=== PATIENT | male | born 1955 | race African-American/Black ===

== ENCOUNTER 2018-04-06 13:53 | Inpatient (IN) | payer OTHER ==
[~2018-04-06] VITALS: Ht 190.5 cm; Wt 106.1 kg
[~2018-04-06 13:53] MED LIST: ALBUTEROL2.5 MG/3 M INH; ARTIFICIAL TEA1 EAC2 OP; ATROVENT HFA12.9 GM IH; CATAPRES0.1 MG GT; COLACE100 MG GT; FENTANYL1 EAC1 TOPIC; HEPARIN2000 UNIT/ SUBQ; HIBICLENS118 ML TP; HYDRALAZINE HCL10 MG GT; LABETALOL H5 MG/1 M1 GT; LANSOPRAZOLE30 MG GT; METOPROLOL TART50 M1 GT; MINOXIDIL10 MG GT; MIRALAX17 G2 GT; MULTIVITAMINS GT; NIFEDIPINE10 MG GT; PANTOPRAZOLE SO40 MG GT; TYLENOL325 MG ORAL; ULTRAM50 MG GT; VITAMIN C500 M1 GT; ZINC SULFATE220 M1 GT; ZOCOR40 MG GT; [UNRECOGNIZED DRUG - OTHER]
--- NOTE | 2018-04-06 14:28 | Emergency Room Report ---
History of Present Illness General Chief Complaint: Malfunctioning Gastric Tube Source: EMS Present Illness HPI Patient is ventilator dependent and G-tube dependent. A baseline patient does not communicate. Patient has a history of chronic vegetative state. Patient also has history of compartment syndrome. At the senior living Dr. Kothari's listed primary care physician. Patient apparently had a dislodged G-tube discoverer early this morning brought here for further evaluation. Uncertain exactly when this G-tube was dislodged. History is not available and was only obtained through the paramedics. Patient isn't able to provide further history. No other modifying factors. No other associated signs and symptoms. No other complaints were noted. 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 Hx Weakness: Yes Review of Systems All Other Systems: limited - Poor mental status Physical Exam Vital Signs Date Time Temp Pulse Resp B/P (MAP) Pulse Ox O2 Delivery O2 Flow Rate FiO2 04/06/18 13:39 97.5 81 13 134/75 100 Mechanical Ventilator Sp02 EP Interpretation: reviewed, normal General Appearance: obese, other - Ventilator dependent, Chronically Ill Head: normocephalic Eyes: bilateral eye normal inspection ENT: moist mucus membranes, other - Tracheostomy tube Neck: other - Contractures, no masses Respiratory: lungs clear - With ventilator, no respiratory distress, no retraction, no accessory muscle use Cardiovascular #1: regular rate, rhythm, no edema Gastrointestinal: soft, other - G-tube stoma intact. Bleeding controlled, No cellulitis. Rectal: normal exam Genitourinary: normal inspection Musculoskeletal: other - contractures Neurologic: other - Unresponsive and unable to assess Psychiatric: other - Unable to assess Skin: no rash Medical Decision Making Diagnostic Impression: Primary Impression: Malfunction of gastrostomy tube Additional Impressions: Dislodged gastrostomy tube Hematuria UTI (urinary tract infection) ER Course Patient presents emergency department today with a dislodged gastrostomy tube. Differential diagnoses include dislodged gastrostomy tube, infectious process, close stoma just name a few. Patient's exam shows a gastrostomy site that appears to be closing. In attempt to place a G-tube was unsuccessful suggesting that the stoma unfortunately had closed. Because of this patient will require admission to the hospital. Case was discussed with Dr. Kothari for admission. Case was also discussed with Dr. Ananda Kaur. Patient will be admitted to Dr. Kaur service with Dr. Kothari consult per request. Patient also had evidence UTI on urine testing. Sauceda was placed. Patient was given one dose of Rocephin. Patient will be admitted to [facility] for further evaluation treatment of UTI as well as G-tube placement. Labs Test 04/06/18 14:33 White Blood Count 6.3 K/UL (4.8-10.8) Red Blood Count 4.65 M/UL (4.70-6.10) Hemoglobin 12.7 G/DL (14.2-18.0) Hematocrit 39.0 % (42.0-52.0) Mean Corpuscular Volume 84 FL (80-99) Mean Corpuscular Hemoglobin 27.4 PG (27.0-31.0) Mean Corpuscular Hemoglobin Concent 32.6 G/DL (32.0-36.0) Red Cell Distribution Width 12.7 % (11.6-14.8) Platelet Count 175 K/UL (150-450) Mean Platelet Volume 12.3 FL (6.5-10.1) Neutrophils (%) (Auto) 54.9 % (45.0-75.0) Lymphocytes (%) (Auto) 29.0 % (20.0-45.0) Monocytes (%) (Auto) 8.8 % (1.0-10.0) Eosinophils (%) (Auto) 6.4 % (0.0-3.0) Basophils (%) (Auto) 1.0 % (0.0-2.0) Urine Color Pale yellow Urine Appearance Slightly cloudy Urine pH 7 (4.5-8.0) Urine Specific [place] 1.010 (1.005-1.035) Urine Protein 2+ (NEGATIVE) Urine Glucose (UA) Negative (NEGATIVE) Urine Ketones Negative (NEGATIVE) Urine Blood 5+ (NEGATIVE) Urine Nitrite Negative (NEGATIVE) Urine Bilirubin Negative (NEGATIVE) Urine Urobilinogen Normal MG/DL (0.0-1.0) Urine Leukocyte Esterase 3+ (NEGATIVE) Urine RBC Tntc /HPF (0 - 0) Urine WBC 15-20 /HPF (0 - 0) Urine Squamous Epithelial Cells Occasional /LPF Urine Bacteria Many /HPF (NONE) Urine Yeast Moderate /HPF (NONE) Sodium Level 140 MMOL/L (136-145) Potassium Level 4.5 MMOL/L (3.5-5.1) Chloride Level 101 MMOL/L (98-107) Carbon Dioxide Level 32 MMOL/L (21-32) Anion Gap 7 mmol/L (5-15) Blood Urea Nitrogen 8 mg/dL (7-18) Creatinine 0.6 MG/DL (0.55-1.30) Estimat Glomerular Filtration Rate > 60 mL/min (>60) Glucose Level 104 MG/DL (74-106) Calcium Level 9.6 MG/DL (8.5-10.1) EKG Diagnostic Results Rate: normal Rhythm: NSR ST Segments: no acute changes Rhythm Strip Diag. Results EP Interpretation: yes Rate: 81 Rhythm: NSR, no PVC's, no ectopy Last Vital Signs Date Time Temp Pulse Resp B/P (MAP) Pulse Ox O2 Delivery O2 Flow Rate FiO2 04/06/18 13:39 97.5 81 13 134/75 100 Mechanical Ventilator Status: unchanged Disposition: ADMITTED INPATIENT Condition: Serious Shay Mitchell MD Apr 06, 2018 14:28
[2018-04-06] MEDS ORDERED: Albuterol/Ipratropium 3ml neb HHN PRN (14:45)
[2018-04-06] MEDS ORDERED: Morphine Sulfate 4mg/ml Inj (IV/IM USE ONLY) IVP PRN (14:45)
[2018-04-06] MEDS ORDERED: LORazepam Inj 2mg/ml 1ml IV PRN (14:45)
[2018-04-06] MEDS ORDERED: Miralax 17gm pkt ORAL PRN (14:45)
[2018-04-06] MEDS ORDERED: COUMADIN4 MG GT (15:06)
[2018-04-06] MEDS ORDERED: VITAMIN D400 INTLU GT (15:06)
[2018-04-06] MEDS ORDERED: ATORVASTATIN CA20 MG GT (15:06)
[2018-04-06] MEDS ORDERED: NITROSTAT0.4 M1 SL (15:06)
[2018-04-06] MEDS ORDERED: FERROUS SULFAT325 MG ORAL (15:06)
[2018-04-06] MEDS ORDERED: PRO-STAT LIQUID30 ML GT (15:06)
[2018-04-06 15:14] LABS: EOSINOPHILS % (AUTO) 6.4 % (0.0-3.0); HEMOGLOBIN 12.7 G/DL (14.2-18.0); MEAN CORPUSCULAR VOLUME 84 FL (80-99); MONOCYTES % (AUTO) 8.8 % (1.0-10.0); NEUTROPHILS % (AUTO) 54.9 % (45.0-75.0); PLATELET COUNT 175 K/UL (150-450); RED BLOOD COUNT 4.65 M/UL (4.70-6.10); RED CELL DISTRIBUTION WIDTH 12.7 % (11.6-14.8); WHITE BLOOD COUNT 6.3 K/UL (4.8-10.8)
[2018-04-06 15:16] LABS: APPEARANCE,URINE SLIGHTLY CLOUDY; BILIRUBIN, URINE NEGATIVE (NEGATIVE); COLOR,URINE PALE YELLOW; GLUCOSE, URINE (UA) NEGATIVE (NEGATIVE); KETONES,URINE NEGATIVE (NEGATIVE); LEUKOCYTE ESTERASE ,URINE 3+ (NEGATIVE); NITRITE,URINE NEGATIVE (NEGATIVE); PH,URINE 7 (4.5-8.0); PROTEIN,URINE 2+ (NEGATIVE); UROBILINOGEN,URINE NORMAL MG/DL (0.0-1.0)
[2018-04-06 15:21] VITALS: BP 134/75
[2018-04-06 15:31] LABS: ANION GAP 7 mmol/L (5-15); BLOOD UREA NITROGEN 8 mg/dL (7-18); CALCIUM 9.6 MG/DL (8.5-10.1); CARBON DIOXIDE 32 MMOL/L (21-32); CHLORIDE 101 MMOL/L (98-107); CREATININE 0.6 MG/DL (0.55-1.30); POTASSIUM 4.5 MMOL/L (3.5-5.1); SODIUM 140 MMOL/L (136-145)
[2018-04-06 15:35] LABS: ALANINE AMINOTRANSFERASE 27 U/L (12-78); ALBUMIN 3.1 G/DL (3.4-5.0); ALBUMIN/GLOBULIN RATIO 0.5 (1.0-2.7); ALKALINE PHOSPHATASE 135 U/L (46-116); ASPARTATE AMINO TRANSFERASE 24 U/L (15-37); BILIRUBIN,TOTAL 0.3 MG/DL (0.2-1.0)
[2018-04-06] MEDS ORDERED: cefTRIAXone 1 GM in NS 55 ML IVPB ONE (15:45)
[2018-04-06 16:46] VITALS: BP 151/89
--- NOTE | 2018-04-06 16:58 | History & Physical ---
History and Physical History & Physicial Dictated for Int Med-Dr Kaur no. [id number]. Ritesh Chavis MD Apr 06, 2018 16:58
[2018-04-06] MEDS ORDERED: Vancomycin 1750mg/D5W 300ml IVPB SCH ×2 (17:00)
[2018-04-06 20:00] VITALS: BP 145/84
--- NOTE | 2018-04-06 20:31 | History and Physical Report ---
DATE OF ADMISSION: 04/06/2018 CHIEF COMPLAINT: The patient is an unfortunate 63-year-old male, who presents with a chief complaint of malfunctioning gastrostomy tube. HISTORY OF PRESENT ILLNESS: The patient is a resident of [facility]. The patient has a history of chronic organic brain syndrome. The patient is chronic vent dependent. The patient has a gastrostomy tube for dysphagia. According to staff at [facility], the patient himself pulled out the gastrostomy tube today, 04/06/2018. The patient was transferred to [facility]. The gastrostomy tube was attempted to be replaced in the emergency room. This was unable to be accomplished. The patient is admitted with malfunctioning of gastrostomy tube (dislocation). PAST MEDICAL HISTORY: Significant for: 1. Chronic obstructive pulmonary disease. 2. Chronic vent dependence. 3. Hypertension. 4. Chronic renal failure. 5. Alzheimer's dementia. 6. Dysphagia. 7. Hypercholesterolemia. PAST SURGICAL HISTORY: Significant for: 1. Tracheostomy. 2. Gastrostomy tube placement. CURRENT MEDICATIONS: 1. Albuterol nebulized q.4 h. p.r.n. 2. Atorvastatin 10 mg per G-tube daily. 3. Clonidine 0.1 mg per G-tube q.4 h. p.r.n. 4. Coumadin 4 mg per G-tube nightly. 5. Iron sulfate 330 mg per G-tube daily. 6. Hydralazine 20 mg per G-tube q.6 h. 7. Prevacid 30 mg per G-tube daily. 8. Metoprolol 50 mg per G-tube twice daily. 9. Multivitamin per G-tube daily. 10. Tylenol 650 mg per G-tube q.4 h. p.r.n. 11. Ultram 25 mg per G-tube q.6 h. p.r.n. 12. Vitamin D3 5000 units per G-tube daily. ALLERGIES: To benazepril. SOCIAL HISTORY: The patient is single. The patient denies tobacco or alcohol use. PHYSICAL EXAMINATION: VITAL SIGNS: Temperature 97.5, respirations 17, pulse 77, and blood pressure 134/75. GENERAL: The patient is a well-developed and well-nourished male, who is nonverbal. HEENT: Eyes, pupils are equal and responsive to light and accommodation. Extraocular movements are intact. CHEST: Diffuse wheezes bilaterally, otherwise without crackles. CARDIOVASCULAR: Regular rate. S1, S2 normal without murmurs, rubs, or gallops. ABDOMEN: Soft, nontender, and nondistended. Positive bowel sounds. No evidence of hepatosplenomegaly. Currently, no rebound or guarding noted. EXTREMITIES: Negative for clubbing, cyanosis, or edema. RECTAL/GENITAL: Not performed. NEUROLOGICAL: Unable to assess secondary to the patient's mental status. LABORATORY STUDIES: WBC is 6.2, hemoglobin 12.7, hematocrit 39.0, and platelets 175,000. Sodium 140, potassium 4.5, chloride 101, CO2 32, BUN 8, and creatinine 0.6. Glucose 104. ASSESSMENT: This is a 63-year-old male with: 1. Dislodged malfunction of the gastrostomy tube. 2. Chronic obstructive pulmonary disease. 3. Hypertension. 4. Chronic renal failure. 5. Hypercholesterolemia. 6. Dysphagia. 7. Tracheostomy care. 8. Alzheimer's dementia. 9. Chronic organic brain syndrome. TREATMENT: 1. Malfunctioning G-tube. A Gastroenterology consultation has been obtained with Dr. Dillon Brantley. The patient will require reinsertion of gastrostomy tube. We will follow recommendations of Gastroenterology. 2. Chronic obstructive pulmonary disease. The patient is ventilator dependent. A Pulmonary consultation has been obtained with Dr. Steve Kothari. 3. Hypertension. Continue hydralazine as above. 4. Chronic renal failure. 5. Hypercholesterolemia. Continue Lipitor as above. 6. Dysphagia. The patient is scheduled for reinsertion of gastrostomy tube. 7. Tracheostomy care. 8. Alzheimer's dementia. 9. Chronic organic brain syndrome. Ritesh Chavis M.D. DR: ALYCE JOB#: [id number] CC:
[2018-04-06] MEDS: Heparin 5000 units/ml inj SUBQ SCH (21:06)
[2018-04-07] VITALS: BP 138/80
[2018-04-07] MEDS: Vancomycin 1gm in Dextrose 275ml IVPB SCH ×2 (01:05→08:05)
[2018-04-07 04:00] VITALS: BP 127/55
[2018-04-07 08:00] VITALS: BP 149/82
[2018-04-07] MEDS: Heparin 5000 units/ml inj SUBQ SCH ×2 (08:09→20:40)
[2018-04-07 08:30] LABS: EOSINOPHILS % (AUTO) 5.9 % (0.0-3.0); HEMATOCRIT 35.3 % (42.0-52.0); HEMOGLOBIN 11.2 G/DL (14.2-18.0); LYMPHOCYTES % (AUTO) 29.6 % (20.0-45.0); MEAN CORPUSCULAR VOLUME 84 FL (80-99); NEUTROPHILS % (AUTO) 52.5 % (45.0-75.0); PLATELET COUNT 162 K/UL (150-450); RED BLOOD COUNT 4.23 M/UL (4.70-6.10); RED CELL DISTRIBUTION WIDTH 12.9 % (11.6-14.8); WHITE BLOOD COUNT 7.3 K/UL (4.8-10.8)
[2018-04-07 09:00] LABS: ALBUMIN 2.7 G/DL (3.4-5.0); ANION GAP 3 mmol/L (5-15); BLOOD UREA NITROGEN 8 mg/dL (7-18); CALCIUM 9.5 MG/DL (8.5-10.1); CARBON DIOXIDE 31 MMOL/L (21-32); CHLORIDE 104 MMOL/L (98-107); CREATININE 0.7 MG/DL (0.55-1.30); POTASSIUM 3.8 MMOL/L (3.5-5.1); SODIUM 138 MMOL/L (136-145)
--- NOTE | 2018-04-07 09:22 | Diagnostic Imaging Report ---
Indication: Abdominal pain Technique: Supine view of the abdomen Comparison: none Findings: Bowel gas pattern is unremarkable. No unusual masses or calcifications. There is considerable stool in the rectum which is slightly distended. Impression: Evidence of possible mild rectal fecal impaction No acute process otherwise Sauceda catheter
--- NOTE | 2018-04-07 09:23 | Diagnostic Imaging Report ---
Indication: Cough Technique: One view of the chest Comparison: 07/28/2015 Findings: Patient's hand obscures the left lung base, pathology cannot be excluded. There is a tracheostomy. The remainder the lungs and pleural spaces are clear. The heart is upper limits normal in size. Impression: Cannot rule out left basilar pleural and/or parenchymal disease due to patient's hand obscuring the left lung base. No acute process otherwise
--- NOTE | 2018-04-07 11:35 | Consultation ---
History of Present Illness General Date patient seen: Apr 07, 2018 Chief Complaint: Malfunctioning Gastric Tube Present Illness HPI 63 year old male with ventilator dependent and G-tube dependent, chronic vegetative state brought to [facility] because of dislodged G-tube. History is not available and was only obtained through the paramedics. No other modifying factors. No other associated signs and symptoms. Pt is admitted to [facility] for further work up. Allergies: Coded Allergies: BENAZEPRIL (Verified Allergy, Unknown, 03/22/15) Medication History Scheduled Albuterol Sulfate* (Albuterol Sulfate Hhn*), 3 ML INH Q6H, (Reported) Amino Acids/Protein Hydrolys (Pro-Stat Liquid), 30 ML GT TWICE A DAY, (Reported) Atorvastatin Calcium* (Atorvastatin Calcium*), 10 MG GT BEDTIME, (Reported) Docusate Sodium* (Colace*), 100 MG GT BID, (Reported) Ferrous Sulfate* (Ferrous Sulfate*), 325 MG ORAL DAILY, (Reported) Hydralazine Hcl* (Hydralazine Hcl*), 20 MG GT EVERY 6 HOURS, (Reported) Lansoprazole* (Lansoprazole*), 30 MG GT DAILY, (Reported) Metoprolol Tartrate* (Metoprolol Tartrate*), 50 MG GT EVERY 12 HOURS, (Reported) Tramadol Hcl (Ultram*), 50 MG GT DAILY, (Reported) Vitamin D (Vitamin D3), 5,000 UNITS GT DAILY, (Reported) Warfarin Sod* (Coumadin*), 4 MG GT DAILY, (Reported) [multivitamins liquid], 5 ML GT DAILY, (Reported) Scheduled PRN Acetaminophen (Tylenol), 650 MG ORAL Q4HR PRN for fever/mild-mod pain, (Reported ) Clonidine Hcl* (Catapres*), 0.1 MG GT Q4HR PRN for BP >175, (Reported) Nitroglycerin (Nitrostat), 0.4 MG SL Q5M X3 DOSES PRN for CHEST PAIN, (Reported) Miscellaneous Medications [uit-stat], (Reported) Discontinued Medications Pantoprazole* (Pantoprazole*), 40 MG GT DAILY, (Reported) Discontinued Reason: Therapy completed Polyethylene Glycol 3350* (Miralax*), 17 GM GT DAILY PRN for Constipation, ( Reported) Discontinued Reason: Therapy completed Simvastatin (Zocor), 40 MG GT BEDTIME, (Reported) Discontinued Reason: Therapy completed Zinc Sulfate (Zinc Sulfate*), 220 MG GT DAILY, (Reported) Discontinued Reason: Therapy completed Patient History Healthcare decision maker Resuscitation status Full Code Advanced Directive on File No Past Medical/Surgical History Past Medical/Surgical History: (1) Chronic vegetative state (2) Chronic respiratory failure Review of Systems All Other Systems: negative except mentioned in HPI Physical Exam General Appearance: cachetic Lines, tubes and drains: peripheral HEENT: normocephalic, atraumatic Neck: non-tender, normal alignment Respiratory/Chest: chest wall non-tender, lungs clear Breasts: no masses Cardiovascular/Chest: normal peripheral pulses Abdomen: normal bowel sounds, non tender Genitourinary/Rectal: normal genital exam Extremities: normal range of motion Skin Exam: normal pigmentation, cyanotic Last 24 Hour Vital Signs Date Time Temp Pulse Resp B/P (MAP) Pulse Ox O2 Delivery O2 Flow Rate FiO2 04/07/18 08:00 Endotracheal Tube 04/07/18 08:00 65 04/07/18 08:00 98.2 77 14 149/82 (104) 100 04/07/18 08:00 35 04/07/18 07:20 71 13 35 04/07/18 05:32 68 18 35 04/07/18 04:00 97.8 81 15 127/55 (79) 100 04/07/18 04:00 Endotracheal Tube 04/07/18 04:00 35 04/07/18 03:49 83 04/07/18 03:22 86 18 35 04/07/18 01:22 96 18 35 04/07/18 00:00 97.7 100 20 138/80 (99) 99 04/07/18 00:00 Mechanical Ventilator 04/06/18 23:20 81 04/06/18 22:40 93 17 35 04/06/18 20:54 95 17 35 04/06/18 20:00 35 04/06/18 20:00 98.2 89 15 145/84 (104) 99 04/06/18 20:00 Mechanical Ventilator 04/06/18 19:30 89 04/06/18 19:10 96 18 35 04/06/18 16:58 Mechanical Ventilator 04/06/18 16:49 73 13 40 04/06/18 16:46 98.0 89 14 151/89 (109) 98 04/06/18 16:30 97.3 77 20 170/94 100 Nasal Cannula 4.0 04/06/18 15:24 75 14 40 04/06/18 15:21 97.5 77 17 134/75 100 Mechanical Ventilator 60.0 40 04/06/18 14:54 81 17 Mechanical Ventilator 60.0 40 04/06/18 14:00 81 17 40 04/06/18 13:39 97.5 81 13 134/75 100 Mechanical Ventilator Intake and Output 04/06/18 04/07/18 18:59 06:59 Intake Total 1000 ml 275.000 ml Output Total 400 ml Balance 600 ml 275.000 ml Intake Oral 0 ml IV Total 1000 ml 275.000 ml Output Urine Total 400 ml # Bowel Movements 1 Laboratory Tests Test 04/06/18 14:30 04/06/18 14:33 04/07/18 07:30 Prothrombin Time 19.9 SEC (9.30-11.50) H Prothromb Time International Ratio 2.0 (0.9-1.1) H Activated Partial Thromboplast Time 42 SEC (23-33) H White Blood Count 6.3 K/UL (4.8-10.8) 7.3 K/UL (4.8-10.8) Red Blood Count 4.65 M/UL (4.70-6.10) L 4.23 M/UL (4.70-6.10) L Hemoglobin 12.7 G/DL (14.2-18.0) L 11.2 G/DL (14.2-18.0) L Hematocrit 39.0 % (42.0-52.0) L 35.3 % (42.0-52.0) L Mean Corpuscular Volume 84 FL (80-99) 84 FL (80-99) Mean Corpuscular Hemoglobin 27.4 PG (27.0-31.0) 26.4 PG (27.0-31.0) L Mean Corpuscular Hemoglobin Concent 32.6 G/DL (32.0-36.0) 31.6 G/DL (32.0-36.0) L Red Cell Distribution Width 12.7 % (11.6-14.8) 12.9 % (11.6-14.8) Platelet Count 175 K/UL (150-450) 162 K/UL (150-450) Mean Platelet Volume 12.3 FL (6.5-10.1) H 12.0 FL (6.5-10.1) H Neutrophils (%) (Auto) 54.9 % (45.0-75.0) 52.5 % (45.0-75.0) Lymphocytes (%) (Auto) 29.0 % (20.0-45.0) 29.6 % (20.0-45.0) Monocytes (%) (Auto) 8.8 % (1.0-10.0) 11.0 % (1.0-10.0) H Eosinophils (%) (Auto) 6.4 % (0.0-3.0) H 5.9 % (0.0-3.0) H Basophils (%) (Auto) 1.0 % (0.0-2.0) 1.0 % (0.0-2.0) Urine Color Pale yellow Urine Appearance Slightly cloudy Urine pH 7 (4.5-8.0) Urine Specific [place] 1.010 (1.005-1.035) Urine Protein 2+ (NEGATIVE) H Urine Glucose (UA) Negative (NEGATIVE) Urine Ketones Negative (NEGATIVE) Urine Blood 5+ (NEGATIVE) H Urine Nitrite Negative (NEGATIVE) Urine Bilirubin Negative (NEGATIVE) Urine Urobilinogen Normal MG/DL (0.0-1.0) Urine Leukocyte Esterase 3+ (NEGATIVE) H Urine RBC Tntc /HPF (0 - 0) H Urine WBC 15-20 /HPF (0 - 0) H Urine Squamous Epithelial Cells Occasional /LPF Urine Bacteria Many /HPF (NONE) H Urine Yeast Moderate /HPF (NONE) H Sodium Level 140 MMOL/L (136-145) 138 MMOL/L (136-145) Potassium Level 4.5 MMOL/L (3.5-5.1) 3.8 MMOL/L (3.5-5.1) Chloride Level 101 MMOL/L (98-107) 104 MMOL/L (98-107) Carbon Dioxide Level 32 MMOL/L (21-32) 31 MMOL/L (21-32) Anion Gap 7 mmol/L (5-15) 3 mmol/L (5-15) L Blood Urea Nitrogen 8 mg/dL (7-18) 8 mg/dL (7-18) Creatinine 0.6 MG/DL (0.55-1.30) 0.7 MG/DL (0.55-1.30) Estimat Glomerular Filtration Rate > 60 mL/min (>60) > 60 mL/min (>60) Glucose Level 104 MG/DL (74-106) 88 MG/DL (74-106) Calcium Level 9.6 MG/DL (8.5-10.1) 9.5 MG/DL (8.5-10.1) Total Bilirubin 0.3 MG/DL (0.2-1.0) Aspartate Amino Transf (AST/SGOT) 24 U/L (15-37) Alanine Aminotransferase (ALT/SGPT) 27 U/L (12-78) Alkaline Phosphatase 135 U/L (46-116) H Total Protein 9.9 G/DL (6.4-8.2) H Albumin 3.1 G/DL (3.4-5.0) L 2.7 G/DL (3.4-5.0) L Globulin 6.8 g/dL Albumin/Globulin Ratio 0.5 (1.0-2.7) L Phosphorus Level 3.0 MG/DL (2.5-4.9) Microbiology Date/Time Source Procedure Growth Status 04/06/18 14:33 Urine,Clean Catch Urine Culture - Preliminary NO GROWTH Resulted Height (Feet): 6 Height (Inches): 3.00 Weight (Pounds): 234 Medications Current Medications Medications (Trade) Dose Ordered Sig/Fernanda Route PRN Reason Start Time Stop Time Status Last Admin Dose Admin Acetaminophen (Tylenol) 650 mg Q4H PRN ORAL FEVER 04/06/18 14:45 05/06/18 14:44 Albuterol/ Ipratropium (Albuterol/ Ipratropium) 3 ml Q4H PRN HHN Shortness of Breath 04/06/18 14:45 04/11/18 14:44 Dextrose (Dextrose 50%) 25 ml Q30M PRN IV Hypoglycemia 04/06/18 14:45 05/06/18 14:44 Dextrose (Dextrose 50%) 50 ml Q30M PRN IV Hypoglycemia 04/06/18 16:00 05/06/18 15:59 Heparin Sodium (Porcine) (Heparin 5000 units/ml) 5,000 units EVERY 12 HOURS SUBQ 11/11/18 21:00 05/06/18 20:59 04/07/18 08:09 Lorazepam (Ativan 2mg/ml 1ml) 2 mg Q2H PRN IV For Anxiety 04/06/18 14:45 04/13/18 14:44 Morphine Sulfate (Morphine Sulfate) 4 mg Q4H PRN IVP Severe Pain (Pain Scale 7-10) 04/06/18 14:45 04/13/18 14:44 Ondansetron HCl (Zofran) 4 mg Q6H PRN IVP Nausea & Vomiting 04/06/18 14:45 05/06/18 14:44 Polyethylene Glycol (Miralax) 17 gm DAILYPRN PRN ORAL Constipation 04/06/18 14:45 05/06/18 14:44 Vancomycin HCl (Vanco rx to dose) 1 ea DAILY PRN MISC per rx protocol 04/06/18 16:15 05/06/18 16:14 Vancomycin HCl 1 gm/Dextrose 275 ml @ 183.708 mls/hr Q8H IVPB 04/07/18 01:00 04/12/18 00:59 04/07/18 08:05 Assessment/Plan Problem List: (1) Chronic vegetative state ICD Codes: R40.3 - Persistent vegetative state SNOMED: 70308488, 498081215 (2) Chronic respiratory failure ICD Codes: J96.10 - Chronic respiratory failure, unspecified whether with hypoxia or hypercapnia SNOMED: 72405527 (3) Dislodged gastrostomy tube ICD Codes: Z43.1 - Encounter for attention to gastrostomy SNOMED: 703776585 Assessment/Plan npo iv fluids check electrolytes dvt prophylaxis GI evaluation Steve Kothari MD Apr 07, 2018 11:35
[2018-04-07 12:00] VITALS: BP 149/79
--- NOTE | 2018-04-07 12:29 | GI Initial Consult Note ---
History of Present Illness General Date patient seen: Apr 07, 2018 Time patient seen: 12:17 Reason for Hospitalization: Malfunctioning Gastric Tube Referring physician: RAUL ELIZABETH Reason for Consultation: GT DISLODGEMENT Present Illness HPI Patient is ventilator dependent and G-tube dependent. A baseline patient does not communicate. Patient has a history of chronic vegetative state. Patient also has history of compartment syndrome. At the custodial Dr. Kothari's listed primary care physician. Patient apparently had a dislodged G-tube discoverer early this morning brought here for further evaluation. Uncertain exactly when this G-tube was dislodged. History is not available and was only obtained through the paramedics. Patient isn't able to provide further history. No other modifying factors. No other associated signs and symptoms. No other complaints were noted. GI consulted for GT dislodgement. ROS limited, pt seen trach to vent. NAD. GT site assess, site mostly closed with minimal amounts of drainage. Unclear how long the GT was dislodged for. Presents today with mild anemia and hypercoagulation. KUB shows fecal impaction in the rectum. Home Meds Reported Medications Vitamin D (Vitamin D3) 400 Unit Tablet, 5000 UNITS GT DAILY, TAB 04/06/18 Amino Acids/Protein Hydrolys (PRO-STAT LIQUID) 30 Ml Liquid.pkt, 30 ML GT TWICE A DAY, ML 04/06/18 Nitroglycerin (NITROSTAT) 0.4 Mg Tab.subl, 0.4 MG SL Q5M X3 DOSES PRN for CHEST PAIN, #25 TAB 0 Refills 04/06/18 Ferrous Sulfate* (FERROUS SULFATE*) 325 Mg Tablet, 325 MG ORAL DAILY, #30 TAB 0 Refills 04/06/18 Warfarin Sod* (COUMADIN*) 4 Mg Tablet, 4 MG GT DAILY, TAB 04/06/18 Atorvastatin Calcium* (ATORVASTATIN CALCIUM*) 20 Mg Tablet, 10 MG GT BEDTIME, TAB 04/06/18 [uit-stat] No Conflict Check 04/25/15 Tramadol Hcl (ULTRAM*) 50 Mg Tablet, 50 MG GT DAILY, #30 TAB 0 Refills 04/25/15 Acetaminophen (Tylenol) 325 Mg Tab, 650 MG ORAL Q4HR PRN for fever/mild-mod pain , #30 TAB 0 Refills 04/25/15 [multivitamins liquid] No Conflict Check, 5 ML GT DAILY 04/25/15 Metoprolol Tartrate* (METOPROLOL TARTRATE*) 50 Mg Tablet, 50 MG GT EVERY 12 HOURS, TAB 04/25/15 Lansoprazole* (LANSOPRAZOLE*) 30 Mg Capsule.dr, 30 MG GT DAILY, CAP 04/25/15 Albuterol Sulfate* (ALBUTEROL SULFATE HHN*) 2.5 Mg/3 Ml Vial.neb, 3 ML INH Q6H, #30 EA 0 Refills 04/25/15 Docusate Sodium* (COLACE*) 100 Mg Capsule, 100 MG GT BID, CAP 03/22/15 Clonidine Hcl* (CATAPRES*) 0.1 Mg Tablet, 0.1 MG GT Q4HR PRN for BP >175, TAB 03/22/15 Hydralazine Hcl* (HYDRALAZINE HCL*) 10 Mg Tablet, 20 MG GT EVERY 6 HOURS, TAB 03/22/15 Discontinued Reported Medications Zinc Sulfate (ZINC SULFATE*) 220 Mg Capsule, 220 MG GT DAILY, CAP 0 Refills 04/25/15 Polyethylene Glycol 3350* (MIRALAX*) 17 Gm Powd.pack, 17 GM GT DAILY PRN for Constipation, PACKET 03/22/15 Simvastatin (ZOCOR) 40 Mg Tablet, 40 MG GT BEDTIME, TAB 03/22/15 Pantoprazole* (PANTOPRAZOLE*) 40 Mg Tablet.dr, 40 MG GT DAILY, TAB 03/22/15 Med list reviewed/reconciled: Yes Allergies: Coded Allergies: BENAZEPRIL (Verified Allergy, Unknown, 03/22/15) Patient History Limited by: medical condition History Provided By: Medical Record PMH Narrative Past Medical History: see triage record, other - Vegetative state, G-tube, ventilator dependent Past Surgical History: other - Tracheostomy, G-tube Social History Narrative stays at custodial Reviewed Nursing Documentation: PMH: Agreed; PSxH: Agreed Nursing Documentation-PMH Hx Cardiac Problems: Yes Hx Hypertension: Yes 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, VRE Hx COPD: Yes Hx Cancer: No Hx Gastrointestinal Problems: Yes 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 Hx Weakness: Yes Review of Systems All Other Systems: negative except mentioned in HPI Physical Exam Vital Signs Date Time Temp Pulse Resp B/P (MAP) Pulse Ox O2 Delivery O2 Flow Rate FiO2 04/06/18 13:39 97.5 81 13 134/75 100 Mechanical Ventilator 04/06/18 14:00 40 04/06/18 14:54 60.0 Sp02 EP Interpretation: reviewed, normal Labs Laboratory Tests Test 04/06/18 14:30 04/06/18 14:33 04/07/18 07:30 Prothrombin Time 19.9 SEC (9.30-11.50) H Prothromb Time International Ratio 2.0 (0.9-1.1) H Activated Partial Thromboplast Time 42 SEC (23-33) H White Blood Count 6.3 K/UL (4.8-10.8) 7.3 K/UL (4.8-10.8) Red Blood Count 4.65 M/UL (4.70-6.10) L 4.23 M/UL (4.70-6.10) L Hemoglobin 12.7 G/DL (14.2-18.0) L 11.2 G/DL (14.2-18.0) L Hematocrit 39.0 % (42.0-52.0) L 35.3 % (42.0-52.0) L Mean Corpuscular Volume 84 FL (80-99) 84 FL (80-99) Mean Corpuscular Hemoglobin 27.4 PG (27.0-31.0) 26.4 PG (27.0-31.0) L Mean Corpuscular Hemoglobin Concent 32.6 G/DL (32.0-36.0) 31.6 G/DL (32.0-36.0) L Red Cell Distribution Width 12.7 % (11.6-14.8) 12.9 % (11.6-14.8) Platelet Count 175 K/UL (150-450) 162 K/UL (150-450) Mean Platelet Volume 12.3 FL (6.5-10.1) H 12.0 FL (6.5-10.1) H Neutrophils (%) (Auto) 54.9 % (45.0-75.0) 52.5 % (45.0-75.0) Lymphocytes (%) (Auto) 29.0 % (20.0-45.0) 29.6 % (20.0-45.0) Monocytes (%) (Auto) 8.8 % (1.0-10.0) 11.0 % (1.0-10.0) H Eosinophils (%) (Auto) 6.4 % (0.0-3.0) H 5.9 % (0.0-3.0) H Basophils (%) (Auto) 1.0 % (0.0-2.0) 1.0 % (0.0-2.0) Urine Color Pale yellow Urine Appearance Slightly cloudy Urine pH 7 (4.5-8.0) Urine Specific [place] 1.010 (1.005-1.035) Urine Protein 2+ (NEGATIVE) H Urine Glucose (UA) Negative (NEGATIVE) Urine Ketones Negative (NEGATIVE) Urine Blood 5+ (NEGATIVE) H Urine Nitrite Negative (NEGATIVE) Urine Bilirubin Negative (NEGATIVE) Urine Urobilinogen Normal MG/DL (0.0-1.0) Urine Leukocyte Esterase 3+ (NEGATIVE) H Urine RBC Tntc /HPF (0 - 0) H Urine WBC 15-20 /HPF (0 - 0) H Urine Squamous Epithelial Cells Occasional /LPF Urine Bacteria Many /HPF (NONE) H Urine Yeast Moderate /HPF (NONE) H Sodium Level 140 MMOL/L (136-145) 138 MMOL/L (136-145) Potassium Level 4.5 MMOL/L (3.5-5.1) 3.8 MMOL/L (3.5-5.1) Chloride Level 101 MMOL/L (98-107) 104 MMOL/L (98-107) Carbon Dioxide Level 32 MMOL/L (21-32) 31 MMOL/L (21-32) Anion Gap 7 mmol/L (5-15) 3 mmol/L (5-15) L Blood Urea Nitrogen 8 mg/dL (7-18) 8 mg/dL (7-18) Creatinine 0.6 MG/DL (0.55-1.30) 0.7 MG/DL (0.55-1.30) Estimat Glomerular Filtration Rate > 60 mL/min (>60) > 60 mL/min (>60) Glucose Level 104 MG/DL (74-106) 88 MG/DL (74-106) Calcium Level 9.6 MG/DL (8.5-10.1) 9.5 MG/DL (8.5-10.1) Total Bilirubin 0.3 MG/DL (0.2-1.0) Aspartate Amino Transf (AST/SGOT) 24 U/L (15-37) Alanine Aminotransferase (ALT/SGPT) 27 U/L (12-78) Alkaline Phosphatase 135 U/L (46-116) H Total Protein 9.9 G/DL (6.4-8.2) H Albumin 3.1 G/DL (3.4-5.0) L 2.7 G/DL (3.4-5.0) L Globulin 6.8 g/dL Albumin/Globulin Ratio 0.5 (1.0-2.7) L Phosphorus Level 3.0 MG/DL (2.5-4.9) General Appearance: well appearing, no apparent distress, alert Head: normocephalic EENT: PERRL/EOMI, normal ENT inspection Neck: supple Respiratory: normal breath sounds, no respiratory distress Cardiovascular: normal rate Gastrointestinal: normal inspection, non tender, soft, normal bowel sounds, non -distended Rectal: deferred Genitourinary: deferred Musculoskeletal: normal inspection, back normal Neurologic: normal inspection, alert, oriented x3, responsive Psychiatric: normal inspection, judgement/insight normal, memory normal Skin: normal inspection, normal color, no rash, warm/dry, palpation normal, well hydrated Lymphatic: normal inspection, no adenopathy Current Medications Current Medications Medications (Trade) Dose Ordered Sig/Fernanda Route PRN Reason Start Time Stop Time Status Last Admin Dose Admin Acetaminophen (Tylenol) 650 mg Q4H PRN ORAL FEVER 04/06/18 14:45 05/06/18 14:44 Albuterol/ Ipratropium (Albuterol/ Ipratropium) 3 ml Q4H PRN HHN Shortness of Breath 04/06/18 14:45 04/11/18 14:44 Dextrose (Dextrose 50%) 25 ml Q30M PRN IV Hypoglycemia 04/06/18 14:45 05/06/18 14:44 Dextrose (Dextrose 50%) 50 ml Q30M PRN IV Hypoglycemia 04/06/18 16:00 05/06/18 15:59 Heparin Sodium (Porcine) (Heparin 5000 units/ml) 5,000 units EVERY 12 HOURS SUBQ 04/06/18 21:00 05/06/18 20:59 04/07/18 08:09 Lorazepam (Ativan 2mg/ml 1ml) 2 mg Q2H PRN IV For Anxiety 04/06/18 14:45 04/13/18 14:44 Morphine Sulfate (Morphine Sulfate) 4 mg Q4H PRN IVP Severe Pain (Pain Scale 7-10) 04/06/18 14:45 04/13/18 14:44 Ondansetron HCl (Zofran) 4 mg Q6H PRN IVP Nausea & Vomiting 04/06/18 14:45 05/06/18 14:44 Polyethylene Glycol (Miralax) 17 gm DAILYPRN PRN ORAL Constipation 04/06/18 14:45 05/06/18 14:44 Vancomycin HCl (Vanco rx to dose) 1 ea DAILY PRN MISC per rx protocol 04/06/18 16:15 05/06/18 16:14 Vancomycin HCl 1 gm/Dextrose 275 ml @ 183.708 mls/hr Q8H IVPB 04/07/18 01:00 04/12/18 00:59 04/07/18 08:05 GI: Plan Problems: (1) Dislodged gastrostomy tube (2) Feeding by G-tube (3) Anemia (4) Chronic vegetative state (5) Fecal impaction Plan GT replacement scheduled for tomorrow. - NPO @ MN. - hold all blood thinners. correct coag mineral oil x1 MN, give through GT when placed will follow with additional recs post procedure fu labs Discussed with Dr. Brantley. Thank you for this patient referral, we will follow. The patient was seen and examined at bedside and all new and available data was reviewed in the patients chart. I agree with the above findings, impression and plan. (Patient seen earlier today. Signature stamp does not reflect patient encounter time.). - MD Jaclyn Rodriguez,[facility] SCHEDULER Apr 07, 2018 12:29
[2018-04-07] MEDS ORDERED: Fleet's Mineral Oil Enema RECTAL SCH (12:30)
--- NOTE | 2018-04-07 13:15 | Consultation ---
Consult Note Consult Note ID # [id number] Kvng Cotter MD Apr 07, 2018 13:15
[2018-04-07] MEDS ORDERED: Phytonadione 1 MG in D5W 55 ML IVPB SCH (15:00)
[2018-04-07 16:00] VITALS: BP 139/81
[2018-04-07] MEDS: cefTRIAXone 2 GM in D5W 55 ML IVPB SCH (16:01)
--- NOTE | 2018-04-07 18:25 | Cardiology Report ---
APPROVED REPORT EKG Measurement Heart [id number] OR 152P5 [id number] Sinus rhythm with premature atrial complexes Left axis deviation Voltage criteria for left ventricular hypertrophy Abnormal ECG
--- NOTE | 2018-04-07 19:46 | Consultation ---
DATE OF CONSULTATION: 04/07/2018 NOTE: INCOMPLETE DICTATION INFECTIOUS DISEASE CONSULTATION CONSULTING PHYSICIAN: Kvng Cotter M.D. REQUESTING PHYSICIANS: 1. Ananda Kaur M.D. 2. Steve Kothari M.D. REASON FOR CONSULTATION: Evaluation of the patient for G-tube cellulitis. HISTORY OF PRESENT ILLNESS: The patient is a 63-year-old unfortunate male with multiple medical problems, well known to our service, who was admitted to this medical center due to G-tube malfunction. The patient has some drainage from the area and an Infectious Disease consultation has been requested for further evaluation of the patient and need for antibiotics. The patient was transferred and G-tube was found to be dislodged. The patient is not able to provide information. Much of the information is gathered through the chart and speaking to staff. PAST MEDICAL HISTORY: 1. History of methicillin-resistant Staphylococcus aureus bacteremia. 2. History of left arm surgery. 3. History of percutaneous endoscopic gastrostomy tube placement. 4. History of ventilator-dependent respiratory failure/trach. MEDICATION: Vancomycin. ALLERGIES: No allergies to antibiotics. FAMILY HISTORY: Unavailable. REVIEW OF SYSTEMS: Unobtainable. Kvng Cotter M.D. DR: POOJA JOB#: [id number] CC:
--- NOTE | 2018-04-07 19:56 | Internal Med Progress Note ---
Subjective Date of Service: Apr 07, 2018 Physician Name Ritesh Chavis Attending Physician Ananda Kaur MD Current Medications Medications (Trade) Dose Ordered Sig/Fernanda Route PRN Reason Start Time Stop Time Status Last Admin Dose Admin Acetaminophen (Tylenol) 650 mg Q4H PRN ORAL FEVER 04/06/18 14:45 05/06/18 14:44 Albuterol/ Ipratropium (Albuterol/ Ipratropium) 3 ml Q4H PRN HHN Shortness of Breath 04/06/18 14:45 04/11/18 14:44 Ceftriaxone Sodium 2 gm/ Dextrose 55 ml @ 110 mls/hr DAILY IVPB 04/07/18 15:00 04/14/18 14:59 04/07/18 16:01 Dextrose (Dextrose 50%) 25 ml Q30M PRN IV Hypoglycemia 04/06/18 14:45 05/06/18 14:44 Dextrose (Dextrose 50%) 50 ml Q30M PRN IV Hypoglycemia 04/06/18 16:00 05/06/18 15:59 Heparin Sodium (Porcine) (Heparin 5000 units/ml) 5,000 units EVERY 12 HOURS SUBQ 04/06/18 21:00 05/06/18 20:59 04/07/18 08:09 Lorazepam (Ativan 2mg/ml 1ml) 2 mg Q2H PRN IV For Anxiety 04/06/18 14:45 04/13/18 14:44 Morphine Sulfate (Morphine Sulfate) 4 mg Q4H PRN IVP Severe Pain (Pain Scale 7-10) 04/06/18 14:45 04/13/18 14:44 Ondansetron HCl (Zofran) 4 mg Q6H PRN IVP Nausea & Vomiting 04/06/18 14:45 05/06/18 14:44 Polyethylene Glycol (Miralax) 17 gm DAILYPRN PRN ORAL Constipation 04/06/18 14:45 05/06/18 14:44 Allergies: Coded Allergies: BENAZEPRIL (Verified Allergy, Unknown, 03/22/15) ROS Limited/Unobtainable: Yes Subjective 63 YO M admitted with dislodged gastrostomy tube. Endoscopy scheduled 04/08/18 for replacement. Cover for Int Med-Dr Kaur. SHAWN Objective Last Vital Signs Date Time Temp Pulse Resp B/P (MAP) Pulse Ox O2 Delivery O2 Flow Rate FiO2 04/07/18 17:20 93 19 35 04/07/18 16:00 Endotracheal Tube 04/07/18 16:00 98.2 139/81 (100) 100 04/06/18 16:30 4.0 General Appearance: WD/WN, lethargic EENT: PERRL/EOMI Neck: non-tender, normal alignment, supple Cardiovascular: normal peripheral pulses, normal rate, regular rhythm, no gallop/murmur, no JVD Respiratory/Chest: chest wall non-tender, lungs clear, normal breath sounds, respiratory distress, crackles/rales, rhonchi - bilaterally, rhonchi - left, expiratory wheezing Abdomen: normal bowel sounds, non tender, soft, no organomegaly, no mass Extremities: normal range of motion, non-tender Skin: normal pigmentation, warm/dry Laboratory Tests Test 04/07/18 07:30 White Blood Count 7.3 K/UL (4.8-10.8) Red Blood Count 4.23 M/UL (4.70-6.10) L Hemoglobin 11.2 G/DL (14.2-18.0) L Hematocrit 35.3 % (42.0-52.0) L Mean Corpuscular Volume 84 FL (80-99) Mean Corpuscular Hemoglobin 26.4 PG (27.0-31.0) L Mean Corpuscular Hemoglobin Concent 31.6 G/DL (32.0-36.0) L Red Cell Distribution Width 12.9 % (11.6-14.8) Platelet Count 162 K/UL (150-450) Mean Platelet Volume 12.0 FL (6.5-10.1) H Neutrophils (%) (Auto) 52.5 % (45.0-75.0) Lymphocytes (%) (Auto) 29.6 % (20.0-45.0) Monocytes (%) (Auto) 11.0 % (1.0-10.0) H Eosinophils (%) (Auto) 5.9 % (0.0-3.0) H Basophils (%) (Auto) 1.0 % (0.0-2.0) Sodium Level 138 MMOL/L (136-145) Potassium Level 3.8 MMOL/L (3.5-5.1) Chloride Level 104 MMOL/L (98-107) Carbon Dioxide Level 31 MMOL/L (21-32) Anion Gap 3 mmol/L (5-15) L Blood Urea Nitrogen 8 mg/dL (7-18) Creatinine 0.7 MG/DL (0.55-1.30) Estimat Glomerular Filtration Rate > 60 mL/min (>60) Glucose Level 88 MG/DL (74-106) Calcium Level 9.5 MG/DL (8.5-10.1) Phosphorus Level 3.0 MG/DL (2.5-4.9) Albumin 2.7 G/DL (3.4-5.0) L Microbiology Date/Time Source Procedure Growth Status 04/06/18 14:33 Urine,Clean Catch Urine Culture - Preliminary NO GROWTH Resulted Intake and Output 04/06/18 04/07/18 19:00 07:00 Intake Total 1000 ml 275.000 ml Output Total 400 ml Balance 600 ml 275.000 ml Intake Oral 0 ml IV Total 1000 ml 275.000 ml Output Urine Total 400 ml # Bowel Movements 1 Assessment/Plan Problem List: (1) COPD (chronic obstructive pulmonary disease) (2) Hypercholesteremia (3) Tracheostomy care (4) Alzheimer's dementia (5) Chronic organic brain syndrome (6) Dislodged gastrostomy tube Assessment & Plan: endoscopy scheduled 04/08/18 for replacement-see GI note (7) Chronic respiratory failure Assessment & Plan: continue vent-See pulmonary note. (8) Chronic vegetative state (9) Gastrostomy tube dysfunction (10) Respiratory failure, acute and chronic Status: not improved Ritesh Chavis MD Apr 07, 2018 19:56
[2018-04-07 20:00] VITALS: BP 148/69
--- NOTE | 2018-04-07 20:46 | Consultation ---
DATE OF CONSULTATION: 04/07/2018 ADDENDUM PHYSICAL EXAMINATION: VITAL SIGNS: Temperature 98.2, pulse 86, respiratory rate 18, and blood pressure 114/82. HEENT: No pale conjunctivae. No icterus. NECK: No lymphadenopathy. CHEST: Coarse breathing sounds. HEART: S1 and S2 ABDOMEN: Soft. G-tube site has minimal drainage. No evidence of erythema. G-tube ABDOMEN: Obese. EXTREMITIES: No cyanosis . NEUROLOGIC: Nonverbal. SKIN: No rash. LABORATORY AND DIAGNOSTIC DATA: White blood cells 7.2, hemoglobin 10.2, platelet 162. UA, 15 to 20 white blood cells and too numerous red blood cells. BUN 8 and creatinine 0.7. Urine culture is pending. Abdominal x-ray, no acute process. ASSESSMENT: The patient is a 63-year-old male with: 1. Hematuria/pyuria, probable urinary tract infection. 2. G-tube site, no evidence of cellulitis. 3. Normal white blood cells. 4. Afebrile. PLAN: 1. We will start the patient on IV Rocephin, hold IV vancomycin. 2. Monitor CBC. 3. Monitor BMP. 4. Monitor cultures (blood, urine). 5. Monitor chest x-ray. 6. GI follow up for replacement of PEG tube. 7. Based on the patient's clinical course and labs, we will do further recommendations. Kvng Cotter M.D. DR: [place] JOB#: [id number] CC:
[2018-04-07] MEDS ORDERED: Tubing IV Secondary IV ONE (20:57)
[2018-04-07] MEDS ORDERED: NS 275ml ONE (20:57)
[2018-04-07] MEDS ORDERED: Vancomycin 1 GM in D5W 275 ML IV SCH (23:00)
[2018-04-08] VITALS: BP 158/71
[2018-04-08 04:00] VITALS: BP 154/69
--- NOTE | 2018-04-08 04:02 | Consultation ---
DATE OF CONSULTATION: 04/07/2018 DICTATION DISREGARDED: CONSULTING PHYSICIAN: Kvng Cotter M.D REFERRING PHYSICIAN: Ritesh Chavis M.D. REASON FOR CONSULTATION: Evaluation of the patient for urinary tract infection. HISTORY OF PRESENT ILLNESS: The patient is a 63-year-old female, well known to our service from prior admissions. Kvng Cotter M.D. DR: [place] JOB#: [id number] CC:
--- NOTE | 2018-04-08 06:11 | Anethesia Preoperative Eval ---
Anesthesia Pre-op PMH/ROS General Date of Evaluation: Apr 08, 2018 Time of Evaluation: 06:05 Anesthesiologist: shira ASA Score: ASA 4 Mallampati Score Class I : Soft palate, uvula, fauces, pillars visible Class II: Soft palate, uvula, fauces visible Class III: Soft palate, base of uvula visible Class IV: Only hard plate visible Mallampati Classification: Class II Surgeon: nesha Diagnosis: g-tube dislodgement Surgical Procedure: peg Anesthesia History: none Social History: smoking - nonsmoker Family History: no anesthesia problems Allergies: Coded Allergies: BENAZEPRIL (Verified Allergy, Unknown, 03/22/15) Medications: see eMAR Patient NPO?: Yes Past Medical History Cardiovascular: Reports: HTN, other - hypercholesterolemia Pulmonary: Reports: COPD, other - ventilator dependent, tracheostomy, respiratory failure Gastrointestinal/Genitourinary: Reports: other - atn, g-tube dysfunction, uti, hematuria Neurologic/Psychiatric: Reports: dementia - alzheimer's disease, other - chronic organic brain syndrome, chronic vegetative state Hematology/Immune: Reports: anemia, other - sepsis Musculoskeletal/Integumentary: Reports: OA, other - compartment syndrome Other: obesity Anesthesia Pre-op Phys. Exam Physician Exam Last Vital Signs Date Time Temp Pulse Resp B/P (MAP) Pulse Ox O2 Delivery O2 Flow Rate FiO2 04/08/18 04:54 75 15 35 04/08/18 04:00 Endotracheal Tube 04/08/18 04:00 98.3 154/69 (97) 100 04/06/18 16:30 4.0 Constitutional: NAD Neurologic: other - chronic vegetative state Cardiovascular: RRR Respiratory: CTA, other - tracheostomy, ventilator dependent Gastrointestinal: S/NT/ND, other - g-tube Airway Exam Mallampati Score: Class II MO: limited Neck: tracheostomy TMD: 2fb ROM: limited Teeth: missing Anesthesia Pre-op A/P Labs Hematology Test 04/07/18 07:30 White Blood Count 7.3 K/UL (4.8-10.8) Red Blood Count 4.23 M/UL (4.70-6.10) L Hemoglobin 11.2 G/DL (14.2-18.0) L Hematocrit 35.3 % (42.0-52.0) L Mean Corpuscular Volume 84 FL (80-99) Mean Corpuscular Hemoglobin 26.4 PG (27.0-31.0) L Mean Corpuscular Hemoglobin Concent 31.6 G/DL (32.0-36.0) L Red Cell Distribution Width 12.9 % (11.6-14.8) Platelet Count 162 K/UL (150-450) Mean Platelet Volume 12.0 FL (6.5-10.1) H Neutrophils (%) (Auto) 52.5 % (45.0-75.0) Lymphocytes (%) (Auto) 29.6 % (20.0-45.0) Monocytes (%) (Auto) 11.0 % (1.0-10.0) H Eosinophils (%) (Auto) 5.9 % (0.0-3.0) H Basophils (%) (Auto) 1.0 % (0.0-2.0) Chemistry Test 04/07/18 07:30 Sodium Level 138 MMOL/L (136-145) Potassium Level 3.8 MMOL/L (3.5-5.1) Chloride Level 104 MMOL/L (98-107) Carbon Dioxide Level 31 MMOL/L (21-32) Anion Gap 3 mmol/L (5-15) L Blood Urea Nitrogen 8 mg/dL (7-18) Creatinine 0.7 MG/DL (0.55-1.30) Estimat Glomerular Filtration Rate > 60 mL/min (>60) Glucose Level 88 MG/DL (74-106) Calcium Level 9.5 MG/DL (8.5-10.1) Phosphorus Level 3.0 MG/DL (2.5-4.9) Albumin 2.7 G/DL (3.4-5.0) L Studies Pre-op Studies: EKG - sinus rhythm w/ pacs, lad, lvh, Risk Assessment & Plan Assessment: asa4 Plan: mac Status Change Before Surgery: No Pre-Antibiotics Drug: Silvia Zamudio MD Apr 08, 2018 06:11
[2018-04-08] MEDS ORDERED: fentaNYL 100 mcg/2 mL IV PRN (06:15)
[2018-04-08] MEDS ORDERED: DiphenhydrAMINE 50mg/ml Inj IVP PRN (06:15)
[2018-04-08] MEDS ORDERED: Midazolam 2mg/2ml Inj IVP PRN (06:15)
[2018-04-08] MEDS ORDERED: Atropine Inj 1mg/10ml Syr IV PRN (06:15)
[2018-04-08 08:00] VITALS: BP 146/80
[2018-04-08 08:26] LABS: BASOPHILS % (AUTO) 1.1 % (0.0-2.0); EOSINOPHILS % (AUTO) 4.3 % (0.0-3.0); HEMATOCRIT 36.5 % (42.0-52.0); HEMOGLOBIN 11.5 G/DL (14.2-18.0); LYMPHOCYTES % (AUTO) 27.7 % (20.0-45.0); MEAN CORPUSCULAR VOLUME 83 FL (80-99); MONOCYTES % (AUTO) 12.6 % (1.0-10.0); NEUTROPHILS % (AUTO) 54.4 % (45.0-75.0); PLATELET COUNT 162 K/UL (150-450); RED BLOOD COUNT 4.38 M/UL (4.70-6.10); WHITE BLOOD COUNT 7.3 K/UL (4.8-10.8)
[2018-04-08] MEDS: Heparin 5000 units/ml inj SUBQ SCH ×2 (08:26→20:08)
[2018-04-08 08:45] LABS: INR 1.4 (0.9-1.1)
[2018-04-08 08:56] LABS: ANION GAP 5 mmol/L (5-15); BLOOD UREA NITROGEN 9 mg/dL (7-18); CALCIUM 8.9 MG/DL (8.5-10.1); CARBON DIOXIDE 29 MMOL/L (21-32); CHLORIDE 105 MMOL/L (98-107); CREATININE 0.7 MG/DL (0.55-1.30); POTASSIUM 3.9 MMOL/L (3.5-5.1); SODIUM 139 MMOL/L (136-145)
[2018-04-08] MEDS: cefTRIAXone 2 GM in D5W 55 ML IVPB SCH (09:00)
[2018-04-08] MEDS ORDERED: ceFAZolin sod 1 GM in NS 55 ML IVPB SCH (10:15)
[2018-04-08] MEDS ORDERED: NS 500ML IVPB ONE (10:25)
--- NOTE | 2018-04-08 10:32 | Pre-Procedure Note/Attestation ---
Pre-Procedure Note/Attestation Complete Prior to Procedure Planned Procedure: not applicable Procedure Narrative: egd/peg Indications for Procedure Pre-Operative Diagnosis: dysphagia Attestation I attest that I discussed the nature of the procedure; its benefits; risks and complications; and alternatives (and the risks and benefits of such alternatives ), prior to the procedure, with the patient (or the patient's legal access services representative). I attest that, if there was a reasonable possibility of needing a blood transfusion, the patient (or the patient's legal access services representative) was given the [facility] standardized written summary, pursuant to the Blake Gisele Blood Safety Act ([place] Health and Safety Code # 1645, as amended). I attest that I re-evaluated the patient just prior to the surgery and that there has been no change in the patient's H&P, except as documented below: Dillon Brantley MD Apr 08, 2018 10:32
--- NOTE | 2018-04-08 11:05 | Endoscopy Procedure Note ---
Endoscopy Procedure Note General Indication for Procedure: dysphagia Procedures Performed: EGD, PEG Operative Findings/Diagnosis: same Specimen: yes Pt Tolerated Procedure Well: Yes Estimated Blood Loss: none Anesthesia Anesthesiologist: krystian Anesthesia: MAC Inserted Devices Implant(s) used?: No GI Core Measures 50 yrs or older w/o bx or poly: Not Applicable 10yrs. F/U not recommended: Not Applicable Dillon Brantley MD Apr 08, 2018 11:05
--- NOTE | 2018-04-08 11:08 | Immediate Post-Op Evaluation ---
Immediate Post-Op Evalulation Immediate Post-Op Evalulation Procedure: peg Date of Evaluation: Apr 08, 2018 Time of Evaluation: 10:57 IV Fluids: 150ml 0.9ns Blood Products: none Estimated Blood Loss: negligible Blood Pressure Systolic: 165 Blood Pressure Diastolic: 71 Pulse Rate: 76 Respiratory Rate: 18 O2 Sat by Pulse Oximetry: 100 Temperature (Fahrenheit): 97.7 Pain Score (1-10): 0 Nausea: No Vomiting: No Complications none Patient Status: awake, reacts, patent, ventilated Hydration Status: adequate Drug: Silvia Zamudio MD Apr 08, 2018 11:08
--- NOTE | 2018-04-08 11:10 | 48 Hour Post Anesthesia Eval ---
Post Anesthesia Evaluation Procedure: peg Date of Evaluation: Apr 08, 2018 Time of Evaluation: 10:59 Blood Pressure Systolic: 167 0: 76 Pulse Rate: 76 Respiratory Rate: 17 Temperature (Fahrenheit): 97.7 O2 Sat by Pulse Oximetry: 100 Airway: patent Nausea: No Vomiting: No Pain Intensity: 0 Hydration Status: adequate Cardiopulmonary Status: stable Mental Status/LOC: patient returned to baseline Post-Anesthesia Complications: none Follow-up care needed: N/A Silvia Bhatt MD Apr 08, 2018 11:09
--- NOTE | 2018-04-08 11:15 | Pulmonology Progress Note ---
Assessment/Plan Problems: (1) Chronic vegetative state (2) Chronic respiratory failure (3) Dislodged gastrostomy tube Assessment/Plan Gtube today iv fluids continue current meds dc to alf after Gtube placement. Subjective ROS Limited/Unobtainable: No Constitutional: Reports: no symptoms HEENT: Repors: no symptoms Allergies: Coded Allergies: BENAZEPRIL (Verified Allergy, Unknown, 03/22/15) Objective Last 24 Hour Vital Signs Date Time Temp Pulse Resp B/P (MAP) Pulse Ox O2 Delivery O2 Flow Rate FiO2 04/08/18 11:09 76 17 100 04/08/18 11:08 76 18 100 04/08/18 10:54 71 16 35 04/08/18 08:53 55 12 35 04/08/18 08:00 35 04/08/18 08:00 62 04/08/18 08:00 97.7 72 18 146/80 (102) 100 04/08/18 08:00 Endotracheal Tube 04/08/18 07:21 71 15 35 04/08/18 04:54 75 15 35 04/08/18 04:00 67 04/08/18 04:00 35 04/08/18 04:00 Endotracheal Tube 04/08/18 04:00 98.3 86 16 154/69 (97) 100 04/08/18 03:24 68 12 35 04/08/18 01:29 91 17 35 04/08/18 00:00 98.8 75 18 158/71 (100) 100 04/08/18 00:00 Endotracheal Tube 04/08/18 00:00 86 04/07/18 23:08 84 24 35 04/07/18 21:00 86 18 35 04/07/18 20:00 87 04/07/18 20:00 98.9 86 18 148/69 (95) 100 04/07/18 20:00 35 04/07/18 20:00 Endotracheal Tube 04/07/18 19:55 72 20 35 04/07/18 17:20 93 19 35 04/07/18 16:00 Endotracheal Tube 04/07/18 16:00 98.2 15 16 139/81 (100) 100 04/07/18 16:00 83 04/07/18 16:00 35 04/07/18 15:12 71 15 35 04/07/18 12:31 95 17 35 04/07/18 12:00 90 04/07/18 12:00 Endotracheal Tube 04/07/18 12:00 35 04/07/18 12:00 98.8 77 14 149/79 (102) 100 Intake and Output 04/07/18 04/08/18 19:00 07:00 Intake Total 477.916 ml Output Total 730 ml 500 ml Balance -252.084 ml -500 ml IV Total 477.916 ml Output Urine Total 730 ml 500 ml # Bowel Movements 1 3 General Appearance: WD/WN HEENT: normocephalic Respiratory/Chest: chest wall non-tender, lungs clear Cardiovascular: normal peripheral pulses, normal rate Abdomen: normal bowel sounds, soft, non tender, no organomegaly Neurologic/Psychiatric: dredge runner II-XII grossly normal Microbiology Date/Time Source Procedure Growth Status 04/06/18 15:16 Nasal Nares MRSA Culture - Final NO METHICILLIN RESISTANT STAPH AUREUS... Complete 04/06/18 14:33 Urine,Clean Catch Urine Culture - Preliminary YEAST Resulted 04/06/18 15:16 Rectum VRE Culture - Final NO VANCOMYCIN RESISTANT ENTEROCOCCUS ... Resulted 04/06/18 15:16 Rectum - Preliminary Resulted Laboratory Tests 04/08/18 07:40: White Blood Count 7.3, Red Blood Count 4.38L, Hemoglobin 11.5L, Hematocrit 36.5L , Mean Corpuscular Volume 83, Mean Corpuscular Hemoglobin 26.2L, Mean Corpuscular Hemoglobin Concent 31.5L, Red Cell Distribution Width 13.0, Platelet Count 162, Mean Platelet Volume 11.5H, Neutrophils (%) (Auto) 54.4, Lymphocytes (%) (Auto) 27.7, Monocytes (%) (Auto) 12.6H, Eosinophils (%) (Auto) 4.3H, Basophils (%) (Auto) 1.1, Prothrombin Time 14.3H, Prothromb Time International Ratio 1.4H, Activated Partial Thromboplast Time 36H, Sodium Level 139, Potassium Level 3.9, Chloride Level 105, Carbon Dioxide Level 29, Anion Gap 5, Blood Urea Nitrogen 9, Creatinine 0.7, Estimat Glomerular Filtration Rate > 60, Glucose Level 85, Calcium Level 8.9 Current Medications Medications (Trade) Dose Ordered Sig/Fernanda Route PRN Reason Start Time Stop Time Status Last Admin Dose Admin Acetaminophen (Tylenol) 650 mg Q4H PRN ORAL FEVER 04/06/18 14:45 05/06/18 14:44 Al Hydroxide/Mg Hydroxide (Mylanta) 15 ml Q1H PRN ORAL gi upset 04/08/18 06:15 04/08/18 13:00 Albuterol/ Ipratropium (Albuterol/ Ipratropium) 3 ml Q4H PRN HHN Shortness of Breath 04/06/18 14:45 04/11/18 14:44 Atropine Sulfate (Atropine) 0.5 mg Q5M PRN IV bpm less than 45 04/08/18 06:15 04/08/18 13:00 Ceftriaxone Sodium 2 gm/ Dextrose 55 ml @ 110 mls/hr DAILY IVPB 04/07/18 15:00 04/14/18 14:59 04/08/18 09:00 Dextrose (Dextrose 50%) 25 ml Q30M PRN IV Hypoglycemia 04/06/18 14:45 05/06/18 14:44 Dextrose (Dextrose 50%) 50 ml Q30M PRN IV Hypoglycemia 04/06/18 16:00 05/06/18 15:59 Diphenhydramine HCl (Benadryl) 25 mg Q15M PRN IVP Itching 04/08/18 06:15 04/08/18 13:00 Fentanyl Citrate (Sublimaze 100 mcg/2 mL) 25 mcg Q10M PRN IV Moderate Pain (Pain Scale 4-6) 04/08/18 06:15 04/08/18 13:00 Heparin Sodium (Porcine) (Heparin 5000 units/ml) 5,000 units EVERY 12 HOURS SUBQ 04/06/18 21:00 05/06/18 20:59 04/07/18 08:09 Hydralazine HCl (Apresoline) 5 mg Q30M PRN IV SBP>160 /DBP>90 04/08/18 06:15 04/08/18 13:00 Lorazepam (Ativan 2mg/ml 1ml) 2 mg Q2H PRN IV For Anxiety 04/06/18 14:45 04/13/18 14:44 Midazolam HCl (Versed 2mg/2ml vial) 1 mg Q15M PRN IVP For Anxiety 04/08/18 06:15 04/08/18 13:00 Morphine Sulfate (Morphine Sulfate) 4 mg Q4H PRN IVP Severe Pain (Pain Scale 7-10) 04/06/18 14:45 04/13/18 14:44 Ondansetron HCl (Zofran) 4 mg Q1H PRN IVP Nausea & Vomiting 04/08/18 06:15 04/08/18 13:00 Ondansetron HCl (Zofran) 4 mg Q6H PRN IVP Nausea & Vomiting 04/06/18 14:45 05/06/18 14:44 Polyethylene Glycol (Miralax) 17 gm DAILYPRN PRN ORAL Constipation 04/06/18 14:45 05/06/18 14:44 Steve Kothari MD Apr 08, 2018 11:15
[2018-04-08 12:00] VITALS: BP 135/41
--- NOTE | 2018-04-08 15:16 | Procedure Note ---
DATE OF PROCEDURE: 04/08/2018 SURGEON: Dillon Brantley M.D. PROCEDURE: Upper endoscopy with biopsy and PEG placement. ANESTHESIA: Per Dr. Carrion. INSTRUMENT: Olympus adult flexible upper endoscope. INDICATION: Dysphagia. REASON FOR PROCEDURE: The procedure, risks, benefits, and possible consequences, including hemorrhage, aspiration, perforation and infection, and alternative treatments, were explained to the patient/legal guardian by Dr. Dillon Brantley and the patient/legal guardian understood and accepted these risks. PROCEDURE: After informed consent was obtained and the patient was adequately sedated, Olympus upper endoscope was advanced from mouth into the second portion of the duodenum and retroflexion was performed of the stomach. The patient had diffuse gastritis. Random biopsy from antrum was obtained to rule out H. pylori infection. The patient had evidence of old G-tube site. We felt that the old G-tube site is still patent. We passed the wire through from the skin into the stomach and using a snare we grabed the wire and over a guidewire, we placed a 20-Mexican pull type of G-tube successfully without any complication. The patient tolerated the procedure very well without any complication. SUMMARY OF FINDINGS: 1. Gastritis status post biopsy. 2. Status post successful G-tube placement. RECOMMENDATION: 1. Abdominal binder. 2. Elevate head of the bed all the times. 3. G-tube flush. 4. G-tube care. 5. Start tube feeding later today. I want to thank, Dr. Ananda Kaur, for this kind referral. Dillon Brantley M.D. DR: Kimberley JOB#: [id number] CC: Ananda Kaur M.D.; Fax#: [phone]
[2018-04-08 16:00] VITALS: BP 123/60
--- NOTE | 2018-04-08 17:37 | Infectious Diseases Prog Note ---
Assessment/Plan Assessment/Plan ASSESSMENT: The patient is a 63-year-old male with: Hematuria/pyuria, probable urinary tract infection. G-tube site, no evidence of cellulitis. Normal white blood cells. Afebrile. History of methicillin-resistant Staphylococcus aureus bacteremia History of left arm surgery. History of ventilator-dependent respiratory failure/trach. SP replacement of PEG tube. PLAN: Cont patient on IV Rocephin d# 2 Monitor CBC. Monitor BMP. Monitor cultures (blood, urine). Monitor chest x-ray. GI follow up Subjective Allergies: Coded Allergies: BENAZEPRIL (Verified Allergy, Unknown, 03/22/15) Subjective Afebrile Objective Vital Signs Last 24 Hour Vital Signs Date Time Temp Pulse Resp B/P (MAP) Pulse Ox O2 Delivery O2 Flow Rate FiO2 04/08/18 16:38 84 21 35 04/08/18 16:02 Endotracheal Tube 04/08/18 16:01 35 04/08/18 16:00 98.1 63 16 123/60 (81) 100 04/08/18 14:31 70 16 35 04/08/18 12:47 77 18 35 04/08/18 12:00 63 04/08/18 12:00 97.9 68 18 135/41 (72) 100 04/08/18 12:00 Endotracheal Tube 04/08/18 12:00 35 04/08/18 11:09 76 17 100 04/08/18 11:08 76 18 100 04/08/18 10:54 71 16 35 04/08/18 08:53 55 12 35 04/08/18 08:00 35 04/08/18 08:00 62 04/08/18 08:00 97.7 72 18 146/80 (102) 100 04/08/18 08:00 Endotracheal Tube 04/08/18 07:21 71 15 35 04/08/18 04:54 75 15 35 04/08/18 04:00 67 04/08/18 04:00 35 04/08/18 04:00 Endotracheal Tube 04/08/18 04:00 98.3 86 16 154/69 (97) 100 04/08/18 03:24 68 12 35 04/08/18 01:29 91 17 35 04/08/18 00:00 98.8 75 18 158/71 (100) 100 04/08/18 00:00 Endotracheal Tube 04/08/18 00:00 86 04/07/18 23:08 84 24 35 04/07/18 21:00 86 18 35 04/07/18 20:00 87 04/07/18 20:00 98.9 86 18 148/69 (95) 100 04/07/18 20:00 35 04/07/18 20:00 Endotracheal Tube 04/07/18 19:55 72 20 35 Height (Feet): 6 Height (Inches): 3.00 Weight (Pounds): 234 HEENT: normocephalic Respiratory/Chest: normal breath sounds Cardiovascular: regularly irregular Abdomen: soft, non tender Microbiology Date/Time Source Procedure Growth Status 04/06/18 15:16 Nasal Nares MRSA Culture - Final NO METHICILLIN RESISTANT STAPH AUREUS... Complete 04/06/18 14:33 Urine,Clean Catch Urine Culture - Preliminary YEAST Resulted 04/06/18 15:16 Rectum VRE Culture - Final NO VANCOMYCIN RESISTANT ENTEROCOCCUS ... Resulted 04/06/18 15:16 Rectum - Preliminary Resulted Laboratory Tests Test 04/08/18 07:40 White Blood Count 7.3 K/UL (4.8-10.8) Red Blood Count 4.38 M/UL (4.70-6.10) L Hemoglobin 11.5 G/DL (14.2-18.0) L Hematocrit 36.5 % (42.0-52.0) L Mean Corpuscular Volume 83 FL (80-99) Mean Corpuscular Hemoglobin 26.2 PG (27.0-31.0) L Mean Corpuscular Hemoglobin Concent 31.5 G/DL (32.0-36.0) L Red Cell Distribution Width 13.0 % (11.6-14.8) Platelet Count 162 K/UL (150-450) Mean Platelet Volume 11.5 FL (6.5-10.1) H Neutrophils (%) (Auto) 54.4 % (45.0-75.0) Lymphocytes (%) (Auto) 27.7 % (20.0-45.0) Monocytes (%) (Auto) 12.6 % (1.0-10.0) H Eosinophils (%) (Auto) 4.3 % (0.0-3.0) H Basophils (%) (Auto) 1.1 % (0.0-2.0) Prothrombin Time 14.3 SEC (9.30-11.50) H Prothromb Time International Ratio 1.4 (0.9-1.1) H Activated Partial Thromboplast Time 36 SEC (23-33) H Sodium Level 139 MMOL/L (136-145) Potassium Level 3.9 MMOL/L (3.5-5.1) Chloride Level 105 MMOL/L (98-107) Carbon Dioxide Level 29 MMOL/L (21-32) Anion Gap 5 mmol/L (5-15) Blood Urea Nitrogen 9 mg/dL (7-18) Creatinine 0.7 MG/DL (0.55-1.30) Estimat Glomerular Filtration Rate > 60 mL/min (>60) Glucose Level 85 MG/DL (74-106) Calcium Level 8.9 MG/DL (8.5-10.1) Current Medications Medications (Trade) Dose Ordered Sig/Fernanda Route PRN Reason Start Time Stop Time Status Last Admin Dose Admin Acetaminophen (Tylenol) 650 mg Q4H PRN ORAL FEVER 04/06/18 14:45 05/06/18 14:44 Albuterol/ Ipratropium (Albuterol/ Ipratropium) 3 ml Q4H PRN HHN Shortness of Breath 04/06/18 14:45 04/11/18 14:44 Ceftriaxone Sodium 2 gm/ Dextrose 55 ml @ 110 mls/hr DAILY IVPB 04/07/18 15:00 04/14/18 14:59 04/08/18 09:00 Dextrose (Dextrose 50%) 25 ml Q30M PRN IV Hypoglycemia 04/06/18 14:45 05/06/18 14:44 Dextrose (Dextrose 50%) 50 ml Q30M PRN IV Hypoglycemia 04/06/18 16:00 05/06/18 15:59 Heparin Sodium (Porcine) (Heparin 5000 units/ml) 5,000 units EVERY 12 HOURS SUBQ 04/06/18 21:00 05/06/18 20:59 04/07/18 08:09 Lorazepam (Ativan 2mg/ml 1ml) 2 mg Q2H PRN IV For Anxiety 04/06/18 14:45 04/13/18 14:44 Morphine Sulfate (Morphine Sulfate) 4 mg Q4H PRN IVP Severe Pain (Pain Scale 7-10) 04/06/18 14:45 04/13/18 14:44 Ondansetron HCl (Zofran) 4 mg Q6H PRN IVP Nausea & Vomiting 04/06/18 14:45 05/06/18 14:44 Polyethylene Glycol (Miralax) 17 gm DAILYPRN PRN ORAL Constipation 04/06/18 14:45 05/06/18 14:44 Kvng Cotter MD Apr 08, 2018 17:37
--- NOTE | 2018-04-08 18:55 | Internal Med Progress Note ---
Subjective Date of Service: Apr 08, 2018 Physician Name Ritesh Chavis Attending Physician Ananda Kaur MD Current Medications Medications (Trade) Dose Ordered Sig/Fernanda Route PRN Reason Start Time Stop Time Status Last Admin Dose Admin Acetaminophen (Tylenol) 650 mg Q4H PRN ORAL FEVER 04/06/18 14:45 05/06/18 14:44 Albuterol/ Ipratropium (Albuterol/ Ipratropium) 3 ml Q4H PRN HHN Shortness of Breath 04/06/18 14:45 04/11/18 14:44 Ceftriaxone Sodium 2 gm/ Dextrose 55 ml @ 110 mls/hr DAILY IVPB 04/07/18 15:00 04/14/18 14:59 04/08/18 09:00 Dextrose (Dextrose 50%) 25 ml Q30M PRN IV Hypoglycemia 04/06/18 14:45 05/06/18 14:44 Dextrose (Dextrose 50%) 50 ml Q30M PRN IV Hypoglycemia 04/06/18 16:00 05/06/18 15:59 Heparin Sodium (Porcine) (Heparin 5000 units/ml) 5,000 units EVERY 12 HOURS SUBQ 04/06/18 21:00 05/06/18 20:59 04/07/18 08:09 Lorazepam (Ativan 2mg/ml 1ml) 2 mg Q2H PRN IV For Anxiety 04/06/18 14:45 04/13/18 14:44 Morphine Sulfate (Morphine Sulfate) 4 mg Q4H PRN IVP Severe Pain (Pain Scale 7-10) 04/06/18 14:45 04/13/18 14:44 Ondansetron HCl (Zofran) 4 mg Q6H PRN IVP Nausea & Vomiting 04/06/18 14:45 05/06/18 14:44 Polyethylene Glycol (Miralax) 17 gm DAILYPRN PRN ORAL Constipation 04/06/18 14:45 05/06/18 14:44 Allergies: Coded Allergies: BENAZEPRIL (Verified Allergy, Unknown, 03/22/15) Subjective 63 YO M admitted with dislodged gastrostomy tube. Endoscopy scheduled 04/08/18 for replacement. Cover for Int [facility]. [facility]. Discharge held due to gross hematuria Objective Last Vital Signs Date Time Temp Pulse Resp B/P (MAP) Pulse Ox O2 Delivery O2 Flow Rate FiO2 04/08/18 16:38 84 21 35 04/08/18 16:02 Endotracheal Tube 04/08/18 16:00 98.1 123/60 (81) 100 04/06/18 16:30 4.0 Laboratory Tests Test 04/08/18 07:40 White Blood Count 7.3 K/UL (4.8-10.8) Red Blood Count 4.38 M/UL (4.70-6.10) L Hemoglobin 11.5 G/DL (14.2-18.0) L Hematocrit 36.5 % (42.0-52.0) L Mean Corpuscular Volume 83 FL (80-99) Mean Corpuscular Hemoglobin 26.2 PG (27.0-31.0) L Mean Corpuscular Hemoglobin Concent 31.5 G/DL (32.0-36.0) L Red Cell Distribution Width 13.0 % (11.6-14.8) Platelet Count 162 K/UL (150-450) Mean Platelet Volume 11.5 FL (6.5-10.1) H Neutrophils (%) (Auto) 54.4 % (45.0-75.0) Lymphocytes (%) (Auto) 27.7 % (20.0-45.0) Monocytes (%) (Auto) 12.6 % (1.0-10.0) H Eosinophils (%) (Auto) 4.3 % (0.0-3.0) H Basophils (%) (Auto) 1.1 % (0.0-2.0) Prothrombin Time 14.3 SEC (9.30-11.50) H Prothromb Time International Ratio 1.4 (0.9-1.1) H Activated Partial Thromboplast Time 36 SEC (23-33) H Sodium Level 139 MMOL/L (136-145) Potassium Level 3.9 MMOL/L (3.5-5.1) Chloride Level 105 MMOL/L (98-107) Carbon Dioxide Level 29 MMOL/L (21-32) Anion Gap 5 mmol/L (5-15) Blood Urea Nitrogen 9 mg/dL (7-18) Creatinine 0.7 MG/DL (0.55-1.30) Estimat Glomerular Filtration Rate > 60 mL/min (>60) Glucose Level 85 MG/DL (74-106) Calcium Level 8.9 MG/DL (8.5-10.1) Microbiology Date/Time Source Procedure Growth Status 04/06/18 15:16 Nasal Nares MRSA Culture - Final NO METHICILLIN RESISTANT STAPH AUREUS... Complete 04/06/18 14:33 Urine,Clean Catch Urine Culture - Preliminary YEAST Resulted 04/06/18 15:16 Rectum VRE Culture - Final NO VANCOMYCIN RESISTANT ENTEROCOCCUS ... Resulted 04/06/18 15:16 Rectum - Preliminary Resulted Intake and Output 04/07/18 04/08/18 19:00 07:00 Intake Total 477.916 ml Output Total 730 ml 500 ml Balance -252.084 ml -500 ml IV Total 477.916 ml Output Urine Total 730 ml 500 ml # Bowel Movements 1 3 Objective General Appearance: WD/WN, lethargic EENT: PERRL/EOMI Neck: non-tender, normal alignment, supple Cardiovascular: normal peripheral pulses, normal rate, regular rhythm, no gallop/murmur, no JVD Respiratory/Chest: chest wall non-tender, lungs clear, normal breath sounds, respiratory distress, crackles/rales, rhonchi - bilaterally, rhonchi - left, expiratory wheezing Abdomen: normal bowel sounds, non tender, soft, no organomegaly, no mass Extremities: normal range of motion, non-tender Skin: normal pigmentation, warm/dry Assessment/Plan Problem List: (1) COPD (chronic obstructive pulmonary disease) (2) Hypercholesteremia (3) Tracheostomy care (4) Alzheimer's dementia (5) Chronic organic brain syndrome (6) Dislodged gastrostomy tube Assessment & Plan: S/Pendoscopy 04/08/18 for replacement-see GI note (7) Chronic respiratory failure Assessment & Plan: continue vent-See pulmonary note. (8) Chronic vegetative state (9) Gastrostomy tube dysfunction (10) Respiratory failure, acute and chronic (11) Hematuria Assessment & Plan: Urine cult and sens pending. 04/06/18 urine cult = yeast Ritesh Chavis MD Apr 08, 2018 18:55
[2018-04-08 20:00] VITALS: BP 140/80
[2018-04-09] VITALS: BP 137/71
[2018-04-09 02:34] LABS: APPEARANCE,URINE CLOUDY; BILIRUBIN, URINE NEGATIVE (NEGATIVE); GLUCOSE, URINE (UA) NEGATIVE (NEGATIVE); KETONES,URINE 2+ (NEGATIVE); LEUKOCYTE ESTERASE ,URINE 3+ (NEGATIVE); NITRITE,URINE POSITIVE (NEGATIVE); PH,URINE 5 (4.5-8.0); PROTEIN,URINE 3+ (NEGATIVE); UROBILINOGEN,URINE NORMAL MG/DL (0.0-1.0)
[2018-04-09 02:53] LABS: COLOR,URINE BROWN
[2018-04-09 04:00] VITALS: BP 140/78
[2018-04-09 05:22] LABS: BASOPHILS % (AUTO) 1.1 % (0.0-2.0); HEMATOCRIT 33.7 % (42.0-52.0); HEMOGLOBIN 10.7 G/DL (14.2-18.0); LYMPHOCYTES % (AUTO) 29.2 % (20.0-45.0); MEAN CORPUSCULAR VOLUME 83 FL (80-99); MONOCYTES % (AUTO) 14.1 % (1.0-10.0); NEUTROPHILS % (AUTO) 48.5 % (45.0-75.0); PLATELET COUNT 162 K/UL (150-450); RED BLOOD COUNT 4.08 M/UL (4.70-6.10); RED CELL DISTRIBUTION WIDTH 12.9 % (11.6-14.8); WHITE BLOOD COUNT 7.4 K/UL (4.8-10.8)
[2018-04-09 05:36] LABS: ANION GAP 7 mmol/L (5-15); BLOOD UREA NITROGEN 11 mg/dL (7-18); CALCIUM 8.6 MG/DL (8.5-10.1); CARBON DIOXIDE 32 MMOL/L (21-32); CHLORIDE 105 MMOL/L (98-107); CREATININE 0.7 MG/DL (0.55-1.30); POTASSIUM 3.5 MMOL/L (3.5-5.1); SODIUM 144 MMOL/L (136-145)
[2018-04-09 08:00] VITALS: BP 116/43
[2018-04-09] MEDS: cefTRIAXone 2 GM in D5W 55 ML IVPB SCH (08:21)
[2018-04-09] MEDS: Heparin 5000 units/ml inj SUBQ SCH ×2 (09:00→20:12)
--- NOTE | 2018-04-09 09:39 | Pulmonology Progress Note ---
Assessment/Plan Problems: (1) Chronic vegetative state (2) Chronic respiratory failure (3) Dislodged gastrostomy tube Assessment/Plan Gtube today iv fluids continue current meds urine is less bloody, being irrigated dc to [facility] after Gtube placement. Subjective ROS Limited/Unobtainable: Yes Constitutional: Reports: no symptoms HEENT: Repors: no symptoms Allergies: Coded Allergies: BENAZEPRIL (Verified Allergy, Unknown, 03/22/15) Objective Last 24 Hour Vital Signs Date Time Temp Pulse Resp B/P (MAP) Pulse Ox O2 Delivery O2 Flow Rate FiO2 04/09/18 08:00 35 04/09/18 08:00 62 04/09/18 08:00 Mechanical Ventilator 04/09/18 08:00 98.1 62 21 116/43 (67) 99 04/09/18 07:50 63 14 35 04/09/18 05:15 65 14 35 04/09/18 04:00 35 04/09/18 04:00 81 04/09/18 04:00 Mechanical Ventilator 04/09/18 04:00 98.5 68 12 140/78 (98) 100 04/09/18 03:30 63 13 35 04/09/18 01:11 61 10 35 04/09/18 00:00 79 04/09/18 00:00 98.4 75 15 137/71 (93) 100 04/09/18 00:00 Mechanical Ventilator 04/08/18 23:29 72 16 35 04/08/18 21:45 87 16 35 04/08/18 20:00 98.2 83 17 140/80 (100) 100 04/08/18 20:00 35 04/08/18 20:00 74 04/08/18 20:00 Endotracheal Tube 04/08/18 19:31 84 17 35 04/08/18 16:38 84 21 35 04/08/18 16:02 Endotracheal Tube 04/08/18 16:01 35 04/08/18 16:00 98.1 63 16 123/60 (81) 100 04/08/18 16:00 74 04/08/18 14:31 70 16 35 04/08/18 12:47 77 18 35 04/08/18 12:00 63 04/08/18 12:00 97.9 68 18 135/41 (72) 100 04/08/18 12:00 Endotracheal Tube 04/08/18 12:00 35 04/08/18 11:09 76 17 100 04/08/18 11:08 76 18 100 04/08/18 10:54 71 16 35 Intake and Output 04/08/18 04/09/18 19:00 07:00 Intake Total 305 ml 880 ml Output Total 300 ml 300 ml Balance 5 ml 580 ml Free Water 50 ml 300 ml IV Total 55 ml Tube Feeding 200 ml 580 ml Output Urine Total 300 ml 300 ml General Appearance: cachetic HEENT: normocephalic, atraumatic Respiratory/Chest: chest wall non-tender, lungs clear Cardiovascular: normal peripheral pulses, normal rate Abdomen: normal bowel sounds, soft, non tender Genitourinary: normal external genitalia Extremities: no cyanosis Neurologic/Psychiatric: behavioral analyst II-XII grossly normal Lymphatic: no neck adenopathy Microbiology Date/Time Source Procedure Growth Status 04/06/18 15:16 Nasal Nares MRSA Culture - Final NO METHICILLIN RESISTANT STAPH AUREUS... Complete 04/06/18 14:33 Urine,Clean Catch Urine Culture - Final Lizy Albicans Complete 04/06/18 15:16 Rectum VRE Culture - Final NO VANCOMYCIN RESISTANT ENTEROCOCCUS ... Complete 04/06/18 15:16 Rectum - Final NO CARBAPENEM-RESISTANT ENTEROBACTERI... Complete Laboratory Tests 04/09/18 00:20: Urine Color Brown, Urine Appearance Cloudy, Urine pH 5, Urine Specific [place] 1.025, Urine Protein 3+H, Urine Glucose (UA) Negative, Urine Ketones 2+H, Urine Blood 5+H, Urine Nitrite PositiveH, Urine Bilirubin Negative, Urine Urobilinogen Normal, Urine Leukocyte Esterase 3+H, Urine RBC TntcH, Urine WBC 15 -20H, Urine Squamous Epithelial Cells None, Urine Bacteria ModerateH, Urine Yeast ModerateH 04/09/18 04:45: White Blood Count 7.4, Red Blood Count 4.08L, Hemoglobin 10.7L, Hematocrit 33.7L , Mean Corpuscular Volume 83, Mean Corpuscular Hemoglobin 26.3L, Mean Corpuscular Hemoglobin Concent 31.8L, Red Cell Distribution Width 12.9, Platelet Count 162, Mean Platelet Volume 10.8H, Neutrophils (%) (Auto) 48.5, Lymphocytes (%) (Auto) 29.2, Monocytes (%) (Auto) 14.1H, Eosinophils (%) (Auto) 7.0H, Basophils (%) (Auto) 1.1, Sodium Level 144, Potassium Level 3.5, Chloride Level 105, Carbon Dioxide Level 32, Anion Gap 7, Blood Urea Nitrogen 11, Creatinine 0.7, Estimat Glomerular Filtration Rate > 60, Glucose Level 110H, Calcium Level 8.6 Current Medications Medications (Trade) Dose Ordered Sig/Fernanda Route PRN Reason Start Time Stop Time Status Last Admin Dose Admin Acetaminophen (Tylenol) 650 mg Q4H PRN ORAL FEVER 04/06/18 14:45 05/06/18 14:44 Albuterol/ Ipratropium (Albuterol/ Ipratropium) 3 ml Q4H PRN HHN Shortness of Breath 04/06/18 14:45 04/11/18 14:44 Ceftriaxone Sodium 2 gm/ Dextrose 55 ml @ 110 mls/hr DAILY IVPB 04/07/18 15:00 04/14/18 14:59 04/09/18 08:21 Dextrose (Dextrose 50%) 25 ml Q30M PRN IV Hypoglycemia 04/06/18 14:45 05/06/18 14:44 Dextrose (Dextrose 50%) 50 ml Q30M PRN IV Hypoglycemia 04/06/18 16:00 05/06/18 15:59 Heparin Sodium (Porcine) (Heparin 5000 units/ml) 5,000 units EVERY 12 HOURS SUBQ 04/06/18 21:00 05/06/18 20:59 04/07/18 08:09 Lorazepam (Ativan 2mg/ml 1ml) 2 mg Q2H PRN IV For Anxiety 04/06/18 14:45 04/13/18 14:44 Morphine Sulfate (Morphine Sulfate) 4 mg Q4H PRN IVP Severe Pain (Pain Scale 7-10) 04/06/18 14:45 04/13/18 14:44 Ondansetron HCl (Zofran) 4 mg Q6H PRN IVP Nausea & Vomiting 04/06/18 14:45 05/06/18 14:44 Polyethylene Glycol (Miralax) 17 gm DAILYPRN PRN ORAL Constipation 04/06/18 14:45 05/06/18 14:44 Steve Kothari MD Apr 09, 2018 09:39
[2018-04-09 12:00] VITALS: BP 138/93
--- NOTE | 2018-04-09 13:39 | GI Progress Note ---
Assessment/Plan Problems: (1) Fecal impaction ICD Codes: K56.41 - Fecal impaction SNOMED: 64536786 (2) Dislodged gastrostomy tube ICD Codes: Z43.1 - Encounter for attention to gastrostomy SNOMED: 934037859 (3) Feeding by G-tube ICD Codes: Z93.1 - Gastrostomy status SNOMED: 312218052, 266626830 (4) Anemia ICD Codes: D64.9 - Anemia, unspecified SNOMED: 174522268 (5) Gastrostomy tube dysfunction ICD Codes: K94.23 - Gastrostomy malfunction SNOMED: 128670386 Status: stable Status Narrative Discussed with Dr. Brantley. Assessment/Plan SUMMARY OF FINDINGS: 1. Gastritis status post biopsy. 2. Status post successful G-tube placement. RECOMMENDATION: 1. Abdominal binder. 2. Elevate head of the bed all the times. 3. G-tube flush. 4. G-tube care. 5. GTFs per RD to goal Subjective Subjective limited Objective Last 24 Hour Vital Signs Date Time Temp Pulse Resp B/P (MAP) Pulse Ox O2 Delivery O2 Flow Rate FiO2 04/09/18 13:00 74 20 35 04/09/18 12:00 98.7 75 21 138/93 (108) 99 04/09/18 12:00 63 04/09/18 12:00 35 04/09/18 12:00 Mechanical Ventilator 04/09/18 11:00 69 17 35 04/09/18 09:10 69 17 35 04/09/18 08:00 35 04/09/18 08:00 62 04/09/18 08:00 Mechanical Ventilator 04/09/18 08:00 98.1 62 21 116/43 (67) 99 04/09/18 07:50 63 14 35 04/09/18 05:15 65 14 35 04/09/18 04:00 35 04/09/18 04:00 81 04/09/18 04:00 Mechanical Ventilator 04/09/18 04:00 98.5 68 12 140/78 (98) 100 04/09/18 03:30 63 13 35 04/09/18 01:11 61 10 35 04/09/18 00:00 79 04/09/18 00:00 98.4 75 15 137/71 (93) 100 04/09/18 00:00 Mechanical Ventilator 04/08/18 23:29 72 16 35 04/08/18 21:45 87 16 35 04/08/18 20:00 98.2 83 17 140/80 (100) 100 04/08/18 20:00 35 04/08/18 20:00 74 04/08/18 20:00 Endotracheal Tube 04/08/18 19:31 84 17 35 04/08/18 16:38 84 21 35 04/08/18 16:02 Endotracheal Tube 04/08/18 16:01 35 04/08/18 16:00 98.1 63 16 123/60 (81) 100 04/08/18 16:00 74 04/08/18 14:31 70 16 35 Intake and Output 04/08/18 04/09/18 18:59 06:59 Intake Total 255 ml 930 ml Output Total 300 ml 300 ml Balance -45 ml 630 ml Free Water 50 ml 300 ml IV Total 55 ml Tube Feeding 150 ml 630 ml Output Urine Total 300 ml 300 ml Laboratory Tests Test 04/09/18 00:20 04/09/18 04:45 Urine Color Brown Urine Appearance Cloudy Urine pH 5 (4.5-8.0) Urine Specific [place] 1.025 (1.005-1.035) Urine Protein 3+ (NEGATIVE) H Urine Glucose (UA) Negative (NEGATIVE) Urine Ketones 2+ (NEGATIVE) H Urine Blood 5+ (NEGATIVE) H Urine Nitrite Positive (NEGATIVE) H Urine Bilirubin Negative (NEGATIVE) Urine Urobilinogen Normal MG/DL (0.0-1.0) Urine Leukocyte Esterase 3+ (NEGATIVE) H Urine RBC Tntc /HPF (0 - 0) H Urine WBC 15-20 /HPF (0 - 0) H Urine Squamous Epithelial Cells None /LPF (NONE/OCC) Urine Bacteria Moderate /HPF (NONE) H Urine Yeast Moderate /HPF (NONE) H White Blood Count 7.4 K/UL (4.8-10.8) Red Blood Count 4.08 M/UL (4.70-6.10) L Hemoglobin 10.7 G/DL (14.2-18.0) L Hematocrit 33.7 % (42.0-52.0) L Mean Corpuscular Volume 83 FL (80-99) Mean Corpuscular Hemoglobin 26.3 PG (27.0-31.0) L Mean Corpuscular Hemoglobin Concent 31.8 G/DL (32.0-36.0) L Red Cell Distribution Width 12.9 % (11.6-14.8) Platelet Count 162 K/UL (150-450) Mean Platelet Volume 10.8 FL (6.5-10.1) H Neutrophils (%) (Auto) 48.5 % (45.0-75.0) Lymphocytes (%) (Auto) 29.2 % (20.0-45.0) Monocytes (%) (Auto) 14.1 % (1.0-10.0) H Eosinophils (%) (Auto) 7.0 % (0.0-3.0) H Basophils (%) (Auto) 1.1 % (0.0-2.0) Sodium Level 144 MMOL/L (136-145) Potassium Level 3.5 MMOL/L (3.5-5.1) Chloride Level 105 MMOL/L (98-107) Carbon Dioxide Level 32 MMOL/L (21-32) Anion Gap 7 mmol/L (5-15) Blood Urea Nitrogen 11 mg/dL (7-18) Creatinine 0.7 MG/DL (0.55-1.30) Estimat Glomerular Filtration Rate > 60 mL/min (>60) Glucose Level 110 MG/DL (74-106) H Calcium Level 8.6 MG/DL (8.5-10.1) Height (Feet): 6 Height (Inches): 3.00 Weight (Pounds): 234 General Appearance: no apparent distress Cardiovascular: normal rate Respiratory/Chest: normal breath sounds, no respiratory distress Abdominal Exam: normal bowel sounds, non tender, soft, GT site - c/d/i Extremities: non-tender Isaac Anaya NP Apr 09, 2018 13:39
--- NOTE | 2018-04-09 13:45 | Diagnostic Imaging Report ---
Indication: Acute renal failure Technique: Grayscale and duplex images of the kidneys, retroperitoneum, and bladder were obtained. Comparison: none Findings: Exam is limited due to body habitus and patient being contracted, as well as overlying bowel gas. Right kidney [id number] in length. Left kidney measures 10.1 cm in length. Both kidneys demonstrate normal echogenicity. No hydronephrosis. No focal abnormality. Nonvisualized inferior vena cava. Bladder is empty, contains a Sauceda catheter. Impression: Negative for hydronephrosis Empty bladder containing a Sauceda catheter Limited exam, as described.
--- NOTE | 2018-04-09 15:35 | Infectious Diseases Prog Note ---
Assessment/Plan Assessment/Plan ASSESSMENT: The patient is a 63-year-old male with: Hematuria/pyuria, No evid of UTI UCx : < 10K Lizy G-tube site, no evidence of cellulitis. Normal white blood cells. Afebrile. History of methicillin-resistant Staphylococcus aureus bacteremia US : Negative for hydronephrosis History of left arm surgery. History of ventilator-dependent respiratory failure/trach. SP replacement of PEG tube., EGD : Gastritis : H Pylori : negative PLAN: DC IV Rocephin d# 3 Monitor CBC. Monitor BMP. Monitor cultures (blood) Monitor chest x-ray. GI follow up Subjective Allergies: Coded Allergies: BENAZEPRIL (Verified Allergy, Unknown, 03/22/15) Subjective Comfortable Objective Vital Signs Last 24 Hour Vital Signs Date Time Temp Pulse Resp B/P (MAP) Pulse Ox O2 Delivery O2 Flow Rate FiO2 04/09/18 13:00 74 20 35 04/09/18 12:00 98.7 75 21 138/93 (108) 99 04/09/18 12:00 63 04/09/18 12:00 35 04/09/18 12:00 Mechanical Ventilator 04/09/18 11:00 69 17 35 04/09/18 09:10 69 17 35 04/09/18 08:00 35 04/09/18 08:00 62 04/09/18 08:00 Mechanical Ventilator 04/09/18 08:00 98.1 62 21 116/43 (67) 99 04/09/18 07:50 63 14 35 04/09/18 05:15 65 14 35 04/09/18 04:00 35 04/09/18 04:00 81 04/09/18 04:00 Mechanical Ventilator 04/09/18 04:00 98.5 68 12 140/78 (98) 100 04/09/18 03:30 63 13 35 04/09/18 01:11 61 10 35 04/09/18 00:00 79 04/09/18 00:00 98.4 75 15 137/71 (93) 100 04/09/18 00:00 Mechanical Ventilator 04/08/18 23:29 72 16 35 04/08/18 21:45 87 16 35 04/08/18 20:00 98.2 83 17 140/80 (100) 100 04/08/18 20:00 35 04/08/18 20:00 74 04/08/18 20:00 Endotracheal Tube 04/08/18 19:31 84 17 35 04/08/18 16:38 84 21 35 04/08/18 16:02 Endotracheal Tube 04/08/18 16:01 35 04/08/18 16:00 98.1 63 16 123/60 (81) 100 04/08/18 16:00 74 Height (Feet): 6 Height (Inches): 3.00 Weight (Pounds): 234 HEENT: anicteric Respiratory/Chest: normal breath sounds Cardiovascular: no gallop/murmur Abdomen: soft, non tender Laboratory Tests Test 04/09/18 00:20 04/09/18 04:45 Urine Color Brown Urine Appearance Cloudy Urine pH 5 (4.5-8.0) Urine Specific [place] 1.025 (1.005-1.035) Urine Protein 3+ (NEGATIVE) H Urine Glucose (UA) Negative (NEGATIVE) Urine Ketones 2+ (NEGATIVE) H Urine Blood 5+ (NEGATIVE) H Urine Nitrite Positive (NEGATIVE) H Urine Bilirubin Negative (NEGATIVE) Urine Urobilinogen Normal MG/DL (0.0-1.0) Urine Leukocyte Esterase 3+ (NEGATIVE) H Urine RBC Tntc /HPF (0 - 0) H Urine WBC 15-20 /HPF (0 - 0) H Urine Squamous Epithelial Cells None /LPF (NONE/OCC) Urine Bacteria Moderate /HPF (NONE) H Urine Yeast Moderate /HPF (NONE) H White Blood Count 7.4 K/UL (4.8-10.8) Red Blood Count 4.08 M/UL (4.70-6.10) L Hemoglobin 10.7 G/DL (14.2-18.0) L Hematocrit 33.7 % (42.0-52.0) L Mean Corpuscular Volume 83 FL (80-99) Mean Corpuscular Hemoglobin 26.3 PG (27.0-31.0) L Mean Corpuscular Hemoglobin Concent 31.8 G/DL (32.0-36.0) L Red Cell Distribution Width 12.9 % (11.6-14.8) Platelet Count 162 K/UL (150-450) Mean Platelet Volume 10.8 FL (6.5-10.1) H Neutrophils (%) (Auto) 48.5 % (45.0-75.0) Lymphocytes (%) (Auto) 29.2 % (20.0-45.0) Monocytes (%) (Auto) 14.1 % (1.0-10.0) H Eosinophils (%) (Auto) 7.0 % (0.0-3.0) H Basophils (%) (Auto) 1.1 % (0.0-2.0) Sodium Level 144 MMOL/L (136-145) Potassium Level 3.5 MMOL/L (3.5-5.1) Chloride Level 105 MMOL/L (98-107) Carbon Dioxide Level 32 MMOL/L (21-32) Anion Gap 7 mmol/L (5-15) Blood Urea Nitrogen 11 mg/dL (7-18) Creatinine 0.7 MG/DL (0.55-1.30) Estimat Glomerular Filtration Rate > 60 mL/min (>60) Glucose Level 110 MG/DL (74-106) H Calcium Level 8.6 MG/DL (8.5-10.1) Current Medications Medications (Trade) Dose Ordered Sig/Fernanda Route PRN Reason Start Time Stop Time Status Last Admin Dose Admin Acetaminophen (Tylenol) 650 mg Q4H PRN ORAL FEVER 04/06/18 14:45 05/06/18 14:44 Albuterol/ Ipratropium (Albuterol/ Ipratropium) 3 ml Q4H PRN HHN Shortness of Breath 04/06/18 14:45 04/11/18 14:44 Ceftriaxone Sodium 2 gm/ Dextrose 55 ml @ 110 mls/hr DAILY IVPB 04/07/18 15:00 04/14/18 14:59 04/09/18 08:21 Dextrose (Dextrose 50%) 25 ml Q30M PRN IV Hypoglycemia 04/06/18 14:45 05/06/18 14:44 Dextrose (Dextrose 50%) 50 ml Q30M PRN IV Hypoglycemia 04/06/18 16:00 05/06/18 15:59 Heparin Sodium (Porcine) (Heparin 5000 units/ml) 5,000 units EVERY 12 HOURS SUBQ 04/06/18 21:00 05/06/18 20:59 04/07/18 08:09 Lorazepam (Ativan 2mg/ml 1ml) 2 mg Q2H PRN IV For Anxiety 04/06/18 14:45 04/13/18 14:44 Morphine Sulfate (Morphine Sulfate) 4 mg Q4H PRN IVP Severe Pain (Pain Scale 7-10) 04/06/18 14:45 04/13/18 14:44 Ondansetron HCl (Zofran) 4 mg Q6H PRN IVP Nausea & Vomiting 04/06/18 14:45 05/06/18 14:44 Polyethylene Glycol (Miralax) 17 gm DAILYPRN PRN ORAL Constipation 04/06/18 14:45 05/06/18 14:44 Kvng Cotter MD Apr 09, 2018 15:35
[2018-04-09 16:00] VITALS: BP 137/76
--- NOTE | 2018-04-09 18:48 | Internal Med Progress Note ---
Subjective Date of Service: Apr 09, 2018 Physician Name Ritesh Chavis Attending Physician Ananda Kaur MD Current Medications Medications (Trade) Dose Ordered Sig/Fernanda Route PRN Reason Start Time Stop Time Status Last Admin Dose Admin Acetaminophen (Tylenol) 650 mg Q4H PRN ORAL FEVER 04/06/18 14:45 05/06/18 14:44 Albuterol/ Ipratropium (Albuterol/ Ipratropium) 3 ml Q4H PRN HHN Shortness of Breath 04/06/18 14:45 04/11/18 14:44 Dextrose (Dextrose 50%) 25 ml Q30M PRN IV Hypoglycemia 04/06/18 14:45 05/06/18 14:44 Dextrose (Dextrose 50%) 50 ml Q30M PRN IV Hypoglycemia 04/06/18 16:00 05/06/18 15:59 Heparin Sodium (Porcine) (Heparin 5000 units/ml) 5,000 units EVERY 12 HOURS SUBQ 04/06/18 21:00 05/06/18 20:59 04/07/18 08:09 Lorazepam (Ativan 2mg/ml 1ml) 2 mg Q2H PRN IV For Anxiety 04/06/18 14:45 04/13/18 14:44 Morphine Sulfate (Morphine Sulfate) 4 mg Q4H PRN IVP Severe Pain (Pain Scale 7-10) 04/06/18 14:45 04/13/18 14:44 Ondansetron HCl (Zofran) 4 mg Q6H PRN IVP Nausea & Vomiting 04/06/18 14:45 05/06/18 14:44 Polyethylene Glycol (Miralax) 17 gm DAILYPRN PRN ORAL Constipation 04/06/18 14:45 05/06/18 14:44 Allergies: Coded Allergies: BENAZEPRIL (Verified Allergy, Unknown, 03/22/15) ROS Limited/Unobtainable: Yes Subjective 63 YO M admitted with dislodged gastrostomy tube. S/P Endoscopy 04/08/18 for replacement. Cover for Int Med-Dr Kaur. SHAWN. Gross hematuria improving Objective Last Vital Signs Date Time Temp Pulse Resp B/P (MAP) Pulse Ox O2 Delivery O2 Flow Rate FiO2 04/09/18 16:50 67 17 35 04/09/18 16:00 98.5 137/76 (96) 99 04/09/18 16:00 Mechanical Ventilator 04/06/18 16:30 4.0 Laboratory Tests Test 04/09/18 00:20 04/09/18 04:45 Urine Color Brown Urine Appearance Cloudy Urine pH 5 (4.5-8.0) Urine Specific [place] 1.025 (1.005-1.035) Urine Protein 3+ (NEGATIVE) H Urine Glucose (UA) Negative (NEGATIVE) Urine Ketones 2+ (NEGATIVE) H Urine Blood 5+ (NEGATIVE) H Urine Nitrite Positive (NEGATIVE) H Urine Bilirubin Negative (NEGATIVE) Urine Urobilinogen Normal MG/DL (0.0-1.0) Urine Leukocyte Esterase 3+ (NEGATIVE) H Urine RBC Tntc /HPF (0 - 0) H Urine WBC 15-20 /HPF (0 - 0) H Urine Squamous Epithelial Cells None /LPF (NONE/OCC) Urine Bacteria Moderate /HPF (NONE) H Urine Yeast Moderate /HPF (NONE) H White Blood Count 7.4 K/UL (4.8-10.8) Red Blood Count 4.08 M/UL (4.70-6.10) L Hemoglobin 10.7 G/DL (14.2-18.0) L Hematocrit 33.7 % (42.0-52.0) L Mean Corpuscular Volume 83 FL (80-99) Mean Corpuscular Hemoglobin 26.3 PG (27.0-31.0) L Mean Corpuscular Hemoglobin Concent 31.8 G/DL (32.0-36.0) L Red Cell Distribution Width 12.9 % (11.6-14.8) Platelet Count 162 K/UL (150-450) Mean Platelet Volume 10.8 FL (6.5-10.1) H Neutrophils (%) (Auto) 48.5 % (45.0-75.0) Lymphocytes (%) (Auto) 29.2 % (20.0-45.0) Monocytes (%) (Auto) 14.1 % (1.0-10.0) H Eosinophils (%) (Auto) 7.0 % (0.0-3.0) H Basophils (%) (Auto) 1.1 % (0.0-2.0) Sodium Level 144 MMOL/L (136-145) Potassium Level 3.5 MMOL/L (3.5-5.1) Chloride Level 105 MMOL/L (98-107) Carbon Dioxide Level 32 MMOL/L (21-32) Anion Gap 7 mmol/L (5-15) Blood Urea Nitrogen 11 mg/dL (7-18) Creatinine 0.7 MG/DL (0.55-1.30) Estimat Glomerular Filtration Rate > 60 mL/min (>60) Glucose Level 110 MG/DL (74-106) H Calcium Level 8.6 MG/DL (8.5-10.1) Intake and Output 04/08/18 04/09/18 18:59 06:59 Intake Total 255 ml 930 ml Output Total 300 ml 300 ml Balance -45 ml 630 ml Free Water 50 ml 300 ml IV Total 55 ml Tube Feeding 150 ml 630 ml Output Urine Total 300 ml 300 ml Objective General Appearance: WD/WN, lethargic EENT: PERRL/EOMI Neck: non-tender, normal alignment, supple Cardiovascular: normal peripheral pulses, normal rate, regular rhythm, no gallop/murmur, no JVD Respiratory/Chest: chest wall non-tender, lungs clear, normal breath sounds, respiratory distress, crackles/rales, rhonchi - bilaterally, rhonchi - left, expiratory wheezing Abdomen: normal bowel sounds, non tender, soft, no organomegaly, no mass Extremities: normal range of motion, non-tender Skin: normal pigmentation, warm/dry Assessment/Plan Problem List: (1) COPD (chronic obstructive pulmonary disease) (2) Hypercholesteremia (3) Tracheostomy care (4) Alzheimer's dementia (5) Chronic organic brain syndrome (6) Dislodged gastrostomy tube Assessment & Plan: S/P endoscopy 04/08/18 for replacement-see GI note (7) Chronic respiratory failure Assessment & Plan: continue vent-See pulmonary note. (8) Chronic vegetative state (9) Gastrostomy tube dysfunction (10) Respiratory failure, acute and chronic (11) Hematuria Assessment & Plan: ?traumatic? Renal ultrasound=normal. Urine cult and sens pending. 04/06/18 urine cult = yeast Status: progressing Ritesh Chavis MD Apr 09, 2018 18:48
[2018-04-09 20:00] VITALS: BP 122/56
[2018-04-10] VITALS: BP 137/68
[2018-04-10 04:00] VITALS: BP 121/79
[2018-04-10 04:46] LABS: BASOPHILS % (AUTO) 1.6 % (0.0-2.0); EOSINOPHILS % (AUTO) 6.8 % (0.0-3.0); HEMATOCRIT 32.4 % (42.0-52.0); HEMOGLOBIN 10.7 G/DL (14.2-18.0); LYMPHOCYTES % (AUTO) 38.5 % (20.0-45.0); MEAN CORPUSCULAR VOLUME 83 FL (80-99); MONOCYTES % (AUTO) 11.7 % (1.0-10.0); NEUTROPHILS % (AUTO) 41.5 % (45.0-75.0); PLATELET COUNT 169 K/UL (150-450); RED BLOOD COUNT 3.92 M/UL (4.70-6.10); RED CELL DISTRIBUTION WIDTH 12.9 % (11.6-14.8)
[2018-04-10 05:04] LABS: ALANINE AMINOTRANSFERASE 23 U/L (12-78); ALBUMIN 2.4 G/DL (3.4-5.0); ALBUMIN/GLOBULIN RATIO 0.4 (1.0-2.7); ALKALINE PHOSPHATASE 97 U/L (46-116); ANION GAP 4 mmol/L (5-15); ASPARTATE AMINO TRANSFERASE 23 U/L (15-37); BILIRUBIN,TOTAL 0.2 MG/DL (0.2-1.0); BLOOD UREA NITROGEN 9 mg/dL (7-18); CALCIUM 8.7 MG/DL (8.5-10.1); CARBON DIOXIDE 30 MMOL/L (21-32); CHLORIDE 107 MMOL/L (98-107); CREATININE 0.7 MG/DL (0.55-1.30); PHOSPHORUS 2.7 MG/DL (2.5-4.9); POTASSIUM 3.8 MMOL/L (3.5-5.1); SODIUM 141 MMOL/L (136-145)
[2018-04-10 08:00] VITALS: BP 165/66
[2018-04-10] MEDS: Heparin 5000 units/ml inj SUBQ SCH (09:00)
[2018-04-10 12:00] VITALS: BP 138/75
--- NOTE | 2018-04-10 13:14 | Pulmonology Progress Note ---
Assessment/Plan Problems: (1) Chronic vegetative state (2) Chronic respiratory failure (3) Dislodged gastrostomy tube Assessment/Plan Gtube today iv fluids continue current meds urine is less bloody, being irrigated hematuria resolved Subjective ROS Limited/Unobtainable: Yes Constitutional: Reports: no symptoms HEENT: Repors: no symptoms Allergies: Coded Allergies: BENAZEPRIL (Verified Allergy, Unknown, 03/22/15) Objective Last 24 Hour Vital Signs Date Time Temp Pulse Resp B/P (MAP) Pulse Ox O2 Delivery O2 Flow Rate FiO2 04/10/18 12:37 67 18 35 04/10/18 12:00 35 04/10/18 12:00 Mechanical Ventilator 04/10/18 10:36 68 18 35 04/10/18 08:51 64 18 35 04/10/18 08:00 48 04/10/18 08:00 35 04/10/18 08:00 Mechanical Ventilator 04/10/18 08:00 97.7 73 18 165/66 (99) 100 04/10/18 07:01 62 18 35 04/10/18 05:09 74 22 35 04/10/18 04:00 Mechanical Ventilator 04/10/18 04:00 35 04/10/18 04:00 98.4 71 17 121/79 (93) 100 04/10/18 04:00 82 04/10/18 03:03 62 16 35 04/10/18 01:20 65 14 35 04/10/18 00:00 98.1 73 18 137/68 (91) 100 04/10/18 00:00 35 04/10/18 00:00 Mechanical Ventilator 04/10/18 00:00 66 04/09/18 23:25 63 17 35 04/09/18 20:56 63 14 35 04/09/18 20:00 68 04/09/18 20:00 Mechanical Ventilator 04/09/18 20:00 98.4 64 17 122/56 (78) 100 04/09/18 20:00 35 04/09/18 18:58 66 17 35 04/09/18 16:50 67 17 35 04/09/18 16:00 64 04/09/18 16:00 35 04/09/18 16:00 98.5 66 20 137/76 (96) 99 04/09/18 16:00 Mechanical Ventilator 04/09/18 15:05 62 16 35 Intake and Output 04/09/18 04/10/18 19:00 07:00 Intake Total 975 ml 660 ml Output Total 400 ml 400 ml Balance 575 ml 260 ml Free Water 200 ml IV Total 55 ml Tube Feeding 720 ml 660 ml Output Urine Total 400 ml 400 ml # Bowel Movements 2 General Appearance: WD/WN HEENT: normocephalic, atraumatic Respiratory/Chest: chest wall non-tender, lungs clear Abdomen: normal bowel sounds, soft, non tender Genitourinary: normal external genitalia Skin: no rash 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6, Erythrocyte Sedimentation Rate 66H, Sodium Level 141, Potassium Level 3.8, Chloride Level 107, Carbon Dioxide Level 30, Anion Gap 4L, Blood Urea Nitrogen 9, Creatinine 0.7, Estimat Glomerular Filtration Rate > 60, Glucose Level 109H, Calcium Level 8.7, Phosphorus Level 2.7, Magnesium Level 1.7L, Total Bilirubin 0.2, Aspartate Amino Transf (AST/SGOT ) 23, Alanine Aminotransferase (ALT/SGPT) 23, Alkaline Phosphatase 97, C- Reactive Protein, Quantitative 4.7H, Total Protein 8.3H, Albumin 2.4L, Globulin 5.9, Albumin/Globulin Ratio 0.4L Current Medications Medications (Trade) Dose Ordered Sig/Fernanda Route PRN Reason Start Time Stop Time Status Last Admin Dose Admin Acetaminophen (Tylenol) 650 mg Q4H PRN ORAL FEVER 04/06/18 14:45 05/06/18 14:44 Albuterol/ Ipratropium (Albuterol/ Ipratropium) 3 ml Q4H PRN HHN Shortness of Breath 04/06/18 14:45 04/11/18 14:44 Clonidine HCl (Catapres Tab) 0.1 mg Q6H PRN GT SBP > 160 04/10/18 09:45 05/10/18 09:44 Dextrose (Dextrose 50%) 25 ml Q30M PRN IV Hypoglycemia 04/06/18 14:45 05/06/18 14:44 Dextrose (Dextrose 50%) 50 ml Q30M PRN IV Hypoglycemia 04/06/18 16:00 05/06/18 15:59 Heparin Sodium (Porcine) (Heparin 5000 units/ml) 5,000 units EVERY 12 HOURS SUBQ 04/06/18 21:00 05/06/18 20:59 04/07/18 08:09 Lorazepam (Ativan 2mg/ml 1ml) 2 mg Q2H PRN IV For Anxiety 04/06/18 14:45 04/13/18 14:44 Morphine Sulfate (Morphine Sulfate) 4 mg Q4H PRN IVP Severe Pain (Pain Scale 7-10) 04/06/18 14:45 04/13/18 14:44 Ondansetron HCl (Zofran) 4 mg Q6H PRN IVP Nausea & Vomiting 04/06/18 14:45 05/06/18 14:44 Polyethylene Glycol (Miralax) 17 gm DAILYPRN PRN ORAL Constipation 04/06/18 14:45 05/06/18 14:44 Steve Kothari MD Apr 10, 2018 13:14
--- NOTE | 2018-04-10 14:09 | GI Progress Note ---
Assessment/Plan Problems: (1) Fecal impaction ICD Codes: K56.41 - Fecal impaction SNOMED: 97328630 (2) Dislodged gastrostomy tube ICD Codes: Z43.1 - Encounter for attention to gastrostomy SNOMED: 505190164 (3) Feeding by G-tube ICD Codes: Z93.1 - Gastrostomy status SNOMED: 084433932, 048782348 (4) Anemia ICD Codes: D64.9 - Anemia, unspecified SNOMED: 344554991 (5) Gastrostomy tube dysfunction ICD Codes: K94.23 - Gastrostomy malfunction SNOMED: 127094501 Status: stable Status Narrative Discussed with Dr. Brantley. Assessment/Plan SUMMARY OF FINDINGS: 1. Gastritis status post biopsy. 2. Status post successful G-tube placement. RECOMMENDATION: 1. Abdominal binder. 2. Elevate head of the bed all the times. 3. G-tube flush. 4. G-tube care. 5. GTFs per RD to goal Subjective Subjective limited Objective Last 24 Hour Vital Signs Date Time Temp Pulse Resp B/P (MAP) Pulse Ox O2 Delivery O2 Flow Rate FiO2 04/10/18 12:37 67 18 35 04/10/18 12:00 98.1 59 18 138/75 (96) 100 04/10/18 12:00 35 04/10/18 12:00 Mechanical Ventilator 04/10/18 12:00 62 04/10/18 10:36 68 18 35 04/10/18 08:51 64 18 35 04/10/18 08:00 48 04/10/18 08:00 35 04/10/18 08:00 Mechanical Ventilator 04/10/18 08:00 97.7 73 18 165/66 (99) 100 04/10/18 07:01 62 18 35 04/10/18 05:09 74 22 35 04/10/18 04:00 Mechanical Ventilator 04/10/18 04:00 35 04/10/18 04:00 98.4 71 17 121/79 (93) 100 04/10/18 04:00 82 04/10/18 03:03 62 16 35 04/10/18 01:20 65 14 35 04/10/18 00:00 98.1 73 18 137/68 (91) 100 04/10/18 00:00 35 04/10/18 00:00 Mechanical Ventilator 04/10/18 00:00 66 04/09/18 23:25 63 17 35 04/09/18 20:56 63 14 35 04/09/18 20:00 68 04/09/18 20:00 Mechanical Ventilator 04/09/18 20:00 98.4 64 17 122/56 (78) 100 04/09/18 20:00 35 04/09/18 18:58 66 17 35 04/09/18 16:50 67 17 35 04/09/18 16:00 64 04/09/18 16:00 35 04/09/18 16:00 98.5 66 20 137/76 (96) 99 04/09/18 16:00 Mechanical Ventilator 04/09/18 15:05 62 16 35 Intake and Output 04/09/18 04/10/18 19:00 07:00 Intake Total 975 ml 660 ml Output Total 400 ml 400 ml Balance 575 ml 260 ml Free Water 200 ml IV Total 55 ml Tube Feeding 720 ml 660 ml Output Urine Total 400 ml 400 ml # Bowel Movements 2 Laboratory Tests Test 04/10/18 03:15 White Blood Count 8.0 K/UL (4.8-10.8) Red Blood Count 3.92 M/UL (4.70-6.10) L Hemoglobin 10.7 G/DL (14.2-18.0) L Hematocrit 32.4 % (42.0-52.0) L Mean Corpuscular Volume 83 FL (80-99) Mean Corpuscular Hemoglobin 27.2 PG (27.0-31.0) Mean Corpuscular Hemoglobin Concent 32.9 G/DL (32.0-36.0) Red Cell Distribution Width 12.9 % (11.6-14.8) Platelet Count 169 K/UL (150-450) Mean Platelet Volume 10.6 FL (6.5-10.1) H Neutrophils (%) (Auto) 41.5 % (45.0-75.0) L Lymphocytes (%) (Auto) 38.5 % (20.0-45.0) Monocytes (%) (Auto) 11.7 % (1.0-10.0) H Eosinophils (%) (Auto) 6.8 % (0.0-3.0) H Basophils (%) (Auto) 1.6 % (0.0-2.0) Erythrocyte Sedimentation Rate 66 MM/HR (0-20) H Sodium Level 141 MMOL/L (136-145) Potassium Level 3.8 MMOL/L (3.5-5.1) Chloride Level 107 MMOL/L (98-107) Carbon Dioxide Level 30 MMOL/L (21-32) Anion Gap 4 mmol/L (5-15) L Blood Urea Nitrogen 9 mg/dL (7-18) Creatinine 0.7 MG/DL (0.55-1.30) Estimat Glomerular Filtration Rate > 60 mL/min (>60) Glucose Level 109 MG/DL (74-106) H Calcium Level 8.7 MG/DL (8.5-10.1) Phosphorus Level 2.7 MG/DL (2.5-4.9) Magnesium Level 1.7 MG/DL (1.8-2.4) L Total Bilirubin 0.2 MG/DL (0.2-1.0) Aspartate Amino Transf (AST/SGOT) 23 U/L (15-37) Alanine Aminotransferase (ALT/SGPT) 23 U/L (12-78) Alkaline Phosphatase 97 U/L (46-116) C-Reactive Protein, Quantitative 4.7 mg/dL (0.00-0.90) H Total Protein 8.3 G/DL (6.4-8.2) H Albumin 2.4 G/DL (3.4-5.0) L Globulin 5.9 g/dL Albumin/Globulin Ratio 0.4 (1.0-2.7) L Height (Feet): 6 Height (Inches): 3.00 Weight (Pounds): 234 General Appearance: WD/WN, no apparent distress, alert Cardiovascular: normal rate Respiratory/Chest: normal breath sounds, no respiratory distress Abdominal Exam: normal bowel sounds, non tender, soft Extremities: normal range of motion, non-tender Isaac Anaya NP Apr 10, 2018 14:09
--- NOTE | 2018-04-10 15:59 | Infectious Diseases Prog Note ---
Assessment/Plan Assessment/Plan ASSESSMENT: The patient is a 63-year-old male with: Hematuria/pyuria, No evid of UTI UCx : < 10K Lizy G-tube site, no evidence of cellulitis Normal white blood cells Afebrile History of methicillin-resistant Staphylococcus aureus bacteremia US : Negative for hydronephrosis History of left arm surgery. History of ventilator-dependent respiratory failure/trach. SP replacement of PEG tube., EGD : Gastritis : H Pylori : negative PLAN: monitor pt off of AB RX 04/09 SP IV Rocephin d# 3 Monitor CBC. Monitor BMP. Monitor cultures (blood) Monitor chest x-ray. GI follow up Subjective Allergies: Coded Allergies: BENAZEPRIL (Verified Allergy, Unknown, 03/22/15) Subjective Comfortable Objective Vital Signs Last 24 Hour Vital Signs Date Time Temp Pulse Resp B/P (MAP) Pulse Ox O2 Delivery O2 Flow Rate FiO2 04/10/18 15:00 67 18 35 04/10/18 12:37 67 18 35 04/10/18 12:00 98.1 59 18 138/75 (96) 100 04/10/18 12:00 35 04/10/18 12:00 Mechanical Ventilator 04/10/18 12:00 62 04/10/18 10:36 68 18 35 04/10/18 08:51 64 18 35 04/10/18 08:00 48 04/10/18 08:00 35 04/10/18 08:00 Mechanical Ventilator 04/10/18 08:00 97.7 73 18 165/66 (99) 100 04/10/18 07:01 62 18 35 04/10/18 05:09 74 22 35 04/10/18 04:00 Mechanical Ventilator 04/10/18 04:00 35 04/10/18 04:00 98.4 71 17 121/79 (93) 100 04/10/18 04:00 82 04/10/18 03:03 62 16 35 04/10/18 01:20 65 14 35 04/10/18 00:00 98.1 73 18 137/68 (91) 100 04/10/18 00:00 35 04/10/18 00:00 Mechanical Ventilator 04/10/18 00:00 66 04/09/18 23:25 63 17 35 04/09/18 20:56 63 14 35 11/14/18 20:00 68 04/09/18 20:00 Mechanical Ventilator 04/09/18 20:00 98.4 64 17 122/56 (78) 100 04/09/18 20:00 35 04/09/18 18:58 66 17 35 04/09/18 16:50 67 17 35 04/09/18 16:00 64 04/09/18 16:00 35 04/09/18 16:00 98.5 66 20 137/76 (96) 99 04/09/18 16:00 Mechanical Ventilator Height (Feet): 6 Height (Inches): 3.00 Weight (Pounds): 234 HEENT: atraumatic Respiratory/Chest: normal breath sounds Cardiovascular: regular rhythm Abdomen: no organomegaly Microbiology Date/Time Source Procedure Growth Status 04/09/18 00:20 Indwelling Cath Urine Culture - Preliminary YEAST Resulted Laboratory Tests Test 04/10/18 03:15 White Blood Count 8.0 K/UL (4.8-10.8) Red Blood Count 3.92 M/UL (4.70-6.10) L Hemoglobin 10.7 G/DL (14.2-18.0) L Hematocrit 32.4 % (42.0-52.0) L Mean Corpuscular Volume 83 FL (80-99) Mean Corpuscular Hemoglobin 27.2 PG (27.0-31.0) Mean Corpuscular Hemoglobin Concent 32.9 G/DL (32.0-36.0) Red Cell Distribution Width 12.9 % (11.6-14.8) Platelet Count 169 K/UL (150-450) Mean Platelet Volume 10.6 FL (6.5-10.1) H Neutrophils (%) (Auto) 41.5 % (45.0-75.0) L Lymphocytes (%) (Auto) 38.5 % (20.0-45.0) Monocytes (%) (Auto) 11.7 % (1.0-10.0) H Eosinophils (%) (Auto) 6.8 % (0.0-3.0) H Basophils (%) (Auto) 1.6 % (0.0-2.0) Erythrocyte Sedimentation Rate 66 MM/HR (0-20) H Sodium Level 141 MMOL/L (136-145) Potassium Level 3.8 MMOL/L (3.5-5.1) Chloride Level 107 MMOL/L (98-107) Carbon Dioxide Level 30 MMOL/L (21-32) Anion Gap 4 mmol/L (5-15) L Blood Urea Nitrogen 9 mg/dL (7-18) Creatinine 0.7 MG/DL (0.55-1.30) Estimat Glomerular Filtration Rate > 60 mL/min (>60) Glucose Level 109 MG/DL (74-106) H Calcium Level 8.7 MG/DL (8.5-10.1) Phosphorus Level 2.7 MG/DL (2.5-4.9) Magnesium Level 1.7 MG/DL (1.8-2.4) L Total Bilirubin 0.2 MG/DL (0.2-1.0) Aspartate Amino Transf (AST/SGOT) 23 U/L (15-37) Alanine Aminotransferase (ALT/SGPT) 23 U/L (12-78) Alkaline Phosphatase 97 U/L (46-116) C-Reactive Protein, Quantitative 4.7 mg/dL (0.00-0.90) H Total Protein 8.3 G/DL (6.4-8.2) H Albumin 2.4 G/DL (3.4-5.0) L Globulin 5.9 g/dL Albumin/Globulin Ratio 0.4 (1.0-2.7) L Current Medications Medications (Trade) Dose Ordered Sig/Fernanda Route PRN Reason Start Time Stop Time Status Last Admin Dose Admin Acetaminophen (Tylenol) 650 mg Q4H PRN ORAL FEVER 04/06/18 14:45 05/06/18 14:44 Albuterol/ Ipratropium (Albuterol/ Ipratropium) 3 ml Q4H PRN HHN Shortness of Breath 04/06/18 14:45 04/11/18 14:44 Clonidine HCl (Catapres Tab) 0.1 mg Q6H PRN GT SBP > 160 04/10/18 09:45 05/10/18 09:44 Dextrose (Dextrose 50%) 25 ml Q30M PRN IV Hypoglycemia 04/06/18 14:45 05/06/18 14:44 Dextrose (Dextrose 50%) 50 ml Q30M PRN IV Hypoglycemia 04/06/18 16:00 05/06/18 15:59 Heparin Sodium (Porcine) (Heparin 5000 units/ml) 5,000 units EVERY 12 HOURS SUBQ 04/06/18 21:00 05/06/18 20:59 04/07/18 08:09 Lorazepam (Ativan 2mg/ml 1ml) 2 mg Q2H PRN IV For Anxiety 04/06/18 14:45 04/13/18 14:44 Morphine Sulfate (Morphine Sulfate) 4 mg Q4H PRN IVP Severe Pain (Pain Scale 7-10) 04/06/18 14:45 04/13/18 14:44 Ondansetron HCl (Zofran) 4 mg Q6H PRN IVP Nausea & Vomiting 04/06/18 14:45 05/06/18 14:44 Polyethylene Glycol (Miralax) 17 gm DAILYPRN PRN ORAL Constipation 04/06/18 14:45 05/06/18 14:44 Kvng Cotter MD Apr 10, 2018 15:59
[2018-04-10 16:00] VITALS: BP 124/82
--- NOTE | 2018-04-10 17:00 | Internal Med Progress Note ---
Subjective Date of Service: Apr 10, 2018 Physician Name Ritesh Chavis Attending Physician Ananda Kaur MD Current Medications Medications (Trade) Dose Ordered Sig/Fernanda Route PRN Reason Start Time Stop Time Status Last Admin Dose Admin Acetaminophen (Tylenol) 650 mg Q4H PRN ORAL FEVER 04/06/18 14:45 05/06/18 14:44 Albuterol/ Ipratropium (Albuterol/ Ipratropium) 3 ml Q4H PRN HHN Shortness of Breath 04/06/18 14:45 04/11/18 14:44 Clonidine HCl (Catapres Tab) 0.1 mg Q6H PRN GT SBP > 160 04/10/18 09:45 05/10/18 09:44 Dextrose (Dextrose 50%) 25 ml Q30M PRN IV Hypoglycemia 04/06/18 14:45 05/06/18 14:44 Dextrose (Dextrose 50%) 50 ml Q30M PRN IV Hypoglycemia 04/06/18 16:00 05/06/18 15:59 Heparin Sodium (Porcine) (Heparin 5000 units/ml) 5,000 units EVERY 12 HOURS SUBQ 04/06/18 21:00 05/06/18 20:59 04/07/18 08:09 Lorazepam (Ativan 2mg/ml 1ml) 2 mg Q2H PRN IV For Anxiety 04/06/18 14:45 04/13/18 14:44 Morphine Sulfate (Morphine Sulfate) 4 mg Q4H PRN IVP Severe Pain (Pain Scale 7-10) 04/06/18 14:45 04/13/18 14:44 Ondansetron HCl (Zofran) 4 mg Q6H PRN IVP Nausea & Vomiting 04/06/18 14:45 05/06/18 14:44 Polyethylene Glycol (Miralax) 17 gm DAILYPRN PRN ORAL Constipation 04/06/18 14:45 05/06/18 14:44 Allergies: Coded Allergies: BENAZEPRIL (Verified Allergy, Unknown, 03/22/15) ROS Limited/Unobtainable: Yes Subjective 63 YO M admitted with dislodged gastrostomy tube. S/P Endoscopy 04/08/18 for replacement. Cover for Int Med-Dr Kaur. SHAWN. Gross hematuria improving Objective Last Vital Signs Date Time Temp Pulse Resp B/P (MAP) Pulse Ox O2 Delivery O2 Flow Rate FiO2 04/10/18 16:00 35 04/10/18 15:00 67 18 04/10/18 12:00 98.1 138/75 (96) 100 04/10/18 12:00 Mechanical Ventilator 04/06/18 16:30 4.0 Laboratory Tests Test 04/10/18 03:15 White Blood Count 8.0 K/UL (4.8-10.8) Red Blood Count 3.92 M/UL (4.70-6.10) L Hemoglobin 10.7 G/DL (14.2-18.0) L Hematocrit 32.4 % (42.0-52.0) L Mean Corpuscular Volume 83 FL (80-99) Mean Corpuscular Hemoglobin 27.2 PG (27.0-31.0) Mean Corpuscular Hemoglobin Concent 32.9 G/DL (32.0-36.0) Red Cell Distribution Width 12.9 % (11.6-14.8) Platelet Count 169 K/UL (150-450) Mean Platelet Volume 10.6 FL (6.5-10.1) H Neutrophils (%) (Auto) 41.5 % (45.0-75.0) L Lymphocytes (%) (Auto) 38.5 % (20.0-45.0) Monocytes (%) (Auto) 11.7 % (1.0-10.0) H Eosinophils (%) (Auto) 6.8 % (0.0-3.0) H Basophils (%) (Auto) 1.6 % (0.0-2.0) Erythrocyte Sedimentation Rate 66 MM/HR (0-20) H Sodium Level 141 MMOL/L (136-145) Potassium Level 3.8 MMOL/L (3.5-5.1) Chloride Level 107 MMOL/L (98-107) Carbon Dioxide Level 30 MMOL/L (21-32) Anion Gap 4 mmol/L (5-15) L Blood Urea Nitrogen 9 mg/dL (7-18) Creatinine 0.7 MG/DL (0.55-1.30) Estimat Glomerular Filtration Rate > 60 mL/min (>60) Glucose Level 109 MG/DL (74-106) H Calcium Level 8.7 MG/DL (8.5-10.1) Phosphorus Level 2.7 MG/DL (2.5-4.9) Magnesium Level 1.7 MG/DL (1.8-2.4) L Total Bilirubin 0.2 MG/DL (0.2-1.0) Aspartate Amino Transf (AST/SGOT) 23 U/L (15-37) Alanine Aminotransferase (ALT/SGPT) 23 U/L (12-78) Alkaline Phosphatase 97 U/L (46-116) C-Reactive Protein, Quantitative 4.7 mg/dL (0.00-0.90) H Total Protein 8.3 G/DL (6.4-8.2) H Albumin 2.4 G/DL (3.4-5.0) L Globulin 5.9 g/dL Albumin/Globulin Ratio 0.4 (1.0-2.7) L Microbiology Date/Time Source Procedure Growth Status 04/09/18 00:20 Indwelling Cath Urine Culture - Preliminary YEAST Resulted Intake and Output 04/09/18 04/10/18 18:59 06:59 Intake Total 975 ml 720 ml Output Total 400 ml 400 ml Balance 575 ml 320 ml Free Water 200 ml IV Total 55 ml Tube Feeding 720 ml 720 ml Output Urine Total 400 ml 400 ml # Bowel Movements 2 Objective General Appearance: WD/WN, lethargic EENT: PERRL/EOMI Neck: non-tender, normal alignment, supple Cardiovascular: normal peripheral pulses, normal rate, regular rhythm, no gallop/murmur, no JVD Respiratory/Chest: chest wall non-tender, lungs clear, normal breath sounds, respiratory distress, crackles/rales, rhonchi - bilaterally, rhonchi - left, expiratory wheezing Abdomen: normal bowel sounds, non tender, soft, no organomegaly, no mass Extremities: normal range of motion, non-tender Skin: normal pigmentation, warm/dry Assessment/Plan Problem List: (1) COPD (chronic obstructive pulmonary disease) (2) Hypercholesteremia (3) Tracheostomy care (4) Alzheimer's dementia (5) Chronic organic brain syndrome (6) Dislodged gastrostomy tube Assessment & Plan: S/P endoscopy 04/08/18 for replacement-see GI note (7) Chronic respiratory failure Assessment & Plan: continue vent-See pulmonary note. (8) Chronic vegetative state (9) Gastrostomy tube dysfunction (10) Respiratory failure, acute and chronic (11) Hematuria Assessment & Plan: ?traumatic? Renal ultrasound=normal. Urine cult and sens pending. 04/06/18 urine cult = yeast Status: stable Assessment/Plan Discharge to [facility] today Ritesh Chavis MD Apr 10, 2018 17:00
[2018-04-10] MEDS ORDERED: Sterile Water For Irrig 2000ml IRRIG ONE (17:59)
[2018-04-10] MEDS ORDERED: NS 275ml ONE ×2 (17:59)
[2018-04-10] MEDS ORDERED: Tubing IV Secondary IV ONE ×2 (17:59)
--- NOTE | 2018-04-12 08:59 | Discharge Summary ---
Discharge Summary Discharge Summary _ DATE OF ADMISSION: 04/06/2018 DATE OF DISCHARGE: 04/10/2018 CONSULTANTS: Dr. Kvng Kothari HISTORY OF PRESENT ILLNESS: The patient is a resident of [facility]. The patient has a history of chronic organic brain syndrome. The patient is chronic vent dependent. The patient has a gastrostomy tube for dysphagia. According to staff at [facility], the patient himself pulled out the gastrostomy tube on 04/06/2018. The patient was transferred to [facility]. The gastrostomy tube was attempted to be replaced in the emergency room. This was unable to be accomplished. The patient was admitted with malfunctioning of gastrostomy tube (dislocation). BRIEF HOSPITAL COURSE: GI was consulted. G-tube site was assessed. Site was closed with minimal amounts of drainage. Unclear as to how long G-tube was dislodged. Unable to do bedside replacement. KUB showed fecal impaction. Urinalysis showed 15-20 WBC and too many to count RBC. She was started empirically on IV Rocephin. Vancomycin was placed on hold as there was no evident signs of cellulitis on the G-tube site. There was hematuria but the urine eventually cleared. Kidney ultrasound was negative for hydronephrosis. Kidney was unremarkable. On 04/08/2018, he underwent upper endoscopy with PEG tube placement. Findings showed gastritis. G-tube feeding was eventually started. He was given bowel regimen. Urine culture did not isolate any growth. Antibiotics were discontinued. Patient was discharged back to residential. FINAL DIAGNOSES: Dislodged G-tube status post EGD with PEG tube placement Acute on chronic respiratory failure Acute on chronic respiratory failure on vent Chronic organic brain syndrome Hypercholesterolemia Chronic vegetative state G-tube status Hematorrhea Hematuria/pyuria with no evidence of UTI Anemia Fecal impaction DISPOSITION: Patient was transferred back to [facility]. DISCHARGE MEDICATIONS: Refer to Discharge Medication List. I have been assigned to dictate discharge summary on this account, and I was not involved in the patient's management. Nathalie Izaguirre NP Apr 12, 2018 08:59
== END 2018-04-10 18:00 | DRG 252 ==
LOC: EDBD 13:53 → EDBEDREQ 14:03 → EMR 14:05 → 2W 14:26 → EDBEDREQ 14:32 → 2W 04-08 09:44
PROC: 5A1955Z Respiratory Ventilation, Greater than 96 Consecutive Hours (ICD-10-PCS; 2018-04-06)
PROC: 0DB78ZX Excision of Stomach, Pylorus, Via Natural or Artificial Opening Endoscopic, Diagnostic (ICD-10-PCS; 2018-04-08)
PROC: 0DH63UZ Insertion of Feeding Device into Stomach, Percutaneous Approach (ICD-10-PCS; principal; 2018-04-08 10:33)
DX: K94.23 Gastrostomy malfunction (principal); J96.20 Acute and chronic respiratory failure, unspecified whether with hypoxia or hypercapnia; Z99.11 Dependence on respirator [ventilator] status; Z43.0 Encounter for attention to tracheostomy; R40.3 Persistent vegetative state; R13.10 Dysphagia, unspecified; J44.9 Chronic obstructive pulmonary disease, unspecified; G30.9 Alzheimer's disease, unspecified; F02.80 Dementia in other diseases classified elsewhere, unspecified severity, without behavioral disturbance, psychotic disturbance, mood disturbance, and anxiety; Y83.3 Surgical operation with formation of external stoma as the cause of abnormal reaction of the patient, or of later complication, without mention of misadventure at the time of the procedure; F09 Unspecified mental disorder due to known physiological condition; I12.9 Hypertensive chronic kidney disease with stage 1 through stage 4 chronic kidney disease, or unspecified chronic kidney disease; N18.9 Chronic kidney disease, unspecified; E78.00 Pure hypercholesterolemia, unspecified; Z79.01 Long term (current) use of anticoagulants; Z88.8 Allergy status to other drugs, medicaments and biological substances; R31.9 Hematuria, unspecified; D64.9 Anemia, unspecified; K56.41 Fecal impaction; Z86.14 Personal history of Methicillin resistant Staphylococcus aureus infection; K29.60 Other gastritis without bleeding; R31.0 Gross hematuria
CPT/HCPCS: 36415; 71045; 74018; 76770; 80048; 80053; 80069; 81001; 81003; 83735; 84100; 85025; 85610; 85651; 85730; 86140; 87081; 87086; 93005; 93970; 94002; 94003; 94150; 94664; 96361; 96365; 99285; J3430

== ENCOUNTER 2018-06-02 15:56 | Inpatient (IN) | payer OTHER ==
[~2018-06-02] VITALS: Ht 180.3 cm; Wt 113.6 kg
[~2018-06-02 15:56] MED LIST changes: +ATORVASTATIN CA20 MG GT; +COUMADIN4 MG GT; +FERROUS SULFAT325 MG ORAL; +NITROSTAT0.4 M1 SL; +PRO-STAT LIQUID30 ML GT; +VITAMIN D400 INTLU GT
--- NOTE | 2018-06-02 16:09 | NUR ---
ED Nurse Note: Pt came from [facility] w/ compaints from nurses that he has unusual facial movements since this morning. Nurses could not state pattern and for how long. Pt is vent dependent. Non verbal. skin warm to touch. Full code.
[2018-06-02 16:11] VITALS: BP 124/106
[2018-06-02 16:51] LABS: HEMATOCRIT 34.3 % (42.0-52.0); HEMOGLOBIN 10.8 G/DL (14.2-18.0); MEAN CORPUSCULAR VOLUME 88 FL (80-99); PLATELET COUNT 83 K/UL (150-450); RED CELL DISTRIBUTION WIDTH 15.6 % (11.6-14.8); WHITE BLOOD COUNT 10.9 K/UL (4.8-10.8)
--- NOTE | 2018-06-02 17:00 | NUR ---
RESPIRATORY NOTE: Attempt ABG per MD order. Unsuccessful x2. Consult with other RT to preform. MD notified. Nurse notified
[2018-06-02 17:07] LABS: APPEARANCE,URINE CLOUDY; BILIRUBIN, URINE NEGATIVE (NEGATIVE); COLOR,URINE ORANGE; GLUCOSE, URINE (UA) NEGATIVE (NEGATIVE); KETONES,URINE NEGATIVE (NEGATIVE); LEUKOCYTE ESTERASE ,URINE 2+ (NEGATIVE); NITRITE,URINE NEGATIVE (NEGATIVE); PH,URINE 7 (4.5-8.0); PROTEIN,URINE 3+ (NEGATIVE); UROBILINOGEN,URINE 1 MG/DL (0.0-1.0)
[2018-06-02 17:12] LABS: ANION GAP 5 mmol/L (5-15); BLOOD UREA NITROGEN 16 mg/dL (7-18); CALCIUM 10.2 MG/DL (8.5-10.1); CARBON DIOXIDE 33 MMOL/L (21-32); CHLORIDE 104 MMOL/L (98-107); CREATININE 0.6 MG/DL (0.55-1.30); POTASSIUM 4.3 MMOL/L (3.5-5.1); SODIUM 142 MMOL/L (136-145)
[2018-06-02 17:17] LABS: ALANINE AMINOTRANSFERASE 81 U/L (12-78); ALBUMIN 2.8 G/DL (3.4-5.0); ALBUMIN/GLOBULIN RATIO 0.5 (1.0-2.7); ALKALINE PHOSPHATASE 133 U/L (46-116); ASPARTATE AMINO TRANSFERASE 46 U/L (15-37); BILIRUBIN,TOTAL 0.3 MG/DL (0.2-1.0)
--- NOTE | 2018-06-02 17:31 | NUR ---
ED Nurse Note: Pt going down to CT w/ RT and RN.
--- NOTE | 2018-06-02 17:45 | NUR ---
ED Nurse Note: Pt came back from CT.
--- NOTE | 2018-06-02 18:05 | NUR ---
ED Nurse Note: RT at bedside to do ABG.
[2018-06-02] MEDS ORDERED: LORazepam Inj 2mg/ml 1ml ONE (18:20)
[2018-06-02] MEDS ORDERED: FERROUS SU325 MG/5 M GT (18:20)
[2018-06-02] MEDS ORDERED: ALBUTEROL2.5 MG/3 M INH (18:20)
[2018-06-02] MEDS ORDERED: PRO-STAT LIQUID30 ML ORAL (18:22)
[2018-06-02] MEDS ORDERED: PRO-STAT LIQUID30 ML GT (18:23)
[2018-06-02] MEDS ORDERED: PERIDEX15 ML PO (18:29)
[2018-06-02] MEDS ORDERED: UTI-STAT L3875 MG/31 GT (18:29)
[2018-06-02] MEDS ORDERED: MIRALAX17 G2 GT (18:30)
[2018-06-02] MEDS ORDERED: LORazepam Inj 2mg/ml 1ml IV ONE (18:30)
--- NOTE | 2018-06-02 18:49 | NUR ---
ED Nurse Note: Gave telephone report to CIERRA Tejeda.
--- NOTE | 2018-06-02 18:54 | NUR ---
ED Nurse Note: Waiting for RT to transfer pt up to SDU.
--- NOTE | 2018-06-02 19:10 | NUR ---
NURSE NOTES: Received a report from CIERRA Tejeda.Patient stable,nonverbal,vent dependent with setting AC 12 TV 600 FiO2 40% PEEP 5,GT clumped,IV on a EBONIE SL 20 G asymptomatic,intact.Waiting for patient from ER
--- NOTE | 2018-06-02 19:20 | NUR ---
ED Nurse Note: Transferred pt to SDU. No acute distress noted.
[2018-06-02] MEDS ORDERED: Morphine Sulfate 4mg/ml Inj (IV/IM USE ONLY) IVP PRN (19:30)
[2018-06-02] MEDS ORDERED: Mylanta II UD 30ml ORAL PRN (19:30)
[2018-06-02] MEDS ORDERED: Miralax 17gm pkt ORAL PRN (19:30)
[2018-06-02] MEDS ORDERED: LORazepam Inj 2mg/ml 1ml IV PRN (19:30)
[2018-06-02] MEDS ORDERED: Zolpidem 5mg tab ORAL PRN (19:30)
[2018-06-02 20:00] VITALS: BP 158/60
--- NOTE | 2018-06-02 20:21 | NUR ---
NURSE NOTES: Received a patient from ER,stable ,nonverbal,obtunded,vent dependent AC 12 TV 600 FiO2 40% PEEP 5,no s/s of pain,no respiratory distress during transfer,belongings list signed for no belongings,bed secured in a low safety position,call light within a reach.Will continue to monitor
[2018-06-02] MEDS: Metoprolol Tartrate 50mg tab GT SCH (21:00)
[2018-06-02] MEDS ORDERED: Heparin 5000 units/ml inj SUBQ SCH (21:00)
[2018-06-02] MEDS: HydrALAZINE 10mg Tab GT SCH (22:00)
--- NOTE | 2018-06-02 23:50 | Emergency Room Report ---
History of Present Illness General Chief Complaint: General Complaint Source: Patient Present Illness HPI Patient is a 63-year-old male brought in by EMS after increased facial twitching. Patient had gradual onset of symptoms. Patient had increased difficulty with ventilation for short period of time. This had resolved spontaneously. Patient was sent in by ambulance. Patient is normally ventilator dependent. Patient is noted to be nonverbal. 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, VRE Hx COPD: Yes Hx Cancer: No Hx Gastrointestinal Problems: No Hx Neurological Problems: Yes Hx Seizures: Yes Hx Traumatic Brain Injury: Yes Hx Weakness: Yes Hx Neurologic Surgery: No Hx Brain Shunt: No Review of Systems All Other Systems: limited - by mental status Physical Exam Vital Signs Date Time Temp Pulse Resp B/P (MAP) Pulse Ox O2 Delivery O2 Flow Rate FiO2 06/02/18 15:57 60 17 124/106 100 Trach Collar 06/02/18 16:11 97.5 06/02/18 16:11 100 06/02/18 16:30 60.0 General Appearance: obese, Chronically Ill ENT: moist mucus membranes, other - large tongue, Respiratory: lungs clear Cardiovascular #1: edema Gastrointestinal: other - gtube present Musculoskeletal: other Neurologic: motor weakness, other - aphasic Skin: normal inspection, normal color Procedures Critical Care Time Critical Care Time Patient had a critical medical condition which untreated could potentially result in life or limb threatening injury. Total critical care time excluding procedures approximately 45 minutes. Medical Decision Making Diagnostic Impression: Primary Impression: Altered mental status Additional Impressions: Seizure Ventilator dependent CVA (cerebrovascular accident) Encephalomalacia ER Course Patient presented for altered mental status. Differential diagnosis includes is not limited to seizure, CVA, CO2 narcosis, hypo-glycemia, among others. Because of complexity of patient's case laboratory testing and imaging studies were ordered. Patient was noted to have some twitching movement which involved his head turning to the left. Patient was given Ativan IV this did appear to be a seizure. Patient had resolution of seizure after IV Ativan patient was noted to have adequate pH on blood gas.CT of the head read by radiology showed some encephalomalacia as well as acute versus subacute CVA. Patient does not appear to be within the window for thrombolysis.Patient was noted to be chronically debilitated. Dr. Fly Wright was contacted for inpatient management due to primary care physician. Labs Test 06/02/18 16:30 06/02/18 16:35 06/02/18 16:36 White Blood Count 10.9 K/UL (4.8-10.8) Red Blood Count 3.90 M/UL (4.70-6.10) Hemoglobin 10.8 G/DL (14.2-18.0) Hematocrit 34.3 % (42.0-52.0) Mean Corpuscular Volume 88 FL (80-99) Mean Corpuscular Hemoglobin 27.6 PG (27.0-31.0) Mean Corpuscular Hemoglobin Concent 31.4 G/DL (32.0-36.0) Red Cell Distribution Width 15.6 % (11.6-14.8) Platelet Count 83 K/UL (150-450) Mean Platelet Volume 13.5 FL (6.5-10.1) Neutrophils (%) (Auto) % (45.0-75.0) Lymphocytes (%) (Auto) % (20.0-45.0) Monocytes (%) (Auto) % (1.0-10.0) Eosinophils (%) (Auto) % (0.0-3.0) Basophils (%) (Auto) % (0.0-2.0) Differential Total Cells Counted 100 Neutrophils % (Manual) 81 % (45-75) Lymphocytes % (Manual) 16 % (20-45) Monocytes % (Manual) 3 % (1-10) Eosinophils % (Manual) 0 % (0-3) Basophils % (Manual) 0 % (0-2) Band Neutrophils 0 % (0-8) Platelet Estimate Adequate Platelet Morphology Normal Hypochromasia 1+ Anisocytosis 1+ Sodium Level 142 MMOL/L (136-145) Potassium Level 4.3 MMOL/L (3.5-5.1) Chloride Level 104 MMOL/L (98-107) Carbon Dioxide Level 33 MMOL/L (21-32) Anion Gap 5 mmol/L (5-15) Blood Urea Nitrogen 16 mg/dL (7-18) Creatinine 0.6 MG/DL (0.55-1.30) Estimat Glomerular Filtration Rate > 60 mL/min (>60) Glucose Level 81 MG/DL (74-106) Calcium Level 10.2 MG/DL (8.5-10.1) Total Bilirubin 0.3 MG/DL (0.2-1.0) Aspartate Amino Transf (AST/SGOT) 46 U/L (15-37) Alanine Aminotransferase (ALT/SGPT) 81 U/L (12-78) Alkaline Phosphatase 133 U/L (46-116) Troponin I 0.097 ng/mL (0.000-0.056) Total Protein 8.7 G/DL (6.4-8.2) Albumin 2.8 G/DL (3.4-5.0) Globulin 5.9 g/dL Albumin/Globulin Ratio 0.5 (1.0-2.7) Urine Color [place] Urine Appearance Cloudy Urine pH 7 (4.5-8.0) Urine Specific [place] 1.015 (1.005-1.035) Urine Protein 3+ (NEGATIVE) Urine Glucose (UA) Negative (NEGATIVE) Urine Ketones Negative (NEGATIVE) Urine Blood 5+ (NEGATIVE) Urine Nitrite Negative (NEGATIVE) Urine Bilirubin Negative (NEGATIVE) Urine Urobilinogen 1 MG/DL (0.0-1.0) Urine Leukocyte Esterase 2+ (NEGATIVE) Urine RBC Tntc /HPF (0 - 0) Urine WBC 10-15 /HPF (0 - 0) Urine Squamous Epithelial Cells Occasional /LPF Urine Bacteria Moderate /HPF (NONE) Arterial Blood pH 7.377 (7.350-7.450) Arterial Blood Partial Pressure CO2 60.6 mmHg (35.0-45.0) Arterial Blood Partial Pressure O2 91.3 mmHg (75.0-100.0) Arterial Blood HCO3 34.8 mmol/L (22.0-26.0) Arterial Blood Oxygen Saturation 96.6 % (95-100) Arterial Blood Base Excess 8.0 (-2-2) Paul Test Positive EKG Diagnostic Results Rate: normal - 50 Rhythm: NSR ST Segments: no acute changes Rhythm Strip Diag. Results EP Interpretation: yes Rhythm: NSR, no PVC's, no ectopy Last Vital Signs Date Time Temp Pulse Resp B/P (MAP) Pulse Ox O2 Delivery O2 Flow Rate FiO2 1/7/19 22:00 97/56 06/02/18 21:00 53 06/02/18 20:00 97.4 17 06/02/18 20:00 Mechanical Ventilator 06/02/18 20:00 40 06/02/18 19:20 100 06/02/18 16:30 60.0 Status: unchanged Disposition: ADMITTED INPATIENT Condition: Serious Referrals: Fly Wright DO (PCP) Cj Mcgill MD Jun 02, 2018 23:50
[2018-06-03] VITALS (7 sets, daily range): BP systolic 84–131; BP diastolic 42–78
--- NOTE | 2018-06-03 03:00 | NUR ---
NURSE NOTES: patient has a bloody urine after inserted straight catheter in ER.Will continue to monitor and indorse to the next shift.
[2018-06-03] MEDS: HydrALAZINE 10mg Tab GT SCH ×3 (05:23→22:00)
[2018-06-03 07:05] LABS: HEMATOCRIT 30.5 % (42.0-52.0); HEMOGLOBIN 9.7 G/DL (14.2-18.0); MEAN CORPUSCULAR VOLUME 85 FL (80-99); PLATELET COUNT 84 K/UL (150-450); RED CELL DISTRIBUTION WIDTH 16.3 % (11.6-14.8); WHITE BLOOD COUNT 7.2 K/UL (4.8-10.8)
--- NOTE | 2018-06-03 07:15 | NUR ---
HAND-OFF: Report given to CIERRA Monroe.Patient stable.
[2018-06-03 07:26] LABS: ALANINE AMINOTRANSFERASE 76 U/L (12-78); ALBUMIN 2.6 G/DL (3.4-5.0); ALBUMIN/GLOBULIN RATIO 0.5 (1.0-2.7); ALKALINE PHOSPHATASE 124 U/L (46-116); ANION GAP 7 mmol/L (5-15); ASPARTATE AMINO TRANSFERASE 46 U/L (15-37); BILIRUBIN,TOTAL 0.4 MG/DL (0.2-1.0); BLOOD UREA NITROGEN 15 mg/dL (7-18); CARBON DIOXIDE 31 MMOL/L (21-32); CHLORIDE 105 MMOL/L (98-107); CREATININE 0.5 MG/DL (0.55-1.30); POTASSIUM 3.7 MMOL/L (3.5-5.1); SODIUM 143 MMOL/L (136-145)
--- NOTE | 2018-06-03 08:10 | NUR ---
NURSE NOTES: received pt in the bed, vent dependent, obtunded, contracted, vital signs stable, no co pain, no SOB, GT feedind started as ordered, skin warm and dry to touch, intact, bloody urine, dr. Kothari aware, bed in low position, HOB elevated.
[2018-06-03] MEDS: Metoprolol Tartrate 50mg tab GT SCH ×2 (09:30→21:00)
--- NOTE | 2018-06-03 10:12 | Consultation ---
History of Present Illness General Date patient seen: Jun 03, 2018 Chief Complaint: General Complaint Present Illness HPI 63-year-old male with hx of chronic respiratory failure, vent/trach dependent, senior living resident, Gtube, vegetative state, brought in by EMS after increased facial twitching. Patient had gradual onset of symptoms. Patient had increased difficulty with ventilation for short period of time. Pt is admitted to [facility] for further evaluation. Allergies: Coded Allergies: BENAZEPRIL (Verified Allergy, Unknown, 06/02/18) Medication History Scheduled Albuterol Sulfate* (Albuterol Sulfate Hhn*), 3 ML INH Q6H, (Reported) Amino Acids/Protein Hydrolys (Pro-Stat Liquid), 30 ML GT THREE TIMES A DAY, ( Reported) Atorvastatin Calcium* (Atorvastatin Calcium*), 10 MG GT BEDTIME, (Reported) Chlorhexidine Gluconate (Peridex), 15 ML PO BID, (Reported) Cran/Vitc/Mannose/Inulin/Brom (Uti-Stat Liquid), 3,875 MG GT BID, (Reported) Docusate Sodium* (Colace*), 100 MG GT BID, (Reported) Ferrous Sulfate (Ferrous Sulfate), 330 MG GT DAILY, (Reported) Hydralazine Hcl* (Hydralazine Hcl*), 50 MG GT EVERY 8 HOURS, (Reported) Lansoprazole* (Lansoprazole*), 30 MG GT DAILY, (Reported) Metoprolol Tartrate* (Metoprolol Tartrate*), 50 MG GT EVERY 12 HOURS, (Reported) Vitamin D (Vitamin D3), 5,000 UNITS GT DAILY, (Reported) Warfarin Sod* (Coumadin*), 4 MG GT DAILY, (Reported) Scheduled PRN Acetaminophen (Tylenol), 650 MG ORAL Q4HR PRN for fever/mild-mod pain, (Reported ) Albuterol Sulfate* (Albuterol Sulfate Hhn*), 3 ML INH Q3HR PRN for Shortness of Breath, (Reported) Clonidine Hcl* (Catapres*), 0.1 MG GT Q4HR PRN for BP >175, (Reported) Polyethylene Glycol 3350* (Miralax*), 17 GM GT DAILY PRN for Constipation, ( Reported) Patient History Healthcare decision maker Resuscitation status Full Code Advanced Directive on File Yes Past Medical/Surgical History Past Medical/Surgical History: (1) Ventilator dependent (2) CVA (cerebrovascular accident) (3) Seizure (4) Chronic organic brain syndrome (5) COPD (chronic obstructive pulmonary disease) (6) Chronic vegetative state (7) Chronic respiratory failure (8) Feeding by G-tube Review of Systems Constitutional: Reports: no symptoms Eye: Reports: no symptoms Physical Exam General Appearance: WD/WN Lines, tubes and drains: peripheral HEENT: normocephalic, atraumatic Neck: non-tender, normal alignment Respiratory/Chest: chest wall non-tender, lungs clear Breasts: no masses Cardiovascular/Chest: normal rate Abdomen: normal bowel sounds, non tender Genitourinary/Rectal: normal genital exam, heme negative stool Extremities: normal range of motion Skin Exam: normal pigmentation Last 24 Hour Vital Signs Date Time Temp Pulse Resp B/P (MAP) Pulse Ox O2 Delivery O2 Flow Rate FiO2 06/03/18 09:30 73 131/69 06/03/18 08:55 65 17 40 06/03/18 08:00 Mechanical Ventilator 06/03/18 08:00 91.8 63 19 131/69 (89) 100 06/03/18 08:00 40 06/03/18 07:06 54 18 40 06/03/18 07:02 54 13 40 06/03/18 05:23 104/65 06/03/18 05:23 54 12 40 06/03/18 04:01 54 06/03/18 04:00 40 06/03/18 04:00 Mechanical Ventilator 06/03/18 04:00 97.0 55 12 104/65 (78) 100 06/03/18 03:30 55 12 40 06/03/18 02:01 52 12 40 06/03/18 00:00 51 06/03/18 00:00 Mechanical Ventilator 06/03/18 00:00 97.2 52 13 101/73 (82) 100 06/02/18 23:20 50 14 40 06/02/18 22:00 97/56 06/02/18 21:25 50 12 40 06/02/18 21:00 53 133/59 06/02/18 20:00 97.4 53 17 158/60 (92) 06/02/18 20:00 Mechanical Ventilator 06/02/18 20:00 Mechanical Ventilator 06/02/18 20:00 52 06/02/18 20:00 40 06/02/18 19:20 98.0 50 22 114/78 100 Mechanical Ventilator 06/02/18 19:07 51 14 40 06/02/18 19:07 51 14 Mechanical Ventilator 40 06/02/18 16:30 52 12 Mechanical Ventilator 60.0 40 06/02/18 16:30 52 12 40 06/02/18 16:11 56 10 Mechanical Ventilator 100 06/02/18 16:11 97.5 56 10 124/106 100 Mechanical Ventilator 06/02/18 15:57 60 17 124/106 100 Trach Collar Intake and Output 06/02/18 06/03/18 18:59 06:59 Intake Total 0 ml Output Total 300 ml Balance -300 ml Intake Oral 0 ml Output Urine Total 300 ml # Voids 1 # Bowel Movements 2 Laboratory Tests Test 06/02/18 16:30 06/02/18 16:35 06/02/18 16:36 06/03/18 05:11 White Blood Count 10.9 K/UL (4.8-10.8) H 7.2 K/UL (4.8-10.8) Red Blood Count 3.90 M/UL (4.70-6.10) L 3.60 M/UL (4.70-6.10) L Hemoglobin 10.8 G/DL (14.2-18.0) L 9.7 G/DL (14.2-18.0) L Hematocrit 34.3 % (42.0-52.0) L 30.5 % (42.0-52.0) L Mean Corpuscular Volume 88 FL (80-99) 85 FL (80-99) Mean Corpuscular Hemoglobin 27.6 PG (27.0-31.0) 26.9 PG (27.0-31.0) L Mean Corpuscular Hemoglobin Concent 31.4 G/DL (32.0-36.0) L 31.7 G/DL (32.0-36.0) L Red Cell Distribution Width 15.6 % (11.6-14.8) H 16.3 % (11.6-14.8) H Platelet Count 83 K/UL (150-450) L 84 K/UL (150-450) L Mean Platelet Volume 13.5 FL (6.5-10.1) H 14.2 FL (6.5-10.1) H Neutrophils (%) (Auto) % (45.0-75.0) % (45.0-75.0) Lymphocytes (%) (Auto) % (20.0-45.0) % (20.0-45.0) Monocytes (%) (Auto) % (1.0-10.0) % (1.0-10.0) Eosinophils (%) (Auto) % (0.0-3.0) % (0.0-3.0) Basophils (%) (Auto) % (0.0-2.0) % (0.0-2.0) Differential Total Cells Counted 100 100 Neutrophils % (Manual) 81 % (45-75) H 72 % (45-75) Lymphocytes % (Manual) 16 % (20-45) L 21 % (20-45) Monocytes % (Manual) 3 % (1-10) 5 % (1-10) Eosinophils % (Manual) 0 % (0-3) 2 % (0-3) Basophils % (Manual) 0 % (0-2) 0 % (0-2) Band Neutrophils 0 % (0-8) 0 % (0-8) Platelet Estimate Adequate Decreased L Platelet Morphology Normal Normal Hypochromasia 1+ 2+ Anisocytosis 1+ 1+ Sodium Level 142 MMOL/L (136-145) 143 MMOL/L (136-145) Potassium Level 4.3 MMOL/L (3.5-5.1) 3.7 MMOL/L (3.5-5.1) Chloride Level 104 MMOL/L (98-107) 105 MMOL/L (98-107) Carbon Dioxide Level 33 MMOL/L (21-32) H 31 MMOL/L (21-32) Anion Gap 5 mmol/L (5-15) 7 mmol/L (5-15) Blood Urea Nitrogen 16 mg/dL (7-18) 15 mg/dL (7-18) Creatinine 0.6 MG/DL (0.55-1.30) 0.5 MG/DL (0.55-1.30) L Estimat Glomerular Filtration Rate > 60 mL/min (>60) > 60 mL/min (>60) Glucose Level 81 MG/DL (74-106) 61 MG/DL (74-106) L Calcium Level 10.2 MG/DL (8.5-10.1) H 10.0 MG/DL (8.5-10.1) Total Bilirubin 0.3 MG/DL (0.2-1.0) 0.4 MG/DL (0.2-1.0) Aspartate Amino Transf (AST/SGOT) 46 U/L (15-37) H 46 U/L (15-37) H Alanine Aminotransferase (ALT/SGPT) 81 U/L (12-78) H 76 U/L (12-78) Alkaline Phosphatase 133 U/L (46-116) H 124 U/L (46-116) H Troponin I 0.097 ng/mL (0.000-0.056) Total Protein 8.7 G/DL (6.4-8.2) H 8.0 G/DL (6.4-8.2) Albumin 2.8 G/DL (3.4-5.0) L 2.6 G/DL (3.4-5.0) L Globulin 5.9 g/dL 5.4 g/dL Albumin/Globulin Ratio 0.5 (1.0-2.7) L 0.5 (1.0-2.7) L Urine Color [place] Urine Appearance Cloudy Urine pH 7 (4.5-8.0) Urine Specific [place] 1.015 (1.005-1.035) Urine Protein 3+ (NEGATIVE) H Urine Glucose (UA) Negative (NEGATIVE) Urine Ketones Negative (NEGATIVE) Urine Blood 5+ (NEGATIVE) H Urine Nitrite Negative (NEGATIVE) Urine Bilirubin Negative (NEGATIVE) Urine Urobilinogen 1 MG/DL (0.0-1.0) H Urine Leukocyte Esterase 2+ (NEGATIVE) H Urine RBC Tntc /HPF (0 - 0) H Urine WBC 10-15 /HPF (0 - 0) H Urine Squamous Epithelial Cells Occasional /LPF Urine Bacteria Moderate /HPF (NONE) H Arterial Blood pH 7.377 (7.350-7.450) Arterial Blood Partial Pressure CO2 60.6 mmHg (35.0-45.0) *H Arterial Blood Partial Pressure O2 91.3 mmHg (75.0-100.0) Arterial Blood HCO3 34.8 mmol/L (22.0-26.0) H Arterial Blood Oxygen Saturation 96.6 % (95-100) Arterial Blood Base Excess 8.0 (-2-2) H Paul Test Positive Microbiology Date/Time Source Procedure Growth Status 06/02/18 16:35 Urine,Clean Catch Urine Culture - Preliminary NO GROWTH Resulted Height (Feet): 5 Height (Inches): 11.00 Weight (Pounds): 250 Medications Current Medications Medications (Trade) Dose Ordered Sig/Fernanda Route PRN Reason Start Time Stop Time Status Last Admin Dose Admin Acetaminophen (Tylenol) 650 mg Q4H PRN ORAL fever (temp>100.5F) 06/02/18 19:30 07/02/18 19:29 Al Hydroxide/Mg Hydroxide (Mylanta II) 30 ml Q6H PRN ORAL dyspepsia 06/02/18 19:30 07/02/18 19:29 Clonidine HCl (Catapres Tab) 0.1 mg Q4H PRN GT SBP >175 06/02/18 19:30 07/02/18 19:29 Dextrose (Dextrose 50%) 25 ml Q30M PRN IV Hypoglycemia 06/02/18 19:30 07/02/18 19:28 Dextrose (Dextrose 50%) 50 ml Q30M PRN IV hypoglycemia 06/02/18 19:30 07/02/18 19:29 Hydralazine HCl (Apresoline) 50 mg EVERY 8 HOURS GT 06/02/18 22:00 07/02/18 21:59 Lorazepam (Ativan 2mg/ml 1ml) 2 mg Q1H PRN IV seizures 06/02/18 19:30 06/09/18 19:29 Metoprolol Tartrate (Lopressor) 50 mg EVERY 12 HOURS GT 06/02/18 21:00 07/02/18 20:59 06/03/18 09:30 Morphine Sulfate (Morphine Sulfate) 1 mg Q4H PRN IVP For Pain 06/02/18 19:30 06/09/18 19:29 Ondansetron HCl (Zofran) 4 mg Q6H PRN IVP Nausea & Vomiting 06/02/18 19:30 07/02/18 19:29 Polyethylene Glycol (Miralax) 17 gm HSPRN PRN ORAL Constipation 06/02/18 19:30 07/02/18 19:29 Zolpidem Tartrate (Ambien) 5 mg HSPRN PRN ORAL Insomnia 06/02/18 19:30 06/09/18 19:29 Assessment/Plan Problem List: (1) Seizure ICD Codes: R56.9 - Unspecified convulsions SNOMED: 76147510 (2) COPD (chronic obstructive pulmonary disease) ICD Codes: J44.9 - Chronic obstructive pulmonary disease, unspecified SNOMED: 49019792 (3) Ventilator dependent ICD Codes: Z99.11 - Dependence on respirator [ventilator] status SNOMED: 997392233 (4) Tracheostomy care ICD Codes: Z43.0 - Encounter for attention to tracheostomy SNOMED: 177163461 (5) Anemia ICD Codes: D64.9 - Anemia, unspecified SNOMED: 162528595 (6) Chronic vegetative state ICD Codes: R40.3 - Persistent vegetative state SNOMED: 18820385, 938736669 (7) Feeding by G-tube ICD Codes: Z93.1 - Gastrostomy status SNOMED: 307012641, 343968191 Respiratory: monitor respiratory rate, adjust FIO2, CXR Cardiac: continue to monitor HR/BP Renal: F/U I&O Infectious Disease: check cultures Gastrointestinal: continue feedings/current rate Endocrine: monitor blood sugar Neurologic: PRN Morphine Affect: PRN ativan Prophylaxis: Protonix, Heparin Notes Reviewed: corsets salesperson, renal Discussed with: nurses, consultants, spring encaser Steve Kothari MD Jun 03, 2018 10:12
--- NOTE | 2018-06-03 10:45 | Diagnostic Imaging Report ---
Indication: Headache Technique: Contiguous 5 mm thick transaxial imaging of the head obtained in a Siemens Sensation [address] scanner. Soft tissue and bone windows generated. Automatic Exposure Control was utilized. Total Dose length Product (DLP): 1530.[address] Dose Index Volume (CTDIvol): 70.38 mGy Comparison: none Findings: Abnormal fairly large area of low attenuation involving both white matter and cortex in the left frontal and parietal lobe. The findings are probably on the basis of an infarct. The age of the infarct is uncertain. There are some signs of volume loss especially in the more central aspect of the brain involving mcclelland radiata. There is encephalomalacia in the left basal ganglia region and cystic encephalomalacia involving the left thalamus indicative of old infarct. However the more peripheral subcortical and cortical areas of low attenuation may be acute to subacute in age. Clinical correlation is recommended. There is no definite mass effect on the left lateral ventricle identified. The left lateral ventricle if anything is slightly enlarged relative to the right lateral ventricle and secondary to ex vacuo dilatation from adjacent parenchymal loss. Small cystic focus in the right frontal mcclelland radiata from an old small vessel infarct is also noted. There is extensive low attenuation of white matter bilaterally in a generalized fashion. There is also cortical encephalomalacia in the right temporal lobe near the temporal horn of the right lateral ventricle consistent with an old cortical infarct. There is mild generalized atrophy of the brain. Extensive calcification of the basilar vertebral arteries noted. There are some artifact limiting evaluation. Opacification of the left mastoid air cells and moderate opacification of visualized paranasal sinuses demonstrated. IMPRESSION: Suspected acute to subacute cortical infarction in the left frontal and parietal region. These correlate clinically. Old small vessel infarcts involving white matter, thalamus and basal ganglia regions as described above. Evidence of chronic small vessel disease involving white matter tracts. Pansinusitis Left mastoiditis Atherosclerotic vascular disease. [facility] has communicated the preliminary results to the Emergency Department. Their findings are largely concordant with this report. The CT scanner at [facility] is accredited by the [place] [employer] and the scans are performed using dose optimization techniques as appropriate to a performed exam including Automatic Exposure control.
--- NOTE | 2018-06-03 11:14 | NUR ---
RD ASSESSMENT & RECOMMENDATIONS SEE CARE ACTIVITY FOR COMPLETE ASSESSMENT DAILY ESTIMATED NEEDS: Needs based on Critical care, TF BROKER ASSISTANT 93kg adj 17-22 kcals/kg 6225-7618 total kcals 1.2-2 g protein/kg 112-186 g total protein 20-25ml/kcal mL/kg 3717-9897 total fluid mLs NUTRITION DIAGNOSIS: 1) Swallowing difficulty R/T respiratory status AEB pt vent dep via trach PEG dep to meet all nutritional needs. CURRENT TF: Osmolite 1.5 @55ml/hr, continuous ENTERAL NUTRITION RECOMMENDATIONS: Osmolite 1.5 @55ml/hr x24 hrs + Prosource TID to provide 1320ml, 1980 kcal, 83g + 33g prot, 1006ml ml free h2o - Start Osmolite 1.5 @25ml for 6 hrs, advance as tolerated 10ml every 4-6 hrs - Add Prosource TID to better meet est prot needs - Flush per MD, HOB over 30 degrees IF Osmolite 1.5 is not available, rec to increase Osmolite 1.2 to goal of 65ml/hr x24 hrs + Prosource TID to provide: 1560ml, 1872 kcal, 87g + 33g prot, 1279ml free H2O ADDITIONAL RECOMMENDATIONS: 1) Daily calibrated bed scale wt w/ added SPR mattress + pump. 2) Monitor for con't episodes of hypoglycemia 3) Check lytes daily/ replete as needed 4) Add PROSOURCE TID via GT to better meet est protein needs
--- NOTE | 2018-06-03 12:03 | NUR ---
CASE MANAGEMENT: REVIEW 63/M BIBA FROM [facility] CC: AMS SI: COPD . SEIZURE . AMS T 97.5 HR 50 RR 10 BP 158/60 SAT 100% MECH VENT FIO2 100 WBC 10.9 H/H 10.8/34.3 AST 46 ALT 81 ALK PHOS 133 TROPONIN I 0.097 ABG: PH 7.377 PCO2 60.6 PO2 91.3 HCO3 34.8 IS: ATIVAN IV X1 INTERQUAL CRITERIA MET: PATIENT ADMITTED TO STEP DOWN UNIT 06/02/2018 DCP: PATIENT IS FROM [facility] CASE MANAGEMENT: REVIEW SI: COPD . SEIZURE . AMS T 91.8 HR 54 RR 12 BP 131/69 SAT 100% MECH VENT FIO2 40 H/H 9.7/30.5 GLUCOSE 63 IS: LOPRESSOR GT Q12HR HYDRAZINE GT Q8HR STEP DOWN UNIT STATUS DCP: PATIENT IS FROM [facility]
--- NOTE | 2018-06-03 14:00 | NUR ---
NURSE NOTES: no distress noted, tolerate feeding well, still bloody urine, dr. EDWARDS urology called for consult, continue monitoring.
--- NOTE | 2018-06-03 14:38 | Cardiology Report ---
APPROVED REPORT EKG Measurement Heart [id number] tremor artifact may affect interpretation likey sinus bradycardia Nonspecific ST and T wave abnormality Abnormal ECG
--- NOTE | 2018-06-03 16:14 | NUR ---
INSURANCE CLINICALS HAVE BEEN FAXED TO: [facility] NCM: ARIEL P- [phone] F- [phone]
--- NOTE | 2018-06-03 19:20 | NUR ---
NURSE NOTES: Received a bed side report from CIERRA Monroe.Patient stable ,nonverbal,obtunded,vent dependent AC 12 TV 600 FiO2 40% PEEP 5,no s/s of pain,no respiratory distress noted,BS active in all quadrants,bed secured in a low safety position,call light within a reach.Will continue to monitor and follow POC.waiting for urology consult d/t blood in a urine.
--- NOTE | 2018-06-03 20:30 | History and Physical Report ---
DATE OF ADMISSION: 06/02/2018 APPROXIMATE TIME: 3 p.m. ATTENDING PHYSICIAN: Fly Wright D.O. CONSULTANTS: 1. Steve Kothari M.D. 2. Jung Ortiz M.D. 3. Ana Mcintosh M.D. CHIEF COMPLAINT: Seizure, CVA. BRIEF HISTORY: This is a 63-year-old male from [facility], presents to [facility] with history of recurrent seizure. He is a respiratory failure, trach vent patient. Currently, calm, lethargic in bed, nonverbal. REVIEW OF SYSTEMS: Unavailable. PAST MEDICAL HISTORY: Include respiratory failure, acute tubular necrosis, anemia, chronic obstructive pulmonary disease, hyper cholesterol, organic brain syndrome, seizure, CVA, and Alzheimer's. PAST SURGICAL HISTORY: Trach. ALLERGIES: Benazepril. MEDICATIONS: Include hydralazine, metoprolol, clonidine, , lorazepam, Zofran, morphine, and dextrose. SOCIAL HISTORY: No smoking. No alcohol. No intravenous drug abuse. FAMILY HISTORY: Noncontributory. PHYSICAL EXAMINATION: GENERAL: Trach, vent, lethargic in bed, nonverbal. VITAL SIGNS: Temperature 97, pulse 60, respirations 12, and blood pressure 84/42. CARDIOVASCULAR: No murmur. LUNGS: Poor exchange. ABDOMEN: Bowel sounds distant. EXTREMITIES: Showed no cyanosis, clubbing, or edema. NEUROLOGIC: The patient is flaccid in bed, not following directions. LABORATORY AND DIAGNOSTIC DATA: Labs at this time show hemoglobin and hematocrit of 9.7/30, platelets 84, otherwise CBC is normal. BMP show creatinine 0.5, glucose 61, AST 46. Alkaline phosphatase 124. Troponin 0.097. Albumin 2.6. Urinalysis show 2+ leukocyte esterase. ASSESSMENT: 1. Seizure. 2. Cerebrovascular accident. 3. Respiratory failure. 4. Elevated troponin. 5. Urinary tract infection. 6. Acute tubular necrosis. 7. Malnutrition. 8. Anemia. 9. Chronic obstructive pulmonary disease. 10. Organic brain syndrome. 11. Alzheimer's. PLAN: 1. Continue previous medications. 2. Antibiotics per Infectious Diseases. 3. Blood pressure and blood sugar control. 4. Dietary followup. 5. Cardio and ID evaluation as well. Fly Wright D.O. DR: SÁNCHEZ JOB#: [id number] CC:
[2018-06-04] VITALS: BP 124/83
[2018-06-04 04:00] VITALS: BP 135/74
--- NOTE | 2018-06-04 04:00 | Consultation ---
DATE OF CONSULTATION: 06/03/2018 PSYCHOTHERAPY CONSULTATION PROGRESS NOTE CONSULTING PHYSICIAN: Efren Ascencio PsyD. TREATING ATTENDING PHYSICIAN: Fly Wright D.O. HISTORY OF PRESENT ILLNESS: The patient is a 63-year-old male patient. The patient is from [facility]. The patient presents to the hospital due to recurrent seizures, respiratory failure, and the patient has been confused, disorganized, lethargic, and for these reasons, he was referred for psychotherapeutic services. This clinician assessed the patient. The patient is a poor historian, unable to provide a viable information at this time. This clinician is gathering them from records. He also has respiratory failure, and has been very lethargic. There is no indication of suicidal or homicidal thoughts of ideation. No indication of auditory or visual hallucinations. The patient is unable to provide information. PAST MEDICAL HISTORY: Includes history of respiratory failure, acute tubular necrosis, anemia, chronic obstructive pulmonary disease, organic brain syndrome, seizure, CVA, and Alzheimer's. ALLERGIES: The patient is allergic to Benadryl. SUBSTANCE ABUSE HISTORY: The patient denies history of alcohol use, illicit substance use, or smoking cigarettes. PSYCHIATRIC HISTORY: The patient has a history of possible Alzheimer's. SOCIAL HISTORY: The patient is a 63-year-old male patient from [facility]. Financially sustained through [employer]. MENTAL STATUS EXAMINATION: The patient is unable to provide a viable information and very lethargic. He is disoriented and confused. Poor attention and concentration. Poor insight, judgment, and impulse control for this patient. at this time. DIAGNOSIS: Rule out neurocognitive disorder, Alzheimer's type without behavioral disturbances. PLAN: Provided the patient with reality orientation . This clinician has reviewed the patient's chart. Discussed the treatment with treatment team. Efren Ascencio PsyD. DR: ADAM JOB#: [id number] CC:
[2018-06-04] MEDS: HydrALAZINE 10mg Tab GT SCH ×4 (05:40→22:04)
--- NOTE | 2018-06-04 07:07 | NUR ---
HAND-OFF: Report given to CIERRA Monroe.Patient stable.
--- NOTE | 2018-06-04 07:10 | NUR ---
RESPIRATORY NOTE: Pt received on mechanical ventilator: AC: 600, 12, 40%, +5. Pt is a trach patient PTX 7, spare trach bedside, all alarms are set and audible, ambu bag bedside. will continue to monitor patient.
[2018-06-04 08:00] VITALS: BP 130/76
--- NOTE | 2018-06-04 08:15 | NUR ---
NURSE NOTES: received pt in the bed, obtunded, vent dependent, vital signs stable, no co pain, no SOB, SKIN WARM AND DRY TO TOUCH, INTACT, TOLERATE GT FEEDING WELL, CONDOM CATHETER, bedin low position, HOB elevated.
[2018-06-04] MEDS: Metoprolol Tartrate 50mg tab GT SCH ×2 (09:20→22:04)
--- NOTE | 2018-06-04 09:21 | Consultation ---
History of Present Illness General Date patient seen: Jun 04, 2018 Chief Complaint: General Complaint Present Illness Allergies: Coded Allergies: BENAZEPRIL (Verified Allergy, Unknown, 06/02/18) Medication History Scheduled Albuterol Sulfate* (Albuterol Sulfate Hhn*), 3 ML INH Q6H, (Reported) Amino Acids/Protein Hydrolys (Pro-Stat Liquid), 30 ML GT THREE TIMES A DAY, ( Reported) Atorvastatin Calcium* (Atorvastatin Calcium*), 10 MG GT BEDTIME, (Reported) Chlorhexidine Gluconate (Peridex), 15 ML PO BID, (Reported) Cran/Vitc/Mannose/Inulin/Brom (Uti-Stat Liquid), 3,875 MG GT BID, (Reported) Docusate Sodium* (Colace*), 100 MG GT BID, (Reported) Ferrous Sulfate (Ferrous Sulfate), 330 MG GT DAILY, (Reported) Hydralazine Hcl* (Hydralazine Hcl*), 50 MG GT EVERY 8 HOURS, (Reported) Lansoprazole* (Lansoprazole*), 30 MG GT DAILY, (Reported) Metoprolol Tartrate* (Metoprolol Tartrate*), 50 MG GT EVERY 12 HOURS, (Reported) Vitamin D (Vitamin D3), 5,000 UNITS GT DAILY, (Reported) Warfarin Sod* (Coumadin*), 4 MG GT DAILY, (Reported) Scheduled PRN Acetaminophen (Tylenol), 650 MG ORAL Q4HR PRN for fever/mild-mod pain, (Reported ) Albuterol Sulfate* (Albuterol Sulfate Hhn*), 3 ML INH Q3HR PRN for Shortness of Breath, (Reported) Clonidine Hcl* (Catapres*), 0.1 MG GT Q4HR PRN for BP >175, (Reported) Polyethylene Glycol 3350* (Miralax*), 17 GM GT DAILY PRN for Constipation, ( Reported) Patient History Healthcare decision maker Resuscitation status Full Code Advanced Directive on File No Physical Exam Last 24 Hour Vital Signs Date Time Temp Pulse Resp B/P (MAP) Pulse Ox O2 Delivery O2 Flow Rate FiO2 06/04/18 09:20 69 130/76 06/04/18 09:03 69 13 40 06/04/18 08:00 96.4 79 16 130/76 (94) 100 06/04/18 08:00 Mechanical Ventilator 06/04/18 08:00 40 1/9/19 06:49 72 14 40 06/04/18 05:40 135/74 06/04/18 04:35 63 14 40 06/04/18 04:00 96.6 80 15 135/74 (94) 100 06/04/18 04:00 40 06/04/18 04:00 Mechanical Ventilator 06/04/18 03:32 83 06/04/18 03:11 82 27 40 06/04/18 00:46 80 12 40 06/04/18 00:00 97.0 78 14 124/83 (97) 98 06/04/18 00:00 Mechanical Ventilator 06/03/18 23:19 77 06/03/18 22:37 85 12 40 06/03/18 22:00 118/73 06/03/18 21:00 82 128/78 06/03/18 20:54 80 12 40 06/03/18 20:28 76 06/03/18 20:00 97.0 82 14 128/78 (95) 96 06/03/18 20:00 40 06/03/18 20:00 Mechanical Ventilator 06/03/18 19:30 81 15 40 06/03/18 19:30 81 15 Mechanical Ventilator 40 06/03/18 17:02 82 12 40 06/03/18 16:00 90 06/03/18 16:00 40 06/03/18 16:00 97.5 86 12 101/61 (74) 99 06/03/18 16:00 Mechanical Ventilator 06/03/18 15:56 88 20 40 06/03/18 14:00 84/42 06/03/18 13:50 82 112/66 (81) 06/03/18 13:00 63 12 40 06/03/18 12:00 40 06/03/18 12:00 Mechanical Ventilator 06/03/18 12:00 60 06/03/18 12:00 97.5 63 12 84/42 (56) 100 06/03/18 11:27 70 13 40 06/03/18 09:30 73 131/69 Intake and Output 06/03/18 06/04/18 18:59 06:59 Intake Total 905 ml 760 ml Output Total 150 ml 400 ml Balance 755 ml 360 ml Free Water 300 ml 100 ml Tube Feeding 605 ml 660 ml Output Urine Total 150 ml 400 ml # Bowel Movements 3 2 Height (Feet): 5 Height (Inches): 11.00 Weight (Pounds): 250 Medications Current Medications Medications (Trade) Dose Ordered Sig/Fernanda Route PRN Reason Start Time Stop Time Status Last Admin Dose Admin Acetaminophen (Tylenol) 650 mg Q4H PRN ORAL fever (temp>100.5F) 06/02/18 19:30 07/02/18 19:29 Al Hydroxide/Mg Hydroxide (Mylanta II) 30 ml Q6H PRN ORAL dyspepsia 06/02/18 19:30 07/02/18 19:29 Clonidine HCl (Catapres Tab) 0.1 mg Q4H PRN GT SBP >175 06/02/18 19:30 07/02/18 19:29 Dextrose (Dextrose 50%) 25 ml Q30M PRN IV Hypoglycemia 06/02/18 19:30 07/02/18 19:28 Dextrose (Dextrose 50%) 50 ml Q30M PRN IV hypoglycemia 06/02/18 19:30 07/02/18 19:29 Hydralazine HCl (Apresoline) 50 mg EVERY 8 HOURS GT 06/02/18 22:00 07/02/18 21:59 Lorazepam (Ativan 2mg/ml 1ml) 2 mg Q1H PRN IV seizures 06/02/18 19:30 06/09/18 19:29 Metoprolol Tartrate (Lopressor) 50 mg EVERY 12 HOURS GT 06/02/18 21:00 07/02/18 20:59 06/04/18 09:20 Morphine Sulfate (Morphine Sulfate) 1 mg Q4H PRN IVP For Pain 06/02/18 19:30 06/09/18 19:29 Ondansetron HCl (Zofran) 4 mg Q6H PRN IVP Nausea & Vomiting 06/02/18 19:30 07/02/18 19:29 Polyethylene Glycol (Miralax) 17 gm HSPRN PRN ORAL Constipation 06/02/18 19:30 07/02/18 19:29 Zolpidem Tartrate (Ambien) 5 mg HSPRN PRN ORAL Insomnia 06/02/18 19:30 06/09/18 19:29 Jack Hurd MD Jun 04, 2018 09:21
--- NOTE | 2018-06-04 09:33 | Consultation ---
History of Present Illness General Date patient seen: Jun 04, 2018 Chief Complaint: General Complaint Reason for Consultation: Yeast in Urine Present Illness HPI Mr. Mcgill is a 63 yo male with PMHx of recurrent seizures, CVA and Alzheimer's who was sent the ED on 06/02/17 with AMS and found to have acute stoke on CT head. He is on a vent and not able to give a history but per the notes he was afebrile with only a mild leukocytosis. ID was consulted for UTI PMHx/PSHx Seizures CVA Alzheimer's SocHx Per notes on E/T/D FamHx Unable to obtian as patient not verbal Allergies: Coded Allergies: BENAZEPRIL (Verified Allergy, Unknown, 06/02/18) Medication History Scheduled Albuterol Sulfate* (Albuterol Sulfate Hhn*), 3 ML INH Q6H, (Reported) Amino Acids/Protein Hydrolys (Pro-Stat Liquid), 30 ML GT THREE TIMES A DAY, ( Reported) Atorvastatin Calcium* (Atorvastatin Calcium*), 10 MG GT BEDTIME, (Reported) Chlorhexidine Gluconate (Peridex), 15 ML PO BID, (Reported) Cran/Vitc/Mannose/Inulin/Brom (Uti-Stat Liquid), 3,875 MG GT BID, (Reported) Docusate Sodium* (Colace*), 100 MG GT BID, (Reported) Ferrous Sulfate (Ferrous Sulfate), 330 MG GT DAILY, (Reported) Hydralazine Hcl* (Hydralazine Hcl*), 50 MG GT EVERY 8 HOURS, (Reported) Lansoprazole* (Lansoprazole*), 30 MG GT DAILY, (Reported) Metoprolol Tartrate* (Metoprolol Tartrate*), 50 MG GT EVERY 12 HOURS, (Reported) Vitamin D (Vitamin D3), 5,000 UNITS GT DAILY, (Reported) Warfarin Sod* (Coumadin*), 4 MG GT DAILY, (Reported) Scheduled PRN Acetaminophen (Tylenol), 650 MG ORAL Q4HR PRN for fever/mild-mod pain, (Reported ) Albuterol Sulfate* (Albuterol Sulfate Hhn*), 3 ML INH Q3HR PRN for Shortness of Breath, (Reported) Clonidine Hcl* (Catapres*), 0.1 MG GT Q4HR PRN for BP >175, (Reported) Polyethylene Glycol 3350* (Miralax*), 17 GM GT DAILY PRN for Constipation, ( Reported) Patient History Healthcare decision maker Resuscitation status Full Code Advanced Directive on File No Review of Systems ROS Narrative Unable to obtain as patient not verbal Physical Exam Last 24 Hour Vital Signs Date Time Temp Pulse Resp B/P (MAP) Pulse Ox O2 Delivery O2 Flow Rate FiO2 06/04/18 09:20 69 130/76 06/04/18 09:03 69 13 40 06/04/18 08:00 96.4 79 16 130/76 (94) 100 06/04/18 08:00 Mechanical Ventilator 06/04/18 08:00 40 06/04/18 06:49 72 14 40 06/04/18 05:40 135/74 06/04/18 04:35 63 14 40 06/04/18 04:00 96.6 80 15 135/74 (94) 100 06/04/18 04:00 40 06/04/18 04:00 Mechanical Ventilator 06/04/18 03:32 83 06/04/18 03:11 82 27 40 06/04/18 00:46 80 12 40 06/04/18 00:00 97.0 78 14 124/83 (97) 98 06/04/18 00:00 Mechanical Ventilator 06/03/18 23:19 77 06/03/18 22:37 85 12 40 06/03/18 22:00 118/73 06/03/18 21:00 82 128/78 06/03/18 20:54 80 12 40 06/03/18 20:28 76 06/03/18 20:00 97.0 82 14 128/78 (95) 96 06/03/18 20:00 40 06/03/18 20:00 Mechanical Ventilator 06/03/18 19:30 81 15 40 06/03/18 19:30 81 15 Mechanical Ventilator 40 06/03/18 17:02 82 12 40 06/03/18 16:00 90 06/03/18 16:00 40 06/03/18 16:00 97.5 86 12 101/61 (74) 99 06/03/18 16:00 Mechanical Ventilator 06/03/18 15:56 88 20 40 06/03/18 14:00 84/42 06/03/18 13:50 82 112/66 (81) 06/03/18 13:00 63 12 40 06/03/18 12:00 40 06/03/18 12:00 Mechanical Ventilator 06/03/18 12:00 60 06/03/18 12:00 97.5 63 12 84/42 (56) 100 06/03/18 11:27 70 13 40 06/03/18 09:30 73 131/69 Intake and Output 06/03/18 06/04/18 18:59 06:59 Intake Total 905 ml 760 ml Output Total 150 ml 400 ml Balance 755 ml 360 ml Free Water 300 ml 100 ml Tube Feeding 605 ml 660 ml Output Urine Total 150 ml 400 ml # Bowel Movements 3 2 Height (Feet): 5 Height (Inches): 11.00 Weight (Pounds): 250 Medications Current Medications Medications (Trade) Dose Ordered Sig/Fernanda Route PRN Reason Start Time Stop Time Status Last Admin Dose Admin Acetaminophen (Tylenol) 650 mg Q4H PRN ORAL fever (temp>100.5F) 06/02/18 19:30 07/02/18 19:29 Al Hydroxide/Mg Hydroxide (Mylanta II) 30 ml Q6H PRN ORAL dyspepsia 06/02/18 19:30 07/02/18 19:29 Clonidine HCl (Catapres Tab) 0.1 mg Q4H PRN GT SBP >175 06/02/18 19:30 07/02/18 19:29 Dextrose (Dextrose 50%) 25 ml Q30M PRN IV Hypoglycemia 06/02/18 19:30 07/02/18 19:28 Dextrose (Dextrose 50%) 50 ml Q30M PRN IV hypoglycemia 06/02/18 19:30 07/02/18 19:29 Hydralazine HCl (Apresoline) 50 mg EVERY 8 HOURS GT 06/02/18 22:00 07/02/18 21:59 Lorazepam (Ativan 2mg/ml 1ml) 2 mg Q1H PRN IV seizures 06/02/18 19:30 06/09/18 19:29 Metoprolol Tartrate (Lopressor) 50 mg EVERY 12 HOURS GT 06/02/18 21:00 07/02/18 20:59 06/04/18 09:20 Morphine Sulfate (Morphine Sulfate) 1 mg Q4H PRN IVP For Pain 06/02/18 19:30 06/09/18 19:29 Ondansetron HCl (Zofran) 4 mg Q6H PRN IVP Nausea & Vomiting 06/02/18 19:30 07/02/18 19:29 Polyethylene Glycol (Miralax) 17 gm HSPRN PRN ORAL Constipation 06/02/18 19:30 07/02/18 19:29 Zolpidem Tartrate (Ambien) 5 mg HSPRN PRN ORAL Insomnia 06/02/18 19:30 06/09/18 19:29 Objective Narrative Gen: Patient on Vent HEENT: NCAT, MMM, PERRL, No Oral lesion, no scleral icterus NECK: supple, no meningismus, No LAD, No JVD LUNGS: CTAB, No W/C, No Accessory muscle use CARDS: RRR, S1, S2, No M/R/G, ABD: Soft, NT, ND, No R/G, + BS : Deferred Ext: C/C/E, Pulses 2+ B/L (DP, Rad): NEURO: A/O x 0, moving left side PSYCH: Mood/affect normal SKIN: Warm/dry, No rashes Assessment/Plan Assessment/Plan 63 yo male with PMHx of recurrent seizures, CVA and Alzheimer's who was sent the ED on 06/02/17 with AMS and cound to have acute stoke on CT head. Yeast in Urine Likely colonizer as no active signs of sepsis UCx 06/02/18 - Yeast Aferbile No leukocytosis Seizures CVA Alzheimer's Plan - Continue to monitor off abx - Monitor CBC and Temps Thank you for this consult. We will continue to follow the patient during this hospitalization. Jack Hurd MD Jun 04, 2018 09:33
[2018-06-04 10:27] LABS: EOSINOPHILS % (AUTO) 5.6 % (0.0-3.0); HEMATOCRIT 29.2 % (42.0-52.0); HEMOGLOBIN 9.1 G/DL (14.2-18.0); LYMPHOCYTES % (AUTO) 22.9 % (20.0-45.0); MEAN CORPUSCULAR VOLUME 86 FL (80-99); MONOCYTES % (AUTO) 6.5 % (1.0-10.0); PLATELET COUNT 103 K/UL (150-450); RED BLOOD COUNT 3.38 M/UL (4.70-6.10); RED CELL DISTRIBUTION WIDTH 15.9 % (11.6-14.8); WHITE BLOOD COUNT 6.1 K/UL (4.8-10.8)
[2018-06-04 10:51] LABS: ALANINE AMINOTRANSFERASE 70 U/L (12-78); ALBUMIN 2.4 G/DL (3.4-5.0); ALBUMIN/GLOBULIN RATIO 0.5 (1.0-2.7); ALKALINE PHOSPHATASE 119 U/L (46-116); ANION GAP 7 mmol/L (5-15); ASPARTATE AMINO TRANSFERASE 45 U/L (15-37); BILIRUBIN,TOTAL 0.3 MG/DL (0.2-1.0); BLOOD UREA NITROGEN 17 mg/dL (7-18); CALCIUM 9.3 MG/DL (8.5-10.1); CARBON DIOXIDE 30 MMOL/L (21-32); CHLORIDE 108 MMOL/L (98-107); CREATININE 0.7 MG/DL (0.55-1.30); POTASSIUM 3.6 MMOL/L (3.5-5.1); SODIUM 145 MMOL/L (136-145)
--- NOTE | 2018-06-04 11:11 | Pulmonology Progress Note ---
Assessment/Plan Problems: (1) Seizure (2) COPD (chronic obstructive pulmonary disease) (3) Ventilator dependent (4) Tracheostomy care (5) Anemia (6) Chronic vegetative state (7) Feeding by G-tube Respiratory: monitor respiratory rate, adjust FIO2, CXR Cardiac: continue to monitor HR/BP Renal: F/U I&O Infectious Disease: check cultures Gastrointestinal: continue feedings/current rate Endocrine: monitor blood sugar Hematologic: transfuse if hgb<8.5 Neurologic: PRN Ativan, PRN Morphine, keep patient comfortable Prophylaxis: Heparin Time Spent (Minutes): 40 Notes Reviewed: renal Discussed with: nurses, consultants, caseworker intake Subjective ROS Limited/Unobtainable: Yes Constitutional: Reports: no symptoms HEENT: Repors: no symptoms Allergies: Coded Allergies: BENAZEPRIL (Verified Allergy, Unknown, 06/02/18) Objective Last 24 Hour Vital Signs Date Time Temp Pulse Resp B/P (MAP) Pulse Ox O2 Delivery O2 Flow Rate FiO2 06/04/18 09:20 69 130/76 06/04/18 09:03 69 13 40 06/04/18 08:00 96.4 79 16 130/76 (94) 100 06/04/18 08:00 80 06/04/18 08:00 Mechanical Ventilator 06/04/18 08:00 40 06/04/18 06:49 72 14 40 06/04/18 05:40 135/74 06/04/18 04:35 63 14 40 06/04/18 04:00 96.6 80 15 135/74 (94) 100 06/04/18 04:00 40 06/04/18 04:00 Mechanical Ventilator 06/04/18 03:32 83 06/04/18 03:11 82 27 40 06/04/18 00:46 80 12 40 06/04/18 00:00 97.0 78 14 124/83 (97) 98 06/04/18 00:00 Mechanical Ventilator 06/03/18 23:19 77 06/03/18 22:37 85 12 40 06/03/18 22:00 118/73 06/03/18 21:00 82 128/78 06/03/18 20:54 80 12 40 06/03/18 20:28 76 06/03/18 20:00 97.0 82 14 128/78 (95) 96 06/03/18 20:00 40 06/03/18 20:00 Mechanical Ventilator 06/03/18 19:30 81 15 40 06/03/18 19:30 81 15 Mechanical Ventilator 40 06/03/18 17:02 82 12 40 06/03/18 16:00 90 06/03/18 16:00 40 06/03/18 16:00 97.5 86 12 101/61 (74) 99 06/03/18 16:00 Mechanical Ventilator 06/03/18 15:56 88 20 40 06/03/18 14:00 84/42 06/03/18 13:50 82 112/66 (81) 06/03/18 13:00 63 12 40 06/03/18 12:00 40 06/03/18 12:00 Mechanical Ventilator 06/03/18 12:00 60 06/03/18 12:00 97.5 63 12 84/42 (56) 100 06/03/18 11:27 70 13 40 Intake and Output 06/03/18 06/04/18 18:59 06:59 Intake Total 905 ml 760 ml Output Total 150 ml 400 ml Balance 755 ml 360 ml Free Water 300 ml 100 ml Tube Feeding 605 ml 660 ml Output Urine Total 150 ml 400 ml # Bowel Movements 3 2 General Appearance: WD/WN HEENT: normocephalic, atraumatic Respiratory/Chest: chest wall non-tender, lungs clear Cardiovascular: normal peripheral pulses, normal rate, regular rhythm Abdomen: normal bowel sounds, soft, non tender Extremities: no cyanosis, no clubbing Neurologic/Psychiatric: hand sole sewer II-XII grossly normal, no motor/sensory deficits Lymphatic: no neck adenopathy Musculoskeletal: normal muscle bulk Microbiology Date/Time Source Procedure Growth Status 06/02/18 16:10 Nasal Nares MRSA Culture - Final NO METHICILLIN RESISTANT STAPH AUREUS... Complete 06/02/18 16:35 Urine,Clean Catch Urine Culture - Preliminary YEAST Resulted 06/02/18 16:10 Rectum VRE Culture - Final NO VANCOMYCIN RESISTANT ENTEROCOCCUS ... Complete 06/02/18 16:10 Rectum - Final NO CARBAPENEM-RESISTANT ENTEROBACTERI... Complete Laboratory Tests 06/04/18 09:40: White Blood Count 6.1, Red Blood Count 3.38L, Hemoglobin 9.1L, Hematocrit 29.2L , Mean Corpuscular Volume 86, Mean Corpuscular Hemoglobin 27.0, Mean Corpuscular Hemoglobin Concent 31.3L, Red Cell Distribution Width 15.9H, Platelet Count 103L, Mean Platelet Volume 13.1H, Neutrophils (%) (Auto) 64.0, Lymphocytes (%) (Auto) 22.9, Monocytes (%) (Auto) 6.5, Eosinophils (%) (Auto) 5.6H, Basophils (%) (Auto) 1.0, Sodium Level 145, Potassium Level 3.6, Chloride Level 108H, Carbon Dioxide Level 30, Anion Gap 7, Blood Urea Nitrogen 17, Creatinine 0.7, Estimat Glomerular Filtration Rate > 60, Glucose Level 115H, Calcium Level 9.3, Total Bilirubin 0.3, Aspartate Amino Transf (AST/SGOT) 45H, Alanine Aminotransferase (ALT/SGPT) 70, Alkaline Phosphatase 119H, Pro-B-Type Natriuretic Peptide 38, Total Protein 7.6, Albumin 2.4L, Globulin 5.2, Albumin/ Globulin Ratio 0.5L Current Medications Medications (Trade) Dose Ordered Sig/Fernanda Route PRN Reason Start Time Stop Time Status Last Admin Dose Admin Acetaminophen (Tylenol) 650 mg Q4H PRN ORAL fever (temp>100.5F) 06/02/18 19:30 07/02/18 19:29 Al Hydroxide/Mg Hydroxide (Mylanta II) 30 ml Q6H PRN ORAL dyspepsia 06/02/18 19:30 07/02/18 19:29 Clonidine HCl (Catapres Tab) 0.1 mg Q4H PRN GT SBP >175 06/02/18 19:30 07/02/18 19:29 Dextrose (Dextrose 50%) 25 ml Q30M PRN IV Hypoglycemia 06/02/18 19:30 07/02/18 19:28 Dextrose (Dextrose 50%) 50 ml Q30M PRN IV hypoglycemia 06/02/18 19:30 07/02/18 19:29 Hydralazine HCl (Apresoline) 50 mg EVERY 8 HOURS GT 06/02/18 22:00 07/02/18 21:59 Lorazepam (Ativan 2mg/ml 1ml) 2 mg Q1H PRN IV seizures 06/02/18 19:30 06/09/18 19:29 Metoprolol Tartrate (Lopressor) 50 mg EVERY 12 HOURS GT 06/02/18 21:00 07/02/18 20:59 06/04/18 09:20 Morphine Sulfate (Morphine Sulfate) 1 mg Q4H PRN IVP For Pain 06/02/18 19:30 06/09/18 19:29 Ondansetron HCl (Zofran) 4 mg Q6H PRN IVP Nausea & Vomiting 06/02/18 19:30 07/02/18 19:29 Polyethylene Glycol (Miralax) 17 gm HSPRN PRN ORAL Constipation 06/02/18 19:30 07/02/18 19:29 Zolpidem Tartrate (Ambien) 5 mg HSPRN PRN ORAL Insomnia 06/02/18 19:30 06/09/18 19:29 Steve Kothari MD Jun 04, 2018 11:11
--- NOTE | 2018-06-04 11:30 | NUR ---
NURSE NOTES: dr. Reyes saw pt.
[2018-06-04 12:00] VITALS: BP 134/67
--- NOTE | 2018-06-04 13:04 | Diagnostic Imaging Report ---
Indication: Dyspnea Technique: One view of the chest Comparison: 04/06/2018 Findings: Interim development of interstitial and airspace opacities diffusely in the right lung. The pleural spaces and left lung appear to be clear. The heart is borderline enlarged. Tracheostomy again demonstrated. Impression: Interstitial and airspace infiltrates versus edema in the right lung
--- NOTE | 2018-06-04 14:59 | General Progress Note ---
Assessment/Plan Problem List: (1) UTI (urinary tract infection) ICD Codes: N39.0 - Urinary tract infection, site not specified SNOMED: 54388378 (2) CVA (cerebrovascular accident) ICD Codes: I63.9 - Cerebral infarction, unspecified SNOMED: 390017800 (3) Ventilator dependent ICD Codes: Z99.11 - Dependence on respirator [ventilator] status SNOMED: 354442417 (4) Altered mental status ICD Codes: R41.82 - Altered mental status, unspecified SNOMED: 766967934 (5) Seizure ICD Codes: R56.9 - Unspecified convulsions SNOMED: 54154760 (6) Alzheimer's dementia ICD Codes: G30.9 - Alzheimer's disease, unspecified; F02.80 - Dementia in other diseases classified elsewhere without behavioral disturbance SNOMED: 68302576 (7) COPD (chronic obstructive pulmonary disease) ICD Codes: J44.9 - Chronic obstructive pulmonary disease, unspecified SNOMED: 52812701 (8) Chronic organic brain syndrome ICD Codes: F09 - Unspecified mental disorder due to known physiological condition SNOMED: 145879856 Status: unchanged Assessment/Plan vent abx neuro f/u cbc bmp am Subjective Constitutional: Reports: weakness Allergies: Coded Allergies: BENAZEPRIL (Verified Allergy, Unknown, 06/02/18) All Systems: reviewed and negative except above Subjective trach vent altered calm Objective Last 24 Hour Vital Signs Date Time Temp Pulse Resp B/P (MAP) Pulse Ox O2 Delivery O2 Flow Rate FiO2 06/04/18 14:12 134/67 06/04/18 13:03 71 16 40 06/04/18 12:00 96.3 83 12 134/67 (89) 97 06/04/18 12:00 Mechanical Ventilator 06/04/18 12:00 40 06/04/18 12:00 81 06/04/18 11:20 70 16 40 06/04/18 09:20 69 130/76 06/04/18 09:03 69 13 40 06/04/18 08:00 96.4 79 16 130/76 (94) 100 06/04/18 08:00 80 06/04/18 08:00 Mechanical Ventilator 06/04/18 08:00 40 06/04/18 06:49 72 14 40 06/04/18 05:40 135/74 06/04/18 04:35 63 14 40 06/04/18 04:00 96.6 80 15 135/74 (94) 100 06/04/18 04:00 40 06/04/18 04:00 Mechanical Ventilator 06/04/18 03:32 83 06/04/18 03:11 82 27 40 06/04/18 00:46 80 12 40 06/04/18 00:00 97.0 78 14 124/83 (97) 98 06/04/18 00:00 Mechanical Ventilator 06/03/18 23:19 77 06/03/18 22:37 85 12 40 06/03/18 22:00 118/73 06/03/18 21:00 82 128/78 06/03/18 20:54 80 12 40 06/03/18 20:28 76 06/03/18 20:00 97.0 82 14 128/78 (95) 96 06/03/18 20:00 40 06/03/18 20:00 Mechanical Ventilator 06/03/18 19:30 81 15 40 06/03/18 19:30 81 15 Mechanical Ventilator 40 06/03/18 17:02 82 12 40 06/03/18 16:00 90 06/03/18 16:00 40 06/03/18 16:00 97.5 86 12 101/61 (74) 99 06/03/18 16:00 Mechanical Ventilator 06/03/18 15:56 88 20 40 Intake and Output 06/03/18 06/04/18 19:00 07:00 Intake Total 960 ml 760 ml Output Total 150 ml 400 ml Balance 810 ml 360 ml Free Water 300 ml 100 ml Tube Feeding 660 ml 660 ml Output Urine Total 150 ml 400 ml # Bowel Movements 3 2 Laboratory Tests 06/04/18 09:40: White Blood Count 6.1, Red Blood Count 3.38L, Hemoglobin 9.1L, Hematocrit 29.2L , Mean Corpuscular Volume 86, Mean Corpuscular Hemoglobin 27.0, Mean Corpuscular Hemoglobin Concent 31.3L, Red Cell Distribution Width 15.9H, Platelet Count 103L, Mean Platelet Volume 13.1H, Neutrophils (%) (Auto) 64.0, Lymphocytes (%) (Auto) 22.9, Monocytes (%) (Auto) 6.5, Eosinophils (%) (Auto) 5.6H, Basophils (%) (Auto) 1.0, Sodium Level 145, Potassium Level 3.6, Chloride Level 108H, Carbon Dioxide Level 30, Anion Gap 7, Blood Urea Nitrogen 17, Creatinine 0.7, Estimat Glomerular Filtration Rate > 60, Glucose Level 115H, Calcium Level 9.3, Total Bilirubin 0.3, Aspartate Amino Transf (AST/SGOT) 45H, Alanine Aminotransferase (ALT/SGPT) 70, Alkaline Phosphatase 119H, Pro-B-Type Natriuretic Peptide 38, Total Protein 7.6, Albumin 2.4L, Globulin 5.2, Albumin/ Globulin Ratio 0.5L Height (Feet): 5 Height (Inches): 11.00 Weight (Pounds): 250 General Appearance: lethargic EENT: normal ENT inspection Neck: normal alignment Cardiovascular: normal peripheral pulses, normal rate, regular rhythm Respiratory/Chest: chest wall non-tender, decreased breath sounds Abdomen: normal bowel sounds, non tender, soft Extremities: normal inspection Edema: no edema noted Arm (L), no edema noted Arm (R), no edema noted Leg (L), no edema noted Leg (R), no edema noted Pedal (L), no edema noted Pedal (R), no edema noted Generalized Neurologic: motor weakness Skin: normal pigmentation, warm/dry Fly Wright DO Jun 04, 2018 14:59
--- NOTE | 2018-06-04 15:12 | NUR ---
CASE MANAGEMENT: REVIEW SI: COPD . SEIZURE . AMS T 96.3 HR 83 RR 12 BP 134/67 SAT 97% MECH VENT FIO2 40 H/H 9.1/29.2 ALK PHOS 119 IS: LOPRESSOR GT Q12HR HYDRAZINE GT Q8HR STEP DOWN UNIT STATUS DCP: PATIENT IS FROM [facility] PLAN: 2D ECHO
--- NOTE | 2018-06-04 15:19 | Cardiology Report ---
APPROVED REPORT EXAM: Two-dimensional and M-mode echocardiogram with Doppler and color Doppler. INDICATION LV FUNCTION M-Mode DIMENSIONS IVSd1.2 (0.7-1.1cm)Left Atrium (MM)4.1 (1.6-4.0cm) LVDd5.5 (3.5-5.6cm)Aortic Root3.7 (2.0-3.7cm) PWd1.5 (0.7-1.1cm)Aortic Cusp Exc.1.8 (1.5-2.0cm) IVSs2.5 cm LVDs2.5 (2.5-4.0cm) PWs1.5 cm Normal left ventricular chamber size, systolic function and wall motion . Left ventricular ejection fraction estimated to be 60-65%. Moderate left ventricular hypertrophy by 2-D. Small posterior pericardial effusion . All other cardiac chamber sizes are within normal limits. Focal aortic valve sclerosis with adequate cusp excursion. Mildly thickened mitral valve leaflets with normal excursion. Mitral annulus and aortic root calcification. Pulmonic valve not well visualized. Normal tricuspid valve structure. Subcostal views are not obtained due to GI-tube . A color flow and spectral Doppler study was performed and revealed: No aortic regurgitation. Trace mitral regurgitation. Mitral diastolic velocities suggest reduced left ventricular relaxation c/w mild LV diastolic dysfunction (Grade I ). Trace tricuspid regurgitation. Tricuspid systolic velocities suggests peak right ventricular systolic pressure of 37 mmHg, consistent with mild pulmonary hypertension. No pulmonic regurgitation present.
[2018-06-04 16:00] VITALS: BP 118/83
--- NOTE | 2018-06-04 16:15 | Consultation ---
DATE OF CONSULTATION: 06/04/2018 CONSULTING PHYSICIAN: Ramy Reyes M.D. REASON FOR CONSULTATION: Gross hematuria. HISTORY OF PRESENT ILLNESS: The patient is a 63-year-old male with chronic respiratory failure, was catheterized in the emergency room and developed some hematuria. Further attempts to put a Sauceda catheter failed and patient had a condom catheter placed. He was admitted for ventilatory status and medical issues. PAST MEDICAL HISTORY: Ventilator dependence, CVA, seizures, chronic organic brain syndrome, and COPD. MEDICATIONS: Have been reviewed. REVIEW OF SYMPTOMS: Unobtainable due to the patient's status. PHYSICAL EXAMINATION: GENERAL: He is on the ventilator. ABDOMEN: Soft, nontender. No suprapubic tenderness. GENITOURINARY: Bladder is not palpable. Condom catheter is in place. Hematuria has improved since yesterday and the patient has decent urine output. LABORATORY DATA: Showed white count of 7.2, hematocrit 30.5. ASSESSMENT AND PLAN: The patient had traumatic hematuria. Hematuria is improving greatly. He is voiding spontaneously. I would recommend to keep the condom catheter. We will follow the patient, his blood work as well to determine if he needs further intervention. At this point, he just needs the conservative management. Ramy Reyes M.D. DR: SIMONE JOB#: [id number] CC:
--- NOTE | 2018-06-04 19:01 | NUR ---
RESPIRATORY NOTE: Received pt on AC 12, 600VT, 40%, PEEP +5. Pt is trach dependent w/ a cuffed, Portex 7 tube. Pt flat effect. B/S felicity. rhonchi, sxn small to moderate amounts of thick, bee/yellow secretions w/ occasional red specks. Vent plugged into red outlet, ambubag & spare trach kit at bedside. Pt in no apparent distress at this time. Will continue plan of care.
--- NOTE | 2018-06-04 19:20 | NUR ---
HAND-OFF: Report given to JENNA NORTON.
--- NOTE | 2018-06-04 19:30 | NUR ---
NURSE NOTES: Report received from CIERRA Benedict. Observed pt lying on bed. Awake, obtunded, open-eyes, and non-verbal. No signs of pain noted at this time. SR with rn cardiac cath. Trach on vent, portex 7, AC 12, TD 600, FiO2 40%, PEEP 5, saturating at 100%. GT site intact and patent, running Glucerna 1.5 at 55cc/hr. Condom catheter, dark red urine noted and was told MD already aware. IV at R UA 20 G, TKO. Bed in the lowest position. Side rails up x3. Will continue to monitor.
--- NOTE | 2018-06-04 19:52 | Cardiology Progress Note ---
Assessment/Plan Assessment/Plan The patient is seen and examined, full consult note will be dictated. Objective Last 24 Hour Vital Signs Date Time Temp Pulse Resp B/P (MAP) Pulse Ox O2 Delivery O2 Flow Rate FiO2 06/04/18 18:59 71 19 40 06/04/18 17:15 73 14 40 06/04/18 16:00 Mechanical Ventilator 06/04/18 16:00 40 06/04/18 16:00 68 06/04/18 16:00 96.6 73 14 118/83 (95) 99 06/04/18 15:15 68 14 40 06/04/18 14:12 134/67 06/04/18 13:03 71 16 40 06/04/18 12:00 96.3 83 12 134/67 (89) 97 06/04/18 12:00 Mechanical Ventilator 06/04/18 12:00 40 06/04/18 12:00 81 06/04/18 11:20 70 16 40 06/04/18 09:20 69 130/76 06/04/18 09:03 69 13 40 06/04/18 08:00 96.4 79 16 130/76 (94) 100 06/04/18 08:00 80 06/04/18 08:00 Mechanical Ventilator 06/04/18 08:00 40 06/04/18 06:49 72 14 40 06/04/18 05:40 135/74 06/04/18 04:35 63 14 40 06/04/18 04:00 96.6 80 15 135/74 (94) 100 06/04/18 04:00 40 06/04/18 04:00 Mechanical Ventilator 06/04/18 03:32 83 06/04/18 03:11 82 27 40 06/04/18 00:46 80 12 40 06/04/18 00:00 97.0 78 14 124/83 (97) 98 06/04/18 00:00 Mechanical Ventilator 06/03/18 23:19 77 06/03/18 22:37 85 12 40 06/03/18 22:00 118/73 06/03/18 21:00 82 128/78 06/03/18 20:54 80 12 40 06/03/18 20:28 76 06/03/18 20:00 97.0 82 14 128/78 (95) 96 06/03/18 20:00 40 06/03/18 20:00 Mechanical Ventilator Intake and Output 06/03/18 06/04/18 19:00 07:00 Intake Total 960 ml 760 ml Output Total 150 ml 400 ml Balance 810 ml 360 ml Free Water 300 ml 100 ml Tube Feeding 660 ml 660 ml Output Urine Total 150 ml 400 ml # Bowel Movements 3 2 Laboratory Tests Test 06/04/18 09:40 White Blood Count 6.1 K/UL (4.8-10.8) Red Blood Count 3.38 M/UL (4.70-6.10) L Hemoglobin 9.1 G/DL (14.2-18.0) L Hematocrit 29.2 % (42.0-52.0) L Mean Corpuscular Volume 86 FL (80-99) Mean Corpuscular Hemoglobin 27.0 PG (27.0-31.0) Mean Corpuscular Hemoglobin Concent 31.3 G/DL (32.0-36.0) L Red Cell Distribution Width 15.9 % (11.6-14.8) H Platelet Count 103 K/UL (150-450) L Mean Platelet Volume 13.1 FL (6.5-10.1) H Neutrophils (%) (Auto) 64.0 % (45.0-75.0) Lymphocytes (%) (Auto) 22.9 % (20.0-45.0) Monocytes (%) (Auto) 6.5 % (1.0-10.0) Eosinophils (%) (Auto) 5.6 % (0.0-3.0) H Basophils (%) (Auto) 1.0 % (0.0-2.0) Sodium Level 145 MMOL/L (136-145) Potassium Level 3.6 MMOL/L (3.5-5.1) Chloride Level 108 MMOL/L (98-107) H Carbon Dioxide Level 30 MMOL/L (21-32) Anion Gap 7 mmol/L (5-15) Blood Urea Nitrogen 17 mg/dL (7-18) Creatinine 0.7 MG/DL (0.55-1.30) Estimat Glomerular Filtration Rate > 60 mL/min (>60) Glucose Level 115 MG/DL (74-106) H Calcium Level 9.3 MG/DL (8.5-10.1) Total Bilirubin 0.3 MG/DL (0.2-1.0) Aspartate Amino Transf (AST/SGOT) 45 U/L (15-37) H Alanine Aminotransferase (ALT/SGPT) 70 U/L (12-78) Alkaline Phosphatase 119 U/L (46-116) H Pro-B-Type Natriuretic Peptide 38 pg/mL (0-125) Total Protein 7.6 G/DL (6.4-8.2) Albumin 2.4 G/DL (3.4-5.0) L Globulin 5.2 g/dL Albumin/Globulin Ratio 0.5 (1.0-2.7) L Microbiology Date/Time Source Procedure Growth Status 06/02/18 16:10 Nasal Nares MRSA Culture - Final NO METHICILLIN RESISTANT STAPH AUREUS... Complete 06/02/18 16:35 Urine,Clean Catch Urine Culture - Preliminary YEAST Resulted 06/02/18 16:10 Rectum VRE Culture - Final NO VANCOMYCIN RESISTANT ENTEROCOCCUS ... Complete 06/02/18 16:10 Rectum - Final NO CARBAPENEM-RESISTANT ENTEROBACTERI... Complete Minor Post MD Jun 04, 2018 19:52
[2018-06-04 20:00] VITALS: BP_SYST 125; BP_SYST 146; BP_DIAS 81; BP_DIAS 87
[2018-06-05] VITALS: BP 125/81
[2018-06-05 04:00] VITALS: BP 131/79
[2018-06-05] MEDS: HydrALAZINE 10mg Tab GT SCH ×3 (05:48→22:00)
--- NOTE | 2018-06-05 06:38 | NUR ---
NURSE NOTES: Noted wound on left neck under trach strap. Wound care protocol done. Picture was taken. Put hydrogel and covered with optifoam. Will continue to monitor.
--- NOTE | 2018-06-05 07:10 | NUR ---
RESPIRATORY NOTE: Patient received on mechanical ventilator AC 600, 12, 40%, +5. Patient it a trach patient with size 7 portex. AMBU bag bedside, spare trach, alarms are set and audible. Will continue to monitor patient.
--- NOTE | 2018-06-05 07:30 | NUR ---
HAND-OFF: Report given to CIERRA Benedict. No acute distress noted.
[2018-06-05 08:00] VITALS: BP 118/71
--- NOTE | 2018-06-05 08:00 | NUR ---
NURSE NOTES: received pt in the bed, obtunded, vent dependent, vital signs stable, no SOB, no co pain, skin warm and dry to touch, tolerate GT feeding well, condom catheter with pink urine, un-stageable wound on left side neck, wound nurse saw pt, bed in low position, HOB elevated.
[2018-06-05] MEDS: Metoprolol Tartrate 50mg tab GT SCH ×2 (08:56→21:53)
--- NOTE | 2018-06-05 09:28 | Infectious Diseases Prog Note ---
Assessment/Plan Assessment/Plan 63 yo male with PMHx of recurrent seizures, CVA and Alzheimer's who was sent the ED on 06/02/17 with AMS and found to have acute stoke on CT head. Yeast in Urine Likely colonizer as no active signs of sepsis UCx 06/02/18 - Yeast Aferbile No leukocytosis Acute stoke Seizures Alzheimer's Plan - Continue to monitor off abx as clinically stable - Monitor CBC and Temps Thank you for this consult. We will continue to follow the patient during this hospitalization. Jack Hurd MD Subjective Allergies: Coded Allergies: BENAZEPRIL (Verified Allergy, Unknown, 06/02/18) Subjective JIM Afebrile No leukocytosis No On 40% O2 via vent Objective Vital Signs Last 24 Hour Vital Signs Date Time Temp Pulse Resp B/P (MAP) Pulse Ox O2 Delivery O2 Flow Rate FiO2 06/05/18 09:10 64 12 40 06/05/18 08:56 68 118/71 06/05/18 08:00 40 06/05/18 08:00 Mechanical Ventilator 06/05/18 08:00 96.8 68 14 118/71 (87) 100 06/05/18 07:29 68 12 40 06/05/18 05:48 130/68 06/05/18 05:03 64 12 40 06/05/18 04:00 97.3 63 14 131/79 (96) 100 06/05/18 04:00 40 06/05/18 04:00 Mechanical Ventilator 06/05/18 04:00 62 06/05/18 03:05 61 12 40 06/05/18 01:14 62 12 40 06/05/18 00:00 40 06/05/18 00:00 61 06/05/18 00:00 96.8 63 15 125/81 (96) 100 06/05/18 00:00 Mechanical Ventilator 06/04/18 22:49 63 17 40 06/04/18 22:04 77 149/81 06/04/18 22:00 102/72 06/04/18 21:09 74 14 40 06/04/18 20:00 70 06/04/18 20:00 96.6 74 14 146/87 (106) 97 06/04/18 20:00 Mechanical Ventilator 06/04/18 18:59 71 19 40 06/04/18 17:15 73 14 40 06/04/18 16:00 Mechanical Ventilator 06/04/18 16:00 40 06/04/18 16:00 68 06/04/18 16:00 96.6 73 14 118/83 (95) 99 06/04/18 15:15 68 14 40 06/04/18 14:12 134/67 06/04/18 13:03 71 16 40 06/04/18 12:00 96.3 83 12 134/67 (89) 97 06/04/18 12:00 Mechanical Ventilator 06/04/18 12:00 40 06/04/18 12:00 81 06/04/18 11:20 70 16 40 Height (Feet): 5 Height (Inches): 11.00 Weight (Pounds): 250 Objective Gen: Patient on Vent HEENT: NCAT, MMM, PERRL, LUNGS: CTAB, No W CARDS: RRR, S1, S2 ABD: Soft, NT, ND, No R/G, + BS Ext: C/C/E, Pulses 2+ B/L (DP, Rad): NEURO: A/O x 0, moving left side Microbiology Date/Time Source Procedure Growth Status 06/02/18 16:10 Nasal Nares MRSA Culture - Final NO METHICILLIN RESISTANT STAPH AUREUS... Complete 06/02/18 16:35 Urine,Clean Catch Urine Culture - Final YEAST Complete 06/02/18 16:10 Rectum VRE Culture - Final NO VANCOMYCIN RESISTANT ENTEROCOCCUS ... Complete 06/02/18 16:10 Rectum - Final NO CARBAPENEM-RESISTANT ENTEROBACTERI... Complete Laboratory Tests Test 06/04/18 09:40 06/04/18 20:10 White Blood Count 6.1 K/UL (4.8-10.8) Red Blood Count 3.38 M/UL (4.70-6.10) L Hemoglobin 9.1 G/DL (14.2-18.0) L Hematocrit 29.2 % (42.0-52.0) L Mean Corpuscular Volume 86 FL (80-99) Mean Corpuscular Hemoglobin 27.0 PG (27.0-31.0) Mean Corpuscular Hemoglobin Concent 31.3 G/DL (32.0-36.0) L Red Cell Distribution Width 15.9 % (11.6-14.8) H Platelet Count 103 K/UL (150-450) L Mean Platelet Volume 13.1 FL (6.5-10.1) H Neutrophils (%) (Auto) 64.0 % (45.0-75.0) Lymphocytes (%) (Auto) 22.9 % (20.0-45.0) Monocytes (%) (Auto) 6.5 % (1.0-10.0) Eosinophils (%) (Auto) 5.6 % (0.0-3.0) H Basophils (%) (Auto) 1.0 % (0.0-2.0) Sodium Level 145 MMOL/L (136-145) Potassium Level 3.6 MMOL/L (3.5-5.1) Chloride Level 108 MMOL/L (98-107) H Carbon Dioxide Level 30 MMOL/L (21-32) Anion Gap 7 mmol/L (5-15) Blood Urea Nitrogen 17 mg/dL (7-18) Creatinine 0.7 MG/DL (0.55-1.30) Estimat Glomerular Filtration Rate > 60 mL/min (>60) Glucose Level 115 MG/DL (74-106) H Calcium Level 9.3 MG/DL (8.5-10.1) Total Bilirubin 0.3 MG/DL (0.2-1.0) Aspartate Amino Transf (AST/SGOT) 45 U/L (15-37) H Alanine Aminotransferase (ALT/SGPT) 70 U/L (12-78) Alkaline Phosphatase 119 U/L (46-116) H Pro-B-Type Natriuretic Peptide 38 pg/mL (0-125) Total Protein 7.6 G/DL (6.4-8.2) Albumin 2.4 G/DL (3.4-5.0) L Globulin 5.2 g/dL Albumin/Globulin Ratio 0.5 (1.0-2.7) L Troponin I 0.049 ng/mL (0.000-0.056) Current Medications Medications (Trade) Dose Ordered Sig/Fernanda Route PRN Reason Start Time Stop Time Status Last Admin Dose Admin Acetaminophen (Tylenol) 650 mg Q4H PRN ORAL fever (temp>100.5F) 06/02/18 19:30 07/02/18 19:29 Al Hydroxide/Mg Hydroxide (Mylanta II) 30 ml Q6H PRN ORAL dyspepsia 06/02/18 19:30 07/02/18 19:29 Clonidine HCl (Catapres Tab) 0.1 mg Q4H PRN GT SBP >175 06/02/18 19:30 07/02/18 19:29 Dextrose (Dextrose 50%) 25 ml Q30M PRN IV Hypoglycemia 06/02/18 19:30 07/02/18 19:28 Dextrose (Dextrose 50%) 50 ml Q30M PRN IV hypoglycemia 06/02/18 19:30 07/02/18 19:29 Hydralazine HCl (Apresoline) 50 mg EVERY 8 HOURS GT 06/02/18 22:00 07/02/18 21:59 06/05/18 05:48 Lorazepam (Ativan 2mg/ml 1ml) 2 mg Q1H PRN IV seizures 06/02/18 19:30 06/09/18 19:29 Metoprolol Tartrate (Lopressor) 50 mg EVERY 12 HOURS GT 06/02/18 21:00 07/02/18 20:59 06/05/18 08:56 Morphine Sulfate (Morphine Sulfate) 1 mg Q4H PRN IVP For Pain 06/02/18 19:30 06/09/18 19:29 Ondansetron HCl (Zofran) 4 mg Q6H PRN IVP Nausea & Vomiting 06/02/18 19:30 07/02/18 19:29 Polyethylene Glycol (Miralax) 17 gm HSPRN PRN ORAL Constipation 06/02/18 19:30 07/02/18 19:29 Zolpidem Tartrate (Ambien) 5 mg HSPRN PRN ORAL Insomnia 06/02/18 19:30 06/09/18 19:29 Jack Hurd MD Jun 05, 2018 09:28
[2018-06-05 10:05] LABS: BASOPHILS % (AUTO) 0.5 % (0.0-2.0); EOSINOPHILS % (AUTO) 7.1 % (0.0-3.0); HEMATOCRIT 30.4 % (42.0-52.0); HEMOGLOBIN 9.5 G/DL (14.2-18.0); LYMPHOCYTES % (AUTO) 21.5 % (20.0-45.0); MEAN CORPUSCULAR VOLUME 87 FL (80-99); MONOCYTES % (AUTO) 7.4 % (1.0-10.0); NEUTROPHILS % (AUTO) 63.6 % (45.0-75.0); PLATELET COUNT 111 K/UL (150-450); RED BLOOD COUNT 3.49 M/UL (4.70-6.10); RED CELL DISTRIBUTION WIDTH 15.7 % (11.6-14.8); WHITE BLOOD COUNT 6.7 K/UL (4.8-10.8)
[2018-06-05 10:07] LABS: ANION GAP 6 mmol/L (5-15); BLOOD UREA NITROGEN 14 mg/dL (7-18); CALCIUM 9.6 MG/DL (8.5-10.1); CARBON DIOXIDE 30 MMOL/L (21-32); CHLORIDE 107 MMOL/L (98-107); CREATININE 0.7 MG/DL (0.55-1.30); POTASSIUM 3.9 MMOL/L (3.5-5.1); SODIUM 143 MMOL/L (136-145)
--- NOTE | 2018-06-05 10:51 | Pulmonology Progress Note ---
Assessment/Plan Problems: (1) Seizure (2) COPD (chronic obstructive pulmonary disease) (3) Ventilator dependent (4) Tracheostomy care (5) Anemia (6) Chronic vegetative state (7) Feeding by G-tube Respiratory: monitor respiratory rate, adjust FIO2, CXR Cardiac: continue to monitor HR/BP Renal: F/U I&O Infectious Disease: check cultures Gastrointestinal: continue feedings/current rate Endocrine: monitor blood sugar, check HgA1C Hematologic: transfuse if hgb<8.5 Neurologic: PRN Ativan, PRN Morphine, keep patient comfortable Prophylaxis: Protonix Disposition: keep in ICU Time Spent (Minutes): 40 Notes Reviewed: cardio Discussed with: nurses, consultants, bilingual patient support caseworker Subjective ROS Limited/Unobtainable: Yes Constitutional: Reports: no symptoms HEENT: Repors: no symptoms Allergies: Coded Allergies: BENAZEPRIL (Verified Allergy, Unknown, 06/02/18) Objective Last 24 Hour Vital Signs Date Time Temp Pulse Resp B/P (MAP) Pulse Ox O2 Delivery O2 Flow Rate FiO2 06/05/18 09:10 64 12 40 06/05/18 08:56 68 118/71 06/05/18 08:00 40 06/05/18 08:00 62 06/05/18 08:00 Mechanical Ventilator 06/05/18 08:00 96.8 68 14 118/71 (87) 100 06/05/18 07:29 68 12 40 06/05/18 05:48 130/68 06/05/18 05:03 64 12 40 06/05/18 04:00 97.3 63 14 131/79 (96) 100 06/05/18 04:00 40 06/05/18 04:00 Mechanical Ventilator 06/05/18 04:00 62 06/05/18 03:05 61 12 40 06/05/18 01:14 62 12 40 06/05/18 00:00 40 06/05/18 00:00 61 06/05/18 00:00 96.8 63 15 125/81 (96) 100 06/05/18 00:00 Mechanical Ventilator 06/04/18 22:49 63 17 40 06/04/18 22:04 77 149/81 06/04/18 22:00 102/72 06/04/18 21:09 74 14 40 06/04/18 20:00 70 06/04/18 20:00 96.6 74 14 146/87 (106) 97 06/04/18 20:00 Mechanical Ventilator 06/04/18 18:59 71 19 40 06/04/18 17:15 73 14 40 06/04/18 16:00 Mechanical Ventilator 06/04/18 16:00 40 06/04/18 16:00 68 06/04/18 16:00 96.6 73 14 118/83 (95) 99 06/04/18 15:15 68 14 40 06/04/18 14:12 134/67 06/04/18 13:03 71 16 40 06/04/18 12:00 96.3 83 12 134/67 (89) 97 06/04/18 12:00 Mechanical Ventilator 06/04/18 12:00 40 06/04/18 12:00 81 06/04/18 11:20 70 16 40 Intake and Output 06/04/18 06/05/18 19:00 07:00 Intake Total 695 ml 755 ml Output Total 600 ml 500 ml Balance 95 ml 255 ml Free Water 200 ml 150 ml Tube Feeding 495 ml 605 ml Output Urine Total 600 ml 500 ml # Bowel Movements 3 General Appearance: WD/WN HEENT: normocephalic, atraumatic Respiratory/Chest: chest wall non-tender, lungs clear Cardiovascular: normal peripheral pulses, normal rate Abdomen: normal bowel sounds, soft, non tender Genitourinary: normal external genitalia Skin: no rash Lymphatic: no neck adenopathy Musculoskeletal: no effusion Microbiology Date/Time Source Procedure Growth Status 06/02/18 16:10 Nasal Nares MRSA Culture - Final NO METHICILLIN RESISTANT STAPH AUREUS... Complete 06/02/18 16:35 Urine,Clean Catch Urine Culture - Final YEAST Complete 06/02/18 16:10 Rectum VRE Culture - Final NO VANCOMYCIN RESISTANT ENTEROCOCCUS ... Complete 06/02/18 16:10 Rectum - Final NO CARBAPENEM-RESISTANT ENTEROBACTERI... Complete Laboratory Tests 06/04/18 20:10: Troponin I 0.049 06/05/18 09:30: White Blood Count 6.7, Red Blood Count 3.49L, Hemoglobin 9.5L, Hematocrit 30.4L , Mean Corpuscular Volume 87, Mean Corpuscular Hemoglobin 27.3, Mean Corpuscular Hemoglobin Concent 31.4L, Red Cell Distribution Width 15.7H, Platelet Count 111L, Mean Platelet Volume 12.3H, Neutrophils (%) (Auto) 63.6, Lymphocytes (%) (Auto) 21.5, Monocytes (%) (Auto) 7.4, Eosinophils (%) (Auto) 7.1H, Basophils (%) (Auto) 0.5, Sodium Level 143, Potassium Level 3.9, Chloride Level 107, Carbon Dioxide Level 30, Anion Gap 6, Blood Urea Nitrogen 14, Creatinine 0.7, Estimat Glomerular Filtration Rate > 60, Glucose Level 107H, Calcium Level 9.6 Current Medications Medications (Trade) Dose Ordered Sig/Fernanda Route PRN Reason Start Time Stop Time Status Last Admin Dose Admin Acetaminophen (Tylenol) 650 mg Q4H PRN ORAL fever (temp>100.5F) 06/02/18 19:30 07/02/18 19:29 Al Hydroxide/Mg Hydroxide (Mylanta II) 30 ml Q6H PRN ORAL dyspepsia 06/02/18 19:30 07/02/18 19:29 Clonidine HCl (Catapres Tab) 0.1 mg Q4H PRN GT SBP >175 06/02/18 19:30 07/02/18 19:29 Dextrose (Dextrose 50%) 25 ml Q30M PRN IV Hypoglycemia 06/02/18 19:30 07/02/18 19:28 Dextrose (Dextrose 50%) 50 ml Q30M PRN IV hypoglycemia 06/02/18 19:30 07/02/18 19:29 Hydralazine HCl (Apresoline) 50 mg EVERY 8 HOURS GT 06/02/18 22:00 07/02/18 21:59 06/05/18 05:48 Lorazepam (Ativan 2mg/ml 1ml) 2 mg Q1H PRN IV seizures 06/02/18 19:30 06/09/18 19:29 Metoprolol Tartrate (Lopressor) 50 mg EVERY 12 HOURS GT 06/02/18 21:00 07/02/18 20:59 06/05/18 08:56 Morphine Sulfate (Morphine Sulfate) 1 mg Q4H PRN IVP For Pain 06/02/18 19:30 06/09/18 19:29 Ondansetron HCl (Zofran) 4 mg Q6H PRN IVP Nausea & Vomiting 06/02/18 19:30 07/02/18 19:29 Polyethylene Glycol (Miralax) 17 gm HSPRN PRN ORAL Constipation 06/02/18 19:30 07/02/18 19:29 Zolpidem Tartrate (Ambien) 5 mg HSPRN PRN ORAL Insomnia 06/02/18 19:30 06/09/18 19:29 Steve Kothari MD Jun 05, 2018 10:51
[2018-06-05 12:00] VITALS: BP 113/69
--- NOTE | 2018-06-05 13:24 | General Progress Note ---
Assessment/Plan Problem List: (1) UTI (urinary tract infection) ICD Codes: N39.0 - Urinary tract infection, site not specified SNOMED: 02060812 (2) CVA (cerebrovascular accident) ICD Codes: I63.9 - Cerebral infarction, unspecified SNOMED: 338312284 (3) Ventilator dependent ICD Codes: Z99.11 - Dependence on respirator [ventilator] status SNOMED: 784667526 (4) Altered mental status ICD Codes: R41.82 - Altered mental status, unspecified SNOMED: 505604118 (5) Seizure ICD Codes: R56.9 - Unspecified convulsions SNOMED: 40883254 (6) Alzheimer's dementia ICD Codes: G30.9 - Alzheimer's disease, unspecified; F02.80 - Dementia in other diseases classified elsewhere without behavioral disturbance SNOMED: 53192234 (7) COPD (chronic obstructive pulmonary disease) ICD Codes: J44.9 - Chronic obstructive pulmonary disease, unspecified SNOMED: 11185382 (8) Chronic organic brain syndrome ICD Codes: F09 - Unspecified mental disorder due to known physiological condition SNOMED: 169022991 Status: unchanged Assessment/Plan vent abx neuro f/u cbc bmp am dc plan Subjective Constitutional: Reports: weakness Allergies: Coded Allergies: BENAZEPRIL (Verified Allergy, Unknown, 06/02/18) All Systems: reviewed and negative except above Subjective trach vent altered calm Objective Last 24 Hour Vital Signs Date Time Temp Pulse Resp B/P (MAP) Pulse Ox O2 Delivery O2 Flow Rate FiO2 06/05/18 12:45 67 12 40 06/05/18 12:00 97.3 69 14 113/69 (84) 100 06/05/18 12:00 Mechanical Ventilator 06/05/18 12:00 40 06/05/18 11:10 70 16 40 06/05/18 09:10 64 12 40 06/05/18 08:56 68 118/71 06/05/18 08:00 40 06/05/18 08:00 62 06/05/18 08:00 Mechanical Ventilator 06/05/18 08:00 96.8 68 14 118/71 (87) 100 06/05/18 07:29 68 12 40 06/05/18 05:48 130/68 06/05/18 05:03 64 12 40 06/05/18 04:00 97.3 63 14 131/79 (96) 100 06/05/18 04:00 40 06/05/18 04:00 Mechanical Ventilator 06/05/18 04:00 62 06/05/18 03:05 61 12 40 06/05/18 01:14 62 12 40 06/05/18 00:00 40 06/05/18 00:00 61 06/05/18 00:00 96.8 63 15 125/81 (96) 100 06/05/18 00:00 Mechanical Ventilator 06/04/18 22:49 63 17 40 06/04/18 22:04 77 149/81 06/04/18 22:00 102/72 06/04/18 21:09 74 14 40 06/04/18 20:00 70 06/04/18 20:00 96.6 74 14 146/87 (106) 97 06/04/18 20:00 Mechanical Ventilator 06/04/18 18:59 71 19 40 06/04/18 17:15 73 14 40 06/04/18 16:00 Mechanical Ventilator 06/04/18 16:00 40 06/04/18 16:00 68 06/04/18 16:00 96.6 73 14 118/83 (95) 99 06/04/18 15:15 68 14 40 06/04/18 14:12 134/67 Intake and Output 06/04/18 06/05/18 18:59 06:59 Intake Total 695 ml 810 ml Output Total 600 ml 500 ml Balance 95 ml 310 ml Free Water 200 ml 150 ml Tube Feeding 495 ml 660 ml Output Urine Total 600 ml 500 ml # Bowel Movements 3 Laboratory Tests 06/04/18 20:10: Troponin I 0.049 06/05/18 09:30: White Blood Count 6.7, Red Blood Count 3.49L, Hemoglobin 9.5L, Hematocrit 30.4L , Mean Corpuscular Volume 87, Mean Corpuscular Hemoglobin 27.3, Mean Corpuscular Hemoglobin Concent 31.4L, Red Cell Distribution Width 15.7H, Platelet Count 111L, Mean Platelet Volume 12.3H, Neutrophils (%) (Auto) 63.6, Lymphocytes (%) (Auto) 21.5, Monocytes (%) (Auto) 7.4, Eosinophils (%) (Auto) 7.1H, Basophils (%) (Auto) 0.5, Sodium Level 143, Potassium Level 3.9, Chloride Level 107, Carbon Dioxide Level 30, Anion Gap 6, Blood Urea Nitrogen 14, Creatinine 0.7, Estimat Glomerular Filtration Rate > 60, Glucose Level 107H, Calcium Level 9.6 Height (Feet): 5 Height (Inches): 11.00 Weight (Pounds): 250 General Appearance: lethargic EENT: normal ENT inspection Neck: normal alignment Cardiovascular: normal peripheral pulses, normal rate, regular rhythm Respiratory/Chest: chest wall non-tender, lungs clear, normal breath sounds Abdomen: normal bowel sounds, non tender, soft Extremities: normal inspection Edema: no edema noted Arm (L), no edema noted Arm (R), no edema noted Leg (L), no edema noted Leg (R), no edema noted Pedal (L), no edema noted Pedal (R), no edema noted Generalized Neurologic: motor weakness Skin: normal pigmentation, warm/dry Fly Wright DO Jun 05, 2018 13:24
--- NOTE | 2018-06-05 14:00 | NUR ---
NURSE NOTES: no any distress noted, tolerate GT feeding well, repositioned, dressing on the neck changed, continue monitoring.
--- NOTE | 2018-06-05 15:04 | NUR ---
CASE MANAGEMENT: REVIEW SI: COPD . SEIZURE . AMS T 97.3 HR 69 RR 14 BP 113/69 SAT 100% MECH VENT FIO2 40 H/H 9.5/30.4 IS: LOPRESSOR GT Q12HR HYDRAZINE GT Q8HR STEP DOWN UNIT STATUS DCP: PATIENT IS FROM [facility]
--- NOTE | 2018-06-05 15:55 | Consultation ---
History of Present Illness General Date patient seen: Jun 05, 2018 Chief Complaint: General Complaint Reason for Consultation: neck wound Present Illness HPI 63 year old male with multiple medical comorbidities currently admitted for medical care and management. patient trach dependant with severe oral secretions. has developed multiple large neck wounds from this. surgery called to evaluate and assist with care and management. patient seen, chart reviewed, patient examined. patient not verbal and unable to respond for exam Allergies: Coded Allergies: BENAZEPRIL (Verified Allergy, Unknown, 06/02/18) Medication History Scheduled Albuterol Sulfate* (Albuterol Sulfate Hhn*), 3 ML INH Q6H, (Reported) Amino Acids/Protein Hydrolys (Pro-Stat Liquid), 30 ML GT THREE TIMES A DAY, ( Reported) Atorvastatin Calcium* (Atorvastatin Calcium*), 10 MG GT BEDTIME, (Reported) Chlorhexidine Gluconate (Peridex), 15 ML PO BID, (Reported) Cran/Vitc/Mannose/Inulin/Brom (Uti-Stat Liquid), 3,875 MG GT BID, (Reported) Docusate Sodium* (Colace*), 100 MG GT BID, (Reported) Ferrous Sulfate (Ferrous Sulfate), 330 MG GT DAILY, (Reported) Hydralazine Hcl* (Hydralazine Hcl*), 50 MG GT EVERY 8 HOURS, (Reported) Lansoprazole* (Lansoprazole*), 30 MG GT DAILY, (Reported) Metoprolol Tartrate* (Metoprolol Tartrate*), 50 MG GT EVERY 12 HOURS, (Reported) Vitamin D (Vitamin D3), 5,000 UNITS GT DAILY, (Reported) Warfarin Sod* (Coumadin*), 4 MG GT DAILY, (Reported) Scheduled PRN Acetaminophen (Tylenol), 650 MG ORAL Q4HR PRN for fever/mild-mod pain, (Reported ) Albuterol Sulfate* (Albuterol Sulfate Hhn*), 3 ML INH Q3HR PRN for Shortness of Breath, (Reported) Clonidine Hcl* (Catapres*), 0.1 MG GT Q4HR PRN for BP >175, (Reported) Polyethylene Glycol 3350* (Miralax*), 17 GM GT DAILY PRN for Constipation, ( Reported) Patient History Limited by: medical condition History Provided By: Medical Record, PMD Healthcare decision maker Resuscitation status Full Code Advanced Directive on File No Past Medical/Surgical History Past Medical/Surgical History: (1) UTI (urinary tract infection) (2) ATN (acute tubular necrosis) (3) Hyperkalemia (4) Respiratory failure, acute and chronic (5) Low grade fever (6) Gastrostomy tube dysfunction (7) Anemia (8) Sepsis (9) Feeding by G-tube (10) Chronic respiratory failure (11) Chronic vegetative state (12) Fecal impaction (13) COPD (chronic obstructive pulmonary disease) (14) Hypercholesteremia (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 (16) Tracheostomy care (17) Alzheimer's dementia (18) Encephalomalacia (19) Seizure (20) CVA (cerebrovascular accident) (21) Ventilator dependent (22) Altered mental status Review of Systems ROS Narrative unable to obtain Physical Exam General Appearance: mild distress Lines, tubes and drains: other HEENT: mucous membranes moist Neck: trach Respiratory/Chest: no respiratory distress, no accessory muscle use Cardiovascular/Chest: regular rhythm Abdomen: soft, distended, feeding tube, other Extremities: normal inspection, trace edema Skin Exam: warm/dry Neurologic: unresponsiveness Last 24 Hour Vital Signs Date Time Temp Pulse Resp B/P (MAP) Pulse Ox O2 Delivery O2 Flow Rate FiO2 06/05/18 15:05 71 12 40 06/05/18 14:00 113/69 06/05/18 12:45 67 12 40 06/05/18 12:00 97.3 69 14 113/69 (84) 100 06/05/18 12:00 77 06/05/18 12:00 Mechanical Ventilator 06/05/18 12:00 40 06/05/18 11:10 70 16 40 06/05/18 09:10 64 12 40 06/05/18 08:56 68 118/71 06/05/18 08:00 40 06/05/18 08:00 62 06/05/18 08:00 Mechanical Ventilator 06/05/18 08:00 96.8 68 14 118/71 (87) 100 06/05/18 07:29 68 12 40 06/05/18 05:48 130/68 06/05/18 05:03 64 12 40 06/05/18 04:00 97.3 63 14 131/79 (96) 100 06/05/18 04:00 40 06/05/18 04:00 Mechanical Ventilator 06/05/18 04:00 62 06/05/18 03:05 61 12 40 06/05/18 01:14 62 12 40 06/05/18 00:00 40 06/05/18 00:00 61 06/05/18 00:00 96.8 63 15 125/81 (96) 100 06/05/18 00:00 Mechanical Ventilator 06/04/18 22:49 63 17 40 06/04/18 22:04 77 149/81 06/04/18 22:00 102/72 06/04/18 21:09 74 14 40 06/04/18 20:00 70 06/04/18 20:00 96.6 74 14 146/87 (106) 97 06/04/18 20:00 Mechanical Ventilator 06/04/18 18:59 71 19 40 06/04/18 17:15 73 14 40 06/04/18 16:00 Mechanical Ventilator 06/04/18 16:00 40 06/04/18 16:00 68 06/04/18 16:00 96.6 73 14 118/83 (95) 99 Intake and Output 06/04/18 06/05/18 18:59 06:59 Intake Total 695 ml 810 ml Output Total 600 ml 500 ml Balance 95 ml 310 ml Free Water 200 ml 150 ml Tube Feeding 495 ml 660 ml Output Urine Total 600 ml 500 ml # Bowel Movements 3 Laboratory Tests Test 06/04/18 20:10 06/05/18 09:30 Troponin I 0.049 ng/mL (0.000-0.056) White Blood Count 6.7 K/UL (4.8-10.8) Red Blood Count 3.49 M/UL (4.70-6.10) L Hemoglobin 9.5 G/DL (14.2-18.0) L Hematocrit 30.4 % (42.0-52.0) L Mean Corpuscular Volume 87 FL (80-99) Mean Corpuscular Hemoglobin 27.3 PG (27.0-31.0) Mean Corpuscular Hemoglobin Concent 31.4 G/DL (32.0-36.0) L Red Cell Distribution Width 15.7 % (11.6-14.8) H Platelet Count 111 K/UL (150-450) L Mean Platelet Volume 12.3 FL (6.5-10.1) H Neutrophils (%) (Auto) 63.6 % (45.0-75.0) Lymphocytes (%) (Auto) 21.5 % (20.0-45.0) Monocytes (%) (Auto) 7.4 % (1.0-10.0) Eosinophils (%) (Auto) 7.1 % (0.0-3.0) H Basophils (%) (Auto) 0.5 % (0.0-2.0) Sodium Level 143 MMOL/L (136-145) Potassium Level 3.9 MMOL/L (3.5-5.1) Chloride Level 107 MMOL/L (98-107) Carbon Dioxide Level 30 MMOL/L (21-32) Anion Gap 6 mmol/L (5-15) Blood Urea Nitrogen 14 mg/dL (7-18) Creatinine 0.7 MG/DL (0.55-1.30) Estimat Glomerular Filtration Rate > 60 mL/min (>60) Glucose Level 107 MG/DL (74-106) H Calcium Level 9.6 MG/DL (8.5-10.1) Height (Feet): 5 Height (Inches): 11.00 Weight (Pounds): 250 Medications Current Medications Medications (Trade) Dose Ordered Sig/Fernanda Route PRN Reason Start Time Stop Time Status Last Admin Dose Admin Acetaminophen (Tylenol) 650 mg Q4H PRN ORAL fever (temp>100.5F) 06/02/18 19:30 07/02/18 19:29 Al Hydroxide/Mg Hydroxide (Mylanta II) 30 ml Q6H PRN ORAL dyspepsia 06/02/18 19:30 07/02/18 19:29 Clonidine HCl (Catapres Tab) 0.1 mg Q4H PRN GT SBP >175 06/02/18 19:30 07/02/18 19:29 Dextrose (Dextrose 50%) 25 ml Q30M PRN IV Hypoglycemia 06/02/18 19:30 07/02/18 19:28 Dextrose (Dextrose 50%) 50 ml Q30M PRN IV hypoglycemia 06/02/18 19:30 07/02/18 19:29 Hydralazine HCl (Apresoline) 50 mg EVERY 8 HOURS GT 06/02/18 22:00 07/02/18 21:59 06/05/18 05:48 Lorazepam (Ativan 2mg/ml 1ml) 2 mg Q1H PRN IV seizures 06/02/18 19:30 06/09/18 19:29 Metoprolol Tartrate (Lopressor) 50 mg EVERY 12 HOURS GT 06/02/18 21:00 07/02/18 20:59 06/05/18 08:56 Morphine Sulfate (Morphine Sulfate) 1 mg Q4H PRN IVP For Pain 06/02/18 19:30 06/09/18 19:29 Ondansetron HCl (Zofran) 4 mg Q6H PRN IVP Nausea & Vomiting 06/02/18 19:30 07/02/18 19:29 Polyethylene Glycol (Miralax) 17 gm HSPRN PRN ORAL Constipation 06/02/18 19:30 07/02/18 19:29 Zolpidem Tartrate (Ambien) 5 mg HSPRN PRN ORAL Insomnia 06/02/18 19:30 06/09/18 19:29 Assessment/Plan Problem List: (1) Sepsis Assessment & Plan: Pt neck contracted to L left and skin folds of neck moist from persistent salivary secretions.Difficult to fully assess skin folds secondary to neck rigidity. Moisture intertrigo with erythema,moisture denudements that is malodorous noted to skin folds extending from L side of neck to posterior aspect of neck folds (L)25cm. R side of neck is intact.. Buttocks with small hyperpigmented area without erythema or fluctuance. Both heels dry and blanchable. All wound prevention protocols are being observed as per wound protocols Tx Plan: Cleanse neck wound with saline .Apply Silvasorb gel .Copver with Foam drsg daily and prn. Place Drape sheet around neck to minimize exposure to moisture from drool . Sacral foam drsg as preventive .Change every 3 days and prn. Apply Cavilon to both heels .Off-load heels with Pillow. Support Surface mattress (Noted). ICD Codes: A41.9 - Sepsis, unspecified organism SNOMED: [id number] Antony Banks Jun 05, 2018 15:55
[2018-06-05 16:00] VITALS: BP 128/83
--- NOTE | 2018-06-05 16:27 | NUR ---
NURSE NOTES:WOUND CARE NOTES:Pt neck contracted to L left and skin folds of neck moist from persistent salivary secretions.Difficult to fully assess skin folds secndary to neck rigidity. Moisture intertrigo with erythema,moisture denudements that is malodorous noted to skin folds extending from L side of neck to posterior aspect of neck folds (L)25cm. Trach collar changed by RT. R side of neck is intact.. Buttocks with small hyperpigmented area without erythema or fluctuance. Both heels dry and blanchable. All wound prevention protocols are being observed as per wound protocols protocols. Tx Plan: Cleanse neck wound with saline .Apply Silvasorb gel .Copver with Foam drsg daily and prn. Place Drape sheet around neck to minimize exposure to moisture from drool . Sacral foam drsg as preventive .Change every 3 days and prn. Apply Cavilon to both heels .Off-load heels with Pillow. Support Surface mattress (Noted).
[2018-06-05] MEDS ORDERED: Tubing IV Secondary IV ONE (17:19)
[2018-06-05] MEDS ORDERED: NS 275ml ONE (17:19)
--- NOTE | 2018-06-05 18:57 | NUR ---
RESPIRATORY NOTE: Received pt on AC 12, 600VT, 40%, PEEP +5. Pt is trach-dependent w/ a cuffed, Portex 7 tube. Pt obtunded, responds to stimuli. B/S felicity. rhonchi, sxn small to moderate amounts of thick, bee/yellow secretions. Vent plugged into red outlet, ambubag at bedside. Pt in no apparent distress at this time. Will continue plan of care.
--- NOTE | 2018-06-05 19:13 | NUR ---
HAND-OFF: Report given to Gaurav NORTON.
--- NOTE | 2018-06-05 19:14 | NUR ---
NURSE NOTES: Received a bed side report from CIERRA [place].Patient stable ,nonverbal,obtunded,vent dependent AC 12 TV 600 FiO2 40% PEEP 5,no s/s of pain,no respiratory distress noted,dressing changed by wound care nurse,BS active in all quadrants,bed secured in a low safety position,call light within a reach.Will continue to monitor and follow POC.
[2018-06-05 20:00] VITALS: BP_SYST 128; BP_SYST 134; BP_DIAS 72; BP_DIAS 83
--- NOTE | 2018-06-05 23:59 | Cardiology Progress Note ---
Assessment/Plan Assessment/Plan 1. Elevated troponin I level, doubt ACS, in view of normal second trop level and lack of ECG changes. No ischemic work-up in face of co-morbidities including severe debilitation. 2De cho shows normal LV systolic function with LVEF at 55%. 2. VDRF, s/p trach tube placement. 3. Hx of CVA 4. Seizure D/O Subjective Subjective Sinus bradycardia at rate of 57. Non-verbal. On the vent with FiO2 of 40%. Objective Last 24 Hour Vital Signs Date Time Temp Pulse Resp B/P (MAP) Pulse Ox O2 Delivery O2 Flow Rate FiO2 06/05/18 23:07 57 12 40 06/05/18 22:00 118/56 06/05/18 21:53 68 134/72 06/05/18 21:00 61 13 40 06/05/18 20:00 Mechanical Ventilator 06/05/18 20:00 65 06/05/18 20:00 40 06/05/18 20:00 98.0 69 12 134/72 (92) 100 06/05/18 18:55 61 12 40 06/05/18 16:53 67 14 40 06/05/18 16:00 40 06/05/18 16:00 97.5 69 12 128/83 (98) 100 06/05/18 16:00 Mechanical Ventilator 06/05/18 16:00 68 06/05/18 15:05 71 12 40 06/05/18 14:00 113/69 06/05/18 12:45 67 12 40 06/05/18 12:00 97.3 69 14 113/69 (84) 100 06/05/18 12:00 77 06/05/18 12:00 Mechanical Ventilator 06/05/18 12:00 40 06/05/18 11:10 70 16 40 06/05/18 09:10 64 12 40 06/05/18 08:56 68 118/71 06/05/18 08:00 40 06/05/18 08:00 62 06/05/18 08:00 Mechanical Ventilator 06/05/18 08:00 96.8 68 14 118/71 (87) 100 06/05/18 07:29 68 12 40 06/05/18 05:48 130/68 06/05/18 05:03 64 12 40 06/05/18 04:00 97.3 63 14 131/79 (96) 100 06/05/18 04:00 40 06/05/18 04:00 Mechanical Ventilator 06/05/18 04:00 62 06/05/18 03:05 61 12 40 06/05/18 01:14 62 12 40 06/05/18 00:00 40 06/05/18 00:00 61 06/05/18 00:00 96.8 63 15 125/81 (96) 100 06/05/18 00:00 Mechanical Ventilator Intake and Output 06/04/18 06/05/18 19:00 07:00 Intake Total 695 ml 810 ml Output Total 600 ml 500 ml Balance 95 ml 310 ml Free Water 200 ml 150 ml Tube Feeding 495 ml 660 ml Output Urine Total 600 ml 500 ml # Bowel Movements 3 2D Echo: EF 55%, Mod LVH, small Haritha.Effusion, Grade I LVDD, RVSP 37 mmHg Laboratory Tests Test 06/05/18 09:30 White Blood Count 6.7 K/UL (4.8-10.8) Red Blood Count 3.49 M/UL (4.70-6.10) L Hemoglobin 9.5 G/DL (14.2-18.0) L Hematocrit 30.4 % (42.0-52.0) L Mean Corpuscular Volume 87 FL (80-99) Mean Corpuscular Hemoglobin 27.3 PG (27.0-31.0) Mean Corpuscular Hemoglobin Concent 31.4 G/DL (32.0-36.0) L Red Cell Distribution Width 15.7 % (11.6-14.8) H Platelet Count 111 K/UL (150-450) L Mean Platelet Volume 12.3 FL (6.5-10.1) H Neutrophils (%) (Auto) 63.6 % (45.0-75.0) Lymphocytes (%) (Auto) 21.5 % (20.0-45.0) Monocytes (%) (Auto) 7.4 % (1.0-10.0) Eosinophils (%) (Auto) 7.1 % (0.0-3.0) H Basophils (%) (Auto) 0.5 % (0.0-2.0) Sodium Level 143 MMOL/L (136-145) Potassium Level 3.9 MMOL/L (3.5-5.1) Chloride Level 107 MMOL/L (98-107) Carbon Dioxide Level 30 MMOL/L (21-32) Anion Gap 6 mmol/L (5-15) Blood Urea Nitrogen 14 mg/dL (7-18) Creatinine 0.7 MG/DL (0.55-1.30) Estimat Glomerular Filtration Rate > 60 mL/min (>60) Glucose Level 107 MG/DL (74-106) H Calcium Level 9.6 MG/DL (8.5-10.1) Objective HEENT: Normocephalic, atraumatic, moist mucus membranes, PERRLA, EOMI, large tongue. Neck: Negative JVD, no cartoid bruit. Respiratory: lungs clear Cardiovascular: Regular rate rhythm, normal S1S2, no murmurs, gallops or rubs. Gastrointestinal: Soft , non-tender, non-distended, no HSM, g tube present Musculoskeletal: No edema, clubbing or cyanosis. Neurologic: motor weakness, other - aphasic Minor Post MD Jun 05, 2018 23:59
[2018-06-06] VITALS (7 sets, daily range): BP systolic 116–140; BP diastolic 69–84
--- NOTE | 2018-06-06 03:15 | Consultation ---
DATE OF CONSULTATION: 06/04/2018 CARDIOLOGY CONSULTATION CONSULTING PHYSICIAN: Minor Post M.D. REFERRING PHYSICIAN: Fly Wright D.O. REASON FOR CONSULTATION: Management of elevated troponin I level. HISTORY OF PRESENT ILLNESS: The patient is a very unfortunate 63-year-old gentleman, who is a resident of halfway facility with history of nonverbal, history of ventilatory-driven respiratory failure, status post tracheostomy tube placement, who was brought in by EMS after increased facial twitching and trouble with breathing on the ventilator. At the time of arrival to the hospital, the blood pressure was 124/106, heart rate was 60. A 12-lead electrocardiogram in the emergency department showed sinus bradycardia, rate of 50 with no QTc and T-wave abnormalities. Emergency department laboratory data revealed elevation of troponin I level at 0.097. Also ABG was significant for chronic retention with pCO2 of 60.6 and bicarbonate of 34.8 with well-preserved pH. The patient underwent some preliminary stat imaging study including CT of head, which revealed acute to subacute cortical infarction in the left frontal and parietal region, old infarct involving white matter, thalamus, and basal ganglia. He was admitted to [facility] for further evaluation and management. Of note, his chest x-ray showed interstitial and airspace infiltrate versus edema in the right lung. Cardiology consultation was made at the request of Dr. Wright as his cardiac enzymes were elevated. Unfortunately, the patient is nonverbal. This report is prepared by using the old record. PAST MEDICAL HISTORY: History of coronary artery disease, history of hypertension, history of VRE and MRSA, history of COPD, history of traumatic brain injury, and history of seizures. ALLERGIES: To benazepril. PAST SURGICAL HISTORY: Tracheostomy tube placement, status post PEG placement. REVIEW OF SYSTEMS: As the patient is nonverbal, 12-system review could not be obtained. LIST OF MEDICATIONS: Acetaminophen 650 mg q.4 h. p.r.n. pain, albuterol inhaler 3 mL inhaler q.6 h., Pro-Stat liquid 30 mL G-tube three times a day, atorvastatin 10 mg G-tube nightly, Peridex 15 mL G-tube twice daily, Catapres 0.1 mg G-tube q.4 h. p.r.n. blood pressure above 175 mmHg, UTI-Stat liquid 875 mg G-tube twice daily, Colace 100 mg G-tube twice daily, ferrous sulfate 330 mg G-tube daily, hydralazine 50 mg G-tube q.8 h., lansoprazole 30 mg G-tube daily, metoprolol 50 mg G-tube twice daily, MiraLAX 17 g G-tube daily p.r.n. constipation, vitamin D3 5000 units G-tube daily, and warfarin 4 mg G-tube daily. PHYSICAL EXAMINATION: VITAL SIGNS: Blood pressure is 124/106, pulse 60, respirations 17, and temperature 97.5 degrees Fahrenheit. O2 saturation on FiO2 of 100%, O2 flow rate of 60%. GENERAL: The patient is a chronically ill gentleman, who is nonverbal, in no apparent respiratory distress. Foam is coming out of his mouth. HEENT: Atraumatic and normocephalic. Anicteric. Pupils are equal, round, and reactive to light and accommodation. NECK: Cannot be assessed due to positive inspiratory pressure produced while on the ventilator. CARDIOVASCULAR: Normal S1, S2. Regular rate and rhythm. No murmurs, gallops, or rubs. PMI is at fourth intercostal space at midclavicular line. LUNGS: Clear to auscultation bilaterally. Bibasilar atelectasis. ABDOMEN: Soft, nontender, and nondistended. No hepatosplenomegaly. Positive bowel sounds. Presence of a G-tube. EXTREMITIES: No evidence of edema, clubbing, or cyanosis. LABORATORY FINDINGS: WBC was 10.9, hemoglobin 10.8, hematocrit 34.3%, and platelet count was 83,000. Sodium was 142, potassium 4.3, chloride 104, bicarbonate 33, BUN 16, creatinine 0.6, glucose was 81, and calcium is 10.2. Troponin I 0.097. Chest x-ray shows interstitial and airspace infiltrates versus edema in the right lung. A 2-D echocardiography was done, which showed normal LV systolic function with LVEF of about 60% to 65%, moderate LVH, small posterior pericardial effusion, grade 1 LV diastolic dysfunction with right ventricular systolic pressure measured at 37 mmHg consistent with mild pulmonary hypertension. ASSESSMENT AND PLAN: 1. Slight elevation of troponin I level in this patient, could be due to seizure activity. The patient is not a candidate for ischemic workup given the comorbidities. Serial troponin I measurement has shown negative value. A 12-lead electrocardiogram also shows sinus bradycardia with no acute ST and T-wave abnormalities. I would continue with conservative management. 2. History of CVA with aphasia. 3. History of hypertension. 4. History of COPD. 5. Ventilatory-driven respiratory failure. I would like to thank Dr. Wright for allowing me to participate in the care of this patient. Minor Post M.D. DR: BRADLY JOB#: [id number] CC:
[2018-06-06 06:17] LABS: BASOPHILS % (AUTO) 0.6 % (0.0-2.0); EOSINOPHILS % (AUTO) 7.9 % (0.0-3.0); HEMATOCRIT 29.5 % (42.0-52.0); HEMOGLOBIN 9.3 G/DL (14.2-18.0); LYMPHOCYTES % (AUTO) 23.6 % (20.0-45.0); MEAN CORPUSCULAR VOLUME 86 FL (80-99); MONOCYTES % (AUTO) 8.5 % (1.0-10.0); NEUTROPHILS % (AUTO) 59.3 % (45.0-75.0); PLATELET COUNT 127 K/UL (150-450); RED BLOOD COUNT 3.41 M/UL (4.70-6.10); WHITE BLOOD COUNT 6.5 K/UL (4.8-10.8)
[2018-06-06] MEDS: HydrALAZINE 10mg Tab GT SCH ×3 (06:28→22:00)
[2018-06-06 07:04] LABS: ALANINE AMINOTRANSFERASE 69 U/L (12-78); ALBUMIN 2.4 G/DL (3.4-5.0); ALBUMIN/GLOBULIN RATIO 0.4 (1.0-2.7); ALKALINE PHOSPHATASE 132 U/L (46-116); ANION GAP 7 mmol/L (5-15); ASPARTATE AMINO TRANSFERASE 50 U/L (15-37); BILIRUBIN,TOTAL 0.3 MG/DL (0.2-1.0); BLOOD UREA NITROGEN 12 mg/dL (7-18); CALCIUM 9.7 MG/DL (8.5-10.1); CARBON DIOXIDE 29 MMOL/L (21-32); CHLORIDE 106 MMOL/L (98-107); CREATININE 0.6 MG/DL (0.55-1.30); POTASSIUM 3.8 MMOL/L (3.5-5.1); SODIUM 142 MMOL/L (136-145)
--- NOTE | 2018-06-06 07:13 | NUR ---
HAND-OFF: Report given to CIERRA Samaniego.Patient stable.
--- NOTE | 2018-06-06 07:14 | NUR ---
NURSE NOTES: Received patient from CIERRA [place]. Patient VS stable at this time with no sign of acute distress. Patient nonverbal, opens eyes but does not follow. Patient showing SR on the monitor. Patient trach to vent with setting of AC 12, TV 600, PEEP 5, and FiO2 40% at this time. Patient saturation stable at this time. Patient has G tube that is patent, asymptomatic, and running osmolite 1.5 at 55cc/hr. Patient has a condom catheter that is patent, asymptomatic and draining at this time. Patient has an SPR mattress for skin protection at this time. Patient has a L neck pressure ulcer with dressing that is dry and intact. Patient has a right upper arm 20G PIV that is saline locked and asymptomatic at this time. Patient bed is in low position with bed alarm on and call light in reach at this time.
--- NOTE | 2018-06-06 08:59 | Infectious Diseases Prog Note ---
Assessment/Plan Assessment/Plan 63 yo male with PMHx of recurrent seizures, CVA and Alzheimer's who was sent the ED on 06/02/17 with AMS and found to have acute stoke on CT head. Yeast in Urine Likely colonizer as no active signs of sepsis UCx 06/02/18 - Yeast Aferbile No leukocytosis Acute stoke Seizures Alzheimer's Plan - Continue to monitor off abx - Monitor CBC and Temps We will continue to follow the patient during this hospitalization. Subjective Allergies: Coded Allergies: BENAZEPRIL (Verified Allergy, Unknown, 06/02/18) Subjective Afebrile No leukocytosis No On 40% O2 via vent Objective Vital Signs Last 24 Hour Vital Signs Date Time Temp Pulse Resp B/P (MAP) Pulse Ox O2 Delivery O2 Flow Rate FiO2 06/06/18 06:28 138/78 06/06/18 04:52 61 12 40 06/06/18 04:00 40 06/06/18 04:00 Mechanical Ventilator 06/06/18 04:00 97.3 63 13 132/81 (98) 100 06/06/18 03:43 71 06/06/18 03:30 72 14 40 06/06/18 01:50 57 15 40 06/06/18 00:00 98.6 56 20 116/84 (95) 100 06/06/18 00:00 Mechanical Ventilator 06/05/18 23:33 58 06/05/18 23:07 57 12 40 06/05/18 22:00 118/56 06/05/18 21:53 68 134/72 06/05/18 21:00 61 13 40 06/05/18 20:00 Mechanical Ventilator 06/05/18 20:00 65 06/05/18 20:00 40 06/05/18 20:00 98.0 69 12 134/72 (92) 100 06/05/18 18:55 61 12 40 06/05/18 16:53 67 14 40 06/05/18 16:00 40 06/05/18 16:00 97.5 69 12 128/83 (98) 100 06/05/18 16:00 Mechanical Ventilator 06/05/18 16:00 68 06/05/18 15:05 71 12 40 06/05/18 14:00 113/69 06/05/18 12:45 67 12 40 06/05/18 12:00 97.3 69 14 113/69 (84) 100 06/05/18 12:00 77 06/05/18 12:00 Mechanical Ventilator 06/05/18 12:00 40 06/05/18 11:10 70 16 40 06/05/18 09:10 64 12 40 Height (Feet): 5 Height (Inches): 11.00 Weight (Pounds): 250 Objective Gen: NAD, Not following HEENT: NCAT, MMM, PERRL, LUNGS: CTAB, No W CARDS: RRR, S1, S2 ABD: Soft, NT, ND, No R/G, + BS Ext: C/C/E, Pulses 2+ B/L (DP, Rad): NEURO: A/O x 0, moving left side Laboratory Tests Test 06/05/18 09:30 06/06/18 04:03 White Blood Count 6.7 K/UL (4.8-10.8) 6.5 K/UL (4.8-10.8) Red Blood Count 3.49 M/UL (4.70-6.10) L 3.41 M/UL (4.70-6.10) L Hemoglobin 9.5 G/DL (14.2-18.0) L 9.3 G/DL (14.2-18.0) L Hematocrit 30.4 % (42.0-52.0) L 29.5 % (42.0-52.0) L Mean Corpuscular Volume 87 FL (80-99) 86 FL (80-99) Mean Corpuscular Hemoglobin 27.3 PG (27.0-31.0) 27.1 PG (27.0-31.0) Mean Corpuscular Hemoglobin Concent 31.4 G/DL (32.0-36.0) L 31.4 G/DL (32.0-36.0) L Red Cell Distribution Width 15.7 % (11.6-14.8) H 16.0 % (11.6-14.8) H Platelet Count 111 K/UL (150-450) L 127 K/UL (150-450) L Mean Platelet Volume 12.3 FL (6.5-10.1) H 14.4 FL (6.5-10.1) H Neutrophils (%) (Auto) 63.6 % (45.0-75.0) 59.3 % (45.0-75.0) Lymphocytes (%) (Auto) 21.5 % (20.0-45.0) 23.6 % (20.0-45.0) Monocytes (%) (Auto) 7.4 % (1.0-10.0) 8.5 % (1.0-10.0) Eosinophils (%) (Auto) 7.1 % (0.0-3.0) H 7.9 % (0.0-3.0) H Basophils (%) (Auto) 0.5 % (0.0-2.0) 0.6 % (0.0-2.0) Sodium Level 143 MMOL/L (136-145) 142 MMOL/L (136-145) Potassium Level 3.9 MMOL/L (3.5-5.1) 3.8 MMOL/L (3.5-5.1) Chloride Level 107 MMOL/L (98-107) 106 MMOL/L (98-107) Carbon Dioxide Level 30 MMOL/L (21-32) 29 MMOL/L (21-32) Anion Gap 6 mmol/L (5-15) 7 mmol/L (5-15) Blood Urea Nitrogen 14 mg/dL (7-18) 12 mg/dL (7-18) Creatinine 0.7 MG/DL (0.55-1.30) 0.6 MG/DL (0.55-1.30) Estimat Glomerular Filtration Rate > 60 mL/min (>60) > 60 mL/min (>60) Glucose Level 107 MG/DL (74-106) H 99 MG/DL (74-106) Calcium Level 9.6 MG/DL (8.5-10.1) 9.7 MG/DL (8.5-10.1) Total Bilirubin 0.3 MG/DL (0.2-1.0) Aspartate Amino Transf (AST/SGOT) 50 U/L (15-37) H Alanine Aminotransferase (ALT/SGPT) 69 U/L (12-78) Alkaline Phosphatase 132 U/L (46-116) H Pro-B-Type Natriuretic Peptide 42 pg/mL (0-125) Total Protein 8.0 G/DL (6.4-8.2) Albumin 2.4 G/DL (3.4-5.0) L Globulin 5.6 g/dL Albumin/Globulin Ratio 0.4 (1.0-2.7) L Current Medications Medications (Trade) Dose Ordered Sig/Fernanda Route PRN Reason Start Time Stop Time Status Last Admin Dose Admin Acetaminophen (Tylenol) 650 mg Q4H PRN ORAL fever (temp>100.5F) 06/02/18 19:30 07/02/18 19:29 Al Hydroxide/Mg Hydroxide (Mylanta II) 30 ml Q6H PRN ORAL dyspepsia 06/02/18 19:30 07/02/18 19:29 Clonidine HCl (Catapres Tab) 0.1 mg Q4H PRN GT SBP >175 06/02/18 19:30 07/02/18 19:29 Dextrose (Dextrose 50%) 25 ml Q30M PRN IV Hypoglycemia 06/02/18 19:30 07/02/18 19:28 Dextrose (Dextrose 50%) 50 ml Q30M PRN IV hypoglycemia 06/02/18 19:30 07/02/18 19:29 Hydralazine HCl (Apresoline) 50 mg EVERY 8 HOURS GT 06/02/18 22:00 07/02/18 21:59 06/06/18 06:28 Lorazepam (Ativan 2mg/ml 1ml) 2 mg Q1H PRN IV seizures 06/02/18 19:30 06/09/18 19:29 Metoprolol Tartrate (Lopressor) 50 mg EVERY 12 HOURS GT 06/02/18 21:00 07/02/18 20:59 06/05/18 21:53 Morphine Sulfate (Morphine Sulfate) 1 mg Q4H PRN IVP For Pain 06/02/18 19:30 06/09/18 19:29 Ondansetron HCl (Zofran) 4 mg Q6H PRN IVP Nausea & Vomiting 06/02/18 19:30 07/02/18 19:29 Polyethylene Glycol (Miralax) 17 gm HSPRN PRN ORAL Constipation 06/02/18 19:30 07/02/18 19:29 Zolpidem Tartrate (Ambien) 5 mg HSPRN PRN ORAL Insomnia 06/02/18 19:30 06/09/18 19:29 Jack Hurd MD Jun 06, 2018 08:59
[2018-06-06] MEDS: Metoprolol Tartrate 50mg tab GT SCH ×2 (09:00→22:00)
--- NOTE | 2018-06-06 09:27 | NUR ---
RADIOLOGY DEPT CHEST X-RAY DONE.-P.DYE
--- NOTE | 2018-06-06 10:34 | NUR ---
CASE MANAGEMENT: REVIEW SI: COPD . SEIZURE . AMS T 97.3 HR 57 RR 12 BP 129/72 SAT 100% MECH VENT FIO2 40 H/H 9.3/29.5 AST 50 IS: LOPRESSOR GT Q12HR HYDRAZINE GT Q8HR STEP DOWN UNIT STATUS DCP: PATIENT IS FROM [facility]
--- NOTE | 2018-06-06 10:59 | Pulmonology Progress Note ---
Assessment/Plan Problems: (1) Seizure (2) COPD (chronic obstructive pulmonary disease) (3) Ventilator dependent (4) Tracheostomy care (5) Anemia (6) Chronic vegetative state (7) Feeding by G-tube Respiratory: monitor respiratory rate, adjust FIO2 Cardiac: continue to monitor HR/BP Renal: F/U I&O Infectious Disease: check cultures Gastrointestinal: hold feedings Endocrine: check TSH, check HgA1C Hematologic: transfuse if hgb<8.5 Neurologic: PRN Ativan, PRN Morphine, keep patient comfortable Prophylaxis: Protonix Disposition: keep in ICU Notes Reviewed: social group worker, cardio, renal Discussed with: nurses, consultants, family independence case manager Subjective ROS Limited/Unobtainable: No Constitutional: Reports: no symptoms HEENT: Repors: no symptoms Respiratory: Reports: no symptoms Allergies: Coded Allergies: BENAZEPRIL (Verified Allergy, Unknown, 06/02/18) Objective Last 24 Hour Vital Signs Date Time Temp Pulse Resp B/P (MAP) Pulse Ox O2 Delivery O2 Flow Rate FiO2 06/06/18 09:21 57 12 40 06/06/18 09:00 59 129/72 06/06/18 08:00 96.4 59 15 129/72 (91) 100 06/06/18 08:00 Mechanical Ventilator 06/06/18 07:01 58 12 40 06/06/18 06:28 138/78 06/06/18 04:52 61 12 40 06/06/18 04:00 40 06/06/18 04:00 Mechanical Ventilator 06/06/18 04:00 97.3 63 13 132/81 (98) 100 06/06/18 03:43 71 06/06/18 03:30 72 14 40 06/06/18 01:50 57 15 40 06/06/18 00:00 98.6 56 20 116/84 (95) 100 06/06/18 00:00 Mechanical Ventilator 06/05/18 23:33 58 06/05/18 23:07 57 12 40 06/05/18 22:00 118/56 06/05/18 21:53 68 134/72 06/05/18 21:00 61 13 40 06/05/18 20:00 Mechanical Ventilator 06/05/18 20:00 65 06/05/18 20:00 40 06/05/18 20:00 98.0 69 12 134/72 (92) 100 06/05/18 18:55 61 12 40 06/05/18 16:53 67 14 40 06/05/18 16:00 40 06/05/18 16:00 97.5 69 12 128/83 (98) 100 06/05/18 16:00 Mechanical Ventilator 06/05/18 16:00 68 06/05/18 15:05 71 12 40 06/05/18 14:00 113/69 06/05/18 12:45 67 12 40 06/05/18 12:00 97.3 69 14 113/69 (84) 100 06/05/18 12:00 77 06/05/18 12:00 Mechanical Ventilator 06/05/18 12:00 40 06/05/18 11:10 70 16 40 Intake and Output 06/05/18 06/06/18 19:00 07:00 Intake Total 810 ml 705 ml Output Total 600 ml 450 ml Balance 210 ml 255 ml Free Water 150 ml 100 ml Tube Feeding 660 ml 605 ml Output Urine Total 600 ml 450 ml General Appearance: WD/WN HEENT: normocephalic, atraumatic Respiratory/Chest: chest wall non-tender, normal breath sounds Cardiovascular: normal peripheral pulses, normal rate Abdomen: normal bowel sounds, soft, non tender, no organomegaly Genitourinary: normal external genitalia Extremities: no clubbing Skin: no lesions Neurologic/Psychiatric: hypnotherapist II-XII grossly normal Lymphatic: no neck adenopathy Laboratory Tests 06/06/18 04:03: White Blood Count 6.5, Red Blood Count 3.41L, Hemoglobin 9.3L, Hematocrit 29.5L , Mean Corpuscular Volume 86, Mean Corpuscular Hemoglobin 27.1, Mean Corpuscular Hemoglobin Concent 31.4L, Red Cell Distribution Width 16.0H, Platelet Count 127L, Mean Platelet Volume 14.4H, Neutrophils (%) (Auto) 59.3, Lymphocytes (%) (Auto) 23.6, Monocytes (%) (Auto) 8.5, Eosinophils (%) (Auto) 7.9H, Basophils (%) (Auto) 0.6, Sodium Level 142, Potassium Level 3.8, Chloride Level 106, Carbon Dioxide Level 29, Anion Gap 7, Blood Urea Nitrogen 12, Creatinine 0.6, Estimat Glomerular Filtration Rate > 60, Glucose Level 99, Calcium Level 9.7, Total Bilirubin 0.3, Aspartate Amino Transf (AST/SGOT) 50H, Alanine Aminotransferase (ALT/SGPT) 69, Alkaline Phosphatase 132H, Pro-B-Type Natriuretic Peptide 42, Total Protein 8.0, Albumin 2.4L, Globulin 5.6, Albumin/ Globulin Ratio 0.4L Current Medications Medications (Trade) Dose Ordered Sig/Fernanda Route PRN Reason Start Time Stop Time Status Last Admin Dose Admin Acetaminophen (Tylenol) 650 mg Q4H PRN ORAL fever (temp>100.5F) 06/02/18 19:30 07/02/18 19:29 Al Hydroxide/Mg Hydroxide (Mylanta II) 30 ml Q6H PRN ORAL dyspepsia 06/02/18 19:30 07/02/18 19:29 Clonidine HCl (Catapres Tab) 0.1 mg Q4H PRN GT SBP >175 06/02/18 19:30 07/02/18 19:29 Dextrose (Dextrose 50%) 25 ml Q30M PRN IV Hypoglycemia 06/02/18 19:30 07/02/18 19:28 Dextrose (Dextrose 50%) 50 ml Q30M PRN IV hypoglycemia 06/02/18 19:30 07/02/18 19:29 Hydralazine HCl (Apresoline) 50 mg EVERY 8 HOURS GT 06/02/18 22:00 07/02/18 21:59 06/06/18 06:28 Lorazepam (Ativan 2mg/ml 1ml) 2 mg Q1H PRN IV seizures 06/02/18 19:30 06/09/18 19:29 Metoprolol Tartrate (Lopressor) 50 mg EVERY 12 HOURS GT 06/02/18 21:00 07/02/18 20:59 06/06/18 09:00 Morphine Sulfate (Morphine Sulfate) 1 mg Q4H PRN IVP For Pain 06/02/18 19:30 06/09/18 19:29 Ondansetron HCl (Zofran) 4 mg Q6H PRN IVP Nausea & Vomiting 06/02/18 19:30 07/02/18 19:29 Polyethylene Glycol (Miralax) 17 gm HSPRN PRN ORAL Constipation 06/02/18 19:30 07/02/18 19:29 Zolpidem Tartrate (Ambien) 5 mg HSPRN PRN ORAL Insomnia 06/02/18 19:30 06/09/18 19:29 Steve Kothari MD Jun 06, 2018 10:59
--- NOTE | 2018-06-06 11:54 | Diagnostic Imaging Report ---
Indication: Dyspnea Comparison: 06/04/2018 A single view chest radiograph was obtained. Findings: Patchy infiltrates versus mainly central interstitial edema noted bilaterally unchanged. Heart is enlarged. Tracheostomy noted. IMPRESSION: No change from the prior examination. Patchy infiltrates versus interstitial edema
--- NOTE | 2018-06-06 12:27 | General Progress Note ---
Assessment/Plan Problem List: (1) UTI (urinary tract infection) ICD Codes: N39.0 - Urinary tract infection, site not specified SNOMED: 87591064 (2) CVA (cerebrovascular accident) ICD Codes: I63.9 - Cerebral infarction, unspecified SNOMED: 349130131 (3) Ventilator dependent ICD Codes: Z99.11 - Dependence on respirator [ventilator] status SNOMED: 164061959 (4) Altered mental status ICD Codes: R41.82 - Altered mental status, unspecified SNOMED: 020974396 (5) Seizure ICD Codes: R56.9 - Unspecified convulsions SNOMED: 27919691 (6) Alzheimer's dementia ICD Codes: G30.9 - Alzheimer's disease, unspecified; F02.80 - Dementia in other diseases classified elsewhere without behavioral disturbance SNOMED: 10876605 (7) COPD (chronic obstructive pulmonary disease) ICD Codes: J44.9 - Chronic obstructive pulmonary disease, unspecified SNOMED: 71433801 (8) Chronic organic brain syndrome ICD Codes: F09 - Unspecified mental disorder due to known physiological condition SNOMED: 788178933 Status: stable, progressing Assessment/Plan vent abx neuro f/u cbc bmp am dc if clear Subjective Constitutional: Reports: weakness Allergies: Coded Allergies: BENAZEPRIL (Verified Allergy, Unknown, 06/02/18) All Systems: reviewed and negative except above Subjective trach vent altered calm Objective Last 24 Hour Vital Signs Date Time Temp Pulse Resp B/P (MAP) Pulse Ox O2 Delivery O2 Flow Rate FiO2 06/06/18 09:21 57 12 40 06/06/18 09:00 59 129/72 06/06/18 08:00 96.4 59 15 129/72 (91) 100 06/06/18 08:00 Mechanical Ventilator 06/06/18 07:01 58 12 40 06/06/18 06:28 138/78 06/06/18 04:52 61 12 40 06/06/18 04:00 40 06/06/18 04:00 Mechanical Ventilator 06/06/18 04:00 97.3 63 13 132/81 (98) 100 06/06/18 03:43 71 06/06/18 03:30 72 14 40 06/06/18 01:50 57 15 40 06/06/18 00:00 98.6 56 20 116/84 (95) 100 06/06/18 00:00 Mechanical Ventilator 06/05/18 23:33 58 06/05/18 23:07 57 12 40 06/05/18 22:00 118/56 06/05/18 21:53 68 134/72 06/05/18 21:00 61 13 40 06/05/18 20:00 Mechanical Ventilator 06/05/18 20:00 65 06/05/18 20:00 40 06/05/18 20:00 98.0 69 12 134/72 (92) 100 06/05/18 18:55 61 12 40 06/05/18 16:53 67 14 40 06/05/18 16:00 40 06/05/18 16:00 97.5 69 12 128/83 (98) 100 06/05/18 16:00 Mechanical Ventilator 06/05/18 16:00 68 06/05/18 15:05 71 12 40 06/05/18 14:00 113/69 06/05/18 12:45 67 12 40 Intake and Output 06/05/18 06/06/18 19:00 07:00 Intake Total 810 ml 705 ml Output Total 600 ml 450 ml Balance 210 ml 255 ml Free Water 150 ml 100 ml Tube Feeding 660 ml 605 ml Output Urine Total 600 ml 450 ml Laboratory Tests 06/06/18 04:03: White Blood Count 6.5, Red Blood Count 3.41L, Hemoglobin 9.3L, Hematocrit 29.5L , Mean Corpuscular Volume 86, Mean Corpuscular Hemoglobin 27.1, Mean Corpuscular Hemoglobin Concent 31.4L, Red Cell Distribution Width 16.0H, Platelet Count 127L, Mean Platelet Volume 14.4H, Neutrophils (%) (Auto) 59.3, Lymphocytes (%) (Auto) 23.6, Monocytes (%) (Auto) 8.5, Eosinophils (%) (Auto) 7.9H, Basophils (%) (Auto) 0.6, Sodium Level 142, Potassium Level 3.8, Chloride Level 106, Carbon Dioxide Level 29, Anion Gap 7, Blood Urea Nitrogen 12, Creatinine 0.6, Estimat Glomerular Filtration Rate > 60, Glucose Level 99, Calcium Level 9.7, Total Bilirubin 0.3, Aspartate Amino Transf (AST/SGOT) 50H, Alanine Aminotransferase (ALT/SGPT) 69, Alkaline Phosphatase 132H, Pro-B-Type Natriuretic Peptide 42, Total Protein 8.0, Albumin 2.4L, Globulin 5.6, Albumin/ Globulin Ratio 0.4L Height (Feet): 5 Height (Inches): 11.00 Weight (Pounds): 250 General Appearance: lethargic EENT: normal ENT inspection Neck: normal alignment Cardiovascular: normal peripheral pulses, normal rate, regular rhythm Respiratory/Chest: chest wall non-tender, lungs clear, normal breath sounds Abdomen: normal bowel sounds, non tender, soft Extremities: normal inspection Edema: no edema noted Arm (L), no edema noted Arm (R), no edema noted Leg (L), no edema noted Leg (R), no edema noted Pedal (L), no edema noted Pedal (R), no edema noted Generalized Neurologic: motor weakness Skin: normal pigmentation, warm/dry Fly Wright DO Jun 06, 2018 12:27
--- NOTE | 2018-06-06 13:00 | NUR ---
NURSE NOTES: Dr beaulieu cleared the patient for discharge.
--- NOTE | 2018-06-06 13:12 | NUR ---
CASE MANAGEMENT:DCPNOTE UPON DISCHARGE PATIENT WILL TRANSFER BACK TO [facility] [phone] LONG TERM ROOM [address] [facility] [phone] IN AGREEMENT WITH TRANSFERRING BACK TO THIS FACILITY TRANSPORTATION VIA [facility] [id number]
--- NOTE | 2018-06-06 13:47 | NUR ---
NURSE NOTES: Dr Kothari cleared the patient for discharge.
[2018-06-06] MEDS ORDERED: NS 275ml ONE (16:10)
--- NOTE | 2018-06-06 17:46 | NUR ---
NURSE NOTES: Report given to CIERRA Bruce at [facility]. Patient to be discharged back to facility at 1830.
--- NOTE | 2018-06-06 17:48 | NUR ---
NURSE NOTES: Valarie Davenport was notified that patient is to be discharged back to [facility] today. Addendum: 06/06/18 at 1750 by Danette Gonzalez RN This family member is the patient's niece.
--- NOTE | 2018-06-06 19:15 | NUR ---
HAND-OFF: Report given to CIERRA Posada. Patient VS stable at this time with no sign of acute distress. Patient to be discharged at this time. Awaiting transport. discharge interventions done. Discharge papaerwork done. Patient just needs IV discontinued and monitor taken off when transport comes to take patient. endorsed to follow up.
--- NOTE | 2018-06-06 19:24 | Cardiology Progress Note ---
Assessment/Plan Assessment/Plan 1. Elevated troponin I level, doubt ACS, in view of normal second trop level and lack of ECG changes. No ischemic work-up in face of co-morbidities including severe debilitation. 2De cho shows normal LV systolic function with LVEF at 55%. 2. VDRF, s/p trach tube placement. 3. Hx of CVA 4. Seizure D/O Subjective Subjective Sinus rhythm at rate of 68. Non-verbal. Objective Last 24 Hour Vital Signs Date Time Temp Pulse Resp B/P (MAP) Pulse Ox O2 Delivery O2 Flow Rate FiO2 06/06/18 18:38 68 13 40 06/06/18 17:37 67 14 40 06/06/18 16:00 40 06/06/18 16:00 63 06/06/18 16:00 96.1 65 13 128/72 (90) 100 06/06/18 16:00 Mechanical Ventilator 06/06/18 15:15 67 12 40 06/06/18 14:54 140/75 06/06/18 13:00 64 14 40 06/06/18 12:00 55 06/06/18 12:00 96.6 57 17 140/75 (96) 99 06/06/18 12:00 40 06/06/18 12:00 Mechanical Ventilator 06/06/18 11:00 62 12 40 06/06/18 10:00 40 06/06/18 09:21 57 12 40 06/06/18 09:00 59 129/72 06/06/18 08:00 58 06/06/18 08:00 96.4 59 15 129/72 (91) 100 06/06/18 08:00 Mechanical Ventilator 06/06/18 08:00 40 06/06/18 07:01 58 12 40 06/06/18 06:28 138/78 06/06/18 04:52 61 12 40 06/06/18 04:00 40 06/06/18 04:00 Mechanical Ventilator 06/06/18 04:00 97.3 63 13 132/81 (98) 100 06/06/18 03:43 71 06/06/18 03:30 72 14 40 06/06/18 01:50 57 15 40 06/06/18 00:00 98.6 56 20 116/84 (95) 100 06/06/18 00:00 Mechanical Ventilator 06/05/18 23:33 58 06/05/18 23:07 57 12 40 06/05/18 22:00 118/56 06/05/18 21:53 68 134/72 06/05/18 21:00 61 13 40 06/05/18 20:00 Mechanical Ventilator 06/05/18 20:00 65 06/05/18 20:00 40 06/05/18 20:00 98.0 69 12 134/72 (92) 100 Intake and Output 06/05/18 06/06/18 18:59 06:59 Intake Total 810 ml 760 ml Output Total 600 ml 450 ml Balance 210 ml 310 ml Free Water 150 ml 100 ml Tube Feeding 660 ml 660 ml Output Urine Total 600 ml 450 ml 2D Echo: EF 55%, Mod LVH, small Haritha.Effusion, Grade I LVDD, RVSP 37 mmHg Laboratory Tests Test 06/06/18 04:03 White Blood Count 6.5 K/UL (4.8-10.8) Red Blood Count 3.41 M/UL (4.70-6.10) L Hemoglobin 9.3 G/DL (14.2-18.0) L Hematocrit 29.5 % (42.0-52.0) L Mean Corpuscular Volume 86 FL (80-99) Mean Corpuscular Hemoglobin 27.1 PG (27.0-31.0) Mean Corpuscular Hemoglobin Concent 31.4 G/DL (32.0-36.0) L Red Cell Distribution Width 16.0 % (11.6-14.8) H Platelet Count 127 K/UL (150-450) L Mean Platelet Volume 14.4 FL (6.5-10.1) H Neutrophils (%) (Auto) 59.3 % (45.0-75.0) Lymphocytes (%) (Auto) 23.6 % (20.0-45.0) Monocytes (%) (Auto) 8.5 % (1.0-10.0) Eosinophils (%) (Auto) 7.9 % (0.0-3.0) H Basophils (%) (Auto) 0.6 % (0.0-2.0) Sodium Level 142 MMOL/L (136-145) Potassium Level 3.8 MMOL/L (3.5-5.1) Chloride Level 106 MMOL/L (98-107) Carbon Dioxide Level 29 MMOL/L (21-32) Anion Gap 7 mmol/L (5-15) Blood Urea Nitrogen 12 mg/dL (7-18) Creatinine 0.6 MG/DL (0.55-1.30) Estimat Glomerular Filtration Rate > 60 mL/min (>60) Glucose Level 99 MG/DL (74-106) Calcium Level 9.7 MG/DL (8.5-10.1) Total Bilirubin 0.3 MG/DL (0.2-1.0) Aspartate Amino Transf (AST/SGOT) 50 U/L (15-37) H Alanine Aminotransferase (ALT/SGPT) 69 U/L (12-78) Alkaline Phosphatase 132 U/L (46-116) H Pro-B-Type Natriuretic Peptide 42 pg/mL (0-125) Total Protein 8.0 G/DL (6.4-8.2) Albumin 2.4 G/DL (3.4-5.0) L Globulin 5.6 g/dL Albumin/Globulin Ratio 0.4 (1.0-2.7) L Objective HEENT: Normocephalic, atraumatic, moist mucus membranes, PERRLA, EOMI, large tongue. Neck: Negative JVD, no cartoid bruit, Trach tube in place Respiratory: lungs clear Cardiovascular: Regular rate rhythm, normal S1S2, no murmurs, gallops or rubs. Gastrointestinal: Soft , non-tender, non-distended, no HSM, g tube present Musculoskeletal: No edema, clubbing or cyanosis. Neurologic: motor weakness, other - aphasic Minor Post MD Jun 06, 2018 19:24
--- NOTE | 2018-06-06 23:12 | NUR ---
NURSE NOTES: DC'ed via [facility] to [facility]. VSS. Afebrile. SB-SR on monitoring analyst. In no apparent distress. Report given to ambulance RT.
--- NOTE | 2018-06-08 10:25 | Discharge Summary ---
Discharge Summary Discharge Summary _ DATE OF ADMISSION: 06/02/2018 DATE OF DISCHARGE: 06/06/2018 DISCHARGED BY: Dr. Wright REASON FOR ADMISSION: 63 years old male with past medical history of COPD, ventilator dependent respiratory failure, tracheostomy status, hypertension, seizure disorder , traumatic brain injury ,dysphagia, G-tube feeding , presented to emergency department with increased facial twitching . Patient had increased difficulty with ventilation for short period of time. Upon evaluation vital signs were stable , no fever. Pulse oximetry was 100% on 60% FiO2. WBC 10.9, hemoglobin 10.8, hematocrit 34.3. Platelets 83. Stable electrolytes and renal parameters. Troponin elevated 0.097. EKG revealed sinus rhythm, no acute ischemic changes. Urinalysis with evidence of pyuria, positive for leukocyte esterase , moderate bacteria, hematuria. ABG on current ventilator settings revealed evidence of hypercapnia with PCO2 of 61. CT of the head revealed acute to subacute cortical infarction in the left frontal and parietal region. Old small vessel infarct involving white matter, thalamus and basal ganglia region. Patient subsequently was admitted for further management. CONSULTANTS: hair assistant Dr. Post pulmonary Dr. Kothari ID specialist Dr. Cotter surgery Dr. Banks [facility] COURSE: Patient admitted to direct observational unit. Ventilator support and tracheostomy care provided. Pulmonary toilet provided as needed. Strict aspiration precautions were maintained. Chest x-ray revealed interstitial and airspace infiltrates versus edema in the right lung. Patient remained afebrile, no fever. pro BNP BNP 38 . Repeated chest x-ray revealed central interstitial edema bilaterally , unchanged. Seizure precautions maintained. No evidence of seizures activity while in the hospital. No further facial twitching. Cardiology followed. Per hair assistant , doubted acute coronary syndrome given normal second troponin and lack of EKG changes. No ischemic workup was necessary given severe debilitation. Echocardiogram revealed ejection fraction 60-65%. Moderate left ventricular hypertrophy. Small posterior pericardial effusion. No evidence of wall motion abnormality. Right ventricular systolic pressure of 37 , consistent with mild pulmonary hypertension. Blood pressure was managed with calcium channel jose and hydralazine , remained stable. Clonidine was on board as needed. Infectious disease specialist followed. Urine culture with yeast , likely colonized . No active signs of sepsis. Patient afebrile , no leukocytosis. Infectious disease doctor recommended to monitor patient off antibiotics. General surgeon followed. Wound care provided as per surgeon recommendations. Urologist followed. Patient was catheterized in the emergency room and developed traumatic hematuria. Attempts to put Sauceda catheter failed , and patient had a condom catheter in place. Traumatic hematuria was greatly improved. Patient was able to void spontaneously . Urologist recommended to keep condom catheter and continue with conservative management. Supportive care provided. Bowel regimen instituted. Conservative management was continued, given chronic debilitated state. 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 DISCHARGE INSTRUCTIONS: Patient was discharged to the snf facility. Follow up with medical doctor at the facility. I have been assigned to dictate discharge summary for this account. I was not involved in the patient's management. Nadira Alicia NP Jun 08, 2018 10:25
== END 2018-06-06 23:25 | DRG 45 ==
LOC: EDUNIT# 15:56 → EDBD 15:56 → EMR 16:43 → 2W 17:51 → EDBEDREQ 17:57
PROC: 5A1945Z Respiratory Ventilation, 24-96 Consecutive Hours (ICD-10-PCS; principal; 2018-06-02)
DX: I63.89 Other cerebral infarction (principal); Z99.11 Dependence on respirator [ventilator] status; R40.3 Persistent vegetative state; G93.49 Other encephalopathy; J96.10 Chronic respiratory failure, unspecified whether with hypoxia or hypercapnia; Z43.0 Encounter for attention to tracheostomy; R13.10 Dysphagia, unspecified; G40.909 Epilepsy, unspecified, not intractable, without status epilepticus; J44.9 Chronic obstructive pulmonary disease, unspecified; Z43.1 Encounter for attention to gastrostomy; F09 Unspecified mental disorder due to known physiological condition; I10 Essential (primary) hypertension; Z88.8 Allergy status to other drugs, medicaments and biological substances; D64.9 Anemia, unspecified; R31.0 Gross hematuria; Z87.820 Personal history of traumatic brain injury; G30.9 Alzheimer's disease, unspecified; F02.80 Dementia in other diseases classified elsewhere, unspecified severity, without behavioral disturbance, psychotic disturbance, mood disturbance, and anxiety; N39.0 Urinary tract infection, site not specified
CPT/HCPCS: 36415; 36600; 70450; 71045; 80048; 80053; 81003; 82803; 82962; 83880; 84484; 85007; 85025; 87081; 87086; 93005; 93306; 94002; 94003; 94664; 96374; 99291

== ENCOUNTER 2018-08-19 01:02 | Inpatient (IN) | payer OTHER ==
[2018-08-19] VITALS (86 sets, daily range): BP systolic 53–172; BP diastolic 20–72
[~2018-08-19] VITALS: Ht 180.3 cm; Wt 114.3 kg
[~2018-08-19 01:02] MED LIST changes: +FERROUS SU325 MG/5 M GT; +PERIDEX15 ML PO; +PRO-STAT LIQUID30 ML ORAL; +UTI-STAT L3875 MG/31 GT
--- NOTE | 2018-08-19 01:07 | Emergency Room Report ---
History of Present Illness General Chief Complaint: Dyspnea/Respdistress Source: EMS Present Illness HPI Patient sent to the emergency room with complaints of low oxygenation In route the paramedics reported bradycardia Patient himself is chronically debilitated has a tracheostomy and is vent dependent Not verbal history of present illness is significantly limited Unknown regarding vomiting or diarrhea The the oxygenation was reported to be fairly recent No obvious history of cough patient however did have recent hospitalization Allergies: Coded Allergies: BENAZEPRIL (Verified Allergy, Unknown, 06/02/18) Patient History Limited by: medical condition Past Medical History: see triage record Pertinent Family History: none Reviewed Nursing Documentation: PMH: Agreed; PSxH: Agreed Nursing Documentation-PMH Hx Cardiac Problems: Yes Hx Hypertension: Yes 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, VRE Hx COPD: Yes Hx Cancer: No Hx Gastrointestinal Problems: No Hx Neurological Problems: Yes Hx Seizures: Yes Hx Traumatic Brain Injury: Yes Hx Weakness: Yes Hx Neurologic Surgery: No Hx Brain Shunt: No Review of Systems All Other Systems: limited - Other than the ones mentioned in the history of present illness all others are reviewed however they do stay limited due to the patient's mental status Physical Exam Vital Signs Date Time Temp Pulse Resp B/P (MAP) Pulse Ox O2 Delivery O2 Flow Rate FiO2 08/19/18 00:57 Room Air Sp02 EP Interpretation: reviewed, abnormal - 98% on room air which is normal. however patient has significantly low temperature General Appearance: moderate distress - patient has edema, appears to have upper airway gurgling Head: normocephalic Eyes: bilateral eye PERRL ENT: other - edema Neck: supple, other - tracheostomy in place Respiratory: crackles - bilaterally Cardiovascular #1: bradycardia Gastrointestinal: non tender, soft, other - feeding tube in place Musculoskeletal: other - Patient is chronically debilitated, does not follow commands significantly decreased GCS Neurologic: other - decreased GCS, some grimacing to physical stimuli Skin: other - Significant edema diffusely, skin breakdown posteriorly Lymphatic: no adenopathy Procedures Critical Care Time Critical Care Time 80 minutes for multiple reevaluation critical presentation concerning for cardiac arrest not including any procedural time Central Line Central Line : Consent: Emergent Central Line Lumen: triple Maximal Sterile Barrier Tech: yes cap, yes mask, yes sterile gown, yes sterile gloves, yes large sterile sheet, yes hand hygiene, yes chlorhexidine prep Central Line Postion: femoral (R) Complications: none Central Line Post Position: sutured Attempts: One Patient Tolerated: Well Complications: None Medical Decision Making Diagnostic Impression: Primary Impression: Respiratory distress Additional Impressions: Hyperkalemia Sepsis ER Course Patient is a fairly complex patient with multiple differential to consideration including but not limited to cardiac cardiopulmonary and vascular emergencies Patient has significantly low heart rate Blood pressure initially documented as low however the patient had initial blood pressure which was appropriate at bedside patient did start to deteriorate and require atropine and later Dopamine drip Central line is placed Patient in critical condition and admitted for further care Sepsis reexamination Time:0200 VS refer to nursing note cvs: bradycardic respiratory: improved respiration peripheral pulses: 2+radial cap refill:<2 seconds skin exam: warm, dry, not mottled Labs Test 08/19/18 01:25 08/19/18 01:50 White Blood Count 8.2 K/UL (4.8-10.8) Red Blood Count 3.50 M/UL (4.70-6.10) Hemoglobin 9.5 G/DL (14.2-18.0) Hematocrit 31.0 % (42.0-52.0) Mean Corpuscular Volume 89 FL (80-99) Mean Corpuscular Hemoglobin 27.2 PG (27.0-31.0) Mean Corpuscular Hemoglobin Concent 30.7 G/DL (32.0-36.0) Red Cell Distribution Width 17.8 % (11.6-14.8) Platelet Count 60 K/UL (150-450) Mean Platelet Volume 14.9 FL (6.5-10.1) Neutrophils (%) (Auto) % (45.0-75.0) Lymphocytes (%) (Auto) % (20.0-45.0) Monocytes (%) (Auto) % (1.0-10.0) Eosinophils (%) (Auto) % (0.0-3.0) Basophils (%) (Auto) % (0.0-2.0) Prothrombin Time 12.0 SEC (9.30-11.50) Prothromb Time International Ratio 1.1 (0.9-1.1) Activated Partial Thromboplast Time 44 SEC (23-33) Sodium Level 135 MMOL/L (136-145) Potassium Level 6.4 MMOL/L (3.5-5.1) Chloride Level 101 MMOL/L (98-107) Carbon Dioxide Level 29 MMOL/L (21-32) Anion Gap 5 mmol/L (5-15) Blood Urea Nitrogen 41 mg/dL (7-18) Creatinine 0.8 MG/DL (0.55-1.30) Estimat Glomerular Filtration Rate > 60 mL/min (>60) Glucose Level 81 MG/DL (74-106) Lactic Acid Level 2.40 mmol/L (0.4-2.0) Calcium Level 10.0 MG/DL (8.5-10.1) Phosphorus Level 2.4 MG/DL (2.5-4.9) Magnesium Level 1.4 MG/DL (1.8-2.4) Total Bilirubin 0.1 MG/DL (0.2-1.0) Aspartate Amino Transf (AST/SGOT) 58 U/L (15-37) Alanine Aminotransferase (ALT/SGPT) 67 U/L (12-78) Alkaline Phosphatase 116 U/L (46-116) Total Creatine Kinase 61 U/L (26-308) Creatine Kinase MB 11.3 NG/ML (0.0-3.6) Creatine Kinase MB Relative Index 18.5 Troponin I 0.042 ng/mL (0.000-0.056) Pro-B-Type Natriuretic Peptide 83 pg/mL (0-125) Total Protein 7.5 G/DL (6.4-8.2) Albumin 2.1 G/DL (3.4-5.0) Globulin 5.4 g/dL Albumin/Globulin Ratio 0.4 (1.0-2.7) Lipase 139 U/L (73-393) Thyroid Stimulating Hormone (TSH) 2.838 uiU/mL (0.358-3.740) Free Thyroxine 0.90 NG/DL (0.76-1.46) Urine Color Pale yellow Urine Appearance Cloudy Urine pH 5 (4.5-8.0) Urine Specific King 1.010 (1.005-1.035) Urine Protein 2+ (NEGATIVE) Urine Glucose (UA) Negative (NEGATIVE) Urine Ketones Negative (NEGATIVE) Urine Blood 5+ (NEGATIVE) Urine Nitrite Negative (NEGATIVE) Urine Bilirubin Negative (NEGATIVE) Urine Urobilinogen Normal MG/DL (0.0-1.0) Urine Leukocyte Esterase 3+ (NEGATIVE) Urine RBC Tntc /HPF (0 - 0) Urine WBC Tntc /HPF (0 - 0) Urine Squamous Epithelial Cells None /LPF (NONE/OCC) Urine Bacteria Many /HPF (NONE) Urine Yeast Many /HPF (NONE) EKG Diagnostic Results Rate: bradycardiac Rhythm: other ST Segments: other - Concerning bradycardic rate, junctional Rhythm Strip Diag. Results EP Interpretation: yes Rate: 39 Rhythm: no PVC's, no ectopy, other Chest X-Ray Diagnostic Results Chest X-Ray Diagnostic Results : Chest X-Ray Ordered: Yes # of Views/Limited/Complete: 1 View Indication: Chest Pain EP Interpretation: Yes Interpretation: no pneumothorax, other - Cardiomegally, bilateral effusion Impression: Other - Significantly worsened x-ray from previous bilateral effusion left-sided increased markings, Electronically Signed by: Tanya Waddell DO Last Vital Signs Date Time Temp Pulse Resp B/P (MAP) Pulse Ox O2 Delivery O2 Flow Rate FiO2 08/19/18 00:57 Room Air Status: improved Disposition: ADMITTED INPATIENT Condition: Critical Tanya Waddell DO Aug 19, 2018 01:07
--- NOTE | 2018-08-19 01:16 | NUR ---
ED Nurse Note: Patient BIBA, desaturation and bradycardia
[2018-08-19] MEDS ORDERED: Atropine Sulfate 0.4mg/ml inj 20ML IVP ONE (01:45)
--- NOTE | 2018-08-19 01:45 | NUR ---
ED Nurse Note: Patient unreponsive to atropine, ERMD notified.
--- NOTE | 2018-08-19 01:50 | NUR ---
ED Nurse Note: Patient rectal temperature recorded at 88.2, warming precautions indicated.
[2018-08-19 02:12] LABS: BILIRUBIN, URINE NEGATIVE (NEGATIVE); COLOR,URINE PALE YELLOW; GLUCOSE, URINE (UA) NEGATIVE (NEGATIVE); KETONES,URINE NEGATIVE (NEGATIVE); LEUKOCYTE ESTERASE ,URINE 3+ (NEGATIVE); NITRITE,URINE NEGATIVE (NEGATIVE); PH,URINE 5 (4.5-8.0); PROTEIN,URINE 2+ (NEGATIVE); UROBILINOGEN,URINE NORMAL MG/DL (0.0-1.0)
[2018-08-19 02:12] LABS: HEMOGLOBIN 9.5 G/DL (14.2-18.0); MEAN CORPUSCULAR VOLUME 89 FL (80-99); PLATELET COUNT 60 K/UL (150-450); RED CELL DISTRIBUTION WIDTH 17.8 % (11.6-14.8); WHITE BLOOD COUNT 8.2 K/UL (4.8-10.8)
[2018-08-19 02:25] LABS: APPEARANCE,URINE CLOUDY
[2018-08-19 02:30] LABS: INR 1.1 (0.9-1.1)
[2018-08-19 02:39] LABS: ALANINE AMINOTRANSFERASE 67 U/L (12-78); ALBUMIN 2.1 G/DL (3.4-5.0); ALBUMIN/GLOBULIN RATIO 0.4 (1.0-2.7); ALKALINE PHOSPHATASE 116 U/L (46-116); ANION GAP 5 mmol/L (5-15); ASPARTATE AMINO TRANSFERASE 58 U/L (15-37); BILIRUBIN,TOTAL 0.1 MG/DL (0.2-1.0); BLOOD UREA NITROGEN 41 mg/dL (7-18); CARBON DIOXIDE 29 MMOL/L (21-32); CHLORIDE 101 MMOL/L (98-107); CKMB 11.3 NG/ML (0.0-3.6); CREATINE KINASE 61 U/L (26-308); CREATININE 0.8 MG/DL (0.55-1.30); PHOSPHORUS 2.4 MG/DL (2.5-4.9); SODIUM 135 MMOL/L (136-145)
[2018-08-19 02:43] LABS: POTASSIUM 6.4 MMOL/L (3.5-5.1)
[2018-08-19] MEDS ORDERED: Piperacillin/Tazobactam 3.375 GM in NS 110 ML IVPB ONE (03:00)
[2018-08-19] MEDS ORDERED: Atropine Inj 1mg/10ml Syr IVP ONE (03:00)
[2018-08-19] MEDS ORDERED: Insulin Human Regular 100units/ml 3ml IV ONE ×2 (03:00)
--- NOTE | 2018-08-19 03:00 | NUR ---
ED Nurse Note: Patient tolerated medications well. Patient vital signs responding favorably to treatment.
[2018-08-19] MEDS: DOPamine 400mg/250ml 250 ML IV SCH ×6 (03:06→21:06)
[2018-08-19] MEDS ORDERED: Calcium Chloride 100mg/ml Vial IVP ONE (03:30)
[2018-08-19] MEDS ORDERED: Sodium Chloride 4,100 ML IVLG ONE (03:30)
--- NOTE | 2018-08-19 04:05 | NUR ---
ED Nurse Note: Patient had an episode of tonic clonic seizure lasting for 45 seconds, RN and MD witnessed. received orders for ativan
[2018-08-19] MEDS ORDERED: LORazepam Inj 2mg/ml 1ml IV ONE (04:15)
--- NOTE | 2018-08-19 04:20 | NUR ---
ED Nurse Note: Patient transported to ICU by 3 RN accompanied by vehicle monitor technician while being bagged. Patient arrived to room with no adverse episodes. Report called in prior to transport and given to Zayra NORTON. Both the water machine and norman hugger machine was walked to the ICU by the ER charge nurse. Patient was helped into the bed and placed on monitor before CAR DEALER's departed.
--- NOTE | 2018-08-19 04:30 | NUR ---
NURSE NOTES:Received pt from ER with dx Symptomatic bradycardia , ptis comatose, respond only to deep paim stimuli, trache to vent on ac mode SB- SR on the monitor BP labile. On dopamine drip at 5mcg/kg/min infusing to Rt femoral central line. Site was bloody and drsg was changed by CIERRA Hope. Sauceda to gravity with pinkish urine moderate in amt.. Pt has G tube clamped. oral care done. Rt buttock ruptured blister , picture taken was done. Tx was initiated. Pt has generalized edema and contracted. Will order p 200 mattress- Will continue to monitor.
--- NOTE | 2018-08-19 05:00 | NUR ---
NURSE NOTES:Dr Carrizales called and was received by CIERRA Pelayo stating to call Dr Kothari for orders, call Dr Liz and Dr prieto.
--- NOTE | 2018-08-19 05:30 | NUR ---
NURSE NOTES:call Dr Kothari for admission orders- Awaiting for md to call back.
--- NOTE | 2018-08-19 07:15 | NUR ---
NURSE NOTES:Endorsed to RN Samuel to call md for admission orders.
--- NOTE | 2018-08-19 07:22 | NUR ---
HAND-OFF: Report given to Samuel NORTON.
--- NOTE | 2018-08-19 07:23 | NUR ---
RESPIRATORY NOTE: received pt on vent, trached with portex 7. no redness or skin tears visible around stoma or nec area. no resp distress noted at this time. bilateral rhonchi b/s upon auscultation with small to moderate amount of thick blood-tinged/bee secretions when sxn. alarms are set and audible, vent is plugged into the red outlet and ambu bag at bedside. will cont to monitor.
--- NOTE | 2018-08-19 07:25 | NUR ---
NURSE NOTES: Patient received lying in bed, obtunded. Trach to vent with settings: AC 12, TV-600, FiO2-35%, PEEP-5, no acute distress, oxygen saturation at 95%. G-tube clamped, no feeding ordered at this time. Right femoral TLC with some blood noted around dressing, no leaking noted, running Dopamine at 15 mcg/min. Sauceda catheter draining to blood tinged urine. Patient on warming measures, hypothermic, temperature rectally 94.4. Sinus Rhythm on the monitor, rate 91. Will continue to monitor. Patient pending for admission orders.
--- NOTE | 2018-08-19 07:40 | NUR ---
NURSE NOTES: Relayed ordered vent settings by Dr. Kothari to RT Bruce.
[2018-08-19] MEDS ORDERED: Miralax 17gm pkt ORAL PRN (07:45)
[2018-08-19] MEDS ORDERED: Albuterol/Ipratropium 3ml neb HHN PRN (07:45)
[2018-08-19] MEDS ORDERED: LORazepam Inj 2mg/ml 1ml IV PRN (07:45)
[2018-08-19] MEDS ORDERED: Morphine Sulfate 4mg/ml Inj (IV USE ONLY) IVP PRN (07:45)
--- NOTE | 2018-08-19 08:44 | NUR ---
NURSE NOTES: Sputum culture and lab draws obtained, sent down to laboratory.
[2018-08-19] MEDS ORDERED: Heparin 5000 units/ml inj SUBQ SCH (09:00)
[2018-08-19] MEDS ORDERED: Pantoprazole Inj IV SCH (09:00)
[2018-08-19 09:12] LABS: ALANINE AMINOTRANSFERASE 65 U/L (12-78); ALBUMIN/GLOBULIN RATIO 0.4 (1.0-2.7); ALKALINE PHOSPHATASE 114 U/L (46-116); ANION GAP 3 mmol/L (5-15); ASPARTATE AMINO TRANSFERASE 60 U/L (15-37); BILIRUBIN,TOTAL 0.3 MG/DL (0.2-1.0); BLOOD UREA NITROGEN 38 mg/dL (7-18); CALCIUM 10.5 MG/DL (8.5-10.1); CARBON DIOXIDE 30 MMOL/L (21-32); CHLORIDE 106 MMOL/L (98-107); CREATININE 0.8 MG/DL (0.55-1.30); SODIUM 138 MMOL/L (136-145)
[2018-08-19 09:14] LABS: POTASSIUM 6.1 MMOL/L (3.5-5.1)
--- NOTE | 2018-08-19 09:23 | NUR ---
NURSE NOTES: Relayed CMP results to Dr. Kothari, potassium 6.1. Order received for Dr. Morales as consult and 1 L bolus of NS.
--- NOTE | 2018-08-19 09:32 | Consultation ---
History of Present Illness General Date patient seen: Aug 19, 2018 Chief Complaint: Dyspnea/Respdistress Present Illness HPI 63 year old male with hx of OBS, vegetative state, Gtube, tracheostomy, on chronic ventilator is sent to the emergency room with because of low oxygenation In route the paramedics reported bradycardia. Pt is not verbal, history of present illness is significantly limited. Pt was found to be hypothermic and septic. His K was elevated, after initial treatment, he is transferred to ICU for further treatment. Allergies: Coded Allergies: BENAZEPRIL (Verified Allergy, Unknown, 06/02/18) Medication History Scheduled Albuterol Sulfate* (Albuterol Sulfate Hhn*), 3 ML INH Q6H, (Reported) Amino Acids/Protein Hydrolys (Pro-Stat Liquid), 30 ML GT THREE TIMES A DAY, ( Reported) Atorvastatin Calcium* (Atorvastatin Calcium*), 10 MG GT BEDTIME, (Reported) Chlorhexidine Gluconate (Peridex), 15 ML PO BID, (Reported) Cran/Vitc/Mannose/Inulin/Brom (Uti-Stat Liquid), 3,875 MG GT BID, (Reported) Docusate Sodium* (Colace*), 100 MG GT BID, (Reported) Ferrous Sulfate (Ferrous Sulfate), 330 MG GT DAILY, (Reported) Hydralazine Hcl* (Hydralazine Hcl*), 50 MG GT EVERY 8 HOURS, (Reported) Lansoprazole* (Lansoprazole*), 30 MG GT DAILY, (Reported) Metoprolol Tartrate* (Metoprolol Tartrate*), 50 MG GT EVERY 12 HOURS, (Reported) Vitamin D (Vitamin D3), 5,000 UNITS GT DAILY, (Reported) Warfarin Sod* (Coumadin*), 4 MG GT DAILY, (Reported) Scheduled PRN Acetaminophen (Tylenol), 650 MG ORAL Q4HR PRN for fever/mild-mod pain, (Reported ) Albuterol Sulfate* (Albuterol Sulfate Hhn*), 3 ML INH Q3HR PRN for Shortness of Breath, (Reported) Clonidine Hcl* (Catapres*), 0.1 MG GT Q4HR PRN for BP >175, (Reported) Polyethylene Glycol 3350* (Miralax*), 17 GM GT DAILY PRN for Constipation, ( Reported) Patient History Healthcare decision maker Dorys guidry Resuscitation status Full Code Advanced Directive on File No Past Medical/Surgical History Past Medical/Surgical History: (1) Feeding by G-tube (2) Chronic respiratory failure (3) Chronic vegetative state (4) COPD (chronic obstructive pulmonary disease) (5) Chronic organic brain syndrome (6) Alzheimer's dementia (7) Tracheostomy in place Review of Systems All Other Systems: negative except mentioned in HPI Physical Exam General Appearance: WD/WN Lines, tubes and drains: trach, gtube HEENT: normocephalic Neck: non-tender, normal alignment Respiratory/Chest: rhonchi - left, rhonchi - right Cardiovascular/Chest: normal peripheral pulses, normal rate Abdomen: normal bowel sounds, non tender Genitourinary/Rectal: normal genital exam Extremities: normal range of motion Skin Exam: normal pigmentation Last 24 Hour Vital Signs Date Time Temp Pulse Resp B/P (MAP) Pulse Ox O2 Delivery O2 Flow Rate FiO2 08/19/18 09:01 108/49 08/19/18 09:00 94 15 35 08/19/18 07:44 35 08/19/18 07:18 96 12 40 08/19/18 06:30 92.0 58 14 90/39 (56) 94 08/19/18 06:00 40 08/19/18 06:00 91.4 60 16 98/39 (58) 94 08/19/18 05:45 91.0 62 16 102/44 (63) 94 08/19/18 05:34 Mechanical Ventilator 08/19/18 05:30 91.0 62 16 114/67 (83) 94 08/19/18 05:15 91.0 65 16 108/43 (64) 94 08/19/18 05:00 65 16 107/45 (65) 94 08/19/18 04:53 63 13 40 08/19/18 04:45 64 16 108/45 (66) 93 08/19/18 04:30 65 08/19/18 04:30 90.4 64 16 104/46 (65) 95 08/19/18 04:30 40 08/19/18 04:25 89.4 72 12 118/48 99 Room Air 40 08/19/18 04:15 118/48 08/19/18 03:58 99/43 08/19/18 03:49 131/50 08/19/18 03:34 152/54 08/19/18 03:19 59/35 08/19/18 03:06 59/35 08/19/18 02:52 50 12 40 08/19/18 01:17 Room Air 08/19/18 01:17 32 Room Air 08/19/18 01:05 64 24 40 08/19/18 00:57 88.2 42 16 98 Mechanical Ventilator 40 Intake and Output 08/18/18 08/19/18 19:00 07:00 Intake Total 0 ml Output Total 220 ml Balance -220 ml Intake Oral 0 ml Output Urine Total 220 ml Laboratory Tests Test 08/19/18 01:25 08/19/18 01:50 08/19/18 04:24 08/19/18 08:20 White Blood Count 8.2 K/UL (4.8-10.8) Pending Red Blood Count 3.50 M/UL (4.70-6.10) L Pending Hemoglobin 9.5 G/DL (14.2-18.0) L Pending Hematocrit 31.0 % (42.0-52.0) L Pending Mean Corpuscular Volume 89 FL (80-99) Pending Mean Corpuscular Hemoglobin 27.2 PG (27.0-31.0) Pending Mean Corpuscular Hemoglobin Concent 30.7 G/DL (32.0-36.0) L Pending Red Cell Distribution Width 17.8 % (11.6-14.8) H Pending Platelet Count 60 K/UL (150-450) L Pending Mean Platelet Volume 14.9 FL (6.5-10.1) H Pending Neutrophils (%) (Auto) % (45.0-75.0) Pending Lymphocytes (%) (Auto) % (20.0-45.0) Pending Monocytes (%) (Auto) % (1.0-10.0) Pending Eosinophils (%) (Auto) % (0.0-3.0) Pending Basophils (%) (Auto) % (0.0-2.0) Pending Prothrombin Time 12.0 SEC (9.30-11.50) H Prothromb Time International Ratio 1.1 (0.9-1.1) Activated Partial Thromboplast Time 44 SEC (23-33) H Sodium Level 135 MMOL/L (136-145) L 138 MMOL/L (136-145) Potassium Level 6.4 MMOL/L (3.5-5.1) *H 6.1 MMOL/L (3.5-5.1) *H Chloride Level 101 MMOL/L (98-107) 106 MMOL/L (98-107) Carbon Dioxide Level 29 MMOL/L (21-32) 30 MMOL/L (21-32) Anion Gap 5 mmol/L (5-15) 3 mmol/L (5-15) L Blood Urea Nitrogen 41 mg/dL (7-18) H 38 mg/dL (7-18) H Creatinine 0.8 MG/DL (0.55-1.30) 0.8 MG/DL (0.55-1.30) Estimat Glomerular Filtration Rate > 60 mL/min (>60) > 60 mL/min (>60) Glucose Level 81 MG/DL (74-106) 48 MG/DL (74-106) L Lactic Acid Level 2.40 mmol/L (0.4-2.0) H 2.30 mmol/L (0.66-2.22) H Calcium Level 10.0 MG/DL (8.5-10.1) 10.5 MG/DL (8.5-10.1) H Phosphorus Level 2.4 MG/DL (2.5-4.9) L Magnesium Level 1.4 MG/DL (1.8-2.4) L Total Bilirubin 0.1 MG/DL (0.2-1.0) L 0.3 MG/DL (0.2-1.0) Aspartate Amino Transf (AST/SGOT) 58 U/L (15-37) H 60 U/L (15-37) H Alanine Aminotransferase (ALT/SGPT) 67 U/L (12-78) 65 U/L (12-78) Alkaline Phosphatase 116 U/L (46-116) 114 U/L (46-116) Total Creatine Kinase 61 U/L (26-308) Creatine Kinase MB 11.3 NG/ML (0.0-3.6) H Creatine Kinase MB Relative Index 18.5 Troponin I 0.042 ng/mL (0.000-0.056) Pro-B-Type Natriuretic Peptide 83 pg/mL (0-125) Total Protein 7.5 G/DL (6.4-8.2) 7.4 G/DL (6.4-8.2) Albumin 2.1 G/DL (3.4-5.0) L 2.0 G/DL (3.4-5.0) L Globulin 5.4 g/dL 5.4 g/dL Albumin/Globulin Ratio 0.4 (1.0-2.7) L 0.4 (1.0-2.7) L Lipase 139 U/L (73-393) Thyroid Stimulating Hormone (TSH) 2.838 uiU/mL (0.358-3.740) Free Thyroxine 0.90 NG/DL (0.76-1.46) Urine Color Pale yellow Urine Appearance Cloudy Urine pH 5 (4.5-8.0) Urine Specific [place] 1.010 (1.005-1.035) Urine Protein 2+ (NEGATIVE) H Urine Glucose (UA) Negative (NEGATIVE) Urine Ketones Negative (NEGATIVE) Urine Blood 5+ (NEGATIVE) H Urine Nitrite Negative (NEGATIVE) Urine Bilirubin Negative (NEGATIVE) Urine Urobilinogen Normal MG/DL (0.0-1.0) Urine Leukocyte Esterase 3+ (NEGATIVE) H Urine RBC Tntc /HPF (0 - 0) H Urine WBC Tntc /HPF (0 - 0) H Urine Squamous Epithelial Cells None /LPF (NONE/OCC) Urine Bacteria Many /HPF (NONE) H Urine Yeast Many /HPF (NONE) H Height (Feet): 5 Height (Inches): 11.00 Weight (Pounds): 248 Medications Current Medications Medications (Trade) Dose Ordered Sig/Fernanda Route PRN Reason Start Time Stop Time Status Last Admin Dose Admin Acetaminophen (Tylenol) 650 mg Q4H PRN ORAL FEVER 08/19/18 07:45 09/18/18 07:44 Albuterol/ Ipratropium (Albuterol/ Ipratropium) 3 ml Q4H PRN HHN Shortness of Breath 08/19/18 07:45 08/24/18 07:44 Dextrose (Dextrose 50%) 25 ml Q30M PRN IV Hypoglycemia 08/19/18 07:45 09/18/18 07:44 Dextrose (Dextrose 50%) 50 ml Q30M PRN IV Hypoglycemia 08/19/18 08:00 09/18/18 07:59 Dopamine HCl/ Dextrose 250 ml @ 0 mls/hr Q24H IV 08/19/18 03:00 09/18/18 02:59 08/19/18 09:01 Lorazepam (Ativan 2mg/ml 1ml) 2 mg Q2H PRN IV For Anxiety 08/19/18 07:45 08/26/18 07:44 Morphine Sulfate (Morphine Sulfate) 4 mg Q4H PRN IVP Severe Pain (Pain Scale 7-10) 08/19/18 07:45 08/26/18 07:44 Ondansetron HCl (Zofran) 4 mg Q6H PRN IVP Nausea & Vomiting 08/19/18 07:45 09/18/18 07:44 Pantoprazole (Protonix) 40 mg DAILY IV 08/19/18 09:00 09/18/18 08:59 08/19/18 08:58 Polyethylene Glycol (Miralax) 17 gm DAILYPRN PRN ORAL Constipation 08/19/18 07:45 09/18/18 07:44 Vancomycin HCl (Vanco rx to dose) 1 ea DAILY PRN MISC rx protocol 08/19/18 08:00 09/18/18 07:59 Vancomycin HCl 1.25 gm/Dextrose 275 ml @ 183.333 mls/hr Q8H IVPB 08/19/18 18:00 08/24/18 17:59 Vancomycin HCl 1.75 gm/Dextrose 550 ml @ 275 mls/hr ONCE IVPB 08/19/18 10:00 08/19/18 12:00 Assessment/Plan Problem List: (1) Respiratory failure, acute and chronic ICD Codes: J96.20 - Acute and chronic respiratory failure, unspecified whether with hypoxia or hypercapnia SNOMED: 53342445, 01114879 (2) Sepsis ICD Codes: A41.9 - Sepsis, unspecified organism SNOMED: 16470487 (3) ATN (acute tubular necrosis) ICD Codes: N17.0 - Acute kidney failure with tubular necrosis SNOMED: 39433670 (4) Hyperkalemia ICD Codes: E87.5 - Hyperkalemia SNOMED: 87386598 (5) COPD (chronic obstructive pulmonary disease) ICD Codes: J44.9 - Chronic obstructive pulmonary disease, unspecified SNOMED: 14126348 (6) Chronic organic brain syndrome ICD Codes: F09 - Unspecified mental disorder due to known physiological condition SNOMED: 009294380 (7) Symptomatic bradycardia ICD Codes: R00.1 - Bradycardia, unspecified SNOMED: 26950989, 070606648 Respiratory: monitor respiratory rate, adjust FIO2, CXR Cardiac: continue pressors, continue to monitor HR/BP Renal: F/U I&O, keep IV fluid Infectious Disease: check cultures, continue antibiotics, add antibiotics Gastrointestinal: hold feedings Endocrine: monitor blood sugar Hematologic: monitor H/H Neurologic: PRN Ativan, PRN Morphine Affect: PRN ativan Prophylaxis: Heparin Disposition: keep in ICU Discussed with: nurses, consultants, case aide Steve Kothari MD Aug 19, 2018 09:32
[2018-08-19] MEDS ORDERED: Vancomycin 1750mg/D5W 550ml IVPB SCH ×2 (10:00)
--- NOTE | 2018-08-19 10:34 | NUR ---
RD ASSESSMENT & RECOMMENDATIONS SEE CARE ACTIVITY FOR COMPLETE ASSESSMENT DAILY ESTIMATED NEEDS: Needs based on Critical care 93kg adj 17-22 kcals/kg 8465-7919 total kcals 1.2-2 g protein/kg 112-186 g total protein 20-25ml/kcal mL/kg 8853-1400 total fluid mLs NUTRITION DIAGNOSIS: 1) Swallowing difficulty R/T respiratory status AEB pt vent dep via trach PEG dep to meet all nutritional needs. 2) Altered nutrition related lab values r/t clinical status as evidenced by critically elev K (6.1*), low BG (48), hypothermic and hypotensive. CURRENT TF: Jevity 1.2 @30ml/hr ENTERAL NUTRITION RECOMMENDATIONS: NEPRO @40ml/hr x24 hrs + Prosource TID to provide 960ml, 1728 kcal, 78g + 33g prot, 698ml ml free h2o - WITH HEMODYNAMIC STABILITY REC TF CHANGE TO NEPRO, start @20ml for 6 hrs, advance as tolerated 10ml every 4-6, hrs to goal of 40ml x24 hrs - Add PROSOURCE TID to better meet est prot needs - Flush per MD, HOB over 30 degrees ---- WITH PRESSOR SUPPORT-> REC TROPHIC FEEDS OF NEPRO @5-10ML/HR TO MAINTAIN GUT INTEGRITY ADDITIONAL RECOMMENDATIONS: 1) Daily calibrated bed scale wt 2) REC D5 for hypoglycemia 3) Monitor/ trend phos; con't need for Nepro 4) Add PROSOURCE TID via GT to better meet est protein needs 5) F/up w/ WC eval
[2018-08-19 10:59] LABS: ANION GAP 4 mmol/L (5-15); BLOOD UREA NITROGEN 36 mg/dL (7-18); CALCIUM 10.3 MG/DL (8.5-10.1); CARBON DIOXIDE 28 MMOL/L (21-32); CHLORIDE 107 MMOL/L (98-107); CREATININE 0.8 MG/DL (0.55-1.30); SODIUM 140 MMOL/L (136-145)
[2018-08-19 11:01] LABS: POTASSIUM 6.2 MMOL/L (3.5-5.1)
[2018-08-19 11:06] LABS: CREATINE KINASE 60 U/L (26-308)
[2018-08-19 11:10] LABS: FERRITIN 284 NG/ML (8-388); PHOSPHORUS 2.2 MG/DL (2.5-4.9)
--- NOTE | 2018-08-19 11:45 | NUR ---
NURSE NOTES: Central line dressing changed, scant amount of bleeding noted, pressure applied to dressing site, will monitor. Dr. Morales saw and assessed patient, aware of potassium level and hematuria possible trauma from insertion of [place] catheter. No orders at this time.
[2018-08-19 12:00] LABS: % IRON SATURATION 74 % (15-50); IRON 153 ug/dL (50-175); TOTAL IRON BINDING CAPACITY 207 ug/dL (250-450)
--- NOTE | 2018-08-19 12:15 | GI Initial Consult Note ---
History of Present Illness General Date patient seen: Aug 19, 2018 Time patient seen: 12:05 Reason for Hospitalization: Dyspnea/Respdistress Referring physician: SUSANA ROSARIO Reason for Consultation: ANEMIA Present Illness HPI Patient sent to the emergency room with complaints of low oxygenation In route the paramedics reported bradycardia Patient himself is chronically debilitated has a tracheostomy and is vent dependent Not verbal history of present illness is significantly limited Unknown regarding vomiting or diarrhea The the oxygenation was reported to be fairly recent No obvious history of cough patient however did have recent hospitalization 63 year old AA male with past medical history seizure, hypertension, respiratory failure with ventilator dependency, dysphagia with G-tube dependency , anemia. ROS limited, patient nonverbal at baseline. Patient seen, no apparent distress. No active signs or symptoms of nausea vomiting. No reported diarrhea. No history of endoscopic colonoscopy.Noted the patient is on warfarin. Home Meds Reported Medications Polyethylene Glycol 3350* (MIRALAX*) 17 Gm Powd.pack, 17 GM GT DAILY PRN for Constipation, PACKET 06/02/18 Chlorhexidine Gluconate (Peridex) 15 Ml Mouthwash, 15 ML PO BID, ML 06/02/18 Cran/Vitc/Mannose/Inulin/Brom (UTI-STAT LIQUID) 3,875 Mg/30 Ml Liquid, 3875 MG GT BID, ML 06/02/18 Amino Acids/Protein Hydrolys (PRO-STAT LIQUID) 30 Ml Liquid.pkt, 30 ML GT THREE TIMES A DAY, ML 06/02/18 Ferrous Sulfate (Ferrous Sulfate) 300 Mg/5 Ml Liquid, 330 MG GT DAILY for anemia , ML 06/02/18 Albuterol Sulfate* (ALBUTEROL SULFATE HHN*) 2.5 Mg/3 Ml Vial.neb, 3 ML INH Q3HR PRN for Shortness of Breath, EA 06/02/18 Vitamin D (Vitamin D3) 400 Unit Tablet, 5000 UNITS GT DAILY, TAB 04/06/18 Warfarin Sod* (COUMADIN*) 4 Mg Tablet, 4 MG GT DAILY, TAB 04/06/18 Atorvastatin Calcium* (ATORVASTATIN CALCIUM*) 20 Mg Tablet, 10 MG GT BEDTIME, TAB 04/06/18 Acetaminophen (Tylenol) 325 Mg Tab, 650 MG ORAL Q4HR PRN for fever/mild-mod pain , #30 TAB 0 Refills 04/25/15 Metoprolol Tartrate* (METOPROLOL TARTRATE*) 50 Mg Tablet, 50 MG GT EVERY 12 HOURS, TAB 04/25/15 Lansoprazole* (LANSOPRAZOLE*) 30 Mg Capsule.dr, 30 MG GT DAILY, CAP 04/25/15 Albuterol Sulfate* (ALBUTEROL SULFATE HHN*) 2.5 Mg/3 Ml Vial.neb, 3 ML INH Q6H, #30 EA 0 Refills 04/25/15 Docusate Sodium* (COLACE*) 100 Mg Capsule, 100 MG GT BID, CAP 03/22/15 Clonidine Hcl* (CATAPRES*) 0.1 Mg Tablet, 0.1 MG GT Q4HR PRN for BP >175, TAB 03/22/15 Hydralazine Hcl* (HYDRALAZINE HCL*) 10 Mg Tablet, 50 MG GT EVERY 8 HOURS for HYPERTENSION, TAB 03/22/15 Med list reviewed/reconciled: Yes Allergies: Coded Allergies: BENAZEPRIL (Verified Allergy, Unknown, 06/02/18) Patient History Limited by: medical condition History Provided By: Medical Record PMH Narrative Limited by: medical condition Past Medical History: see triage record Pertinent Family History: none Reviewed Nursing Documentation: PMH: Agreed; PSxH: Agreed Nursing Documentation-PMH Hx Cardiac Problems: Yes Hx Hypertension: Yes 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, VRE Hx COPD: Yes Hx Cancer: No Hx Gastrointestinal Problems: No Hx Neurological Problems: Yes Hx Seizures: Yes Hx Traumatic Brain Injury: Yes Hx Weakness: Yes Hx Neurologic Surgery: No Hx Brain Shunt: No Social History: Denies: smoking, alcohol use, drug use, other Review of Systems All Other Systems: limited Physical Exam Vital Signs Date Time Temp Pulse Resp B/P (MAP) Pulse Ox O2 Delivery O2 Flow Rate FiO2 08/19/18 00:57 88.2 42 16 98 Mechanical Ventilator 40 08/19/18 03:06 59/35 Sp02 EP Interpretation: reviewed, normal Labs Laboratory Tests Test 08/19/18 01:25 08/19/18 01:50 08/19/18 04:24 08/19/18 08:20 White Blood Count 8.2 K/UL (4.8-10.8) Pending Red Blood Count 3.50 M/UL (4.70-6.10) L Pending Hemoglobin 9.5 G/DL (14.2-18.0) L Pending Hematocrit 31.0 % (42.0-52.0) L Pending Mean Corpuscular Volume 89 FL (80-99) Pending Mean Corpuscular Hemoglobin 27.2 PG (27.0-31.0) Pending Mean Corpuscular Hemoglobin Concent 30.7 G/DL (32.0-36.0) L Pending Red Cell Distribution Width 17.8 % (11.6-14.8) H Pending Platelet Count 60 K/UL (150-450) L Pending Mean Platelet Volume 14.9 FL (6.5-10.1) H Pending Neutrophils (%) (Auto) % (45.0-75.0) Pending Lymphocytes (%) (Auto) % (20.0-45.0) Pending Monocytes (%) (Auto) % (1.0-10.0) Pending Eosinophils (%) (Auto) % (0.0-3.0) Pending Basophils (%) (Auto) % (0.0-2.0) Pending Prothrombin Time 12.0 SEC (9.30-11.50) H Prothromb Time International Ratio 1.1 (0.9-1.1) Activated Partial Thromboplast Time 44 SEC (23-33) H Sodium Level 135 MMOL/L (136-145) L 138 MMOL/L (136-145) Potassium Level 6.4 MMOL/L (3.5-5.1) *H 6.1 MMOL/L (3.5-5.1) *H Chloride Level 101 MMOL/L (98-107) 106 MMOL/L (98-107) Carbon Dioxide Level 29 MMOL/L (21-32) 30 MMOL/L (21-32) Anion Gap 5 mmol/L (5-15) 3 mmol/L (5-15) L Blood Urea Nitrogen 41 mg/dL (7-18) H 38 mg/dL (7-18) H Creatinine 0.8 MG/DL (0.55-1.30) 0.8 MG/DL (0.55-1.30) Estimat Glomerular Filtration Rate > 60 mL/min (>60) > 60 mL/min (>60) Glucose Level 81 MG/DL (74-106) 48 MG/DL (74-106) L Lactic Acid Level 2.40 mmol/L (0.4-2.0) H 2.30 mmol/L (0.66-2.22) H Calcium Level 10.0 MG/DL (8.5-10.1) 10.5 MG/DL (8.5-10.1) H Phosphorus Level 2.4 MG/DL (2.5-4.9) L 2.2 MG/DL (2.5-4.9) L Magnesium Level 1.4 MG/DL (1.8-2.4) L 1.4 MG/DL (1.8-2.4) L Total Bilirubin 0.1 MG/DL (0.2-1.0) L 0.3 MG/DL (0.2-1.0) Aspartate Amino Transf (AST/SGOT) 58 U/L (15-37) H 60 U/L (15-37) H Alanine Aminotransferase (ALT/SGPT) 67 U/L (12-78) 65 U/L (12-78) Alkaline Phosphatase 116 U/L (46-116) 114 U/L (46-116) Total Creatine Kinase 61 U/L (26-308) 60 U/L (26-308) Creatine Kinase MB 11.3 NG/ML (0.0-3.6) H Creatine Kinase MB Relative Index 18.5 Troponin I 0.042 ng/mL (0.000-0.056) Pro-B-Type Natriuretic Peptide 83 pg/mL (0-125) Total Protein 7.5 G/DL (6.4-8.2) 7.4 G/DL (6.4-8.2) Albumin 2.1 G/DL (3.4-5.0) L 2.0 G/DL (3.4-5.0) L Globulin 5.4 g/dL 5.4 g/dL Albumin/Globulin Ratio 0.4 (1.0-2.7) L 0.4 (1.0-2.7) L Lipase 139 U/L (73-393) Thyroid Stimulating Hormone (TSH) 2.838 uiU/mL (0.358-3.740) Free Thyroxine 0.90 NG/DL (0.76-1.46) Urine Color Pale yellow Urine Appearance Cloudy Urine pH 5 (4.5-8.0) Urine Specific [place] 1.010 (1.005-1.035) Urine Protein 2+ (NEGATIVE) H Urine Glucose (UA) Negative (NEGATIVE) Urine Ketones Negative (NEGATIVE) Urine Blood 5+ (NEGATIVE) H Urine Nitrite Negative (NEGATIVE) Urine Bilirubin Negative (NEGATIVE) Urine Urobilinogen Normal MG/DL (0.0-1.0) Urine Leukocyte Esterase 3+ (NEGATIVE) H Urine RBC Tntc /HPF (0 - 0) H Urine WBC Tntc /HPF (0 - 0) H Urine Squamous Epithelial Cells None /LPF (NONE/OCC) Urine Bacteria Many /HPF (NONE) H Urine Yeast Many /HPF (NONE) H Urine Eosinophils None seen (NONE SEEN) Urine Random Creatinine Pending Urine Random Microalbumin Pending Urine Random Sodium < 20 mmol/L (20-110) L Urine Creatinine 41.2 MG/DL (30.0-125.0) Urine Microalbumin/Creatinine Ratio Pending Urine Potassium Timed 33 mmol/L (12-62) Uric Acid 3.9 MG/DL (2.6-7.2) Iron Level 153 ug/dL (50-175) Total Iron Binding Capacity 207 ug/dL (250-450) L Percent Iron Saturation 74 % (15-50) H Unsaturated Iron Binding 54 ug/dL (112-346) L Ferritin 284 NG/ML (8-388) Vitamin B12 Level > 2000 PG/ML (193-986) H Folate 17.7 NG/ML (8.6-58.9) Test 08/19/18 10:28 Sodium Level 140 MMOL/L (136-145) Potassium Level 6.2 MMOL/L (3.5-5.1) *H Chloride Level 107 MMOL/L (98-107) Carbon Dioxide Level 28 MMOL/L (21-32) Anion Gap 4 mmol/L (5-15) L Blood Urea Nitrogen 36 mg/dL (7-18) H Creatinine 0.8 MG/DL (0.55-1.30) Estimat Glomerular Filtration Rate > 60 mL/min (>60) Glucose Level 48 MG/DL (74-106) L Calcium Level 10.3 MG/DL (8.5-10.1) H General Appearance: no apparent distress Head: normocephalic EENT: PERRL/EOMI, normal ENT inspection Neck: supple, other - Edematous neck, tracheotomy Respiratory: normal breath sounds, no respiratory distress Cardiovascular: normal rate Gastrointestinal: normal inspection, non tender, soft, normal bowel sounds, non -distended, gt Rectal: deferred Genitourinary: deferred Musculoskeletal: normal inspection, back normal Neurologic: alert Skin: normal inspection, normal color, no rash, warm/dry, palpation normal, well hydrated Lymphatic: normal inspection, no adenopathy Current Medications Current Medications Medications (Trade) Dose Ordered Sig/Fernanda Route PRN Reason Start Time Stop Time Status Last Admin Dose Admin Acetaminophen (Tylenol) 650 mg Q4H PRN ORAL FEVER 08/19/18 07:45 09/18/18 07:44 Albuterol/ Ipratropium (Albuterol/ Ipratropium) 3 ml Q4H PRN HHN Shortness of Breath 08/19/18 07:45 08/24/18 07:44 Dextrose (Dextrose 50%) 25 ml Q30M PRN IV Hypoglycemia 08/19/18 07:45 09/18/18 07:44 Dextrose (Dextrose 50%) 50 ml Q30M PRN IV Hypoglycemia 08/19/18 08:00 09/18/18 07:59 Dopamine HCl/ Dextrose 250 ml @ 0 mls/hr Q24H IV 08/19/18 03:00 09/18/18 02:59 08/19/18 09:01 Lorazepam (Ativan 2mg/ml 1ml) 2 mg Q2H PRN IV For Anxiety 08/19/18 07:45 08/26/18 07:44 Morphine Sulfate (Morphine Sulfate) 4 mg Q4H PRN IVP Severe Pain (Pain Scale 7-10) 08/19/18 07:45 08/26/18 07:44 Ondansetron HCl (Zofran) 4 mg Q6H PRN IVP Nausea & Vomiting 08/19/18 07:45 09/18/18 07:44 Pantoprazole (Protonix) 40 mg DAILY IV 08/19/18 09:00 09/18/18 08:59 08/19/18 08:58 Polyethylene Glycol (Miralax) 17 gm DAILYPRN PRN ORAL Constipation 08/19/18 07:45 09/18/18 07:44 Vancomycin HCl (Vanco rx to dose) 1 ea DAILY PRN MISC rx protocol 08/19/18 08:00 09/18/18 07:59 Vancomycin HCl 1.25 gm/Dextrose 275 ml @ 183.333 mls/hr Q8H IVPB 08/19/18 18:00 08/24/18 17:59 GI: Plan Problems: (1) Symptomatic bradycardia (2) Tracheostomy in place (3) Feeding by G-tube (4) Anemia (5) Fecal impaction (6) Chronic organic brain syndrome Plan Supportive care at this time okay to start GTFs anemia work up reviewed monitor H&H, PRN transfusions PPI Bowel regimen, Colace plus miralax follow labs GI procedures if emergent Discussed with Dr. Brantley. Thank you for this patient referral, we will follow. The patient was seen and examined at bedside and all new and available data was reviewed in the patients chart. I agree with the above findings, impression and plan. (Patient seen earlier today. Signature stamp does not reflect patient encounter time.). - MD Jaclyn Rodriguez AnhElishaLalo AGUSTIN Aug 19, 2018 12:15
[2018-08-19 12:17] LABS: HEMATOCRIT 29.3 % (42.0-52.0); HEMOGLOBIN 8.9 G/DL (14.2-18.0); MEAN CORPUSCULAR VOLUME 88 FL (80-99); PLATELET COUNT 49 K/UL (150-450); RED BLOOD COUNT 3.31 M/UL (4.70-6.10); RED CELL DISTRIBUTION WIDTH 17.3 % (11.6-14.8); WHITE BLOOD COUNT 10.1 K/UL (4.8-10.8)
--- NOTE | 2018-08-19 12:31 | NUR ---
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 HYPERKALEMIA VS: BP 118/48, P 42, T 88.2, RR 16, SpO2 98 on VENT FiO2 40 RBC 3.31, Hgb 8.9, Hct 29.3, K 6.1, BUN 38, LACTIC ACID 2.30 IS:LORAZEPAM 1mg IV NS 4,100ml IVLG LASIX 20mg IV CALCIUM CHLORIDE 1,000 ml IVP ATROPINE 1mg D50 50ml IV NOVOLIN R 8units IV ADMITTED TO ICU DC PLAN: RETURN TO [facility] Addendum: 08/19/18 at 1602 by HE MATHIAS LVN LVN INTERQUAL CRITERIA MET
--- NOTE | 2018-08-19 12:56 | Consultation ---
Consult Note Consult Note asked to eval at the request of Dr emerson for hyperkalemia Patient sent to the emergency room with complaints of low oxygenation In route the paramedics reported bradycardia Patient himself is chronically debilitated has a tracheostomy and is vent dependent Not verbal history of present illness is significantly limited Unknown regarding vomiting or diarrhea The the oxygenation was reported to be fairly recent No obvious history of cough patient however did have recent hospitalization Allergies: BENAZEPRIL (Verified Allergy, Unknown, 06/02/18) Hx Cardiac Problems: Yes Hx Hypertension: Yes 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
[2018-08-19] MEDS: D5 1/2NS 1,000 ML IV SCH (13:27)
[2018-08-19] MEDS: Lactulose 20gm/30ml UDC GT SCH ×2 (13:27→17:51)
--- NOTE | 2018-08-19 14:00 | NUR ---
NURSE NOTES: Patient remains stable, no signs of pain noted. Repositioned. Will continue to monitor.
--- NOTE | 2018-08-19 14:57 | Consultation ---
History of Present Illness General Chief Complaint: Dyspnea/Respdistress Referring physician: SUSANA ROSARIO Reason for Consultation: ANEMIA Present Illness Allergies: Coded Allergies: BENAZEPRIL (Verified Allergy, Unknown, 06/02/18) Medication History Scheduled Albuterol Sulfate* (Albuterol Sulfate Hhn*), 3 ML INH Q6H, (Reported) Amino Acids/Protein Hydrolys (Pro-Stat Liquid), 30 ML GT THREE TIMES A DAY, ( Reported) Atorvastatin Calcium* (Atorvastatin Calcium*), 10 MG GT BEDTIME, (Reported) Chlorhexidine Gluconate (Peridex), 15 ML PO BID, (Reported) Cran/Vitc/Mannose/Inulin/Brom (Uti-Stat Liquid), 3,875 MG GT BID, (Reported) Docusate Sodium* (Colace*), 100 MG GT BID, (Reported) Ferrous Sulfate (Ferrous Sulfate), 330 MG GT DAILY, (Reported) Hydralazine Hcl* (Hydralazine Hcl*), 50 MG GT EVERY 8 HOURS, (Reported) Lansoprazole* (Lansoprazole*), 30 MG GT DAILY, (Reported) Metoprolol Tartrate* (Metoprolol Tartrate*), 50 MG GT EVERY 12 HOURS, (Reported) Vitamin D (Vitamin D3), 5,000 UNITS GT DAILY, (Reported) Warfarin Sod* (Coumadin*), 4 MG GT DAILY, (Reported) Scheduled PRN Acetaminophen (Tylenol), 650 MG ORAL Q4HR PRN for fever/mild-mod pain, (Reported ) Albuterol Sulfate* (Albuterol Sulfate Hhn*), 3 ML INH Q3HR PRN for Shortness of Breath, (Reported) Clonidine Hcl* (Catapres*), 0.1 MG GT Q4HR PRN for BP >175, (Reported) Polyethylene Glycol 3350* (Miralax*), 17 GM GT DAILY PRN for Constipation, ( Reported) Patient History Healthcare decision maker Dorys guidry Resuscitation status Full Code Advanced Directive on File No Physical Exam Last 24 Hour Vital Signs Date Time Temp Pulse Resp B/P (MAP) Pulse Ox O2 Delivery O2 Flow Rate FiO2 08/19/18 14:47 86 18 35 08/19/18 12:55 107 20 35 08/19/18 12:36 106/52 08/19/18 12:00 Mechanical Ventilator 08/19/18 12:00 35 08/19/18 12:00 108 08/19/18 12:00 106/52 08/19/18 10:44 101 17 103/46 (65) 93 08/19/18 10:42 87 24 35 08/19/18 10:40 85 23 77/37 (50) 89 08/19/18 10:35 82 19 56/34 (41) 89 08/19/18 10:30 86 18 61/32 (42) 92 08/19/18 10:15 103 16 92/47 (62) 93 08/19/18 10:04 98 17 96/50 (65) 93 08/19/18 10:00 96 20 88/44 (59) 93 08/19/18 10:00 96/50 08/19/18 09:45 93 15 94/40 (58) 92 08/19/18 09:30 92 15 92/45 (61) 92 08/19/18 09:15 92 19 90/49 (63) 92 08/19/18 09:01 108/49 08/19/18 09:00 94 15 35 08/19/18 09:00 95 12 91/46 (61) 95 08/19/18 08:45 106 18 108/49 (68) 93 08/19/18 08:30 104 16 125/56 (79) 93 08/19/18 08:15 107 18 132/58 (82) 94 08/19/18 08:00 Mechanical Ventilator 08/19/18 08:00 35 08/19/18 08:00 94.4 102 18 132/72 (92) 94 08/19/18 08:00 103 08/19/18 08:00 132/72 08/19/18 07:45 104 18 133/54 (80) 95 08/19/18 07:44 35 08/19/18 07:30 103 16 141/52 (81) 96 08/19/18 07:18 96 12 40 08/19/18 07:15 96 14 172/56 (94) 96 08/19/18 07:02 57 12 96/44 (61) 94 08/19/18 07:00 58 12 85/35 (52) 94 08/19/18 07:00 96/44 08/19/18 06:30 92.0 58 14 90/39 (56) 94 08/19/18 06:00 40 08/19/18 06:00 91.4 60 16 98/39 (58) 94 08/19/18 05:45 91.0 62 16 102/44 (63) 94 08/19/18 05:34 Mechanical Ventilator 08/19/18 05:30 91.0 62 16 114/67 (83) 94 08/19/18 05:15 91.0 65 16 108/43 (64) 94 08/19/18 05:00 65 16 107/45 (65) 94 08/19/18 04:53 63 13 40 08/19/18 04:45 64 16 108/45 (66) 93 08/19/18 04:30 65 08/19/18 04:30 90.4 64 16 104/46 (65) 95 08/19/18 04:30 40 08/19/18 04:25 89.4 72 12 118/48 99 Room Air 40 08/19/18 04:15 118/48 08/19/18 03:58 99/43 08/19/18 03:49 131/50 08/19/18 03:34 152/54 08/19/18 03:19 59/35 08/19/18 03:06 59/35 08/19/18 02:52 50 12 40 08/19/18 01:17 Room Air 08/19/18 01:17 32 Room Air 08/19/18 01:05 64 24 40 08/19/18 00:57 88.2 42 16 98 Mechanical Ventilator 40 Intake and Output 08/18/18 08/19/18 19:00 07:00 Intake Total 76.5 ml Output Total 220 ml Balance -143.5 ml Intake Oral 0 ml IV Total 76.5 ml Output Urine Total 220 ml Laboratory Tests Test 08/19/18 01:25 08/19/18 01:50 08/19/18 04:24 08/19/18 08:20 White Blood Count 8.2 K/UL (4.8-10.8) Red Blood Count 3.50 M/UL (4.70-6.10) L Hemoglobin 9.5 G/DL (14.2-18.0) L Hematocrit 31.0 % (42.0-52.0) L Mean Corpuscular Volume 89 FL (80-99) Mean Corpuscular Hemoglobin 27.2 PG (27.0-31.0) Mean Corpuscular Hemoglobin Concent 30.7 G/DL (32.0-36.0) L Red Cell Distribution Width 17.8 % (11.6-14.8) H Platelet Count 60 K/UL (150-450) L Mean Platelet Volume 14.9 FL (6.5-10.1) H Neutrophils (%) (Auto) % (45.0-75.0) Lymphocytes (%) (Auto) % (20.0-45.0) Monocytes (%) (Auto) % (1.0-10.0) Eosinophils (%) (Auto) % (0.0-3.0) Basophils (%) (Auto) % (0.0-2.0) Prothrombin Time 12.0 SEC (9.30-11.50) H Prothromb Time International Ratio 1.1 (0.9-1.1) Activated Partial Thromboplast Time 44 SEC (23-33) H Sodium Level 135 MMOL/L (136-145) L 138 MMOL/L (136-145) Potassium Level 6.4 MMOL/L (3.5-5.1) *H 6.1 MMOL/L (3.5-5.1) *H Chloride Level 101 MMOL/L (98-107) 106 MMOL/L (98-107) Carbon Dioxide Level 29 MMOL/L (21-32) 30 MMOL/L (21-32) Anion Gap 5 mmol/L (5-15) 3 mmol/L (5-15) L Blood Urea Nitrogen 41 mg/dL (7-18) H 38 mg/dL (7-18) H Creatinine 0.8 MG/DL (0.55-1.30) 0.8 MG/DL (0.55-1.30) Estimat Glomerular Filtration Rate > 60 mL/min (>60) > 60 mL/min (>60) Glucose Level 81 MG/DL (74-106) 48 MG/DL (74-106) L Lactic Acid Level 2.40 mmol/L (0.4-2.0) H 2.30 mmol/L (0.66-2.22) H Calcium Level 10.0 MG/DL (8.5-10.1) 10.5 MG/DL (8.5-10.1) H Phosphorus Level 2.4 MG/DL (2.5-4.9) L 2.2 MG/DL (2.5-4.9) L Magnesium Level 1.4 MG/DL (1.8-2.4) L 1.4 MG/DL (1.8-2.4) L Total Bilirubin 0.1 MG/DL (0.2-1.0) L 0.3 MG/DL (0.2-1.0) Aspartate Amino Transf (AST/SGOT) 58 U/L (15-37) H 60 U/L (15-37) H Alanine Aminotransferase (ALT/SGPT) 67 U/L (12-78) 65 U/L (12-78) Alkaline Phosphatase 116 U/L (46-116) 114 U/L (46-116) Total Creatine Kinase 61 U/L (26-308) 60 U/L (26-308) Creatine Kinase MB 11.3 NG/ML (0.0-3.6) H Creatine Kinase MB Relative Index 18.5 Troponin I 0.042 ng/mL (0.000-0.056) Pro-B-Type Natriuretic Peptide 83 pg/mL (0-125) Total Protein 7.5 G/DL (6.4-8.2) 7.4 G/DL (6.4-8.2) Albumin 2.1 G/DL (3.4-5.0) L 2.0 G/DL (3.4-5.0) L Globulin 5.4 g/dL 5.4 g/dL Albumin/Globulin Ratio 0.4 (1.0-2.7) L 0.4 (1.0-2.7) L Lipase 139 U/L (73-393) Thyroid Stimulating Hormone (TSH) 2.838 uiU/mL (0.358-3.740) Free Thyroxine 0.90 NG/DL (0.76-1.46) Urine Color Pale yellow Urine Appearance Cloudy Urine pH 5 (4.5-8.0) Urine Specific [place] 1.010 (1.005-1.035) Urine Protein 2+ (NEGATIVE) H Urine Glucose (UA) Negative (NEGATIVE) Urine Ketones Negative (NEGATIVE) Urine Blood 5+ (NEGATIVE) H Urine Nitrite Negative (NEGATIVE) Urine Bilirubin Negative (NEGATIVE) Urine Urobilinogen Normal MG/DL (0.0-1.0) Urine Leukocyte Esterase 3+ (NEGATIVE) H Urine RBC Tntc /HPF (0 - 0) H Urine WBC Tntc /HPF (0 - 0) H Urine Squamous Epithelial Cells None /LPF (NONE/OCC) Urine Bacteria Many /HPF (NONE) H Urine Yeast Many /HPF (NONE) H Urine Eosinophils None seen (NONE SEEN) Urine Random Creatinine Pending Urine Random Microalbumin Pending Urine Random Sodium < 20 mmol/L (20-110) L Urine Creatinine 41.2 MG/DL (30.0-125.0) Urine Microalbumin/Creatinine Ratio Pending Urine Potassium Timed 33 mmol/L (12-62) Uric Acid 3.9 MG/DL (2.6-7.2) Iron Level 153 ug/dL (50-175) Total Iron Binding Capacity 207 ug/dL (250-450) L Percent Iron Saturation 74 % (15-50) H Unsaturated Iron Binding 54 ug/dL (112-346) L Ferritin 284 NG/ML (8-388) Vitamin B12 Level > 2000 PG/ML (193-986) H Folate 17.7 NG/ML (8.6-58.9) Test 08/19/18 10:28 08/19/18 11:38 Sodium Level 140 MMOL/L (136-145) Potassium Level 6.2 MMOL/L (3.5-5.1) *H Chloride Level 107 MMOL/L (98-107) Carbon Dioxide Level 28 MMOL/L (21-32) Anion Gap 4 mmol/L (5-15) L Blood Urea Nitrogen 36 mg/dL (7-18) H Creatinine 0.8 MG/DL (0.55-1.30) Estimat Glomerular Filtration Rate > 60 mL/min (>60) Glucose Level 48 MG/DL (74-106) L Calcium Level 10.3 MG/DL (8.5-10.1) H White Blood Count 10.1 K/UL (4.8-10.8) Red Blood Count 3.31 M/UL (4.70-6.10) L Hemoglobin 8.9 G/DL (14.2-18.0) L Hematocrit 29.3 % (42.0-52.0) L Mean Corpuscular Volume 88 FL (80-99) Mean Corpuscular Hemoglobin 26.9 PG (27.0-31.0) L Mean Corpuscular Hemoglobin Concent 30.4 G/DL (32.0-36.0) L Red Cell Distribution Width 17.3 % (11.6-14.8) H Platelet Count 49 K/UL (150-450) L Mean Platelet Volume 11.4 FL (6.5-10.1) H Neutrophils (%) (Auto) % (45.0-75.0) Lymphocytes (%) (Auto) % (20.0-45.0) Monocytes (%) (Auto) % (1.0-10.0) Eosinophils (%) (Auto) % (0.0-3.0) Basophils (%) (Auto) % (0.0-2.0) Differential Total Cells Counted 100 Neutrophils % (Manual) 66 % (45-75) Lymphocytes % (Manual) 6 % (20-45) L Monocytes % (Manual) 1 % (1-10) Eosinophils % (Manual) 2 % (0-3) Basophils % (Manual) 0 % (0-2) Band Neutrophils 25 % (0-8) H Nucleated Red Blood Cells 3 /100 WBC Platelet Estimate Decreased L Platelet Morphology Normal Hypochromasia 2+ Anisocytosis 1+ Height (Feet): 5 Height (Inches): 11.00 Weight (Pounds): 248 Medications Current Medications Medications (Trade) Dose Ordered Sig/Fernanda Route PRN Reason Start Time Stop Time Status Last Admin Dose Admin Acetaminophen (Tylenol) 650 mg Q4H PRN ORAL FEVER 08/19/18 07:45 09/18/18 07:44 Albuterol/ Ipratropium (Albuterol/ Ipratropium) 3 ml Q4H PRN HHN Shortness of Breath 08/19/18 07:45 08/24/18 07:44 Dextrose (Dextrose 50%) 25 ml Q30M PRN IV Hypoglycemia 08/19/18 07:45 09/18/18 07:44 Dextrose (Dextrose 50%) 50 ml Q30M PRN IV Hypoglycemia 08/19/18 08:00 09/18/18 07:59 Dextrose/Sodium Chloride 1,000 ml @ 75 mls/hr [id number] IV 08/19/18 13:00 09/18/18 12:59 08/19/18 13:27 Dopamine HCl/ Dextrose 250 ml @ 0 mls/hr Q24H IV 08/19/18 12:30 09/18/18 12:29 08/19/18 12:36 Lactulose (Cephulac) 30 gm THREE TIMES A DAY GT 08/19/18 13:00 08/20/18 09:01 08/19/18 13:27 Lorazepam (Ativan 2mg/ml 1ml) 2 mg Q2H PRN IV For Anxiety 08/19/18 07:45 08/26/18 07:44 Magnesium Sulfate 100 ml @ 100 mls/hr Q1H IVPB 08/19/18 13:00 08/19/18 16:59 08/19/18 14:22 Morphine Sulfate (Morphine Sulfate) 4 mg Q4H PRN IVP Severe Pain (Pain Scale 7-10) 08/19/18 07:45 08/26/18 07:44 Ondansetron HCl (Zofran) 4 mg Q6H PRN IVP Nausea & Vomiting 08/19/18 07:45 09/18/18 07:44 Pantoprazole (Protonix) 40 mg Q12HR IV 08/19/18 21:00 09/18/18 08:59 Polyethylene Glycol (Miralax) 17 gm DAILYPRN PRN ORAL Constipation 08/19/18 07:45 09/18/18 07:44 Vancomycin HCl (Vanco rx to dose) 1 ea DAILY PRN MISC rx protocol 08/19/18 08:00 09/18/18 07:59 Vancomycin HCl 1.25 gm/Dextrose 275 ml @ 183.333 mls/hr Q8H IVPB 08/19/18 18:00 08/24/18 17:59 Assessment/Plan Assessment/Plan Hematology Consultation Chief Complaint: Dyspnea/Respdistress Source: EMS REQ MD: Susu Torres RFC: ANemia and Thrombocytopenia DOS: 08/19/18 HPI Patient sent to the emergency room with complaints of low oxygenation In route the paramedics reported bradycardia Patient himself is chronically debilitated has a tracheostomy and is vent dependent Not verbal history of present illness is significantly limited Unknown regarding vomiting or diarrhea The the oxygenation was reported to be fairly recent No obvious history of cough patient however did have recent hospitalization Heme, gi, renal, cards consulted for evaluation She is nonverbal at this time Coded Allergies: BENAZEPRIL (Verified Allergy, Unknown, 06/02/18) Limited by: medical condition Past Medical History: see triage record Pertinent Family History: none Reviewed Nursing Documentation: PMH: Agreed; PSxH: Agreed Hx Cardiac Problems: Yes Hx Hypertension: Yes 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, VRE Hx COPD: Yes Hx Cancer: No Hx Gastrointestinal Problems: No Hx Neurological Problems: Yes Hx Seizures: Yes Hx Traumatic Brain Injury: Yes Hx Weakness: Yes Hx Neurologic Surgery: No Hx Brain Shunt: No ROS: Limited given nonberba lVital Signs Date Time Temp Pulse Resp B/P (MAP) Pulse Ox O2 Delivery O2 Flow Rate FiO2 08/19/18 00:57 Room Air Labs Test 08/19/18 01:25 08/19/18 01:50 White Blood Count 8.2 K/UL (4.8-10.8) Red Blood Count 3.50 M/UL (4.70-6.10) Hemoglobin 9.5 G/DL (14.2-18.0) Hematocrit 31.0 % (42.0-52.0) Mean Corpuscular Volume 89 FL (80-99) Mean Corpuscular Hemoglobin 27.2 PG (27.0-31.0) Mean Corpuscular Hemoglobin Concent 30.7 G/DL (32.0-36.0) Red Cell Distribution Width 17.8 % (11.6-14.8) Platelet Count 60 K/UL (150-450) Mean Platelet Volume 14.9 FL (6.5-10.1) Neutrophils (%) (Auto) % (45.0-75.0) Lymphocytes (%) (Auto) % (20.0-45.0) Monocytes (%) (Auto) % (1.0-10.0) Eosinophils (%) (Auto) % (0.0-3.0) Basophils (%) (Auto) % (0.0-2.0) Prothrombin Time 12.0 SEC (9.30-11.50) Prothromb Time International Ratio 1.1 (0.9-1.1) Activated Partial Thromboplast Time 44 SEC (23-33) Sodium Level 135 MMOL/L (136-145) Potassium Level 6.4 MMOL/L (3.5-5.1) Chloride Level 101 MMOL/L (98-107) Carbon Dioxide Level 29 MMOL/L (21-32) Anion Gap 5 mmol/L (5-15) Blood Urea Nitrogen 41 mg/dL (7-18) Creatinine 0.8 MG/DL (0.55-1.30) Estimat Glomerular Filtration Rate > 60 mL/min (>60) Glucose Level 81 MG/DL (74-106) Lactic Acid Level 2.40 mmol/L (0.4-2.0) Calcium Level 10.0 MG/DL (8.5-10.1) Phosphorus Level 2.4 MG/DL (2.5-4.9) Magnesium Level 1.4 MG/DL (1.8-2.4) Total Bilirubin 0.1 MG/DL (0.2-1.0) Aspartate Amino Transf (AST/SGOT) 58 U/L (15-37) Alanine Aminotransferase (ALT/SGPT) 67 U/L (12-78) Alkaline Phosphatase 116 U/L (46-116) Total Creatine Kinase 61 U/L (26-308) Creatine Kinase MB 11.3 NG/ML (0.0-3.6) Creatine Kinase MB Relative Index 18.5 Troponin I 0.042 ng/mL (0.000-0.056) Pro-B-Type Natriuretic Peptide 83 pg/mL (0-125) Total Protein 7.5 G/DL (6.4-8.2) Albumin 2.1 G/DL (3.4-5.0) Globulin 5.4 g/dL Albumin/Globulin Ratio 0.4 (1.0-2.7) Lipase 139 U/L (73-393) Thyroid Stimulating Hormone (TSH) 2.838 uiU/mL (0.358-3.740) Free Thyroxine 0.90 NG/DL (0.76-1.46) Urine Color Pale yellow Urine Appearance Cloudy Urine pH 5 (4.5-8.0) Urine Specific [place] 1.010 (1.005-1.035) Urine Protein 2+ (NEGATIVE) Urine Glucose (UA) Negative (NEGATIVE) Urine Ketones Negative (NEGATIVE) Urine Blood 5+ (NEGATIVE) Urine Nitrite Negative (NEGATIVE) Urine Bilirubin Negative (NEGATIVE) Urine Urobilinogen Normal MG/DL (0.0-1.0) Urine Leukocyte Esterase 3+ (NEGATIVE) Urine RBC Tntc /HPF (0 - 0) Urine WBC Tntc /HPF (0 - 0) Urine Squamous Epithelial Cells None /LPF (NONE/OCC) Urine Bacteria Many /HPF (NONE) Urine Yeast Many /HPF (NONE) Ass/Recommendations: # Thrombocytopenia - potential causes multifactorial, evaluate liver and viral etiologies to begin, also could be related to underlying medications patient has received. --> Hep panel and HIV ordered --> US abd to evaluate for cirrhosis and hsm ordered --> Peripheral smear ordered to evaluate for blasts /schistocytes --> abx and other meds have been reviewed --> ok for ppx if plt >50k w/ either heparin or lovenox --> Transfuse if Plt < 20k and fever, or if Plt < 10k without fever # Anemia of chronic disease due to underlying chronic medical issues, multifactorial --> Anemia workup has been ordered --> No evidence of hemolysis is noted, peripheral smear has been reviewed. --> Hgb goal >7. Transfuse prn. --> Epogen or iron at this time is not particularly indicated --> Medications have been reviewed --> evaluate with Gi team prn # Sepsis with uti and potentially pna --> on abx as per id # REspiratory failure s/p trach --> on vent per pulm/cc # Dysphagia s/p peg tube --> feds per gi started # Hyperkalemia # Dexter -- per cards eval, appreciated The timing of this note does not necessarily reflect the time of the patient was seen. Greatly appreciate consultation! Bubba Colón MD Aug 19, 2018 14:57
--- NOTE | 2018-08-19 15:08 | Cardiac Electrophysiology PN ---
Subjective Subjective [id number] Objective Last 24 Hour Vital Signs Date Time Temp Pulse Resp B/P (MAP) Pulse Ox O2 Delivery O2 Flow Rate FiO2 08/19/18 14:47 86 18 35 08/19/18 12:55 107 20 35 08/19/18 12:36 106/52 08/19/18 12:00 Mechanical Ventilator 08/19/18 12:00 35 08/19/18 12:00 108 08/19/18 12:00 106/52 08/19/18 10:44 101 17 103/46 (65) 93 08/19/18 10:42 87 24 35 08/19/18 10:40 85 23 77/37 (50) 89 08/19/18 10:35 82 19 56/34 (41) 89 08/19/18 10:30 86 18 61/32 (42) 92 08/19/18 10:15 103 16 92/47 (62) 93 08/19/18 10:04 98 17 96/50 (65) 93 08/19/18 10:00 96 20 88/44 (59) 93 08/19/18 10:00 96/50 08/19/18 09:45 93 15 94/40 (58) 92 08/19/18 09:30 92 15 92/45 (61) 92 08/19/18 09:15 92 19 90/49 (63) 92 08/19/18 09:01 108/49 08/19/18 09:00 94 15 35 08/19/18 09:00 95 12 91/46 (61) 95 08/19/18 08:45 106 18 108/49 (68) 93 08/19/18 08:30 104 16 125/56 (79) 93 08/19/18 08:15 107 18 132/58 (82) 94 08/19/18 08:00 Mechanical Ventilator 08/19/18 08:00 35 08/19/18 08:00 94.4 102 18 132/72 (92) 94 08/19/18 08:00 103 08/19/18 08:00 132/72 08/19/18 07:45 104 18 133/54 (80) 95 08/19/18 07:44 35 08/19/18 07:30 103 16 141/52 (81) 96 08/19/18 07:18 96 12 40 08/19/18 07:15 96 14 172/56 (94) 96 08/19/18 07:02 57 12 96/44 (61) 94 08/19/18 07:00 58 12 85/35 (52) 94 08/19/18 07:00 96/44 08/19/18 06:30 92.0 58 14 90/39 (56) 94 08/19/18 06:00 40 08/19/18 06:00 91.4 60 16 98/39 (58) 94 08/19/18 05:45 91.0 62 16 102/44 (63) 94 08/19/18 05:34 Mechanical Ventilator 08/19/18 05:30 91.0 62 16 114/67 (83) 94 08/19/18 05:15 91.0 65 16 108/43 (64) 94 08/19/18 05:00 65 16 107/45 (65) 94 08/19/18 04:53 63 13 40 08/19/18 04:45 64 16 108/45 (66) 93 08/19/18 04:30 65 08/19/18 04:30 90.4 64 16 104/46 (65) 95 08/19/18 04:30 40 08/19/18 04:25 89.4 72 12 118/48 99 Room Air 40 08/19/18 04:15 118/48 08/19/18 03:58 99/43 08/19/18 03:49 131/50 08/19/18 03:34 152/54 08/19/18 03:19 59/35 08/19/18 03:06 59/35 08/19/18 02:52 50 12 40 08/19/18 01:17 Room Air 08/19/18 01:17 32 Room Air 08/19/18 01:05 64 24 40 08/19/18 00:57 88.2 42 16 98 Mechanical Ventilator 40 Intake and Output 08/18/18 08/19/18 19:00 07:00 Intake Total 76.5 ml Output Total 220 ml Balance -143.5 ml Intake Oral 0 ml IV Total 76.5 ml Output Urine Total 220 ml Laboratory Tests Test 08/19/18 01:25 08/19/18 01:50 08/19/18 04:24 08/19/18 08:20 White Blood Count 8.2 K/UL (4.8-10.8) Red Blood Count 3.50 M/UL (4.70-6.10) L Hemoglobin 9.5 G/DL (14.2-18.0) L Hematocrit 31.0 % (42.0-52.0) L Mean Corpuscular Volume 89 FL (80-99) Mean Corpuscular Hemoglobin 27.2 PG (27.0-31.0) Mean Corpuscular Hemoglobin Concent 30.7 G/DL (32.0-36.0) L Red Cell Distribution Width 17.8 % (11.6-14.8) H Platelet Count 60 K/UL (150-450) L Mean Platelet Volume 14.9 FL (6.5-10.1) H Neutrophils (%) (Auto) % (45.0-75.0) Lymphocytes (%) (Auto) % (20.0-45.0) Monocytes (%) (Auto) % (1.0-10.0) Eosinophils (%) (Auto) % (0.0-3.0) Basophils (%) (Auto) % (0.0-2.0) Prothrombin Time 12.0 SEC (9.30-11.50) H Prothromb Time International Ratio 1.1 (0.9-1.1) Activated Partial Thromboplast Time 44 SEC (23-33) H Sodium Level 135 MMOL/L (136-145) L 138 MMOL/L (136-145) Potassium Level 6.4 MMOL/L (3.5-5.1) *H 6.1 MMOL/L (3.5-5.1) *H Chloride Level 101 MMOL/L (98-107) 106 MMOL/L (98-107) Carbon Dioxide Level 29 MMOL/L (21-32) 30 MMOL/L (21-32) Anion Gap 5 mmol/L (5-15) 3 mmol/L (5-15) L Blood Urea Nitrogen 41 mg/dL (7-18) H 38 mg/dL (7-18) H Creatinine 0.8 MG/DL (0.55-1.30) 0.8 MG/DL (0.55-1.30) Estimat Glomerular Filtration Rate > 60 mL/min (>60) > 60 mL/min (>60) Glucose Level 81 MG/DL (74-106) 48 MG/DL (74-106) L Lactic Acid Level 2.40 mmol/L (0.4-2.0) H 2.30 mmol/L (0.66-2.22) H Calcium Level 10.0 MG/DL (8.5-10.1) 10.5 MG/DL (8.5-10.1) H Phosphorus Level 2.4 MG/DL (2.5-4.9) L 2.2 MG/DL (2.5-4.9) L Magnesium Level 1.4 MG/DL (1.8-2.4) L 1.4 MG/DL (1.8-2.4) L Total Bilirubin 0.1 MG/DL (0.2-1.0) L 0.3 MG/DL (0.2-1.0) Aspartate Amino Transf (AST/SGOT) 58 U/L (15-37) H 60 U/L (15-37) H Alanine Aminotransferase (ALT/SGPT) 67 U/L (12-78) 65 U/L (12-78) Alkaline Phosphatase 116 U/L (46-116) 114 U/L (46-116) Total Creatine Kinase 61 U/L (26-308) 60 U/L (26-308) Creatine Kinase MB 11.3 NG/ML (0.0-3.6) H Creatine Kinase MB Relative Index 18.5 Troponin I 0.042 ng/mL (0.000-0.056) Pro-B-Type Natriuretic Peptide 83 pg/mL (0-125) Total Protein 7.5 G/DL (6.4-8.2) 7.4 G/DL (6.4-8.2) Albumin 2.1 G/DL (3.4-5.0) L 2.0 G/DL (3.4-5.0) L Globulin 5.4 g/dL 5.4 g/dL Albumin/Globulin Ratio 0.4 (1.0-2.7) L 0.4 (1.0-2.7) L Lipase 139 U/L (73-393) Thyroid Stimulating Hormone (TSH) 2.838 uiU/mL (0.358-3.740) Free Thyroxine 0.90 NG/DL (0.76-1.46) Urine Color Pale yellow Urine Appearance Cloudy Urine pH 5 (4.5-8.0) Urine Specific [place] 1.010 (1.005-1.035) Urine Protein 2+ (NEGATIVE) H Urine Glucose (UA) Negative (NEGATIVE) Urine Ketones Negative (NEGATIVE) Urine Blood 5+ (NEGATIVE) H Urine Nitrite Negative (NEGATIVE) Urine Bilirubin Negative (NEGATIVE) Urine Urobilinogen Normal MG/DL (0.0-1.0) Urine Leukocyte Esterase 3+ (NEGATIVE) H Urine RBC Tntc /HPF (0 - 0) H Urine WBC Tntc /HPF (0 - 0) H Urine Squamous Epithelial Cells None /LPF (NONE/OCC) Urine Bacteria Many /HPF (NONE) H Urine Yeast Many /HPF (NONE) H Urine Eosinophils None seen (NONE SEEN) Urine Random Creatinine Pending Urine Random Microalbumin Pending Urine Random Sodium < 20 mmol/L (20-110) L Urine Creatinine 41.2 MG/DL (30.0-125.0) Urine Microalbumin/Creatinine Ratio Pending Urine Potassium Timed 33 mmol/L (12-62) Uric Acid 3.9 MG/DL (2.6-7.2) Iron Level 153 ug/dL (50-175) Total Iron Binding Capacity 207 ug/dL (250-450) L Percent Iron Saturation 74 % (15-50) H Unsaturated Iron Binding 54 ug/dL (112-346) L Ferritin 284 NG/ML (8-388) Vitamin B12 Level > 2000 PG/ML (193-986) H Folate 17.7 NG/ML (8.6-58.9) Test 08/19/18 10:28 08/19/18 11:38 Sodium Level 140 MMOL/L (136-145) Potassium Level 6.2 MMOL/L (3.5-5.1) *H Chloride Level 107 MMOL/L (98-107) Carbon Dioxide Level 28 MMOL/L (21-32) Anion Gap 4 mmol/L (5-15) L Blood Urea Nitrogen 36 mg/dL (7-18) H Creatinine 0.8 MG/DL (0.55-1.30) Estimat Glomerular Filtration Rate > 60 mL/min (>60) Glucose Level 48 MG/DL (74-106) L Calcium Level 10.3 MG/DL (8.5-10.1) H White Blood Count 10.1 K/UL (4.8-10.8) Red Blood Count 3.31 M/UL (4.70-6.10) L Hemoglobin 8.9 G/DL (14.2-18.0) L Hematocrit 29.3 % (42.0-52.0) L Mean Corpuscular Volume 88 FL (80-99) Mean Corpuscular Hemoglobin 26.9 PG (27.0-31.0) L Mean Corpuscular Hemoglobin Concent 30.4 G/DL (32.0-36.0) L Red Cell Distribution Width 17.3 % (11.6-14.8) H Platelet Count 49 K/UL (150-450) L Mean Platelet Volume 11.4 FL (6.5-10.1) H Neutrophils (%) (Auto) % (45.0-75.0) Lymphocytes (%) (Auto) % (20.0-45.0) Monocytes (%) (Auto) % (1.0-10.0) Eosinophils (%) (Auto) % (0.0-3.0) Basophils (%) (Auto) % (0.0-2.0) Differential Total Cells Counted 100 Neutrophils % (Manual) 66 % (45-75) Lymphocytes % (Manual) 6 % (20-45) L Monocytes % (Manual) 1 % (1-10) Eosinophils % (Manual) 2 % (0-3) Basophils % (Manual) 0 % (0-2) Band Neutrophils 25 % (0-8) H Nucleated Red Blood Cells 3 /100 WBC Platelet Estimate Decreased L Platelet Morphology Normal Hypochromasia 2+ Anisocytosis 1+ Minor Liz MD Aug 19, 2018 15:08
--- NOTE | 2018-08-19 15:39 | Consultation ---
History of Present Illness General Date patient seen: Aug 19, 2018 Chief Complaint: Dyspnea/Respdistress Referring physician: SUSANA ROSARIO Reason for Consultation: ANEMIA Present Illness HPI 63 y/o M with hx of HTN, seizure disorder, TBI c/w vegetative state, s/p GT, chronic resp failure vent/trach dependant presents to ED on 08/19 with hypoxia, bradycardia. Upon admission patient was found to have hypothermia, hyperkalemia and bradycardia. No reported diarrhea, nausea or vomiting. Allergies: Coded Allergies: BENAZEPRIL (Verified Allergy, Unknown, 06/02/18) Medication History Scheduled Albuterol Sulfate* (Albuterol Sulfate Hhn*), 3 ML INH Q6H, (Reported) Amino Acids/Protein Hydrolys (Pro-Stat Liquid), 30 ML GT THREE TIMES A DAY, ( Reported) Atorvastatin Calcium* (Atorvastatin Calcium*), 10 MG GT BEDTIME, (Reported) Chlorhexidine Gluconate (Peridex), 15 ML PO BID, (Reported) Cran/Vitc/Mannose/Inulin/Brom (Uti-Stat Liquid), 3,875 MG GT BID, (Reported) Docusate Sodium* (Colace*), 100 MG GT BID, (Reported) Ferrous Sulfate (Ferrous Sulfate), 330 MG GT DAILY, (Reported) Hydralazine Hcl* (Hydralazine Hcl*), 50 MG GT EVERY 8 HOURS, (Reported) Lansoprazole* (Lansoprazole*), 30 MG GT DAILY, (Reported) Metoprolol Tartrate* (Metoprolol Tartrate*), 50 MG GT EVERY 12 HOURS, (Reported) Vitamin D (Vitamin D3), 5,000 UNITS GT DAILY, (Reported) Warfarin Sod* (Coumadin*), 4 MG GT DAILY, (Reported) Scheduled PRN Acetaminophen (Tylenol), 650 MG ORAL Q4HR PRN for fever/mild-mod pain, (Reported ) Albuterol Sulfate* (Albuterol Sulfate Hhn*), 3 ML INH Q3HR PRN for Shortness of Breath, (Reported) Clonidine Hcl* (Catapres*), 0.1 MG GT Q4HR PRN for BP >175, (Reported) Polyethylene Glycol 3350* (Miralax*), 17 GM GT DAILY PRN for Constipation, ( Reported) Patient History Healthcare decision maker Dorys guidry Resuscitation status Full Code Advanced Directive on File No Patient History Narrative Pmhx: as above Shx: reviewed Fhx: non contributory Review of Systems All Other Systems: negative except mentioned in HPI Physical Exam Physical Exam Narrative General Appearance: WD/WN Lines, tubes and drains: trach, gtube HEENT: normocephalic Neck: non-tender, normal alignment Respiratory/Chest: rhonchi - left, rhonchi - right Cardiovascular/Chest: normal peripheral pulses, normal rate Abdomen: normal bowel sounds, non tender Genitourinary/Rectal: normal genital exam Extremities: normal range of motion Skin Exam: normal pigmentation Last 24 Hour Vital Signs Date Time Temp Pulse Resp B/P (MAP) Pulse Ox O2 Delivery O2 Flow Rate FiO2 08/19/18 14:47 86 18 35 08/19/18 12:55 107 20 35 08/19/18 12:36 106/52 08/19/18 12:00 Mechanical Ventilator 08/19/18 12:00 35 08/19/18 12:00 108 08/19/18 12:00 106/52 08/19/18 10:44 101 17 103/46 (65) 93 08/19/18 10:42 87 24 35 08/19/18 10:40 85 23 77/37 (50) 89 08/19/18 10:35 82 19 56/34 (41) 89 08/19/18 10:30 86 18 61/32 (42) 92 08/19/18 10:15 103 16 92/47 (62) 93 08/19/18 10:04 98 17 96/50 (65) 93 08/19/18 10:00 96 20 88/44 (59) 93 08/19/18 10:00 96/50 08/19/18 09:45 93 15 94/40 (58) 92 08/19/18 09:30 92 15 92/45 (61) 92 08/19/18 09:15 92 19 90/49 (63) 92 08/19/18 09:01 108/49 08/19/18 09:00 94 15 35 08/19/18 09:00 95 12 91/46 (61) 95 08/19/18 08:45 106 18 108/49 (68) 93 08/19/18 08:30 104 16 125/56 (79) 93 08/19/18 08:15 107 18 132/58 (82) 94 08/19/18 08:00 Mechanical Ventilator 08/19/18 08:00 35 08/19/18 08:00 94.4 102 18 132/72 (92) 94 08/19/18 08:00 103 08/19/18 08:00 132/72 08/19/18 07:45 104 18 133/54 (80) 95 08/19/18 07:44 35 08/19/18 07:30 103 16 141/52 (81) 96 08/19/18 07:18 96 12 40 08/19/18 07:15 96 14 172/56 (94) 96 08/19/18 07:02 57 12 96/44 (61) 94 08/19/18 07:00 58 12 85/35 (52) 94 08/19/18 07:00 96/44 08/19/18 06:30 92.0 58 14 90/39 (56) 94 08/19/18 06:00 40 08/19/18 06:00 91.4 60 16 98/39 (58) 94 08/19/18 05:45 91.0 62 16 102/44 (63) 94 08/19/18 05:34 Mechanical Ventilator 08/19/18 05:30 91.0 62 16 114/67 (83) 94 08/19/18 05:15 91.0 65 16 108/43 (64) 94 08/19/18 05:00 65 16 107/45 (65) 94 08/19/18 04:53 63 13 40 08/19/18 04:45 64 16 108/45 (66) 93 08/19/18 04:30 65 08/19/18 04:30 90.4 64 16 104/46 (65) 95 08/19/18 04:30 40 08/19/18 04:25 89.4 72 12 118/48 99 Room Air 40 08/19/18 04:15 118/48 08/19/18 03:58 99/43 08/19/18 03:49 131/50 08/19/18 03:34 152/54 08/19/18 03:19 59/35 08/19/18 03:06 59/35 08/19/18 02:52 50 12 40 08/19/18 01:17 Room Air 08/19/18 01:17 32 Room Air 08/19/18 01:05 64 24 40 08/19/18 00:57 88.2 42 16 98 Mechanical Ventilator 40 Intake and Output 08/18/18 08/19/18 19:00 07:00 Intake Total 76.5 ml Output Total 220 ml Balance -143.5 ml Intake Oral 0 ml IV Total 76.5 ml Output Urine Total 220 ml Laboratory Tests Test 08/19/18 01:25 08/19/18 01:50 08/19/18 04:24 08/19/18 08:20 White Blood Count 8.2 K/UL (4.8-10.8) Red Blood Count 3.50 M/UL (4.70-6.10) L Hemoglobin 9.5 G/DL (14.2-18.0) L Hematocrit 31.0 % (42.0-52.0) L Mean Corpuscular Volume 89 FL (80-99) Mean Corpuscular Hemoglobin 27.2 PG (27.0-31.0) Mean Corpuscular Hemoglobin Concent 30.7 G/DL (32.0-36.0) L Red Cell Distribution Width 17.8 % (11.6-14.8) H Platelet Count 60 K/UL (150-450) L Mean Platelet Volume 14.9 FL (6.5-10.1) H Neutrophils (%) (Auto) % (45.0-75.0) Lymphocytes (%) (Auto) % (20.0-45.0) Monocytes (%) (Auto) % (1.0-10.0) Eosinophils (%) (Auto) % (0.0-3.0) Basophils (%) (Auto) % (0.0-2.0) Prothrombin Time 12.0 SEC (9.30-11.50) H Prothromb Time International Ratio 1.1 (0.9-1.1) Activated Partial Thromboplast Time 44 SEC (23-33) H Sodium Level 135 MMOL/L (136-145) L 138 MMOL/L (136-145) Potassium Level 6.4 MMOL/L (3.5-5.1) *H 6.1 MMOL/L (3.5-5.1) *H Chloride Level 101 MMOL/L (98-107) 106 MMOL/L (98-107) Carbon Dioxide Level 29 MMOL/L (21-32) 30 MMOL/L (21-32) Anion Gap 5 mmol/L (5-15) 3 mmol/L (5-15) L Blood Urea Nitrogen 41 mg/dL (7-18) H 38 mg/dL (7-18) H Creatinine 0.8 MG/DL (0.55-1.30) 0.8 MG/DL (0.55-1.30) Estimat Glomerular Filtration Rate > 60 mL/min (>60) > 60 mL/min (>60) Glucose Level 81 MG/DL (74-106) 48 MG/DL (74-106) L Lactic Acid Level 2.40 mmol/L (0.4-2.0) H 2.30 mmol/L (0.66-2.22) H Calcium Level 10.0 MG/DL (8.5-10.1) 10.5 MG/DL (8.5-10.1) H Phosphorus Level 2.4 MG/DL (2.5-4.9) L 2.2 MG/DL (2.5-4.9) L Magnesium Level 1.4 MG/DL (1.8-2.4) L 1.4 MG/DL (1.8-2.4) L Total Bilirubin 0.1 MG/DL (0.2-1.0) L 0.3 MG/DL (0.2-1.0) Aspartate Amino Transf (AST/SGOT) 58 U/L (15-37) H 60 U/L (15-37) H Alanine Aminotransferase (ALT/SGPT) 67 U/L (12-78) 65 U/L (12-78) Alkaline Phosphatase 116 U/L (46-116) 114 U/L (46-116) Total Creatine Kinase 61 U/L (26-308) 60 U/L (26-308) Creatine Kinase MB 11.3 NG/ML (0.0-3.6) H Creatine Kinase MB Relative Index 18.5 Troponin I 0.042 ng/mL (0.000-0.056) Pro-B-Type Natriuretic Peptide 83 pg/mL (0-125) Total Protein 7.5 G/DL (6.4-8.2) 7.4 G/DL (6.4-8.2) Albumin 2.1 G/DL (3.4-5.0) L 2.0 G/DL (3.4-5.0) L Globulin 5.4 g/dL 5.4 g/dL Albumin/Globulin Ratio 0.4 (1.0-2.7) L 0.4 (1.0-2.7) L Lipase 139 U/L (73-393) Thyroid Stimulating Hormone (TSH) 2.838 uiU/mL (0.358-3.740) Free Thyroxine 0.90 NG/DL (0.76-1.46) Urine Color Pale yellow Urine Appearance Cloudy Urine pH 5 (4.5-8.0) Urine Specific [place] 1.010 (1.005-1.035) Urine Protein 2+ (NEGATIVE) H Urine Glucose (UA) Negative (NEGATIVE) Urine Ketones Negative (NEGATIVE) Urine Blood 5+ (NEGATIVE) H Urine Nitrite Negative (NEGATIVE) Urine Bilirubin Negative (NEGATIVE) Urine Urobilinogen Normal MG/DL (0.0-1.0) Urine Leukocyte Esterase 3+ (NEGATIVE) H Urine RBC Tntc /HPF (0 - 0) H Urine WBC Tntc /HPF (0 - 0) H Urine Squamous Epithelial Cells None /LPF (NONE/OCC) Urine Bacteria Many /HPF (NONE) H Urine Yeast Many /HPF (NONE) H Urine Eosinophils None seen (NONE SEEN) Urine Random Creatinine Pending Urine Random Microalbumin Pending Urine Random Sodium < 20 mmol/L (20-110) L Urine Creatinine 41.2 MG/DL (30.0-125.0) Urine Microalbumin/Creatinine Ratio Pending Urine Potassium Timed 33 mmol/L (12-62) Uric Acid 3.9 MG/DL (2.6-7.2) Iron Level 153 ug/dL (50-175) Total Iron Binding Capacity 207 ug/dL (250-450) L Percent Iron Saturation 74 % (15-50) H Unsaturated Iron Binding 54 ug/dL (112-346) L Ferritin 284 NG/ML (8-388) Vitamin B12 Level > 2000 PG/ML (193-986) H Folate 17.7 NG/ML (8.6-58.9) Test 08/19/18 10:28 08/19/18 11:38 Sodium Level 140 MMOL/L (136-145) Potassium Level 6.2 MMOL/L (3.5-5.1) *H Chloride Level 107 MMOL/L (98-107) Carbon Dioxide Level 28 MMOL/L (21-32) Anion Gap 4 mmol/L (5-15) L Blood Urea Nitrogen 36 mg/dL (7-18) H Creatinine 0.8 MG/DL (0.55-1.30) Estimat Glomerular Filtration Rate > 60 mL/min (>60) Glucose Level 48 MG/DL (74-106) L Calcium Level 10.3 MG/DL (8.5-10.1) H White Blood Count 10.1 K/UL (4.8-10.8) Red Blood Count 3.31 M/UL (4.70-6.10) L Hemoglobin 8.9 G/DL (14.2-18.0) L Hematocrit 29.3 % (42.0-52.0) L Mean Corpuscular Volume 88 FL (80-99) Mean Corpuscular Hemoglobin 26.9 PG (27.0-31.0) L Mean Corpuscular Hemoglobin Concent 30.4 G/DL (32.0-36.0) L Red Cell Distribution Width 17.3 % (11.6-14.8) H Platelet Count 49 K/UL (150-450) L Mean Platelet Volume 11.4 FL (6.5-10.1) H Neutrophils (%) (Auto) % (45.0-75.0) Lymphocytes (%) (Auto) % (20.0-45.0) Monocytes (%) (Auto) % (1.0-10.0) Eosinophils (%) (Auto) % (0.0-3.0) Basophils (%) (Auto) % (0.0-2.0) Differential Total Cells Counted 100 Neutrophils % (Manual) 66 % (45-75) Lymphocytes % (Manual) 6 % (20-45) L Monocytes % (Manual) 1 % (1-10) Eosinophils % (Manual) 2 % (0-3) Basophils % (Manual) 0 % (0-2) Band Neutrophils 25 % (0-8) H Nucleated Red Blood Cells 3 /100 WBC Platelet Estimate Decreased L Platelet Morphology Normal Hypochromasia 2+ Anisocytosis 1+ Height (Feet): 5 Height (Inches): 11.00 Weight (Pounds): 248 Medications Current Medications Medications (Trade) Dose Ordered Sig/Fernanda Route PRN Reason Start Time Stop Time Status Last Admin Dose Admin Acetaminophen (Tylenol) 650 mg Q4H PRN ORAL FEVER 08/19/18 07:45 09/18/18 07:44 Albuterol/ Ipratropium (Albuterol/ Ipratropium) 3 ml Q4H PRN HHN Shortness of Breath 08/19/18 07:45 08/24/18 07:44 Dextrose (Dextrose 50%) 25 ml Q30M PRN IV Hypoglycemia 08/19/18 07:45 09/18/18 07:44 Dextrose (Dextrose 50%) 50 ml Q30M PRN IV Hypoglycemia 08/19/18 08:00 09/18/18 07:59 Dextrose/Sodium Chloride 1,000 ml @ 75 mls/hr [id number] IV 08/19/18 13:00 09/18/18 12:59 08/19/18 13:27 Dopamine HCl/ Dextrose 250 ml @ 0 mls/hr Q24H IV 08/19/18 12:30 09/18/18 12:29 08/19/18 12:36 Lactulose (Cephulac) 30 gm THREE TIMES A DAY GT 08/19/18 13:00 08/20/18 09:01 08/19/18 13:27 Lorazepam (Ativan 2mg/ml 1ml) 2 mg Q2H PRN IV For Anxiety 08/19/18 07:45 08/26/18 07:44 Magnesium Sulfate 100 ml @ 100 mls/hr Q1H IVPB 08/19/18 13:00 08/19/18 16:59 08/19/18 14:22 Morphine Sulfate (Morphine Sulfate) 4 mg Q4H PRN IVP Severe Pain (Pain Scale 7-10) 08/19/18 07:45 08/26/18 07:44 Norepinephrine Bitartrate 4 mg/ Dextrose 250 ml @ 0 mls/hr Q24H PRN IV To Patient Comfort 08/19/18 15:05 09/18/18 15:04 Ondansetron HCl (Zofran) 4 mg Q6H PRN IVP Nausea & Vomiting 08/19/18 07:45 09/18/18 07:44 Pantoprazole (Protonix) 40 mg Q12HR IV 08/19/18 21:00 09/18/18 08:59 Polyethylene Glycol (Miralax) 17 gm DAILYPRN PRN ORAL Constipation 08/19/18 07:45 09/18/18 07:44 Sodium Chloride 1,000 ml @ 999 mls/hr Q1H1M ONCE IV 08/19/18 15:15 08/19/18 16:15 Vancomycin HCl (Vanco rx to dose) 1 ea DAILY PRN MISC rx protocol 08/19/18 08:00 09/18/18 07:59 Vancomycin HCl 1.25 gm/Dextrose 275 ml @ 183.333 mls/hr Q8H IVPB 08/19/18 18:00 08/24/18 17:59 Assessment/Plan Assessment/Plan Abx: Zosyn x1 08/19 IV Vancomycin 08/19- Assessment: Septic shock- likely 2ry to UTI- r/o bacteremia -u/a wbc tnct, nit neg, leuk +3; ucx p -Bcx p -sp cx p -CXR p Hypothermia/Bradycardia - improving No leukocytosis Lactic acidosis; improving Hyperkalemia HTN seizure disorder TBI c/w vegetative state s/p GT chronic resp failure vent/trach dependant Plan: -Continue empiric IV Vancomycin and start Meropenem and Amikacin x1 pending cultures -f/u cx -Monitor CBC/CMP, temperatures -f/u CXR -Trach/peg care -ICU care Thank you for this consutaltion. Will continue to follow along with you. Discussed Pam Walker RN., M.D. Aug 19, 2018 15:39
[2018-08-19] MEDS ORDERED: Amikacin Rx to dose MISC ONE (15:45)
--- NOTE | 2018-08-19 15:59 | NUR ---
*-* INSURANCE *-* ALL CLINICALS AND REVIEW HAVE BEEN FAXED TO: [facility]....S/W KAYLA/VON DEPT STATED THAT ARIEL IS ON LEAVE AND LAURYN IS COVERING FOR ARIEL.. [facility]: LAURYN P- [phone] F- [phone]....
--- NOTE | 2018-08-19 16:43 | NUR ---
Social Service Note Patient is non-responsive, trach, vent and g-tube feedings. 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 POLST not completed in SNF by family. SW spoke with patient's sister Dorys Mcgill [phone] and niece Jaki Davenport [phone] and addressed treatment plan of care and code status. Family is in agreement that DNR would be appropriate and to continue with current treatment. Plan of care can be readdressed as needed. SW informed primary nurse to contact family to confirm change in code status. SW also notified Dr. Wright, Dr. Kothari and Dr. De La Cruz. Patient will continue to require alf subacute placement was stabilized. Will continue to monitor.
--- NOTE | 2018-08-19 16:51 | NUR ---
NURSE NOTES: Received call from Belinda top case assembler, family of patient Vani wants to have patient on DNR status. Left a message for number [phone] to verify information, awaiting call back.
--- NOTE | 2018-08-19 17:00 | NUR ---
NURSE NOTES: Patient provided with perineal care. Partial linens changed.
--- NOTE | 2018-08-19 17:30 | NUR ---
NURSE NOTES: Patient noted with drooling small, coffee ground looking. HOB elevated. Informed Lalo POST TENSIONING IRONWORKER HELPER, continue to monitor, patient on Protonix BID.
[2018-08-19] MEDS: Meropenem 1 GM in NS 55 ML IVPB SCH (17:51)
[2018-08-19] MEDS ORDERED: NS IV SCH (18:00)
[2018-08-19] MEDS ORDERED: AMIKACIN IV SCH (18:00)
[2018-08-19] MEDS ORDERED: D5 1/2NS 1000ml IV ONE (19:10)
[2018-08-19] MEDS ORDERED: Tubing IV Secondary IV ONE (19:10)
[2018-08-19] MEDS ORDERED: NS 500ML ONE (19:10)
--- NOTE | 2018-08-19 19:15 | Diagnostic Imaging Report ---
Indication: Chest pain Comparison: 06/06/2018 A single view chest radiograph was obtained. Findings: Consolidative opacities demonstrated within the lungs bilaterally patchy in distribution more pronounced in the left lung. The heart is enlarged. There is a tracheostomy present. IMPRESSION: Worsening bilateral infiltrates versus asymmetric pulmonary edema
--- NOTE | 2018-08-19 19:16 | Diagnostic Imaging Report ---
APPROVED REPORT CPT Code: 68864 Present Symptoms Comments: Screening Hx of a Line( CFV) RIGHT LEG: Venous imaging reveals a patent deep venous system. There is no evidence of thrombus within the mid superficial femoral, popliteal or tibial segments. The greater saphenous vein is also within normal limits. Doppler indicates normal spontaneous flow within these segments. The common and superficial femoral veins were not well visualized, due to a central line. LEFT LEG: Venous imaging reveals a patent deep venous system. There is no evidence of thrombus within the femoral, popliteal or tibial segments. The greater saphenous vein is also within normal limits. Doppler indicates normal spontaneous flow within these segments.
--- NOTE | 2018-08-19 19:17 | Cardiology Report ---
APPROVED REPORT EKG Measurement Heart [id number] Unusual P axis, possible ectopic atrial rhythm Left ventricular hypertrophy with repolarization abnormality Abnormal ECG
--- NOTE | 2018-08-19 19:30 | NUR ---
HAND-OFF: Report given to CIERRA iBll.
[2018-08-19] MEDS: Vancomycin 1.25mg/D5W 275ml IVPB SCH ×2 (19:40)
--- NOTE | 2018-08-19 20:00 | NUR ---
NURSE NOTES: Recvd.on a vent.TRACHE.See settings.Lungs Few scatt.RH.Diminished BS at bases.Suctioned tk.beige sec.NS Lavaged.P.Ox-95%.See V/S.Scope ST.Levo.and dopa.Drip in progress via TLC (R) Femo.TiT.to BPS>90.Pos.chg.Obtunded.F/Cath patent dumping Large amt.urine See I/O.
[2018-08-19] MEDS: Pantoprazole Inj IV SCH (20:24)
--- NOTE | 2018-08-19 22:10 | NUR ---
NURSE NOTES: Pos.chg.Suctioned.Neuro status same.See V/S.Cont.on Pressors drip.Scope rhythm same.Cont.to diuresis large amt.of urine.IV Thera.remain in progress.Cont.Plan of care.
[2018-08-20] VITALS (61 sets, daily range): BP systolic 53–133; BP diastolic 24–61
--- NOTE | 2018-08-20 00:10 | NUR ---
NURSE NOTES: Repositioned,Suctioned.See V/S.Pressors at same rate.Scope Rhythm same.Status same.
[2018-08-20] MEDS: DOPamine 400mg/250ml 250 ML IV SCH ×3 (00:29→08:15)
[2018-08-20] MEDS: Meropenem 1 GM in NS 55 ML IVPB SCH ×3 (00:35→17:39)
--- NOTE | 2018-08-20 01:45 | Consultation ---
DATE OF CONSULTATION: 08/19/2018 CARDIOLOGY CONSULTATION CONSULTING PHYSICIAN: Minor Liz M.D. REFERRING PHYSICIAN: Fly Wright M.D. REASON FOR CONSULTATION: Bradycardia in the 30s as well as hypotension. HISTORY OF PRESENT ILLNESS: The patient is a 63-year-old gentleman with history of organic brain syndrome, ventilator-dependent respiratory failure, dysphagia, and status post tracheostomy, on the ventilator as well as G-tube. He was sent to the emergency room for low saturation. The patient en route was found to be bradycardic with heart rate in the 30s. The patient was also hypothermic. The patient was transferred to intensive care unit. The patient's potassium was also elevated. Because of hypotension and bradycardia, the patient was started on dopamine drip. At the time of my evaluation, the patient is unresponsive with blood pressure in the 40s despite on dopamine. REVIEW OF SYSTEMS: Cannot be obtained. PAST MEDICAL HISTORY: 1. Ventilator-dependent respiratory failure. 2. Dysphagia, status post G-tube placement. 3. Chronic vegetative state. 4. COPD. 5. Dementia. 6. Status post tracheostomy. PHYSICAL EXAMINATION: VITAL SIGNS: Blood pressure is , pulse is 86, and respirations 18. HEAD AND NECK: Shows no JVD. Tracheostomy is in place. CARDIOVASCULAR: Regular S1 and S2 with no gallop or murmur. ABDOMEN: Status post G-tube. EXTREMITIES: 2+ pitting edema. LABORATORY DATA: White count of 10, hemoglobin 9.9, hematocrit of 29.3, and platelet count of 49,000. Sodium 140, potassium 6.2, BUN of 33, creatinine 0.8, and . Lactic acid 2.3. INR is 1.1. ASSESSMENT AND PLAN: 1. Septic shock. The patient is maxed out on dopamine and the blood pressure is still in the 40s. I will give a liter of normal saline and add Levophed to his medical regimen. The patient will be on broad-spectrum IV antibiotics. 2. Bradycardia. Heart rate in the 30s, could be due to hyperkalemia. The patient is already maxed out on dopamine. As an outpatient, the metoprolol has been discontinued. The echocardiogram is pending. 3. Ventilator-dependent respiratory failure, status post tracheostomy. 4. Dysphagia, status post PEG placement. 5. Organic brain syndrome. 6. Sepsis with elevated lactate, on pressors and IV antibiotics. As an outpatient, the patient was on Coumadin. The etiology is unclear at this point. Thank you very much, Dr. Wright, for allowing me to participate in the care of this patient. Please do not hesitate to contact me for any questions regarding my evaluation. Minor Liz M.D. DR: LITO JOB#: [id number] CC:
--- NOTE | 2018-08-20 02:00 | NUR ---
NURSE NOTES: Pos.chg.Suctioned.No Distress.Cont.Plan of care.
[2018-08-20] MEDS: Vancomycin 1.25mg/D5W 275ml IVPB SCH ×2 (02:09)
--- NOTE | 2018-08-20 02:45 | History and Physical Report ---
DATE OF ADMISSION: 08/19/[address] Fly Wright. This is Dr. Fly Wright's patient. HISTORY OF PRESENT ILLNESS: The patient was admitted to ICU. The patient apparently has history of chronic vegetative state. The patient currently is comatose and is admitted for symptomatic bradycardia. The patient is also being admitted for hyperkalemia, pneumonia, effusion, elevated LFT, pancytopenia, severe hypothermia, and bradycardia to ICU. Cannot obtain obviously history from the patient. Obtained from the chart. The patient has also been having rectal bleeding. Tongue is out. On 2 pressors and hypothermic and warming blanket as well at the ICU. PAST MEDICAL HISTORY: Significant for chronic vegetative state, hyperlipidemia, GERD, obesity, Alzheimer's, COPD, history of PVD, history of hypertension, history of CHF, history of CVA, history of seizures, and history of hyperlipidemia. PAST SURGICAL HISTORY: Multiple surgical scars, trach, and PEG. ALLERGIES: To benazepril. FAMILY HISTORY: Unable to obtain. SOCIAL HISTORY: Unable to obtain. REVIEW OF SYSTEMS: Unable to obtain. The patient is in chronic vegetative state. MEDICATIONS: Apparently, the patient is on Lipitor, clonidine, docusate, ferrous sulfate, hydralazine, Protonix, and vitamin D. PHYSICAL EXAMINATION: VITAL SIGNS: Pulse is 103, temperature could not be recorded, blood pressure is 127/45. GENERAL: The patient's pupils are very sluggish to light. The patient's tongue is sticking out. The patient position. CHEST: Bibasilar rhonchi. CARDIOVASCULAR: Irregular rate. GASTROINTESTINAL: Hypoactive bowel sounds, but is present. EXTREMITIES: Does have edema. SKIN/INTEGUMENTARY: Please refer the nurse's notes. The patient is in comatose state. LABORATORY DATA: WBC of 8.2, hemoglobin 9.5, and platelets of 60. Sodium 138, potassium 6.1, BUN of 38, creatinine 0.8, and glucose of 48. ASSESSMENT AND PLAN: 1. Comatose state. 2. Hyperkalemia. 3. Pneumonia. 4. Effusion. 5. Elevated LFT. 6. Pancytopenia. 7. Bradycardia. 8. Hypothermia. For pneumonia, effusion, hypokalemia, elevated LFTs, pancytopenia, bradycardia, hypothermia, and sepsis, I have asked basically for Dr. Morales, Dr. Liz, Dr. Brantley, Dr. Colón, Dr. Cotter, Dr. Kothari, and Dr. Hodges to see the patient for the above-mentioned diagnoses and treatment. The patient is in critical condition. Tanya Torres M.D. DR: DAT JOB#: [id number] CC:
--- NOTE | 2018-08-20 04:10 | NUR ---
NURSE NOTES: Chuckie Gu chg.Blood drawn for cbc/bnp/crp etc.spec.to lab.Place pt.on P-200 mattress.Gt-Feeding started.Water Flushed.Cont.to diuresis large amt.of urine.See I/O.See V/S.Levo.and dopa drip taper down to 15mcg.V/S cont.to monitored.
[2018-08-20] MEDS: D5 1/2NS 1,000 ML IV SCH (04:39)
[2018-08-20 05:11] LABS: HEMATOCRIT 28.3 % (42.0-52.0); HEMOGLOBIN 8.8 G/DL (14.2-18.0); MEAN CORPUSCULAR VOLUME 88 FL (80-99); PLATELET COUNT 70 K/UL (150-450); RED CELL DISTRIBUTION WIDTH 17.3 % (11.6-14.8); WHITE BLOOD COUNT 10.5 K/UL (4.8-10.8)
[2018-08-20 05:48] LABS: ALANINE AMINOTRANSFERASE 71 U/L (12-78); ALBUMIN/GLOBULIN RATIO 0.4 (1.0-2.7); ALKALINE PHOSPHATASE 129 U/L (46-116); ANION GAP 7 mmol/L (5-15); ASPARTATE AMINO TRANSFERASE 87 U/L (15-37); BILIRUBIN,TOTAL 0.5 MG/DL (0.2-1.0); BLOOD UREA NITROGEN 31 mg/dL (7-18); CALCIUM 9.3 MG/DL (8.5-10.1); CARBON DIOXIDE 25 MMOL/L (21-32); CHLORIDE 111 MMOL/L (98-107); CREATININE 1.3 MG/DL (0.55-1.30); POTASSIUM 5.8 MMOL/L (3.5-5.1); SODIUM 143 MMOL/L (136-145)
--- NOTE | 2018-08-20 06:00 | Consultation ---
DATE OF CONSULTATION: 08/19/2018 NOTE: POOR AUDIO NEUROLOGY CONSULTATION CONSULTING PHYSICIAN: Christian Hodges M.D. CHIEF COMPLAINT: This 63-year-old man with a history of "organic brain syndrome," vegetative state, G-tube, tracheostomy, and chronic ventilator who was sent to the emergency room because of low oxygenation. The paramedics noted some bradycardia. The patient could not give a history. The patient has a previous history of seizures and respiratory failure. 06/02/2018 with chief complaint of seizures. The patient infection at that time. The patient had tracheostomy. The patient had a CT scan of the brain infarction in the left frontoparietal region. He has a history of chronic encephalopathy noted on . The patient was discharged on , the patient's hemoglobin is normalized low indices. The platelet count was 60,000, later on today is 29,000. White count is 8200 on admission, later on . Hypochromasia neutrophils noted and lymphocytes. Chemistry revealed potassium of 6.1, BUN , creatinine of 0.8, calcium magnesium is 1.4. The AST was mildly elevated at 68 and albumin was 2. Vitamin B12 was normal. Urinalysis revealed many bacteria, +3 leukocyte esterase wbc's and rbc's. Specific gravity of 1.010. Urine protein is 2+ . Random urine . His PTT was elevated at 44, PT is 12. INR is 1.1. HIV antibodies were negative. The patient was seen by Dr. Garcia who felt he had chronic respiratory failure trach dependent. He was in septic shock. He was hypothermic and bradycardiac, but he is improving . The patient is placed on 1300 mg IV, IV q.24 h. today be given and Levophed drip started 80 mg IV q.24 h. He was given IV magnesium sulfate and started on meropenem 1 g q.8 h. and Zosyn 3.375 g IV piggyback one time. He was given fluids, vancomycin 1 g IV q.24 h., atropine mg IV given twice today, given furosemide 20 mg IV, lactulose 30 mg 3 times a day. The patient did have a duplex scan today of the lower extremities. The study was normal. The patient was seen by the corporate travel coordinator, Dr. Liz. . I was asked to see the patient in consultation . PAST MEDICAL HISTORY: Seizure disorder along with unavailable. ALLERGIES: Benazepril. PHYSICAL EXAMINATION: GENERAL: The patient is obese man, lying in bed, in the tracheostomy tube. Awake with eyes open and does not respond to voice or deep pain. VITAL SIGNS: Blood pressure 129/45, respirations 16, pulse rate 105, temperature is 98 degrees. HEENT: tongue protruding. NECK: Still in all four directions. Carotid arteries could not be felt and could not be auscultated. The patient had a tracheostomy tube in place. LUNGS: Breath sounds appeared to be decreased. cannot hear any . ABDOMEN: Obese. Bowel sounds are hyperactive organomegaly appreciated . EXTREMITIES: Peripheral pulses are +2 Large vertical scar is in the left upper extremity. He has +1 pitting edema of the lower extremities. MENTAL STATUS: voice. No . CRANIAL NERVE EXAMINATION: CRANIAL NERVE II: Visual roach and fundi were not visualized. CRANIAL NERVE III, IV, AND : There is some more in the left side than the right. The left eye The left pupil was about 5 mm, . The right pupil round. There was little to no light reaction bilaterally. CRANIAL NERVE VII: There is no reaction to stimulation of his left naris. No grimace. However, there was movement of the head to the right. Rest of the cranial nerves could not be tested and apparently there was no gag reflex. MUSCLE EXAMINATION: He had increased tone bilaterally, especially in the left side. There is no voluntary movement. Stimulation of the chest caused some extension of the right arm. Stimulation during Babinski response caused some triple flexion response in the right leg and it was minimal. Reflexes are 0 in the upper and lower extremities with upgoing toes on testing for Babinski response. SENSORY EXAMINATION: Little to no reaction to deep pain. IMPRESSION: This patient has vegetative state along with focal cortical and subcortical lesions. He had a recent stroke on the left side. There is also history of seizures, but apparently none on this admission. Obtain an EEG just to make sure he is on nonconvulsive status epilepticus. I tried to encephalopathy at this time because of his infection and oxygen desaturation, the cause of which is unclear and may be cardiac. Right now does not chest x-ray. PLAN: 1. EEG. 2. Consider to add anticonvulsive . 3. I will speak about this case. 4. . Christian Hodges MD DR: DAVID JOB#: [id number] CC: CEM
[2018-08-20 06:18] LABS: CREATINE KINASE 72 U/L (26-308); GAMMA GLUTAMYL TRANSPEPTIDASE 36 U/L (5-85)
--- NOTE | 2018-08-20 06:45 | NUR ---
RESPIRATORY NOTE: Received pt on current vent settings AC 14-600ml-50%- peep of 5. pt is trached with portex 7.[address]. Pt is tolerating the setting well. Titrated FiO2 down to 40%, RN notified. Jovan rhonchi diminished breath sounds heard upon auscultation, sxn large amount of thin/thick red specks/ brown and red secretions without incidents. Oral care done.pt is in no apparent resp distress at this time. Back up trach and ambu bag at bedside, alarms are on and audible, vent plugged into red outlet. Will cont to monitor pt.
--- NOTE | 2018-08-20 07:16 | NUR ---
NURSE NOTES: Received pt from CIER[facility] Bill. pt is obtunded, no response to deep pain or voice. Pupils are non-reactive and flaccid in all extremities. Pt has a trach to vent via Shiley 8.0, AC 14/TV 600/Fio2 40%/PEEP+5. Spo2 100%, RR 16. Rhonchi heard bilateral b/s. Pt has GT running Jevity@30ml/hr, no residual, HOB 35 degrees. Right femoral running D5W@100ml/hr, Dopamine 15mcg/kg/hr and Levophed 15 mcg/kg/hr. BP 112/65, HR 113 on residential monitor. Seizure precautions in place. F/C draining bright pink urine. Ruptured blisters on buttocks dressing intact and clean. Bed locked, alarmed and in lowest position. Will call POA to reconfirm code status change.
--- NOTE | 2018-08-20 07:30 | NUR ---
HAND-OFF: Report given to CIER[facility] POPE.
--- NOTE | 2018-08-20 08:03 | NUR ---
CASE MANAGEMENT:REVIEW 08/20/18 SI: PNEUMONIA. SEPTIC SHOCK. BRADYCARDIA CHRONIC TRACH/VENT/G-TUBE. ORGANIC BRAIN SYNDROME 99.8 113 17 114/46 97% ON VENT SUPPORT VENT: FIO2~40% AC~14 TV~600 H/H-8.8/28.3 PLT-70 K+5.8 PHOS-2.0 MAG-1.7 IS: IV PROTONIX Q12 IV VANCOMYCIN Q8HRS IV MEROPENEM Q8HRS LEVOPHED GTT IVF@75/HR : ICU STATUS DCP: PATIENT IS FROM [facility] PLAN: EEG POTATO CHIP [employer]KER DISCUSSED CODE STATUS W/FAMILY
[2018-08-20] MEDS ORDERED: Sodium Polystyrene Sulfonate 15gm Powder ORAL SCH (08:15)
[2018-08-20] MEDS ORDERED: Sodium Phosphate 30 MM in NS 275 ML IVPB ONE (09:00)
[2018-08-20] MEDS: Pantoprazole Inj IV SCH ×2 (09:28→22:01)
[2018-08-20] MEDS: Lactulose 20gm/30ml UDC GT SCH (09:28)
--- NOTE | 2018-08-20 09:44 | NUR ---
RADIOLOGY DEPT., CHEST X-RAY DONE.-P.DYE
--- NOTE | 2018-08-20 09:45 | NUR ---
NURSE NOTES: Per Dr. Liz, d/c levophed and increase dopamine to keep MAP >60.
--- NOTE | 2018-08-20 10:00 | NUR ---
NURSE NOTES: Spoke with niece/POA, Valarie Herreraussard and confirmed code status change to DNR. Notified Dr. Kothari and received orders to change official code status. Per Dr. Kothari, d/c dopamine. BP dropped to 57/31, HR 83, SPo2 93%, RR 16, T 99.6 rectal. No s/sx of discomfort will continue to monitor.
--- NOTE | 2018-08-20 10:02 | Cardiac Electrophysiology PN ---
Assessment/Plan Assessment/Plan 1. Septic shock. The patient is on dopamine and Levophed and broad-spectrum IV antibiotics. Will Max out Dopamine and DC Levophed if possible TTE is pending 2. Bradycardia with heart rate in the 30s, could be due to hyperkalemia. Will max out on dopamine. Outpatient metoprolol has been discontinued. The echocardiogram is pending. 3. Ventilator-dependent respiratory failure, status post tracheostomy. 4. Dysphagia, status post PEG placement. 5. Organic brain syndrome. 6. Sepsis with elevated lactate, on pressors and IV antibiotics. 7. DNR 8. Was on Coumadin as out patient for unclear reason but in SR and no obvious DVT INR on admission was low also DW RN Subjective Subjective In ICU on Dopamine and Levophed on the vent. Now DNR Objective Last 24 Hour Vital Signs Date Time Temp Pulse Resp B/P (MAP) Pulse Ox O2 Delivery O2 Flow Rate FiO2 08/20/18 08:38 100 15 40 08/20/18 08:15 101/39 08/20/18 06:45 113 17 40 08/20/18 06:00 100 19 114/46 (68) 97 08/20/18 06:00 114/46 08/20/18 06:00 114/46 08/20/18 05:45 101 20 109/43 (65) 96 08/20/18 05:30 100 19 109/40 (63) 97 08/20/18 05:30 101 20 104/41 (62) 96 08/20/18 05:15 100 19 102/37 (58) 96 08/20/18 05:06 104 19 35 08/20/18 05:00 101 20 104/41 (62) 96 08/20/18 04:45 118 20 107/42 (63) 96 08/20/18 04:30 99.8 126 21 133/61 (85) 97 08/20/18 04:15 125 21 132/50 (77) 96 08/20/18 04:00 Mechanical Ventilator 08/20/18 04:00 120 08/20/18 04:00 124/47 08/20/18 04:00 124/47 08/20/18 04:00 50 08/20/18 04:00 124 21 121/47 (71) 96 08/20/18 03:45 118 20 95 08/20/18 03:45 123/50 08/20/18 03:30 117 22 103/59 (74) 96 08/20/18 03:15 120 19 123/50 (74) 99 08/20/18 03:10 124 17 35 08/20/18 03:00 111/44 08/20/18 03:00 111/44 08/20/18 03:00 120 18 111/44 (66) 98 08/20/18 02:45 121 20 113/46 (68) 96 08/20/18 02:30 123 20 109/45 (66) 96 08/20/18 02:15 118 18 111/43 (65) 96 08/20/18 02:00 118 18 107/49 (68) 96 08/20/18 01:45 115 19 106/50 (68) 96 08/20/18 01:30 110 18 111/43 (65) 96 08/20/18 01:18 103 18 35 08/20/18 01:15 106 18 109/39 (62) 96 08/20/18 01:00 106 18 102/40 (60) 96 08/20/18 00:45 106 19 104/47 (66) 96 08/20/18 00:30 104 18 108/47 (67) 96 08/20/18 00:29 103/37 08/20/18 00:15 103 19 108/39 (62) 95 08/20/18 00:00 50 08/20/18 00:00 Mechanical Ventilator 08/20/18 00:00 99 08/20/18 00:00 100.1 103 19 103/37 (59) 96 08/19/18 23:45 94 22 56/20 (32) 95 08/19/18 23:30 108 19 67/38 (48) 96 08/19/18 23:15 108 20 98/48 (65) 96 08/19/18 23:06 109 22 35 08/19/18 23:00 93/40 08/19/18 23:00 93/40 08/19/18 23:00 108 20 93/40 (57) 97 08/19/18 22:45 107 20 97/45 (62) 96 08/19/18 22:30 108 21 92/43 (59) 95 08/19/18 22:15 107 18 97/44 (61) 95 08/19/18 22:00 106 19 97/37 (57) 95 08/19/18 22:00 97/37 08/19/18 22:00 97/37 08/19/18 21:45 107 18 98/47 (64) 95 08/19/18 21:30 106 19 100/42 (61) 95 08/19/18 21:18 106 19 35 08/19/18 21:15 106 19 100/41 (60) 95 08/19/18 21:06 91/44 08/19/18 21:00 105 19 100/45 (63) 96 08/19/18 21:00 100/45 08/19/18 21:00 100/45 08/19/18 20:45 108 19 82/58 (66) 95 08/19/18 20:30 109 19 115/46 (69) 96 08/19/18 20:15 104 17 99/40 (59) 94 08/19/18 20:00 114 08/19/18 20:00 35 08/19/18 20:00 78/35 08/19/18 20:00 112 19 78/35 (49) 92 08/19/18 20:00 Mechanical Ventilator 08/19/18 19:45 110 11 112/50 (70) 94 08/19/18 19:30 110 14 119/43 (68) 94 08/19/18 19:20 108 18 35 08/19/18 19:15 98.0 109 14 121/53 (75) 94 08/19/18 19:00 107 15 117/50 (72) 94 08/19/18 19:00 117/50 08/19/18 18:45 108 12 107/45 (65) 93 08/19/18 18:30 115 16 113/52 (72) 93 08/19/18 18:25 132/54 08/19/18 18:24 117/50 08/19/18 18:15 106 14 132/54 (80) 99 08/19/18 18:09 106/43 08/19/18 18:05 106/43 08/19/18 18:00 106/43 08/19/18 18:00 100 16 106/43 (64) 94 08/19/18 17:45 111 19 139/42 (74) 93 08/19/18 17:30 110 19 129/45 (73) 93 08/19/18 17:15 106 18 138/46 (76) 98 08/19/18 17:13 100 17 35 08/19/18 17:00 130/45 08/19/18 17:00 130/45 08/19/18 17:00 97.0 111 21 130/45 (73) 93 08/19/18 16:45 117 22 125/42 (69) 94 08/19/18 16:30 110 17 119/37 (64) 92 08/19/18 16:15 116 19 111/35 (60) 90 08/19/18 16:00 Mechanical Ventilator 08/19/18 16:00 125/38 08/19/18 16:00 125/38 08/19/18 16:00 112 18 125/38 (67) 92 08/19/18 16:00 35 08/19/18 16:00 108 08/19/18 15:45 101 15 132/42 (72) 92 08/19/18 15:32 127/45 08/19/18 15:30 103 17 127/45 (72) 92 08/19/18 15:20 115/45 08/19/18 15:16 78 16 115/45 (68) 92 08/19/18 15:15 98 16 82/36 (51) 90 08/19/18 15:13 103 16 82/36 (51) 90 08/19/18 15:08 97 18 78/33 (48) 93 08/19/18 15:00 80 21 57/31 (40) 90 08/19/18 15:00 57/31 08/19/18 14:51 74 20 54/31 (39) 93 08/19/18 14:47 86 18 35 08/19/18 14:45 86 22 53/30 (38) 94 08/19/18 14:30 107 19 107/52 (70) 94 08/19/18 14:15 105 19 106/44 (64) 95 08/19/18 14:00 99/72 08/19/18 14:00 105 17 99/72 (81) 95 08/19/18 13:45 110 18 118/55 (76) 94 08/19/18 13:30 108 18 99/49 (66) 93 08/19/18 13:15 106 20 85/61 (69) 93 08/19/18 13:00 106 21 91/43 (59) 93 08/19/18 12:55 107 20 35 08/19/18 12:45 104 20 91/44 (60) 93 08/19/18 12:38 89 19 88/45 (59) 92 08/19/18 12:37 87 20 77/42 (54) 92 08/19/18 12:36 106/52 08/19/18 12:30 83 16 63/39 (47) 92 08/19/18 12:15 107 19 98/46 (63) 94 08/19/18 12:00 98.4 106 19 101/47 (65) 94 08/19/18 12:00 Mechanical Ventilator 08/19/18 12:00 35 08/19/18 12:00 108 08/19/18 12:00 106/52 08/19/18 11:45 108 19 106/52 (70) 93 08/19/18 11:30 115 0 112/49 (70) 94 08/19/18 11:15 116 0 110/52 (71) 94 08/19/18 11:00 113 0 125/54 (77) 93 08/19/18 10:44 101 17 103/46 (65) 93 08/19/18 10:42 87 24 35 08/19/18 10:40 85 23 77/37 (50) 89 08/19/18 10:35 82 19 56/34 (41) 89 08/19/18 10:30 86 18 61/32 (42) 92 08/19/18 10:15 103 16 92/47 (62) 93 08/19/18 10:04 98 17 96/50 (65) 93 08/19/18 10:00 96 20 88/44 (59) 93 08/19/18 10:00 96/50 Intake and Output 08/19/18 08/20/18 18:59 06:59 Intake Total 2841.265 ml 2815.140 ml Output Total 1910 ml 4250 ml Balance 931.265 ml -1434.860 ml Free Water 90 ml 100 ml IV Total 2751.265 ml 2625.140 ml Tube Feeding 90 ml Output Urine Total 1910 ml 4250 ml # Bowel Movements 1 Laboratory Tests Test 08/19/18 10:28 08/19/18 11:38 08/19/18 15:25 08/20/18 04:15 Sodium Level 140 MMOL/L (136-145) 143 MMOL/L (136-145) Potassium Level 6.2 MMOL/L (3.5-5.1) *H 5.8 MMOL/L (3.5-5.1) H Chloride Level 107 MMOL/L (98-107) 111 MMOL/L (98-107) H Carbon Dioxide Level 28 MMOL/L (21-32) 25 MMOL/L (21-32) Anion Gap 4 mmol/L (5-15) L 7 mmol/L (5-15) Blood Urea Nitrogen 36 mg/dL (7-18) H 31 mg/dL (7-18) H Creatinine 0.8 MG/DL (0.55-1.30) 1.3 MG/DL (0.55-1.30) # Estimat Glomerular Filtration Rate > 60 mL/min (>60) > 60 mL/min (>60) Glucose Level 48 MG/DL (74-106) L 85 MG/DL (74-106) Calcium Level 10.3 MG/DL (8.5-10.1) H 9.3 MG/DL (8.5-10.1) White Blood Count 10.1 K/UL (4.8-10.8) 10.5 K/UL (4.8-10.8) Red Blood Count 3.31 M/UL (4.70-6.10) L 3.20 M/UL (4.70-6.10) L Hemoglobin 8.9 G/DL (14.2-18.0) L 8.8 G/DL (14.2-18.0) L Hematocrit 29.3 % (42.0-52.0) L 28.3 % (42.0-52.0) L Mean Corpuscular Volume 88 FL (80-99) 88 FL (80-99) Mean Corpuscular Hemoglobin 26.9 PG (27.0-31.0) L 27.5 PG (27.0-31.0) Mean Corpuscular Hemoglobin Concent 30.4 G/DL (32.0-36.0) L 31.1 G/DL (32.0-36.0) L Red Cell Distribution Width 17.3 % (11.6-14.8) H 17.3 % (11.6-14.8) H Platelet Count 49 K/UL (150-450) L 70 K/UL (150-450) L Mean Platelet Volume 11.4 FL (6.5-10.1) H 13.0 FL (6.5-10.1) H Neutrophils (%) (Auto) % (45.0-75.0) % (45.0-75.0) Lymphocytes (%) (Auto) % (20.0-45.0) % (20.0-45.0) Monocytes (%) (Auto) % (1.0-10.0) % (1.0-10.0) Eosinophils (%) (Auto) % (0.0-3.0) % (0.0-3.0) Basophils (%) (Auto) % (0.0-2.0) % (0.0-2.0) Differential Total Cells Counted 100 Neutrophils % (Manual) 66 % (45-75) Lymphocytes % (Manual) 6 % (20-45) L Monocytes % (Manual) 1 % (1-10) Eosinophils % (Manual) 2 % (0-3) Basophils % (Manual) 0 % (0-2) Band Neutrophils 25 % (0-8) H Nucleated Red Blood Cells 3 /100 WBC Platelet Estimate Decreased L Platelet Morphology Normal Hypochromasia 2+ Anisocytosis 1+ Total Protein (PEP) Pending Albumin (PEP) Pending Globulin (PEP) Pending Albumin/Globulin Ratio Pending 0.4 (1.0-2.7) L Qxpsu-[id number] Pending Racaf-6-Uzplmwzpv Pending Beta Globulins Pending Beta Gamma Globulin Pending PEP Abnormal Protein Bands Pending Protein Electrophoresis Interpret Pending HIV (1&2) Antibody Rapid Negative (NEGATIVE) Lactic Acid Level 1.40 mmol/L (0.4-2.0) Uric Acid 5.0 MG/DL (2.6-7.2) Phosphorus Level 2.0 MG/DL (2.5-4.9) L Magnesium Level 1.7 MG/DL (1.8-2.4) L Total Bilirubin 0.5 MG/DL (0.2-1.0) Gamma Glutamyl Transpeptidase 36 U/L (5-85) Aspartate Amino Transf (AST/SGOT) 87 U/L (15-37) H Alanine Aminotransferase (ALT/SGPT) 71 U/L (12-78) Alkaline Phosphatase 129 U/L (46-116) H Total Creatine Kinase 72 U/L (26-308) C-Reactive Protein, Quantitative 25.1 mg/dL (0.00-0.90) H Pro-B-Type Natriuretic Peptide 1911 pg/mL (0-125) H Total Protein 7.0 G/DL (6.4-8.2) Albumin 2.0 G/DL (3.4-5.0) L Globulin 5.0 g/dL Vitamin B12 Level 2319 PG/ML (193-986) H Folate 17.6 NG/ML (8.6-58.9) Thyroid Stimulating Hormone (TSH) 0.605 uiU/mL (0.358-3.740) Test 08/20/18 08:50 08/20/18 09:00 Arterial Blood pH 7.436 (7.350-7.450) Arterial Blood Partial Pressure CO2 32.7 mmHg (35.0-45.0) L Arterial Blood Partial Pressure O2 97.4 mmHg (75.0-100.0) Arterial Blood HCO3 21.5 mmol/L (22.0-26.0) L Arterial Blood Oxygen Saturation 97.1 % (95-100) Arterial Blood Base Excess -2.3 (-2-2) L Paul Test Positive Vancomycin Level Trough Pending Microbiology Date/Time Source Procedure Growth Status 08/19/18 01:29 Blood Blood Culture - Preliminary NO GROWTH AFTER 24 HOURS Resulted 08/19/18 01:25 Blood Blood Culture - Preliminary NO GROWTH AFTER 24 HOURS Resulted 08/19/18 01:50 Urine,Clean Catch Urine Culture - Preliminary Resulted Objective HEAD AND NECK: No JVD. Tracheostomy is in place. CARDIOVASCULAR: Regular S1 and S2 with no gallop or murmur. ABDOMEN: Status post G-tube. EXTREMITIES: 2+ pitting edema. Minor Liz MD Aug 20, 2018 10:02
--- NOTE | 2018-08-20 10:19 | Pulmonolgy Critical Care Note ---
Critical Care - Asmt/Plan Problems: (1) Respiratory failure, acute and chronic (2) Sepsis (3) Symptomatic bradycardia (4) Alzheimer's dementia (5) COPD (chronic obstructive pulmonary disease) (6) Chronic vegetative state (7) Feeding by G-tube (8) Tracheostomy in place Respiratory: monitor respiratory rate, adjust FIO2, CXR Cardiac: continue to monitor HR/BP Renal: F/U I&O Infectious Disease: check cultures, continue antibiotics Gastrointestinal: continue feedings/current rate Endocrine: monitor blood sugar, check HgA1C Neurologic: PRN Ativan Prophylaxis: Protonix Disposition: keep in ICU Notes Reviewed: cardio, renal Discussed with: consultants, other - Pt's nurse and social workers talked to pts sister, camila guidry who confirmed that pt is DNR and requested no heroic measures. Critical Care - Objective Last 24 Hour Vital Signs Date Time Temp Pulse Resp B/P (MAP) Pulse Ox O2 Delivery O2 Flow Rate FiO2 08/20/18 08:38 100 15 40 08/20/18 08:15 101/39 08/20/18 06:45 113 17 40 08/20/18 06:00 100 19 114/46 (68) 97 08/20/18 06:00 114/46 08/20/18 06:00 114/46 08/20/18 05:45 101 20 109/43 (65) 96 08/20/18 05:30 100 19 109/40 (63) 97 08/20/18 05:30 101 20 104/41 (62) 96 08/20/18 05:15 100 19 102/37 (58) 96 08/20/18 05:06 104 19 35 08/20/18 05:00 101 20 104/41 (62) 96 08/20/18 04:45 118 20 107/42 (63) 96 08/20/18 04:30 99.8 126 21 133/61 (85) 97 08/20/18 04:15 125 21 132/50 (77) 96 08/20/18 04:00 Mechanical Ventilator 08/20/18 04:00 120 08/20/18 04:00 124/47 08/20/18 04:00 124/47 08/20/18 04:00 50 08/20/18 04:00 124 21 121/47 (71) 96 08/20/18 03:45 118 20 95 08/20/18 03:45 123/50 08/20/18 03:30 117 22 103/59 (74) 96 08/20/18 03:15 120 19 123/50 (74) 99 08/20/18 03:10 124 17 35 08/20/18 03:00 111/44 08/20/18 03:00 111/44 08/20/18 03:00 120 18 111/44 (66) 98 08/20/18 02:45 121 20 113/46 (68) 96 08/20/18 02:30 123 20 109/45 (66) 96 08/20/18 02:15 118 18 111/43 (65) 96 08/20/18 02:00 118 18 107/49 (68) 96 08/20/18 01:45 115 19 106/50 (68) 96 08/20/18 01:30 110 18 111/43 (65) 96 08/20/18 01:18 103 18 35 08/20/18 01:15 106 18 109/39 (62) 96 08/20/18 01:00 106 18 102/40 (60) 96 08/20/18 00:45 106 19 104/47 (66) 96 08/20/18 00:30 104 18 108/47 (67) 96 08/20/18 00:29 103/37 08/20/18 00:15 103 19 108/39 (62) 95 08/20/18 00:00 50 08/20/18 00:00 Mechanical Ventilator 08/20/18 00:00 99 08/20/18 00:00 100.1 103 19 103/37 (59) 96 08/19/18 23:45 94 22 56/20 (32) 95 08/19/18 23:30 108 19 67/38 (48) 96 08/19/18 23:15 108 20 98/48 (65) 96 08/19/18 23:06 109 22 35 08/19/18 23:00 93/40 08/19/18 23:00 93/40 08/19/18 23:00 108 20 93/40 (57) 97 08/19/18 22:45 107 20 97/45 (62) 96 08/19/18 22:30 108 21 92/43 (59) 95 08/19/18 22:15 107 18 97/44 (61) 95 08/19/18 22:00 106 19 97/37 (57) 95 08/19/18 22:00 97/37 08/19/18 22:00 97/37 08/19/18 21:45 107 18 98/47 (64) 95 08/19/18 21:30 106 19 100/42 (61) 95 08/19/18 21:18 106 19 35 08/19/18 21:15 106 19 100/41 (60) 95 08/19/18 21:06 91/44 08/19/18 21:00 105 19 100/45 (63) 96 08/19/18 21:00 100/45 08/19/18 21:00 100/45 08/19/18 20:45 108 19 82/58 (66) 95 08/19/18 20:30 109 19 115/46 (69) 96 08/19/18 20:15 104 17 99/40 (59) 94 08/19/18 20:00 114 08/19/18 20:00 35 08/19/18 20:00 78/35 08/19/18 20:00 112 19 78/35 (49) 92 08/19/18 20:00 Mechanical Ventilator 08/19/18 19:45 110 11 112/50 (70) 94 08/19/18 19:30 110 14 119/43 (68) 94 08/19/18 19:20 108 18 35 08/19/18 19:15 98.0 109 14 121/53 (75) 94 08/19/18 19:00 107 15 117/50 (72) 94 08/19/18 19:00 117/50 08/19/18 18:45 108 12 107/45 (65) 93 08/19/18 18:30 115 16 113/52 (72) 93 08/19/18 18:25 132/54 08/19/18 18:24 117/50 08/19/18 18:15 106 14 132/54 (80) 99 08/19/18 18:09 106/43 08/19/18 18:05 106/43 08/19/18 18:00 106/43 08/19/18 18:00 100 16 106/43 (64) 94 08/19/18 17:45 111 19 139/42 (74) 93 08/19/18 17:30 110 19 129/45 (73) 93 08/19/18 17:15 106 18 138/46 (76) 98 08/19/18 17:13 100 17 35 08/19/18 17:00 130/45 08/19/18 17:00 130/45 08/19/18 17:00 97.0 111 21 130/45 (73) 93 08/19/18 16:45 117 22 125/42 (69) 94 08/19/18 16:30 110 17 119/37 (64) 92 08/19/18 16:15 116 19 111/35 (60) 90 08/19/18 16:00 Mechanical Ventilator 08/19/18 16:00 125/38 08/19/18 16:00 125/38 08/19/18 16:00 112 18 125/38 (67) 92 08/19/18 16:00 35 08/19/18 16:00 108 08/19/18 15:45 101 15 132/42 (72) 92 08/19/18 15:32 127/45 08/19/18 15:30 103 17 127/45 (72) 92 08/19/18 15:20 115/45 08/19/18 15:16 78 16 115/45 (68) 92 08/19/18 15:15 98 16 82/36 (51) 90 08/19/18 15:13 103 16 82/36 (51) 90 08/19/18 15:08 97 18 78/33 (48) 93 08/19/18 15:00 80 21 57/31 (40) 90 08/19/18 15:00 57/31 08/19/18 14:51 74 20 54/31 (39) 93 08/19/18 14:47 86 18 35 08/19/18 14:45 86 22 53/30 (38) 94 08/19/18 14:30 107 19 107/52 (70) 94 08/19/18 14:15 105 19 106/44 (64) 95 08/19/18 14:00 99/72 08/19/18 14:00 105 17 99/72 (81) 95 08/19/18 13:45 110 18 118/55 (76) 94 08/19/18 13:30 108 18 99/49 (66) 93 08/19/18 13:15 106 20 85/61 (69) 93 08/19/18 13:00 106 21 91/43 (59) 93 08/19/18 12:55 107 20 35 08/19/18 12:45 104 20 91/44 (60) 93 08/19/18 12:38 89 19 88/45 (59) 92 08/19/18 12:37 87 20 77/42 (54) 92 08/19/18 12:36 106/52 08/19/18 12:30 83 16 63/39 (47) 92 08/19/18 12:15 107 19 98/46 (63) 94 08/19/18 12:00 98.4 106 19 101/47 (65) 94 08/19/18 12:00 Mechanical Ventilator 08/19/18 12:00 35 08/19/18 12:00 108 08/19/18 12:00 106/52 08/19/18 11:45 108 19 106/52 (70) 93 08/19/18 11:30 115 0 112/49 (70) 94 08/19/18 11:15 116 0 110/52 (71) 94 08/19/18 11:00 113 0 125/54 (77) 93 08/19/18 10:44 101 17 103/46 (65) 93 08/19/18 10:42 87 24 35 08/19/18 10:40 85 23 77/37 (50) 89 08/19/18 10:35 82 19 56/34 (41) 89 08/19/18 10:30 86 18 61/32 (42) 92 08/19/18 10:15 103 16 92/47 (62) 93 Status: awake Condition: critical HEENT: atraumatic Heart: HR/BP stable Abdomen: soft Extremities: no C/C/E Micro: Microbiology Date/Time Source Procedure Growth Status 08/19/18 01:29 Blood Blood Culture - Preliminary NO GROWTH AFTER 24 HOURS Resulted 08/19/18 01:25 Blood Blood Culture - Preliminary NO GROWTH AFTER 24 HOURS Resulted 08/19/18 01:50 Urine,Clean Catch Urine Culture - Preliminary Resulted Critical Care - Subjective ROS Limited/Unobtainable: Yes Condition: critical FI02: 40 Vent Support Breath Rate: 14 Vent Support Mode: AC Vent Tidal Volume: 600 Sputum Amount: Moderate PEEP: 5.0 PIP: 28 Tube Feeding Amount: 30 I&O: Intake and Output 08/19/18 08/20/18 18:59 06:59 Intake Total 2841.265 ml 2815.140 ml Output Total 1910 ml 4250 ml Balance 931.265 ml -1434.860 ml Free Water 90 ml 100 ml IV Total 2751.265 ml 2625.140 ml Tube Feeding 90 ml Output Urine Total 1910 ml 4250 ml # Bowel Movements 1 CXR: no change Labs: Laboratory Tests Test 08/19/18 10:28 08/19/18 11:38 08/19/18 15:25 08/20/18 04:15 Sodium Level 140 MMOL/L (136-145) 143 MMOL/L (136-145) Potassium Level 6.2 MMOL/L (3.5-5.1) *H 5.8 MMOL/L (3.5-5.1) H Chloride Level 107 MMOL/L (98-107) 111 MMOL/L (98-107) H Carbon Dioxide Level 28 MMOL/L (21-32) 25 MMOL/L (21-32) Anion Gap 4 mmol/L (5-15) L 7 mmol/L (5-15) Blood Urea Nitrogen 36 mg/dL (7-18) H 31 mg/dL (7-18) H Creatinine 0.8 MG/DL (0.55-1.30) 1.3 MG/DL (0.55-1.30) # Estimat Glomerular Filtration Rate > 60 mL/min (>60) > 60 mL/min (>60) Glucose Level 48 MG/DL (74-106) L 85 MG/DL (74-106) Calcium Level 10.3 MG/DL (8.5-10.1) H 9.3 MG/DL (8.5-10.1) White Blood Count 10.1 K/UL (4.8-10.8) 10.5 K/UL (4.8-10.8) Red Blood Count 3.31 M/UL (4.70-6.10) L 3.20 M/UL (4.70-6.10) L Hemoglobin 8.9 G/DL (14.2-18.0) L 8.8 G/DL (14.2-18.0) L Hematocrit 29.3 % (42.0-52.0) L 28.3 % (42.0-52.0) L Mean Corpuscular Volume 88 FL (80-99) 88 FL (80-99) Mean Corpuscular Hemoglobin 26.9 PG (27.0-31.0) L 27.5 PG (27.0-31.0) Mean Corpuscular Hemoglobin Concent 30.4 G/DL (32.0-36.0) L 31.1 G/DL (32.0-36.0) L Red Cell Distribution Width 17.3 % (11.6-14.8) H 17.3 % (11.6-14.8) H Platelet Count 49 K/UL (150-450) L 70 K/UL (150-450) L Mean Platelet Volume 11.4 FL (6.5-10.1) H 13.0 FL (6.5-10.1) H Neutrophils (%) (Auto) % (45.0-75.0) % (45.0-75.0) Lymphocytes (%) (Auto) % (20.0-45.0) % (20.0-45.0) Monocytes (%) (Auto) % (1.0-10.0) % (1.0-10.0) Eosinophils (%) (Auto) % (0.0-3.0) % (0.0-3.0) Basophils (%) (Auto) % (0.0-2.0) % (0.0-2.0) Differential Total Cells Counted 100 Neutrophils % (Manual) 66 % (45-75) Lymphocytes % (Manual) 6 % (20-45) L Monocytes % (Manual) 1 % (1-10) Eosinophils % (Manual) 2 % (0-3) Basophils % (Manual) 0 % (0-2) Band Neutrophils 25 % (0-8) H Nucleated Red Blood Cells 3 /100 WBC Platelet Estimate Decreased L Platelet Morphology Normal Hypochromasia 2+ Anisocytosis 1+ Total Protein (PEP) Pending Albumin (PEP) Pending Globulin (PEP) Pending Albumin/Globulin Ratio Pending 0.4 (1.0-2.7) L [id number] Pending [id number] Pending Beta Globulins Pending Beta Gamma Globulin Pending PEP Abnormal Protein Bands Pending Protein Electrophoresis Interpret Pending HIV (1&2) Antibody Rapid Negative (NEGATIVE) Lactic Acid Level 1.40 mmol/L (0.4-2.0) Uric Acid 5.0 MG/DL (2.6-7.2) Phosphorus Level 2.0 MG/DL (2.5-4.9) L Magnesium Level 1.7 MG/DL (1.8-2.4) L Total Bilirubin 0.5 MG/DL (0.2-1.0) Gamma Glutamyl Transpeptidase 36 U/L (5-85) Aspartate Amino Transf (AST/SGOT) 87 U/L (15-37) H Alanine Aminotransferase (ALT/SGPT) 71 U/L (12-78) Alkaline Phosphatase 129 U/L (46-116) H Total Creatine Kinase 72 U/L (26-308) C-Reactive Protein, Quantitative 25.1 mg/dL (0.00-0.90) H Pro-B-Type Natriuretic Peptide 1911 pg/mL (0-125) H Total Protein 7.0 G/DL (6.4-8.2) Albumin 2.0 G/DL (3.4-5.0) L Globulin 5.0 g/dL Vitamin B12 Level 2319 PG/ML (193-986) H Folate 17.6 NG/ML (8.6-58.9) Thyroid Stimulating Hormone (TSH) 0.605 uiU/mL (0.358-3.740) Test 08/20/18 08:50 08/20/18 09:00 Arterial Blood pH 7.436 (7.350-7.450) Arterial Blood Partial Pressure CO2 32.7 mmHg (35.0-45.0) L Arterial Blood Partial Pressure O2 97.4 mmHg (75.0-100.0) Arterial Blood HCO3 21.5 mmol/L (22.0-26.0) L Arterial Blood Oxygen Saturation 97.1 % (95-100) Arterial Blood Base Excess -2.3 (-2-2) L Paul Test Positive Vancomycin Level Trough 28.4 ug/mL (5.0-12.0) H Steve Kothari MD Aug 20, 2018 10:19
[2018-08-20] MEDS ORDERED: Morphine Sulfate 4mg/ml Inj (IV USE ONLY) IVP PRN (10:45)
--- NOTE | 2018-08-20 11:29 | Diagnostic Imaging Report ---
Indication: Dyspnea Comparison: 08/19/2018 A single view chest radiograph was obtained. Findings: Prominent patchy mixed interstitial alveolar densities present bilaterally worse within the left lung unchanged. Tracheostomy again noted. Heart size is stable. IMPRESSION: Patchy infiltrates versus pulmonary edema
--- NOTE | 2018-08-20 12:04 | NUR ---
NURSE NOTES: BP 63/26, mAP 35, HR 86, SPo2 98%, RR 16, T 99.1 rectal. Turned and repositioned. Kept dry and clean. niece says she will come by later to see patient.
--- NOTE | 2018-08-20 12:22 | Nephrology Progress Note ---
Assessment/Plan Problem List: (1) Hyperkalemia (2) Anemia (3) Tracheostomy in place (4) Alzheimer's dementia (5) UTI (urinary tract infection) Assessment Hyperkalemia Dehydration High Ca , Low Phos , Low Mag Anemia trach- Vent - PEG OBS UTI Plan now DNR- Hydrate- Fluid Challenge Monitor lytes, Chems, Renal parameters Antibiotics avoid Nephrotoxics Kayexelate Subjective ROS Limited/Unobtainable: Yes Objective Objective Last 24 Hour Vital Signs Date Time Temp Pulse Resp B/P (MAP) Pulse Ox O2 Delivery O2 Flow Rate FiO2 08/20/18 10:30 100 26 40 08/20/18 10:00 99.8 08/20/18 08:38 100 15 40 08/20/18 08:15 101/39 08/20/18 08:00 Mechanical Ventilator 08/20/18 08:00 50 08/20/18 06:45 113 17 40 08/20/18 06:00 100 19 114/46 (68) 97 08/20/18 06:00 114/46 08/20/18 06:00 114/46 08/20/18 05:45 101 20 109/43 (65) 96 08/20/18 05:30 100 19 109/40 (63) 97 08/20/18 05:30 101 20 104/41 (62) 96 08/20/18 05:15 100 19 102/37 (58) 96 08/20/18 05:06 104 19 35 08/20/18 05:00 101 20 104/41 (62) 96 08/20/18 04:45 118 20 107/42 (63) 96 08/20/18 04:30 99.8 126 21 133/61 (85) 97 08/20/18 04:15 125 21 132/50 (77) 96 08/20/18 04:00 Mechanical Ventilator 08/20/18 04:00 120 08/20/18 04:00 124/47 08/20/18 04:00 124/47 08/20/18 04:00 50 08/20/18 04:00 124 21 121/47 (71) 96 08/20/18 03:45 118 20 95 08/20/18 03:45 123/50 08/20/18 03:30 117 22 103/59 (74) 96 08/20/18 03:15 120 19 123/50 (74) 99 08/20/18 03:10 124 17 35 08/20/18 03:00 111/44 08/20/18 03:00 111/44 08/20/18 03:00 120 18 111/44 (66) 98 08/20/18 02:45 121 20 113/46 (68) 96 08/20/18 02:30 123 20 109/45 (66) 96 08/20/18 02:15 118 18 111/43 (65) 96 08/20/18 02:00 118 18 107/49 (68) 96 08/20/18 01:45 115 19 106/50 (68) 96 08/20/18 01:30 110 18 111/43 (65) 96 08/20/18 01:18 103 18 35 08/20/18 01:15 106 18 109/39 (62) 96 08/20/18 01:00 106 18 102/40 (60) 96 08/20/18 00:45 106 19 104/47 (66) 96 08/20/18 00:30 104 18 108/47 (67) 96 08/20/18 00:29 103/37 08/20/18 00:15 103 19 108/39 (62) 95 08/20/18 00:00 50 08/20/18 00:00 Mechanical Ventilator 08/20/18 00:00 99 08/20/18 00:00 100.1 103 19 103/37 (59) 96 08/19/18 23:45 94 22 56/20 (32) 95 08/19/18 23:30 108 19 67/38 (48) 96 08/19/18 23:15 108 20 98/48 (65) 96 08/19/18 23:06 109 22 35 08/19/18 23:00 93/40 08/19/18 23:00 93/40 08/19/18 23:00 108 20 93/40 (57) 97 08/19/18 22:45 107 20 97/45 (62) 96 08/19/18 22:30 108 21 92/43 (59) 95 08/19/18 22:15 107 18 97/44 (61) 95 08/19/18 22:00 106 19 97/37 (57) 95 08/19/18 22:00 97/37 08/19/18 22:00 97/37 08/19/18 21:45 107 18 98/47 (64) 95 08/19/18 21:30 106 19 100/42 (61) 95 08/19/18 21:18 106 19 35 08/19/18 21:15 106 19 100/41 (60) 95 08/19/18 21:06 91/44 08/19/18 21:00 105 19 100/45 (63) 96 08/19/18 21:00 100/45 08/19/18 21:00 100/45 08/19/18 20:45 108 19 82/58 (66) 95 08/19/18 20:30 109 19 115/46 (69) 96 08/19/18 20:15 104 17 99/40 (59) 94 08/19/18 20:00 114 08/19/18 20:00 35 08/19/18 20:00 78/35 08/19/18 20:00 112 19 78/35 (49) 92 08/19/18 20:00 Mechanical Ventilator 08/19/18 19:45 110 11 112/50 (70) 94 08/19/18 19:30 110 14 119/43 (68) 94 08/19/18 19:20 108 18 35 08/19/18 19:15 98.0 109 14 121/53 (75) 94 08/19/18 19:00 107 15 117/50 (72) 94 08/19/18 19:00 117/50 08/19/18 18:45 108 12 107/45 (65) 93 08/19/18 18:30 115 16 113/52 (72) 93 08/19/18 18:25 132/54 08/19/18 18:24 117/50 08/19/18 18:15 106 14 132/54 (80) 99 08/19/18 18:09 106/43 08/19/18 18:05 106/43 08/19/18 18:00 106/43 08/19/18 18:00 100 16 106/43 (64) 94 08/19/18 17:45 111 19 139/42 (74) 93 08/19/18 17:30 110 19 129/45 (73) 93 08/19/18 17:15 106 18 138/46 (76) 98 08/19/18 17:13 100 17 35 3/26/19 17:00 130/45 08/19/18 17:00 130/45 08/19/18 17:00 97.0 111 21 130/45 (73) 93 08/19/18 16:45 117 22 125/42 (69) 94 08/19/18 16:30 110 17 119/37 (64) 92 08/19/18 16:15 116 19 111/35 (60) 90 08/19/18 16:00 Mechanical Ventilator 08/19/18 16:00 125/38 08/19/18 16:00 125/38 08/19/18 16:00 112 18 125/38 (67) 92 08/19/18 16:00 35 08/19/18 16:00 108 08/19/18 15:45 101 15 132/42 (72) 92 08/19/18 15:32 127/45 08/19/18 15:30 103 17 127/45 (72) 92 08/19/18 15:20 115/45 08/19/18 15:16 78 16 115/45 (68) 92 08/19/18 15:15 98 16 82/36 (51) 90 08/19/18 15:13 103 16 82/36 (51) 90 08/19/18 15:08 97 18 78/33 (48) 93 08/19/18 15:00 80 21 57/31 (40) 90 08/19/18 15:00 57/31 08/19/18 14:51 74 20 54/31 (39) 93 08/19/18 14:47 86 18 35 08/19/18 14:45 86 22 53/30 (38) 94 08/19/18 14:30 107 19 107/52 (70) 94 08/19/18 14:15 105 19 106/44 (64) 95 08/19/18 14:00 99/72 08/19/18 14:00 105 17 99/72 (81) 95 08/19/18 13:45 110 18 118/55 (76) 94 08/19/18 13:30 108 18 99/49 (66) 93 08/19/18 13:15 106 20 85/61 (69) 93 08/19/18 13:00 106 21 91/43 (59) 93 08/19/18 12:55 107 20 35 08/19/18 12:45 104 20 91/44 (60) 93 08/19/18 12:38 89 19 88/45 (59) 92 08/19/18 12:37 87 20 77/42 (54) 92 08/19/18 12:36 106/52 08/19/18 12:30 83 16 63/39 (47) 92 Intake and Output 08/19/18 08/20/18 19:00 07:00 Intake Total 2924.261 ml 2685.644 ml Output Total 2210 ml 4175 ml Balance 714.261 ml -1489.356 ml Free Water 90 ml 100 ml IV Total 2834.261 ml 2465.644 ml Tube Feeding 120 ml Output Urine Total 2210 ml 4175 ml # Bowel Movements 1 Laboratory Tests 08/19/18 15:25: Total Protein (PEP) [Pending], Albumin (PEP) [Pending], Globulin (PEP) [Pending] , Albumin/Globulin Ratio [Pending], [id number] [Pending], Alpha-2- Globulins [Pending], Beta Globulins [Pending], Beta Gamma Globulin [Pending], PEP Abnormal Protein Bands [Pending], Protein Electrophoresis Interpret [Pending ], HIV (1&2) Antibody Rapid Negative 08/20/18 04:15: Albumin/Globulin Ratio 0.4L, White Blood Count 10.5, Red Blood Count 3.20L, Hemoglobin 8.8L, Hematocrit 28.3L, Mean Corpuscular Volume 88, Mean Corpuscular Hemoglobin 27.5, Mean Corpuscular Hemoglobin Concent 31.1L, Red Cell Distribution Width 17.3H, Platelet Count 70L, Mean Platelet Volume 13.0H, Neutrophils (%) (Auto) , Lymphocytes (%) (Auto) , Monocytes (%) (Auto) , Eosinophils (%) (Auto) , Basophils (%) (Auto) , Sodium Level 143, Potassium Level 5.8H, Chloride Level 111H, Carbon Dioxide Level 25, Anion Gap 7, Blood Urea Nitrogen 31H, Creatinine 1.3#, Estimat Glomerular Filtration Rate > 60, Glucose Level 85, Lactic Acid Level 1.40, Uric Acid 5.0, Calcium Level 9.3, Phosphorus Level 2.0L, Magnesium Level 1.7L, Total Bilirubin 0.5, Gamma Glutamyl Transpeptidase 36, Aspartate Amino Transf (AST/SGOT) 87H, Alanine Aminotransferase (ALT/SGPT) 71, Alkaline Phosphatase 129H, Total Creatine Kinase 72, C-Reactive Protein, Quantitative 25.1H, Pro-B-Type Natriuretic Peptide 1911H, Total Protein 7.0, Albumin 2.0L, Globulin 5.0, Vitamin B12 Level 2319H, Folate 17.6, Thyroid Stimulating Hormone (TSH) 0.605 08/20/18 08:50: Arterial Blood pH 7.436, Arterial Blood Partial Pressure CO2 32.7L, Arterial Blood Partial Pressure O2 97.4, Arterial Blood HCO3 21.5L, Arterial Blood Oxygen Saturation 97.1, Arterial Blood Base Excess -2.3L, Paul Test Positive 08/20/18 09:00: Vancomycin Level Trough 28.4H Height (Feet): 5 Height (Inches): 11.00 Weight (Pounds): 252 EENT: other - trach Cardiovascular: tachycardia Respiratory/Chest: decreased breath sounds Abdomen: distended Rios Morales MD Aug 20, 2018 12:22
--- NOTE | 2018-08-20 12:22 | GI Progress Note ---
Assessment/Plan Problems: (1) Anemia ICD Codes: D64.9 - Anemia, unspecified SNOMED: 515065309 (2) Feeding by G-tube ICD Codes: Z93.1 - Gastrostomy status SNOMED: 167212146, 099740275 (3) Fecal impaction ICD Codes: K56.41 - Fecal impaction SNOMED: 74636389 (4) Symptomatic bradycardia ICD Codes: R00.1 - Bradycardia, unspecified SNOMED: 91012721, 014510825 Status: unchanged Status Narrative Discussed with Dr. Brantley. Assessment/Plan Supportive care at this time okay to start Fs anemia work up reviewed monitor H&H, PRN transfusions PPI Bowel regimen, Colace plus miralax follow labs GI procedures if emergent The patient was seen and examined at bedside and all new and available data was reviewed in the patients chart. I agree with the above findings, impression and plan. (Patient seen earlier today. Signature stamp does not reflect patient encounter time.). - Dillon Brantley MD Subjective Subjective limited Objective Last 24 Hour Vital Signs Date Time Temp Pulse Resp B/P (MAP) Pulse Ox O2 Delivery O2 Flow Rate FiO2 08/20/18 10:30 100 26 40 08/20/18 10:00 99.8 08/20/18 08:38 100 15 40 08/20/18 08:15 101/39 08/20/18 08:00 Mechanical Ventilator 08/20/18 08:00 50 08/20/18 06:45 113 17 40 08/20/18 06:00 100 19 114/46 (68) 97 08/20/18 06:00 114/46 08/20/18 06:00 114/46 08/20/18 05:45 101 20 109/43 (65) 96 08/20/18 05:30 100 19 109/40 (63) 97 08/20/18 05:30 101 20 104/41 (62) 96 08/20/18 05:15 100 19 102/37 (58) 96 08/20/18 05:06 104 19 35 08/20/18 05:00 101 20 104/41 (62) 96 08/20/18 04:45 118 20 107/42 (63) 96 08/20/18 04:30 99.8 126 21 133/61 (85) 97 08/20/18 04:15 125 21 132/50 (77) 96 08/20/18 04:00 Mechanical Ventilator 08/20/18 04:00 120 08/20/18 04:00 124/47 08/20/18 04:00 124/47 08/20/18 04:00 50 08/20/18 04:00 124 21 121/47 (71) 96 08/20/18 03:45 118 20 95 08/20/18 03:45 123/50 08/20/18 03:30 117 22 103/59 (74) 96 08/20/18 03:15 120 19 123/50 (74) 99 08/20/18 03:10 124 17 35 08/20/18 03:00 111/44 08/20/18 03:00 111/44 08/20/18 03:00 120 18 111/44 (66) 98 08/20/18 02:45 121 20 113/46 (68) 96 08/20/18 02:30 123 20 109/45 (66) 96 08/20/18 02:15 118 18 111/43 (65) 96 08/20/18 02:00 118 18 107/49 (68) 96 08/20/18 01:45 115 19 106/50 (68) 96 08/20/18 01:30 110 18 111/43 (65) 96 08/20/18 01:18 103 18 35 08/20/18 01:15 106 18 109/39 (62) 96 08/20/18 01:00 106 18 102/40 (60) 96 08/20/18 00:45 106 19 104/47 (66) 96 08/20/18 00:30 104 18 108/47 (67) 96 08/20/18 00:29 103/37 08/20/18 00:15 103 19 108/39 (62) 95 08/20/18 00:00 50 08/20/18 00:00 Mechanical Ventilator 08/20/18 00:00 99 08/20/18 00:00 100.1 103 19 103/37 (59) 96 08/19/18 23:45 94 22 56/20 (32) 95 08/19/18 23:30 108 19 67/38 (48) 96 08/19/18 23:15 108 20 98/48 (65) 96 08/19/18 23:06 109 22 35 08/19/18 23:00 93/40 08/19/18 23:00 93/40 08/19/18 23:00 108 20 93/40 (57) 97 08/19/18 22:45 107 20 97/45 (62) 96 08/19/18 22:30 108 21 92/43 (59) 95 08/19/18 22:15 107 18 97/44 (61) 95 08/19/18 22:00 106 19 97/37 (57) 95 08/19/18 22:00 97/37 08/19/18 22:00 97/37 08/19/18 21:45 107 18 98/47 (64) 95 08/19/18 21:30 106 19 100/42 (61) 95 08/19/18 21:18 106 19 35 08/19/18 21:15 106 19 100/41 (60) 95 08/19/18 21:06 91/44 08/19/18 21:00 105 19 100/45 (63) 96 08/19/18 21:00 100/45 08/19/18 21:00 100/45 08/19/18 20:45 108 19 82/58 (66) 95 08/19/18 20:30 109 19 115/46 (69) 96 08/19/18 20:15 104 17 99/40 (59) 94 08/19/18 20:00 114 08/19/18 20:00 35 08/19/18 20:00 78/35 08/19/18 20:00 112 19 78/35 (49) 92 08/19/18 20:00 Mechanical Ventilator 08/19/18 19:45 110 11 112/50 (70) 94 08/19/18 19:30 110 14 119/43 (68) 94 08/19/18 19:20 108 18 35 08/19/18 19:15 98.0 109 14 121/53 (75) 94 08/19/18 19:00 107 15 117/50 (72) 94 08/19/18 19:00 117/50 08/19/18 18:45 108 12 107/45 (65) 93 08/19/18 18:30 115 16 113/52 (72) 93 08/19/18 18:25 132/54 08/19/18 18:24 117/50 3/26/19 18:15 106 14 132/54 (80) 99 08/19/18 18:09 106/43 08/19/18 18:05 106/43 08/19/18 18:00 106/43 08/19/18 18:00 100 16 106/43 (64) 94 08/19/18 17:45 111 19 139/42 (74) 93 08/19/18 17:30 110 19 129/45 (73) 93 08/19/18 17:15 106 18 138/46 (76) 98 08/19/18 17:13 100 17 35 08/19/18 17:00 130/45 08/19/18 17:00 130/45 08/19/18 17:00 97.0 111 21 130/45 (73) 93 08/19/18 16:45 117 22 125/42 (69) 94 08/19/18 16:30 110 17 119/37 (64) 92 08/19/18 16:15 116 19 111/35 (60) 90 08/19/18 16:00 Mechanical Ventilator 08/19/18 16:00 125/38 08/19/18 16:00 125/38 08/19/18 16:00 112 18 125/38 (67) 92 08/19/18 16:00 35 08/19/18 16:00 108 08/19/18 15:45 101 15 132/42 (72) 92 08/19/18 15:32 127/45 08/19/18 15:30 103 17 127/45 (72) 92 08/19/18 15:20 115/45 08/19/18 15:16 78 16 115/45 (68) 92 08/19/18 15:15 98 16 82/36 (51) 90 08/19/18 15:13 103 16 82/36 (51) 90 08/19/18 15:08 97 18 78/33 (48) 93 08/19/18 15:00 80 21 57/31 (40) 90 08/19/18 15:00 57/31 08/19/18 14:51 74 20 54/31 (39) 93 08/19/18 14:47 86 18 35 08/19/18 14:45 86 22 53/30 (38) 94 08/19/18 14:30 107 19 107/52 (70) 94 08/19/18 14:15 105 19 106/44 (64) 95 08/19/18 14:00 99/72 08/19/18 14:00 105 17 99/72 (81) 95 08/19/18 13:45 110 18 118/55 (76) 94 08/19/18 13:30 108 18 99/49 (66) 93 08/19/18 13:15 106 20 85/61 (69) 93 08/19/18 13:00 106 21 91/43 (59) 93 08/19/18 12:55 107 20 35 08/19/18 12:45 104 20 91/44 (60) 93 08/19/18 12:38 89 19 88/45 (59) 92 08/19/18 12:37 87 20 77/42 (54) 92 08/19/18 12:36 106/52 08/19/18 12:30 83 16 63/39 (47) 92 Intake and Output 08/19/18 08/20/18 19:00 07:00 Intake Total 2924.261 ml 2685.644 ml Output Total 2210 ml 4175 ml Balance 714.261 ml -1489.356 ml Free Water 90 ml 100 ml IV Total 2834.261 ml 2465.644 ml Tube Feeding 120 ml Output Urine Total 2210 ml 4175 ml # Bowel Movements 1 Laboratory Tests Test 08/19/18 15:25 08/20/18 04:15 08/20/18 08:50 08/20/18 09:00 Total Protein (PEP) Pending Albumin (PEP) Pending Globulin (PEP) Pending Albumin/Globulin Ratio Pending 0.4 (1.0-2.7) L Lnibi-0-Ubyutkjei Pending Zzcue-9-Rcvpsynmr Pending Beta Globulins Pending Beta Gamma Globulin Pending PEP Abnormal Protein Bands Pending Protein Electrophoresis Interpret Pending HIV (1&2) Antibody Rapid Negative (NEGATIVE) White Blood Count 10.5 K/UL (4.8-10.8) Red Blood Count 3.20 M/UL (4.70-6.10) L Hemoglobin 8.8 G/DL (14.2-18.0) L Hematocrit 28.3 % (42.0-52.0) L Mean Corpuscular Volume 88 FL (80-99) Mean Corpuscular Hemoglobin 27.5 PG (27.0-31.0) Mean Corpuscular Hemoglobin Concent 31.1 G/DL (32.0-36.0) L Red Cell Distribution Width 17.3 % (11.6-14.8) H Platelet Count 70 K/UL (150-450) L Mean Platelet Volume 13.0 FL (6.5-10.1) H Neutrophils (%) (Auto) % (45.0-75.0) Lymphocytes (%) (Auto) % (20.0-45.0) Monocytes (%) (Auto) % (1.0-10.0) Eosinophils (%) (Auto) % (0.0-3.0) Basophils (%) (Auto) % (0.0-2.0) Sodium Level 143 MMOL/L (136-145) Potassium Level 5.8 MMOL/L (3.5-5.1) H Chloride Level 111 MMOL/L (98-107) H Carbon Dioxide Level 25 MMOL/L (21-32) Anion Gap 7 mmol/L (5-15) Blood Urea Nitrogen 31 mg/dL (7-18) H Creatinine 1.3 MG/DL (0.55-1.30) # Estimat Glomerular Filtration Rate > 60 mL/min (>60) Glucose Level 85 MG/DL (74-106) Lactic Acid Level 1.40 mmol/L (0.4-2.0) Uric Acid 5.0 MG/DL (2.6-7.2) Calcium Level 9.3 MG/DL (8.5-10.1) Phosphorus Level 2.0 MG/DL (2.5-4.9) L Magnesium Level 1.7 MG/DL (1.8-2.4) L Total Bilirubin 0.5 MG/DL (0.2-1.0) Gamma Glutamyl Transpeptidase 36 U/L (5-85) Aspartate Amino Transf (AST/SGOT) 87 U/L (15-37) H Alanine Aminotransferase (ALT/SGPT) 71 U/L (12-78) Alkaline Phosphatase 129 U/L (46-116) H Total Creatine Kinase 72 U/L (26-308) C-Reactive Protein, Quantitative 25.1 mg/dL (0.00-0.90) H Pro-B-Type Natriuretic Peptide 1911 pg/mL (0-125) H Total Protein 7.0 G/DL (6.4-8.2) Albumin 2.0 G/DL (3.4-5.0) L Globulin 5.0 g/dL Vitamin B12 Level 2319 PG/ML (193-986) H Folate 17.6 NG/ML (8.6-58.9) Thyroid Stimulating Hormone (TSH) 0.605 uiU/mL (0.358-3.740) Arterial Blood pH 7.436 (7.350-7.450) Arterial Blood Partial Pressure CO2 32.7 mmHg (35.0-45.0) L Arterial Blood Partial Pressure O2 97.4 mmHg (75.0-100.0) Arterial Blood HCO3 21.5 mmol/L (22.0-26.0) L Arterial Blood Oxygen Saturation 97.1 % (95-100) Arterial Blood Base Excess -2.3 (-2-2) L Paul Test Positive Vancomycin Level Trough 28.4 ug/mL (5.0-12.0) H Height (Feet): 5 Height (Inches): 11.00 Weight (Pounds): 252 General Appearance: lethargic Cardiovascular: normal rate Respiratory/Chest: [facility] Abdominal Exam: GT site - c/d/i Isaac Anaya NP Aug 20, 2018 12:22
[2018-08-20] MEDS: Docusate 100mg/10ml Liq GT SCH ×2 (13:00→17:42)
--- NOTE | 2018-08-20 13:29 | Infectious Diseases Prog Note ---
Assessment/Plan Assessment/Plan Assessment: Septic shock- likely 2ry to UTI and PNA- r/o bacteremia- off pressors now -u/a wbc tnct, nit neg, leuk +3; ucx p -Bcx NTD -sp cx p -CXR Patchy infiltrates versus pulmonary edema Hypothermia> low grade fever Bradycardia> tachycardia No leukocytosis Lactic acidosis; SP JAMES Hyperkalemia, improving -HIV ab sc neg HTN seizure disorder TBI c/w vegetative state s/p GT chronic resp failure vent/trach dependant Plan: -Continue empiric IV Vancomycin and Meropenem #2 pending cultures -08/19 SP Amikacin x1, Zosyn x1 -f/u cx -Monitor CBC/CMP, temperatures -Trach/peg care -ICU care Thank you for this consutaltion. Will continue to follow along with you. Discussed masha NORTON. Subjective Allergies: Coded Allergies: BENAZEPRIL (Verified Allergy, Unknown, 06/02/18) Subjective Tm 100.3 no leukocytosis Bcx NTD ucx and sp cx p off pressors now Cr increased K improved Objective Vital Signs Last 24 Hour Vital Signs Date Time Temp Pulse Resp B/P (MAP) Pulse Ox O2 Delivery O2 Flow Rate FiO2 08/20/18 12:50 92 17 40 08/20/18 12:00 Mechanical Ventilator 08/20/18 12:00 50 08/20/18 10:30 100 26 40 08/20/18 10:00 99.8 08/20/18 08:38 100 15 40 08/20/18 08:15 101/39 08/20/18 08:00 Mechanical Ventilator 08/20/18 08:00 50 08/20/18 06:45 113 17 40 08/20/18 06:00 100 19 114/46 (68) 97 08/20/18 06:00 114/46 08/20/18 06:00 114/46 08/20/18 05:45 101 20 109/43 (65) 96 08/20/18 05:30 100 19 109/40 (63) 97 08/20/18 05:30 101 20 104/41 (62) 96 08/20/18 05:15 100 19 102/37 (58) 96 08/20/18 05:06 104 19 35 08/20/18 05:00 101 20 104/41 (62) 96 08/20/18 04:45 118 20 107/42 (63) 96 08/20/18 04:30 99.8 126 21 133/61 (85) 97 08/20/18 04:15 125 21 132/50 (77) 96 08/20/18 04:00 Mechanical Ventilator 08/20/18 04:00 120 08/20/18 04:00 124/47 08/20/18 04:00 124/47 08/20/18 04:00 50 08/20/18 04:00 124 21 121/47 (71) 96 08/20/18 03:45 118 20 95 08/20/18 03:45 123/50 08/20/18 03:30 117 22 103/59 (74) 96 08/20/18 03:15 120 19 123/50 (74) 99 08/20/18 03:10 124 17 35 08/20/18 03:00 111/44 08/20/18 03:00 111/44 08/20/18 03:00 120 18 111/44 (66) 98 08/20/18 02:45 121 20 113/46 (68) 96 08/20/18 02:30 123 20 109/45 (66) 96 08/20/18 02:15 118 18 111/43 (65) 96 08/20/18 02:00 118 18 107/49 (68) 96 08/20/18 01:45 115 19 106/50 (68) 96 08/20/18 01:30 110 18 111/43 (65) 96 08/20/18 01:18 103 18 35 08/20/18 01:15 106 18 109/39 (62) 96 08/20/18 01:00 106 18 102/40 (60) 96 08/20/18 00:45 106 19 104/47 (66) 96 08/20/18 00:30 104 18 108/47 (67) 96 08/20/18 00:29 103/37 08/20/18 00:15 103 19 108/39 (62) 95 08/20/18 00:00 50 08/20/18 00:00 Mechanical Ventilator 08/20/18 00:00 99 08/20/18 00:00 100.1 103 19 103/37 (59) 96 08/19/18 23:45 94 22 56/20 (32) 95 08/19/18 23:30 108 19 67/38 (48) 96 08/19/18 23:15 108 20 98/48 (65) 96 08/19/18 23:06 109 22 35 08/19/18 23:00 93/40 08/19/18 23:00 93/40 08/19/18 23:00 108 20 93/40 (57) 97 08/19/18 22:45 107 20 97/45 (62) 96 08/19/18 22:30 108 21 92/43 (59) 95 08/19/18 22:15 107 18 97/44 (61) 95 08/19/18 22:00 106 19 97/37 (57) 95 08/19/18 22:00 97/37 08/19/18 22:00 97/37 08/19/18 21:45 107 18 98/47 (64) 95 08/19/18 21:30 106 19 100/42 (61) 95 08/19/18 21:18 106 19 35 08/19/18 21:15 106 19 100/41 (60) 95 08/19/18 21:06 91/44 08/19/18 21:00 105 19 100/45 (63) 96 08/19/18 21:00 100/45 08/19/18 21:00 100/45 08/19/18 20:45 108 19 82/58 (66) 95 08/19/18 20:30 109 19 115/46 (69) 96 08/19/18 20:15 104 17 99/40 (59) 94 08/19/18 20:00 114 08/19/18 20:00 35 08/19/18 20:00 78/35 08/19/18 20:00 112 19 78/35 (49) 92 08/19/18 20:00 Mechanical Ventilator 08/19/18 19:45 110 11 112/50 (70) 94 08/19/18 19:30 110 14 119/43 (68) 94 08/19/18 19:20 108 18 35 08/19/18 19:15 98.0 109 14 121/53 (75) 94 08/19/18 19:00 107 15 117/50 (72) 94 08/19/18 19:00 117/50 08/19/18 18:45 108 12 107/45 (65) 93 08/19/18 18:30 115 16 113/52 (72) 93 08/19/18 18:25 132/54 08/19/18 18:24 117/50 08/19/18 18:15 106 14 132/54 (80) 99 08/19/18 18:09 106/43 08/19/18 18:05 106/43 08/19/18 18:00 106/43 08/19/18 18:00 100 16 106/43 (64) 94 08/19/18 17:45 111 19 139/42 (74) 93 08/19/18 17:30 110 19 129/45 (73) 93 08/19/18 17:15 106 18 138/46 (76) 98 08/19/18 17:13 100 17 35 08/19/18 17:00 130/45 08/19/18 17:00 130/45 08/19/18 17:00 97.0 111 21 130/45 (73) 93 08/19/18 16:45 117 22 125/42 (69) 94 08/19/18 16:30 110 17 119/37 (64) 92 08/19/18 16:15 116 19 111/35 (60) 90 08/19/18 16:00 Mechanical Ventilator 08/19/18 16:00 125/38 08/19/18 16:00 125/38 08/19/18 16:00 112 18 125/38 (67) 92 08/19/18 16:00 35 08/19/18 16:00 108 08/19/18 15:45 101 15 132/42 (72) 92 08/19/18 15:32 127/45 08/19/18 15:30 103 17 127/45 (72) 92 08/19/18 15:20 115/45 08/19/18 15:16 78 16 115/45 (68) 92 08/19/18 15:15 98 16 82/36 (51) 90 08/19/18 15:13 103 16 82/36 (51) 90 08/19/18 15:08 97 18 78/33 (48) 93 08/19/18 15:00 80 21 57/31 (40) 90 08/19/18 15:00 57/31 08/19/18 14:51 74 20 54/31 (39) 93 08/19/18 14:47 86 18 35 3/26/19 14:45 86 22 53/30 (38) 94 08/19/18 14:30 107 19 107/52 (70) 94 08/19/18 14:15 105 19 106/44 (64) 95 08/19/18 14:00 99/72 08/19/18 14:00 105 17 99/72 (81) 95 08/19/18 13:45 110 18 118/55 (76) 94 08/19/18 13:30 108 18 99/49 (66) 93 Height (Feet): 5 Height (Inches): 11.00 Weight (Pounds): 252 Objective General Appearance: WD/WN Lines, tubes and drains: trach, gtube HEENT: normocephalic Neck: non-tender, normal alignment Respiratory/Chest: rhonchi - left, rhonchi - right Cardiovascular/Chest: normal peripheral pulses, normal rate Abdomen: normal bowel sounds, non tender Genitourinary/Rectal: normal genital exam Extremities: normal range of motion Skin Exam: normal pigmentation Microbiology Date/Time Source Procedure Growth Status 08/19/18 01:29 Blood Blood Culture - Preliminary NO GROWTH AFTER 24 HOURS Resulted 08/19/18 01:25 Blood Blood Culture - Preliminary NO GROWTH AFTER 24 HOURS Resulted 08/19/18 01:50 Urine,Clean Catch Urine Culture - Preliminary Resulted Laboratory Tests Test 08/19/18 15:25 08/20/18 04:15 08/20/18 08:50 08/20/18 09:00 Total Protein (PEP) Pending Albumin (PEP) Pending Globulin (PEP) Pending Albumin/Globulin Ratio Pending 0.4 (1.0-2.7) L Hiplr-6-Vpopzoldk Pending Eiyva-8-Qxsbffucm Pending Beta Globulins Pending Beta Gamma Globulin Pending PEP Abnormal Protein Bands Pending Protein Electrophoresis Interpret Pending HIV (1&2) Antibody Rapid Negative (NEGATIVE) White Blood Count 10.5 K/UL (4.8-10.8) Red Blood Count 3.20 M/UL (4.70-6.10) L Hemoglobin 8.8 G/DL (14.2-18.0) L Hematocrit 28.3 % (42.0-52.0) L Mean Corpuscular Volume 88 FL (80-99) Mean Corpuscular Hemoglobin 27.5 PG (27.0-31.0) Mean Corpuscular Hemoglobin Concent 31.1 G/DL (32.0-36.0) L Red Cell Distribution Width 17.3 % (11.6-14.8) H Platelet Count 70 K/UL (150-450) L Mean Platelet Volume 13.0 FL (6.5-10.1) H Neutrophils (%) (Auto) % (45.0-75.0) Lymphocytes (%) (Auto) % (20.0-45.0) Monocytes (%) (Auto) % (1.0-10.0) Eosinophils (%) (Auto) % (0.0-3.0) Basophils (%) (Auto) % (0.0-2.0) Sodium Level 143 MMOL/L (136-145) Potassium Level 5.8 MMOL/L (3.5-5.1) H Chloride Level 111 MMOL/L (98-107) H Carbon Dioxide Level 25 MMOL/L (21-32) Anion Gap 7 mmol/L (5-15) Blood Urea Nitrogen 31 mg/dL (7-18) H Creatinine 1.3 MG/DL (0.55-1.30) # Estimat Glomerular Filtration Rate > 60 mL/min (>60) Glucose Level 85 MG/DL (74-106) Lactic Acid Level 1.40 mmol/L (0.4-2.0) Uric Acid 5.0 MG/DL (2.6-7.2) Calcium Level 9.3 MG/DL (8.5-10.1) Phosphorus Level 2.0 MG/DL (2.5-4.9) L Magnesium Level 1.7 MG/DL (1.8-2.4) L Total Bilirubin 0.5 MG/DL (0.2-1.0) Gamma Glutamyl Transpeptidase 36 U/L (5-85) Aspartate Amino Transf (AST/SGOT) 87 U/L (15-37) H Alanine Aminotransferase (ALT/SGPT) 71 U/L (12-78) Alkaline Phosphatase 129 U/L (46-116) H Total Creatine Kinase 72 U/L (26-308) C-Reactive Protein, Quantitative 25.1 mg/dL (0.00-0.90) H Pro-B-Type Natriuretic Peptide 1911 pg/mL (0-125) H Total Protein 7.0 G/DL (6.4-8.2) Albumin 2.0 G/DL (3.4-5.0) L Globulin 5.0 g/dL Vitamin B12 Level 2319 PG/ML (193-986) H Folate 17.6 NG/ML (8.6-58.9) Thyroid Stimulating Hormone (TSH) 0.605 uiU/mL (0.358-3.740) Arterial Blood pH 7.436 (7.350-7.450) Arterial Blood Partial Pressure CO2 32.7 mmHg (35.0-45.0) L Arterial Blood Partial Pressure O2 97.4 mmHg (75.0-100.0) Arterial Blood HCO3 21.5 mmol/L (22.0-26.0) L Arterial Blood Oxygen Saturation 97.1 % (95-100) Arterial Blood Base Excess -2.3 (-2-2) L Paul Test Positive Vancomycin Level Trough 28.4 ug/mL (5.0-12.0) H Current Medications Medications (Trade) Dose Ordered Sig/Fernanda Route PRN Reason Start Time Stop Time Status Last Admin Dose Admin Acetaminophen (Tylenol) 650 mg Q4H PRN ORAL FEVER 08/19/18 07:45 09/18/18 07:44 08/20/18 09:30 Albuterol/ Ipratropium (Albuterol/ Ipratropium) 3 ml Q4H PRN HHN Shortness of Breath 08/19/18 07:45 08/24/18 07:44 Dextrose 1,000 ml @ 50 mls/hr Q20H IV 08/20/18 10:30 09/19/18 10:29 08/20/18 10:39 Dextrose (Dextrose 50%) 25 ml Q30M PRN IV Hypoglycemia 08/19/18 07:45 09/18/18 07:44 Dextrose (Dextrose 50%) 50 ml Q30M PRN IV Hypoglycemia 08/19/18 08:00 09/18/18 07:59 Docusate Sodium (Colace) 100 mg THREE TIMES A DAY GT 08/20/18 13:00 09/19/18 12:59 Lorazepam (Ativan 2mg/ml 1ml) 2 mg Q2H PRN IV For Anxiety 08/19/18 07:45 08/26/18 07:44 Meropenem 1 gm/ Sodium Chloride 55 ml @ 110 mls/hr Q8H IVPB 08/19/18 17:00 08/24/18 16:59 08/20/18 09:00 Morphine Sulfate (Morphine Sulfate) 10 mg Q4H PRN IVP For Pain 08/20/18 10:45 08/27/18 10:44 Ondansetron HCl (Zofran) 4 mg Q6H PRN IVP Nausea & Vomiting 08/19/18 07:45 09/18/18 07:44 Pantoprazole (Protonix) 40 mg Q12HR IV 08/19/18 21:00 09/18/18 08:59 08/20/18 09:28 Sodium Phosphate 30 mm/Sodium Chloride 285 ml @ 47.5 mls/hr ONCE ONCE IVPB 08/20/18 09:00 08/20/18 14:59 08/20/18 09:00 Vancomycin HCl (Vanco rx to dose) 1 ea DAILY PRN MISC rx protocol 08/19/18 08:00 09/18/18 07:59 Pam Garcia M.D. Aug 20, 2018 13:29
--- NOTE | 2018-08-20 13:36 | NUR ---
*-* INSURANCE *-* UPDATED CLINICALS AND REVIEW HAVE BEEN FAXED TO: [facility]....S/W KAYLA/VON DEPT STATED THAT ARIEL IS ON LEAVE AND LAURYN IS COVERING FOR ARIEL.. [facility]: LAURYN P- [phone] F- [phone]....
--- NOTE | 2018-08-20 13:40 | NUR ---
NURSE NOTES: Drew Sheppard came to see patient and signed official DNR form. BP 58/24, MAP 32, HR 79, SPo2 97%, RR 18, T 98.5 rectal. No change in mental status.
--- NOTE | 2018-08-20 14:39 | Cardiology Report ---
APPROVED REPORT EXAM: Two-dimensional and M-mode echocardiogram with Doppler and color Doppler. INDICATION Congestive Heart Failure M-Mode DIMENSIONS IVSd1.0 (0.7-1.1cm)Left Atrium (MM)5.1 (1.6-4.0cm) LVDd4.6 (3.5-5.6cm)Aortic Root4.1 (2.0-3.7cm) PWd1.4 (0.7-1.1cm)Aortic Cusp Exc.2.0 (1.5-2.0cm) LVDs2.6 (2.5-4.0cm) PWs1.5 cm Other Information Technically limited study due to poor acoustic window. Normal left ventricular chamber size, systolic function and wall motion to visualized extent. Left ventricular ejection fraction estimated to be 65-70 %. Mild left ventricular hypertrophy. No evidence of pericardial effusion. Mild bi-atrial enlargement. Right ventricular chamber size is within normal limits. Focal aortic valve sclerosis with adequate cusp excursion. Thickened mitral valve leaflets with normal excursion. Mitral annulus and aortic root calcification. Pulmonic valve not well visualized. Normal tricuspid valve structure. Subcostal images not obtained due to GI tube. A color flow and spectral Doppler study was performed and revealed: No aortic inssuficiency. Trace mitral regurgitation. Mitral diastolic velocities suggest reduced left ventricular relaxation c/w mild LV diastolic dysfunction (Grade I) Mild to moderate tricuspid regurgitation. Tricuspid systolic velocities suggests peak right ventricular systolic pressure of 53 mmHg , consistent with moderate pulmonary hypertension.
--- NOTE | 2018-08-20 14:58 | Cardiology Report ---
APPROVED REPORT EKG Measurement Heart [id number] Sinus rhythm with 1st degree AV block with frequent premature ventricular complexes Abnormal ECG
--- NOTE | 2018-08-20 15:13 | NUR ---
NURSE NOTES: Patient in same condition. see vitals. kept dry and clean.
[2018-08-20] MEDS ORDERED: Calcium Chloride 10% 10ml carpuject IVP ONE (17:56)
[2018-08-20] MEDS ORDERED: Lidocaine 2% 100mg/5ml Carp ONE (17:56)
[2018-08-20] MEDS ORDERED: Atropine Inj 1mg/10ml Syr ONE (17:56)
[2018-08-20] MEDS ORDERED: NS 275ml ONE ×2 (18:02)
[2018-08-20] MEDS ORDERED: NS Irrig 1000ml ONE (18:02)
[2018-08-20] MEDS ORDERED: D5 1/2NS 1000ml IV ONE (18:02)
--- NOTE | 2018-08-20 18:45 | NUR ---
NURSE NOTES: Turned and repositioned. No change in condition.
--- NOTE | 2018-08-20 19:12 | NUR ---
HAND-OFF: Report given to CIERRA Yu using SBAR.
--- NOTE | 2018-08-20 20:00 | NUR ---
NURSE NOTES: Received patient from Danette NORTON. Patient is awake but not oriented. Patient has been is trached to Ventilator portex 7, AC 14, 600, 50%, peep of 8. Patient is on Jevity 1.2 at 30ml/hr. Patient has right femoral TLC infusing D5W at 50ml/hr. Patient has been placed on DNR today, comfort measures only. MD with decision of family have decided to discontinue pressors. Patient BP has been trending systolically around the 70s. HR 80 SR, SpO2 96%.
--- NOTE | 2018-08-20 20:11 | General Progress Note ---
Assessment/Plan Assessment/Plan Assessment/Recommendations: # Thrombocytopenia - potential causes multifactorial, evaluate liver and viral etiologies to begin, also could be related to underlying medications patient has received. r/o underlying infection. --> Hep panel and HIV negative --> US abd to evaluate for cirrhosis and hsm ordered --> Peripheral smear ordered to evaluate for blasts /schistocytes does not show any --> abx and other meds have been reviewed --> ok for ppx if plt >50k w/ either heparin or lovenox --> Transfuse if Plt < 20k and fever, or if Plt < 10k without fever # Anemia of chronic disease due to underlying chronic medical issues, multifactorial --> Anemia workup has reviewed and c/w acd --> No evidence of hemolysis is noted, peripheral smear has been reviewed. --> Hgb goal >7. Transfuse prn. --> Epogen or iron at this time is not particularly indicated --> Medications have been reviewed --> evaluate with Gi team prn # Sepsis with uti and potentially pna --> on abx as per id # REspiratory failure s/p trach --> on vent per pulm/cc # Dysphagia s/p peg tube --> feds per gi started # Hyperkalemia # Dexter -- per cards eval, appreciated The timing of this note does not necessarily reflect the time of the patient was seen. Greatly appreciate consultation! Subjective Constitutional: Denies: no symptoms, chills, diaphoresis, fever, malaise, weakness, other Cardiovascular: Denies: no symptoms, chest pain, edema, irregular heart rate, lightheadedness, palpitations, syncope, other Genitourinary: Denies: no symptoms, burning, discharge, frequency, flank pain, hematuria, incontinence, pain, urgency, other Neurologic/Psychiatric: Denies: no symptoms, anxiety, depressed, emotional problems, headache, numbness, paresthesia, pre-existing deficit, seizure, tingling, tremors, weakness, other Endocrine: Denies: no symptoms, excessive sweating, flushing, intolerance to cold, intolerance to heat, increased hunger, increased thirst, increased urine, unexplained weight gain, unexplained weight loss, other Hematologic/Lymphatic: Denies: no symptoms, anemia, easy bleeding, easy bruising, other Allergies: Coded Allergies: BENAZEPRIL (Verified Allergy, Unknown, 06/02/18) Subjective 08/20: no events, is dnr, on abx,, in icu Objective Last 24 Hour Vital Signs Date Time Temp Pulse Resp B/P (MAP) Pulse Ox O2 Delivery O2 Flow Rate FiO2 08/20/18 18:55 84 16 40 40 08/20/18 17:10 80 14 40 08/20/18 16:00 50 08/20/18 16:00 Mechanical Ventilator 08/20/18 16:00 79 08/20/18 15:07 75 16 40 08/20/18 12:50 92 17 40 08/20/18 12:00 Mechanical Ventilator 08/20/18 12:00 50 08/20/18 10:30 100 26 40 08/20/18 10:00 58/31 08/20/18 10:00 99.8 08/20/18 09:00 84 08/20/18 09:00 105/38 08/20/18 09:00 112/58 08/20/18 08:38 100 15 40 08/20/18 08:15 101/39 08/20/18 08:00 94 08/20/18 08:00 Mechanical Ventilator 08/20/18 08:00 50 08/20/18 08:00 114/43 08/20/18 06:45 113 17 40 08/20/18 06:00 100 19 114/46 (68) 97 08/20/18 06:00 114/46 08/20/18 06:00 114/46 08/20/18 05:45 101 20 109/43 (65) 96 08/20/18 05:30 100 19 109/40 (63) 97 08/20/18 05:30 101 20 104/41 (62) 96 08/20/18 05:15 100 19 102/37 (58) 96 08/20/18 05:06 104 19 35 08/20/18 05:00 101 20 104/41 (62) 96 08/20/18 04:45 118 20 107/42 (63) 96 08/20/18 04:30 99.8 126 21 133/61 (85) 97 08/20/18 04:15 125 21 132/50 (77) 96 08/20/18 04:00 Mechanical Ventilator 08/20/18 04:00 120 08/20/18 04:00 124/47 08/20/18 04:00 124/47 08/20/18 04:00 50 08/20/18 04:00 124 21 121/47 (71) 96 08/20/18 03:45 118 20 95 08/20/18 03:45 123/50 08/20/18 03:30 117 22 103/59 (74) 96 08/20/18 03:15 120 19 123/50 (74) 99 08/20/18 03:10 124 17 35 08/20/18 03:00 111/44 08/20/18 03:00 111/44 08/20/18 03:00 120 18 111/44 (66) 98 08/20/18 02:45 121 20 113/46 (68) 96 08/20/18 02:30 123 20 109/45 (66) 96 08/20/18 02:15 118 18 111/43 (65) 96 08/20/18 02:00 118 18 107/49 (68) 96 08/20/18 01:45 115 19 106/50 (68) 96 08/20/18 01:30 110 18 111/43 (65) 96 08/20/18 01:18 103 18 35 08/20/18 01:15 106 18 109/39 (62) 96 08/20/18 01:00 106 18 102/40 (60) 96 08/20/18 00:45 106 19 104/47 (66) 96 08/20/18 00:30 104 18 108/47 (67) 96 08/20/18 00:29 103/37 08/20/18 00:15 103 19 108/39 (62) 95 08/20/18 00:00 50 08/20/18 00:00 Mechanical Ventilator 08/20/18 00:00 99 08/20/18 00:00 100.1 103 19 103/37 (59) 96 08/19/18 23:45 94 22 56/20 (32) 95 08/19/18 23:30 108 19 67/38 (48) 96 08/19/18 23:15 108 20 98/48 (65) 96 08/19/18 23:06 109 22 35 08/19/18 23:00 93/40 08/19/18 23:00 93/40 08/19/18 23:00 108 20 93/40 (57) 97 08/19/18 22:45 107 20 97/45 (62) 96 08/19/18 22:30 108 21 92/43 (59) 95 08/19/18 22:15 107 18 97/44 (61) 95 08/19/18 22:00 106 19 97/37 (57) 95 08/19/18 22:00 97/37 08/19/18 22:00 97/37 08/19/18 21:45 107 18 98/47 (64) 95 08/19/18 21:30 106 19 100/42 (61) 95 08/19/18 21:18 106 19 35 08/19/18 21:15 106 19 100/41 (60) 95 08/19/18 21:06 91/44 08/19/18 21:00 105 19 100/45 (63) 96 08/19/18 21:00 100/45 08/19/18 21:00 100/45 08/19/18 20:45 108 19 82/58 (66) 95 08/19/18 20:30 109 19 115/46 (69) 96 08/19/18 20:15 104 17 99/40 (59) 94 Intake and Output 08/19/18 08/20/18 19:00 07:00 Intake Total 2924.261 ml 2760.644 ml Output Total 2210 ml 4175 ml Balance 714.261 ml -1414.356 ml Free Water 90 ml 100 ml IV Total 2834.261 ml 2540.644 ml Tube Feeding 120 ml Output Urine Total 2210 ml 4175 ml # Bowel Movements 1 Laboratory Tests 08/20/18 04:15: White Blood Count 10.5, Red Blood Count 3.20L, Hemoglobin 8.8L, Hematocrit 28.3L , Mean Corpuscular Volume 88, Mean Corpuscular Hemoglobin 27.5, Mean Corpuscular Hemoglobin Concent 31.1L, Red Cell Distribution Width 17.3H, Platelet Count 70L, Mean Platelet Volume 13.0H, Neutrophils (%) (Auto) , Lymphocytes (%) (Auto) , Monocytes (%) (Auto) , Eosinophils (%) (Auto) , Basophils (%) (Auto) , Sodium Level 143, Potassium Level 5.8H, Chloride Level 111H, Carbon Dioxide Level 25, Anion Gap 7, Blood Urea Nitrogen 31H, Creatinine 1.3#, Estimat Glomerular Filtration Rate > 60, Glucose Level 85, Lactic Acid Level 1.40, Uric Acid 5.0, Calcium Level 9.3, Phosphorus Level 2.0L, Magnesium Level 1.7L, Total Bilirubin 0.5, Gamma Glutamyl Transpeptidase 36, Aspartate Amino Transf (AST/SGOT) 87H, Alanine Aminotransferase (ALT/SGPT) 71, Alkaline Phosphatase 129H, Total Creatine Kinase 72, C-Reactive Protein, Quantitative 25.1H, Pro-B-Type Natriuretic Peptide 1911H, Total Protein 7.0, Albumin 2.0L, Globulin 5.0, Albumin/Globulin Ratio 0.4L, Vitamin B12 Level 2319H, Folate 17.6 , Thyroid Stimulating Hormone (TSH) 0.605 08/20/18 08:50: Arterial Blood pH 7.436, Arterial Blood Partial Pressure CO2 32.7L, Arterial Blood Partial Pressure O2 97.4, Arterial Blood HCO3 21.5L, Arterial Blood Oxygen Saturation 97.1, Arterial Blood Base Excess -2.3L, Paul Test Positive 08/20/18 09:00: Vancomycin Level Trough 28.4H Height (Feet): 5 Height (Inches): 11.00 Weight (Pounds): 252 Objective Vitals: reviewed General Appearance: NAD HEENT: normocephalic, atraumatic Neck: non-tender, normal alignment Respiratory/Chest: + trach Cardiovascular/Chest: normal peripheral pulses, normal rate Abdomen: normal bowel sounds, soft, nontender ++ gtube Extremities: normal range of motion Bubba Colón MD Aug 20, 2018 20:11
--- NOTE | 2018-08-20 22:00 | NUR ---
NURSE NOTES: Patient repositioned, patient continues to be hypotensive with systolic blood pressure in the 70s. HR remains in the 80s. SpO2 97%. Patient odes remains awake,m eyes open. NAD respiratory distress.
--- NOTE | 2018-08-20 22:00 | General Progress Note ---
Assessment/Plan Problem List: (1) Low grade fever ICD Codes: R50.9 - Fever, unspecified SNOMED: 958503450 (2) Feeding by G-tube ICD Codes: Z93.1 - Gastrostomy status SNOMED: 266835330, 470129137 (3) Sepsis ICD Codes: A41.9 - Sepsis, unspecified organism SNOMED: 70126832 (4) Anemia ICD Codes: D64.9 - Anemia, unspecified SNOMED: 146203331 (5) Chronic respiratory failure ICD Codes: J96.10 - Chronic respiratory failure, unspecified whether with hypoxia or hypercapnia SNOMED: 58900706 (6) Chronic vegetative state ICD Codes: R40.3 - Persistent vegetative state SNOMED: 37628394, 558487758 (7) Alzheimer's dementia ICD Codes: G30.9 - Alzheimer's disease, unspecified; F02.80 - Dementia in other diseases classified elsewhere without behavioral disturbance SNOMED: 69859873 (8) UTI (urinary tract infection) ICD Codes: N39.0 - Urinary tract infection, site not specified SNOMED: 03082305 (9) Tracheostomy in place ICD Codes: Z93.0 - Tracheostomy status SNOMED: 256012283 (10) Symptomatic bradycardia ICD Codes: R00.1 - Bradycardia, unspecified SNOMED: 53513717, 858153517 Status: unchanged Assessment/Plan resp failure chronic vegetative state uti encephalopathy afebrile abx per id edema reviewed chart and labs Subjective ROS Limited/Unobtainable: Yes Allergies: Coded Allergies: BENAZEPRIL (Verified Allergy, Unknown, 06/02/18) Objective Last 24 Hour Vital Signs Date Time Temp Pulse Resp B/P (MAP) Pulse Ox O2 Delivery O2 Flow Rate FiO2 08/20/18 21:15 76 15 40 40 08/20/18 20:00 50 08/20/18 20:00 81 08/20/18 20:00 Mechanical Ventilator 08/20/18 18:55 84 16 40 40 08/20/18 17:10 80 14 40 08/20/18 16:00 50 08/20/18 16:00 Mechanical Ventilator 08/20/18 16:00 79 08/20/18 15:07 75 16 40 08/20/18 12:50 92 17 40 08/20/18 12:00 Mechanical Ventilator 08/20/18 12:00 50 08/20/18 10:30 100 26 40 08/20/18 10:00 58/31 08/20/18 10:00 99.8 08/20/18 09:00 84 08/20/18 09:00 105/38 08/20/18 09:00 112/58 08/20/18 08:38 100 15 40 08/20/18 08:15 101/39 08/20/18 08:00 94 08/20/18 08:00 Mechanical Ventilator 08/20/18 08:00 50 08/20/18 08:00 114/43 08/20/18 06:45 113 17 40 08/20/18 06:00 100 19 114/46 (68) 97 08/20/18 06:00 114/46 08/20/18 06:00 114/46 08/20/18 05:45 101 20 109/43 (65) 96 08/20/18 05:30 100 19 109/40 (63) 97 08/20/18 05:30 101 20 104/41 (62) 96 08/20/18 05:15 100 19 102/37 (58) 96 08/20/18 05:06 104 19 35 08/20/18 05:00 101 20 104/41 (62) 96 08/20/18 04:45 118 20 107/42 (63) 96 08/20/18 04:30 99.8 126 21 133/61 (85) 97 08/20/18 04:15 125 21 132/50 (77) 96 08/20/18 04:00 Mechanical Ventilator 08/20/18 04:00 120 08/20/18 04:00 124/47 08/20/18 04:00 124/47 08/20/18 04:00 50 08/20/18 04:00 124 21 121/47 (71) 96 08/20/18 03:45 118 20 95 08/20/18 03:45 123/50 08/20/18 03:30 117 22 103/59 (74) 96 08/20/18 03:15 120 19 123/50 (74) 99 08/20/18 03:10 124 17 35 08/20/18 03:00 111/44 08/20/18 03:00 111/44 08/20/18 03:00 120 18 111/44 (66) 98 08/20/18 02:45 121 20 113/46 (68) 96 08/20/18 02:30 123 20 109/45 (66) 96 08/20/18 02:15 118 18 111/43 (65) 96 08/20/18 02:00 118 18 107/49 (68) 96 08/20/18 01:45 115 19 106/50 (68) 96 08/20/18 01:30 110 18 111/43 (65) 96 08/20/18 01:18 103 18 35 08/20/18 01:15 106 18 109/39 (62) 96 08/20/18 01:00 106 18 102/40 (60) 96 08/20/18 00:45 106 19 104/47 (66) 96 08/20/18 00:30 104 18 108/47 (67) 96 08/20/18 00:29 103/37 08/20/18 00:15 103 19 108/39 (62) 95 08/20/18 00:00 50 08/20/18 00:00 Mechanical Ventilator 08/20/18 00:00 99 08/20/18 00:00 100.1 103 19 103/37 (59) 96 08/19/18 23:45 94 22 56/20 (32) 95 08/19/18 23:30 108 19 67/38 (48) 96 08/19/18 23:15 108 20 98/48 (65) 96 08/19/18 23:06 109 22 35 08/19/18 23:00 93/40 08/19/18 23:00 93/40 08/19/18 23:00 108 20 93/40 (57) 97 08/19/18 22:45 107 20 97/45 (62) 96 08/19/18 22:30 108 21 92/43 (59) 95 08/19/18 22:15 107 18 97/44 (61) 95 08/19/18 22:00 106 19 97/37 (57) 95 08/19/18 22:00 97/37 08/19/18 22:00 97/37 Intake and Output 08/19/18 08/20/18 19:00 07:00 Intake Total 2924.261 ml 2760.644 ml Output Total 2210 ml 4175 ml Balance 714.261 ml -1414.356 ml Free Water 90 ml 100 ml IV Total 2834.261 ml 2540.644 ml Tube Feeding 120 ml Output Urine Total 2210 ml 4175 ml # Bowel Movements 1 Laboratory Tests 08/20/18 04:15: White Blood Count 10.5, Red Blood Count 3.20L, Hemoglobin 8.8L, Hematocrit 28.3L , Mean Corpuscular Volume 88, Mean Corpuscular Hemoglobin 27.5, Mean Corpuscular Hemoglobin Concent 31.1L, Red Cell Distribution Width 17.3H, Platelet Count 70L, Mean Platelet Volume 13.0H, Neutrophils (%) (Auto) , Lymphocytes (%) (Auto) , Monocytes (%) (Auto) , Eosinophils (%) (Auto) , Basophils (%) (Auto) , Sodium Level 143, Potassium Level 5.8H, Chloride Level 111H, Carbon Dioxide Level 25, Anion Gap 7, Blood Urea Nitrogen 31H, Creatinine 1.3#, Estimat Glomerular Filtration Rate > 60, Glucose Level 85, Lactic Acid Level 1.40, Uric Acid 5.0, Calcium Level 9.3, Phosphorus Level 2.0L, Magnesium Level 1.7L, Total Bilirubin 0.5, Gamma Glutamyl Transpeptidase 36, Aspartate Amino Transf (AST/SGOT) 87H, Alanine Aminotransferase (ALT/SGPT) 71, Alkaline Phosphatase 129H, Total Creatine Kinase 72, C-Reactive Protein, Quantitative 25.1H, Pro-B-Type Natriuretic Peptide 1911H, Total Protein 7.0, Albumin 2.0L, Globulin 5.0, Albumin/Globulin Ratio 0.4L, Vitamin B12 Level 2319H, Folate 17.6 , Thyroid Stimulating Hormone (TSH) 0.605 08/20/18 08:50: Arterial Blood pH 7.436, Arterial Blood Partial Pressure CO2 32.7L, Arterial Blood Partial Pressure O2 97.4, Arterial Blood HCO3 21.5L, Arterial Blood Oxygen Saturation 97.1, Arterial Blood Base Excess -2.3L, Paul Test Positive 08/20/18 09:00: Vancomycin Level Trough 28.4H, Hepatitis A IgM Antibody [Pending], Hepatitis B Surface Antigen [Pending], Hepatitis B Core IgM Antibody [Pending], Hepatitis C Antibody [Pending] Height (Feet): 5 Height (Inches): 11.00 Weight (Pounds): 252 Neck: supple Cardiovascular: normal rate Respiratory/Chest: lungs clear Abdomen: soft Tanya Torres MD Aug 20, 2018 22:00
[2018-08-20] MEDS ORDERED: Vancomycin 1 GM in D5W 275 ML IV SCH (23:00)
[2018-08-21] VITALS (31 sets, daily range): BP systolic 73–120; BP diastolic 35–69
--- NOTE | 2018-08-21 | NUR ---
NURSE NOTES: Patient repositioned. 1 BM noted, patient cleaned and provided oral suctioning and oral care. Patient produced alot of clear thick secretions. BP remains hypotensive with current BP of 82/39, and HR of 80 SR.
[2018-08-21] MEDS: Meropenem 1 GM in NS 55 ML IVPB SCH ×2 (01:21→09:21)
--- NOTE | 2018-08-21 02:00 | NUR ---
NURSE NOTES: Patient repositioned, BP is improving. Suctioned patient and provided oral care. Maintenance fluids ongoing.
--- NOTE | 2018-08-21 04:00 | NUR ---
NURSE NOTES: Patients BP continues to improve, producing lots of clear secretions. Feeds ongoing, afebrile, no acute distress at this time.
[2018-08-21 05:27] LABS: HEMATOCRIT 19.8 % (42.0-52.0); MEAN CORPUSCULAR VOLUME 88 FL (80-99); PLATELET COUNT 29 K/UL (150-450); RED BLOOD COUNT 2.24 M/UL (4.70-6.10); WHITE BLOOD COUNT 7.9 K/UL (4.8-10.8)
[2018-08-21 05:43] LABS: ANION GAP 6 mmol/L (5-15); BLOOD UREA NITROGEN 33 mg/dL (7-18); CARBON DIOXIDE 27 MMOL/L (21-32); CHLORIDE 109 MMOL/L (98-107); CREATININE 1.4 MG/DL (0.55-1.30); POTASSIUM 4.1 MMOL/L (3.5-5.1); SODIUM 142 MMOL/L (136-145)
--- NOTE | 2018-08-21 06:00 | NUR ---
NURSE NOTES: Repositioned and suctioned patient. VS remains stable for now. Will continue to monitor.
--- NOTE | 2018-08-21 06:34 | NUR ---
RESPIRATORY NOTE: Received pt on current vent settings AC 14-600ml-40%- peep of 5. pt is trached with portex 7.[address]. Pt is tolerating the setting well. Jovan rhonchi diminished breath sounds heard upon auscultation, sxn scant to minimal amount of thin brown and red secretions without incidents. Oral care done.pt is in no apparent resp distress at this time. Back up trach and ambu bag at bedside, alarms are on and audible, vent plugged into red outlet. Will cont to monitor pt.
[2018-08-21 06:38] LABS: HEMOGLOBIN 6.1 G/DL (14.2-18.0)
--- NOTE | 2018-08-21 07:20 | NUR ---
NURSE NOTES: Received patient from [facility]. Pt is awake, but not oriented. Pt is trached to vent Portex 7, AC14, TV600, Peep 5.0, FIO2 40%, with O2sat 90-87%. PEG placed, feeding on hold per family request on POLST (no artificial feeding). Sauceda catheter in place, draining godwin urine with red sediments. Pt has right femoral TLC in place, infusing D5W at 50mL/hour. Skin has small blister on right buttocks, on P200 mattress. Pt is on seizure, fall and aspiration precautions, side rails padded, suction setup. Head of bed at 30 degrees, bed locked and in lowest position, three side rails up, and call light within easy reach. Will continue to monitor pt and follow plan of care per MD orders and protocol.
--- NOTE | 2018-08-21 08:36 | NUR ---
CASE MANAGEMENT:REVIEW 08/21/18 SI: PNEUMONIA. SEPTIC SHOCK. BRADYCARDIA CHRONIC TRACH/VENT/G-TUBE. 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
[2018-08-21] MEDS: Docusate 100mg/10ml Liq GT SCH ×3 (09:00→18:00)
--- NOTE | 2018-08-21 09:00 | NUR ---
NURSE NOTES: Dr Colón assessed pt at bedside, 2units of PRBC and 1unit of FFP ordered. Will process order and follow. Oral care done, pt was suctioned with minimal secretions. Pt repositioned, vital signs stable.
[2018-08-21] MEDS: Pantoprazole Inj IV SCH (09:21)
--- NOTE | 2018-08-21 09:59 | General Progress Note ---
Assessment/Plan Problem List: (1) Low grade fever ICD Codes: R50.9 - Fever, unspecified SNOMED: 618440527 (2) Feeding by G-tube ICD Codes: Z93.1 - Gastrostomy status SNOMED: 137890977, 765223431 (3) Sepsis ICD Codes: A41.9 - Sepsis, unspecified organism SNOMED: 21775401 (4) Anemia ICD Codes: D64.9 - Anemia, unspecified SNOMED: 024300498 (5) Chronic respiratory failure ICD Codes: J96.10 - Chronic respiratory failure, unspecified whether with hypoxia or hypercapnia SNOMED: 81121673 (6) Chronic vegetative state ICD Codes: R40.3 - Persistent vegetative state SNOMED: 68430147, 409843712 (7) Alzheimer's dementia ICD Codes: G30.9 - Alzheimer's disease, unspecified; F02.80 - Dementia in other diseases classified elsewhere without behavioral disturbance SNOMED: 12344459 (8) UTI (urinary tract infection) ICD Codes: N39.0 - Urinary tract infection, site not specified SNOMED: 34644007 (9) Tracheostomy in place ICD Codes: Z93.0 - Tracheostomy status SNOMED: 137469517 (10) Symptomatic bradycardia ICD Codes: R00.1 - Bradycardia, unspecified SNOMED: 47418005, 297495112 Status: progressing Assessment/Plan resp failure chronic vegetative state uti encephalopathy afebrile abx per id edema reviewed chart and labs anemia edema of lower extremity Subjective ROS Limited/Unobtainable: Yes Allergies: Coded Allergies: BENAZEPRIL (Verified Allergy, Unknown, 06/02/18) Objective Last 24 Hour Vital Signs Date Time Temp Pulse Resp B/P (MAP) Pulse Ox O2 Delivery O2 Flow Rate FiO2 08/21/18 09:12 80 14 40 08/21/18 09:00 83 14 115/49 (71) 90 08/21/18 08:00 98.0 83 15 110/49 (69) 87 08/21/18 07:00 83 16 117/53 (74) 89 08/21/18 06:34 80 14 40 40 08/21/18 06:00 81 18 106/53 (70) 100 08/21/18 05:02 80 15 40 40 08/21/18 05:00 80 15 112/53 (72) 100 08/21/18 04:30 81 16 112/49 (70) 100 08/21/18 04:00 71 08/21/18 04:00 98.2 80 15 118/46 (70) 100 08/21/18 04:00 Mechanical Ventilator 08/21/18 04:00 50 08/21/18 03:30 83 16 97/47 (64) 99 08/21/18 03:15 84 18 40 40 08/21/18 03:00 85 17 101/39 (59) 96 08/21/18 02:45 86 15 73/50 (58) 97 08/21/18 02:30 84 15 83/39 (54) 97 08/21/18 02:15 85 15 78/39 (52) 97 08/21/18 02:00 84 15 82/36 (51) 97 08/21/18 01:00 80 17 84/39 (54) 98 08/21/18 00:46 82 15 40 40 08/21/18 00:30 83 15 85/38 (54) 97 08/21/18 00:15 81 15 82/38 (53) 96 08/21/18 00:00 83 08/21/18 00:00 82 14 74/35 (48) 97 08/21/18 00:00 Mechanical Ventilator 08/21/18 00:00 50 08/21/18 00:00 96.8 82 14 74/35 (48) 97 08/20/18 23:45 81 15 77/36 (50) 97 08/20/18 23:30 81 15 82/35 (51) 97 08/20/18 23:15 81 15 83/36 (52) 97 08/20/18 23:00 79 15 78/32 (47) 97 08/20/18 22:45 81 14 75/36 (49) 98 08/20/18 22:40 81 18 40 40 08/20/18 22:30 80 17 78/38 (51) 97 08/20/18 22:15 79 14 85/34 (51) 98 08/20/18 22:00 75 16 83/37 (52) 97 08/20/18 21:45 78 15 78/34 (49) 97 08/20/18 21:36 78 14 66/34 (45) 97 08/20/18 21:30 80 15 79/35 (50) 96 08/20/18 21:15 76 15 40 40 08/20/18 21:15 79 15 73/32 (46) 96 08/20/18 21:00 78 15 73/34 (47) 96 08/20/18 20:55 80 16 73/31 (45) 96 08/20/18 20:45 80 16 76/31 (46) 97 08/20/18 20:30 79 16 74/32 (46) 97 08/20/18 20:15 82 14 83/34 (50) 96 08/20/18 20:00 50 08/20/18 20:00 81 08/20/18 20:00 97.2 82 15 79/37 (51) 95 08/20/18 20:00 Mechanical Ventilator 08/20/18 18:55 84 16 40 40 08/20/18 17:10 80 14 40 08/20/18 16:00 50 08/20/18 16:00 Mechanical Ventilator 08/20/18 16:00 79 08/20/18 15:07 75 16 40 08/20/18 12:50 92 17 40 08/20/18 12:00 Mechanical Ventilator 08/20/18 12:00 50 08/20/18 11:00 82 25 56/29 (38) 93 08/20/18 10:45 83 24 65/24 (38) 90 08/20/18 10:30 100 26 40 08/20/18 10:30 83 27 59/29 (39) 88 08/20/18 10:15 76 23 61/25 (37) 91 08/20/18 10:05 87 24 53/24 (34) 94 08/20/18 10:00 99 18 95/41 (59) 97 08/20/18 10:00 58/31 08/20/18 10:00 99.8 Intake and Output 08/20/18 08/21/18 18:59 06:59 Intake Total 1344.814 ml 945 ml Output Total 1125 ml 780 ml Balance 219.814 ml 165 ml Free Water 60 ml IV Total 1104.814 ml 705 ml Tube Feeding 180 ml 240 ml Output Urine Total 1125 ml 780 ml # Bowel Movements 1 Laboratory Tests 08/21/18 04:30: White Blood Count 7.9, Red Blood Count 2.24L, Hemoglobin 6.1#*L, Hematocrit 19.8 #L, Mean Corpuscular Volume 88, Mean Corpuscular Hemoglobin 27.3, Mean Corpuscular Hemoglobin Concent 30.9L, Red Cell Distribution Width 17.0H, Platelet Count 29#L, Mean Platelet Volume 9.5, Neutrophils (%) (Auto) , Lymphocytes (%) (Auto) , Monocytes (%) (Auto) , Eosinophils (%) (Auto) , Basophils (%) (Auto) , Differential Total Cells Counted 100, Neutrophils % ( Manual) 68, Lymphocytes % (Manual) 24, Monocytes % (Manual) 6, Eosinophils % ( Manual) 2, Basophils % (Manual) 0, Band Neutrophils 0, Platelet Estimate DecreasedL, Platelet Morphology Normal, Hypochromasia 1+, Anisocytosis 1+, Sodium Level 142, Potassium Level 4.1, Chloride Level 109H, Carbon Dioxide Level 27, Anion Gap 6, Blood Urea Nitrogen 33H, Creatinine 1.4H, Estimat Glomerular Filtration Rate > 60, Glucose Level 86, Calcium Level 9.0, Random Vancomycin Level 27.5 Height (Feet): 5 Height (Inches): 11.00 Weight (Pounds): 249 Cardiovascular: normal rate Respiratory/Chest: lungs clear Abdomen: soft Tanya Torres MD Aug 21, 2018 09:59
--- NOTE | 2018-08-21 10:01 | NUR ---
NURSE NOTES: Dr Kothari cancelled orders for PRBC and FFP infusion. Will follow as ordered. Pulse oximetry placed on pt's left ear, O2sat is now 100% with same previous vent-settings, AC14, TV600, Peep 5.0, FIO2 40%. Pt resting comfortably with no s/s of discomfort present.
--- NOTE | 2018-08-21 10:04 | NUR ---
Social Service Note SW discussed bioethics consult with Dr. Kothari. Consult not required at this time. Dr. Kothari will contact [facility] and address treatment plan of care. Will continue to monitor.
--- NOTE | 2018-08-21 10:15 | Pulmonolgy Critical Care Note ---
Critical Care - Asmt/Plan Problems: (1) Respiratory failure, acute and chronic (2) ATN (acute tubular necrosis) (3) Thrombocytopenia (4) Symptomatic bradycardia (5) Alzheimer's dementia (6) COPD (chronic obstructive pulmonary disease) (7) Chronic vegetative state (8) Feeding by G-tube (9) Tracheostomy in place Respiratory: monitor respiratory rate, adjust FIO2, CXR Cardiac: continue to monitor HR/BP Infectious Disease: other - dc abx b/o thrombocytopenia Gastrointestinal: hold feedings, other - family doesnt' want any artificial feeding Discussed with: family member - d/q niece about transfusing blood and PLE and awaiting their response. Critical Care - Objective Last 24 Hour Vital Signs Date Time Temp Pulse Resp B/P (MAP) Pulse Ox O2 Delivery O2 Flow Rate FiO2 08/21/18 09:12 80 14 40 08/21/18 09:00 83 14 115/49 (71) 90 08/21/18 08:00 98.0 83 15 110/49 (69) 87 08/21/18 07:00 83 16 117/53 (74) 89 08/21/18 06:34 80 14 40 40 08/21/18 06:00 81 18 106/53 (70) 100 08/21/18 05:02 80 15 40 40 08/21/18 05:00 80 15 112/53 (72) 100 08/21/18 04:30 81 16 112/49 (70) 100 08/21/18 04:00 71 08/21/18 04:00 98.2 80 15 118/46 (70) 100 08/21/18 04:00 Mechanical Ventilator 08/21/18 04:00 50 08/21/18 03:30 83 16 97/47 (64) 99 08/21/18 03:15 84 18 40 40 08/21/18 03:00 85 17 101/39 (59) 96 08/21/18 02:45 86 15 73/50 (58) 97 08/21/18 02:30 84 15 83/39 (54) 97 08/21/18 02:15 85 15 78/39 (52) 97 08/21/18 02:00 84 15 82/36 (51) 97 08/21/18 01:00 80 17 84/39 (54) 98 08/21/18 00:46 82 15 40 40 08/21/18 00:30 83 15 85/38 (54) 97 08/21/18 00:15 81 15 82/38 (53) 96 08/21/18 00:00 83 08/21/18 00:00 82 14 74/35 (48) 97 08/21/18 00:00 Mechanical Ventilator 08/21/18 00:00 50 08/21/18 00:00 96.8 82 14 74/35 (48) 97 08/20/18 23:45 81 15 77/36 (50) 97 08/20/18 23:30 81 15 82/35 (51) 97 08/20/18 23:15 81 15 83/36 (52) 97 08/20/18 23:00 79 15 78/32 (47) 97 08/20/18 22:45 81 14 75/36 (49) 98 08/20/18 22:40 81 18 40 40 08/20/18 22:30 80 17 78/38 (51) 97 08/20/18 22:15 79 14 85/34 (51) 98 08/20/18 22:00 75 16 83/37 (52) 97 08/20/18 21:45 78 15 78/34 (49) 97 08/20/18 21:36 78 14 66/34 (45) 97 08/20/18 21:30 80 15 79/35 (50) 96 08/20/18 21:15 76 15 40 40 08/20/18 21:15 79 15 73/32 (46) 96 08/20/18 21:00 78 15 73/34 (47) 96 08/20/18 20:55 80 16 73/31 (45) 96 08/20/18 20:45 80 16 76/31 (46) 97 08/20/18 20:30 79 16 74/32 (46) 97 08/20/18 20:15 82 14 83/34 (50) 96 08/20/18 20:00 50 08/20/18 20:00 81 08/20/18 20:00 97.2 82 15 79/37 (51) 95 08/20/18 20:00 Mechanical Ventilator 08/20/18 18:55 84 16 40 40 08/20/18 17:10 80 14 40 08/20/18 16:00 50 08/20/18 16:00 Mechanical Ventilator 08/20/18 16:00 79 08/20/18 15:07 75 16 40 08/20/18 12:50 92 17 40 08/20/18 12:00 Mechanical Ventilator 08/20/18 12:00 50 08/20/18 11:00 82 25 56/29 (38) 93 08/20/18 10:45 83 24 65/24 (38) 90 08/20/18 10:30 100 26 40 08/20/18 10:30 83 27 59/29 (39) 88 08/20/18 10:15 76 23 61/25 (37) 91 Status: obtunded Condition: critical HEENT: atraumatic Lungs: chest wall tender Heart: regular Abdomen: non-tender, feeding tube Extremities: edema Micro: Microbiology Date/Time Source Procedure Growth Status 08/19/18 01:29 Blood Blood Culture - Preliminary NO GROWTH AFTER 48 HOURS Resulted 08/19/18 01:25 Blood Blood Culture - Preliminary NO GROWTH AFTER 48 HOURS Resulted 08/19/18 01:10 Nasal Nares MRSA Culture - Final NO METHICILLIN RESISTANT STAPH AUREUS... Complete 08/19/18 01:50 Urine,Clean Catch Urine Culture - Preliminary YEAST Resulted 08/19/18 01:10 Rectum - Final NO CARBAPENEM-RESISTANT ENTEROBACTERI... Complete 08/19/18 01:10 Rectum VRE Culture - Final Enterococcus Faecalis - Vre Complete Critical Care - Subjective ROS Limited/Unobtainable: No Condition: critical EKG Rhythm: Sinus Rhythm FI02: 40 Vent Support Breath Rate: 14 Vent Support Mode: AC Vent Tidal Volume: 600 Sputum Amount: Moderate PEEP: 5.0 PIP: 30 Tube Feeding Amount: 30 I&O: Intake and Output 08/20/18 08/21/18 18:59 06:59 Intake Total 1344.814 ml 945 ml Output Total 1125 ml 780 ml Balance 219.814 ml 165 ml Free Water 60 ml IV Total 1104.814 ml 705 ml Tube Feeding 180 ml 240 ml Output Urine Total 1125 ml 780 ml # Bowel Movements 1 CXR: no change Labs: Laboratory Tests Test 08/21/18 04:30 White Blood Count 7.9 K/UL (4.8-10.8) Red Blood Count 2.24 M/UL (4.70-6.10) L Hemoglobin 6.1 G/DL (14.2-18.0) Hematocrit 19.8 % (42.0-52.0) #L Mean Corpuscular Volume 88 FL (80-99) Mean Corpuscular Hemoglobin 27.3 PG (27.0-31.0) Mean Corpuscular Hemoglobin Concent 30.9 G/DL (32.0-36.0) L Red Cell Distribution Width 17.0 % (11.6-14.8) H Platelet Count 29 K/UL (150-450) #L Mean Platelet Volume 9.5 FL (6.5-10.1) Neutrophils (%) (Auto) % (45.0-75.0) Lymphocytes (%) (Auto) % (20.0-45.0) Monocytes (%) (Auto) % (1.0-10.0) Eosinophils (%) (Auto) % (0.0-3.0) Basophils (%) (Auto) % (0.0-2.0) Differential Total Cells Counted 100 Neutrophils % (Manual) 68 % (45-75) Lymphocytes % (Manual) 24 % (20-45) Monocytes % (Manual) 6 % (1-10) Eosinophils % (Manual) 2 % (0-3) Basophils % (Manual) 0 % (0-2) Band Neutrophils 0 % (0-8) Platelet Estimate Decreased L Platelet Morphology Normal Hypochromasia 1+ Anisocytosis 1+ Sodium Level 142 MMOL/L (136-145) Potassium Level 4.1 MMOL/L (3.5-5.1) Chloride Level 109 MMOL/L (98-107) H Carbon Dioxide Level 27 MMOL/L (21-32) Anion Gap 6 mmol/L (5-15) Blood Urea Nitrogen 33 mg/dL (7-18) H Creatinine 1.4 MG/DL (0.55-1.30) H Estimat Glomerular Filtration Rate > 60 mL/min (>60) Glucose Level 86 MG/DL (74-106) Calcium Level 9.0 MG/DL (8.5-10.1) Random Vancomycin Level 27.5 ug/mL Steve Kothari MD Aug 21, 2018 10:15
--- NOTE | 2018-08-21 10:23 | NUR ---
NURSE NOTES: Dr Kothari talked to theresa about pt status. Theresa agreed to change pt to comfort care only. Will continue to monitor.
[2018-08-21] MEDS ORDERED: Morphine Sulfate 10mg/ml Inj IVP SCH (10:30)
[2018-08-21] MEDS ORDERED: Artificial Tears 1.4% Op Soln BOTH EYES PRN (10:30)
[2018-08-21] MEDS ORDERED: PCA Morphine 1mg/ml 30 ML IV PRN (10:30)
[2018-08-21] MEDS ORDERED: Haloperidol 5mg/ml Inj IM PRN (10:30)
[2018-08-21] MEDS ORDERED: Glycopyrrolate 0.2mg/ml 1ml Vial IV PRN (10:30)
[2018-08-21] MEDS ORDERED: Prochlorperazine 10mg tab ORAL PRN (10:30)
--- NOTE | 2018-08-21 10:42 | Cardiac Electrophysiology PN ---
Assessment/Plan Assessment/Plan 1. Septic shock. Pressors were DCed due to comfort care but BP 100s now Echo EF 65% 2. Bradycardia with heart rate in the 30s, could be due to hyperkalemia. Resolved 3. Ventilator-dependent respiratory failure, status post tracheostomy. Terminal extubation pending 4. Dysphagia, status post PEG placement. 5. Organic brain syndrome. 6. Sepsis with elevated lactate, on pressors and IV antibiotics. 7. DNR and comfort care KAYLA RN and Dr Kothari Subjective Subjective In ICU now comfort care per family wish. Dopamine and Levophed DCed on the vent. Terminal disconnection from the vent pending Objective Last 24 Hour Vital Signs Date Time Temp Pulse Resp B/P (MAP) Pulse Ox O2 Delivery O2 Flow Rate FiO2 08/21/18 09:12 80 14 40 08/21/18 09:00 83 14 115/49 (71) 90 08/21/18 08:00 98.0 83 15 110/49 (69) 87 08/21/18 07:00 83 16 117/53 (74) 89 08/21/18 06:34 80 14 40 40 08/21/18 06:00 81 18 106/53 (70) 100 08/21/18 05:02 80 15 40 40 08/21/18 05:00 80 15 112/53 (72) 100 08/21/18 04:30 81 16 112/49 (70) 100 08/21/18 04:00 71 08/21/18 04:00 98.2 80 15 118/46 (70) 100 08/21/18 04:00 Mechanical Ventilator 08/21/18 04:00 50 08/21/18 03:30 83 16 97/47 (64) 99 08/21/18 03:15 84 18 40 40 08/21/18 03:00 85 17 101/39 (59) 96 08/21/18 02:45 86 15 73/50 (58) 97 08/21/18 02:30 84 15 83/39 (54) 97 08/21/18 02:15 85 15 78/39 (52) 97 08/21/18 02:00 84 15 82/36 (51) 97 08/21/18 01:00 80 17 84/39 (54) 98 08/21/18 00:46 82 15 40 40 08/21/18 00:30 83 15 85/38 (54) 97 08/21/18 00:15 81 15 82/38 (53) 96 08/21/18 00:00 83 08/21/18 00:00 82 14 74/35 (48) 97 08/21/18 00:00 Mechanical Ventilator 08/21/18 00:00 50 08/21/18 00:00 96.8 82 14 74/35 (48) 97 08/20/18 23:45 81 15 77/36 (50) 97 08/20/18 23:30 81 15 82/35 (51) 97 08/20/18 23:15 81 15 83/36 (52) 97 08/20/18 23:00 79 15 78/32 (47) 97 08/20/18 22:45 81 14 75/36 (49) 98 08/20/18 22:40 81 18 40 40 08/20/18 22:30 80 17 78/38 (51) 97 08/20/18 22:15 79 14 85/34 (51) 98 08/20/18 22:00 75 16 83/37 (52) 97 08/20/18 21:45 78 15 78/34 (49) 97 08/20/18 21:36 78 14 66/34 (45) 97 08/20/18 21:30 80 15 79/35 (50) 96 08/20/18 21:15 76 15 40 40 08/20/18 21:15 79 15 73/32 (46) 96 08/20/18 21:00 78 15 73/34 (47) 96 08/20/18 20:55 80 16 73/31 (45) 96 08/20/18 20:45 80 16 76/31 (46) 97 08/20/18 20:30 79 16 74/32 (46) 97 08/20/18 20:15 82 14 83/34 (50) 96 08/20/18 20:00 50 08/20/18 20:00 81 08/20/18 20:00 97.2 82 15 79/37 (51) 95 08/20/18 20:00 Mechanical Ventilator 08/20/18 18:55 84 16 40 40 08/20/18 17:10 80 14 40 08/20/18 16:00 50 08/20/18 16:00 Mechanical Ventilator 08/20/18 16:00 79 08/20/18 15:07 75 16 40 08/20/18 12:50 92 17 40 08/20/18 12:00 Mechanical Ventilator 08/20/18 12:00 50 08/20/18 11:00 82 25 56/29 (38) 93 08/20/18 10:45 83 24 65/24 (38) 90 Intake and Output 08/20/18 08/21/18 18:59 06:59 Intake Total 1344.814 ml 945 ml Output Total 1125 ml 780 ml Balance 219.814 ml 165 ml Free Water 60 ml IV Total 1104.814 ml 705 ml Tube Feeding 180 ml 240 ml Output Urine Total 1125 ml 780 ml # Bowel Movements 1 Laboratory Tests Test 08/21/18 04:30 White Blood Count 7.9 K/UL (4.8-10.8) Red Blood Count 2.24 M/UL (4.70-6.10) L Hemoglobin 6.1 G/DL (14.2-18.0) Hematocrit 19.8 % (42.0-52.0) #L Mean Corpuscular Volume 88 FL (80-99) Mean Corpuscular Hemoglobin 27.3 PG (27.0-31.0) Mean Corpuscular Hemoglobin Concent 30.9 G/DL (32.0-36.0) L Red Cell Distribution Width 17.0 % (11.6-14.8) H Platelet Count 29 K/UL (150-450) #L Mean Platelet Volume 9.5 FL (6.5-10.1) Neutrophils (%) (Auto) % (45.0-75.0) Lymphocytes (%) (Auto) % (20.0-45.0) Monocytes (%) (Auto) % (1.0-10.0) Eosinophils (%) (Auto) % (0.0-3.0) Basophils (%) (Auto) % (0.0-2.0) Differential Total Cells Counted 100 Neutrophils % (Manual) 68 % (45-75) Lymphocytes % (Manual) 24 % (20-45) Monocytes % (Manual) 6 % (1-10) Eosinophils % (Manual) 2 % (0-3) Basophils % (Manual) 0 % (0-2) Band Neutrophils 0 % (0-8) Platelet Estimate Decreased L Platelet Morphology Normal Hypochromasia 1+ Anisocytosis 1+ Sodium Level 142 MMOL/L (136-145) Potassium Level 4.1 MMOL/L (3.5-5.1) Chloride Level 109 MMOL/L (98-107) H Carbon Dioxide Level 27 MMOL/L (21-32) Anion Gap 6 mmol/L (5-15) Blood Urea Nitrogen 33 mg/dL (7-18) H Creatinine 1.4 MG/DL (0.55-1.30) H Estimat Glomerular Filtration Rate > 60 mL/min (>60) Glucose Level 86 MG/DL (74-106) Calcium Level 9.0 MG/DL (8.5-10.1) Random Vancomycin Level 27.5 ug/mL Microbiology Date/Time Source Procedure Growth Status 08/19/18 01:29 Blood Blood Culture - Preliminary NO GROWTH AFTER 48 HOURS Resulted 08/19/18 01:25 Blood Blood Culture - Preliminary NO GROWTH AFTER 48 HOURS Resulted 08/19/18 01:10 Nasal Nares MRSA Culture - Final NO METHICILLIN RESISTANT STAPH AUREUS... Complete 08/19/18 01:50 Urine,Clean Catch Urine Culture - Preliminary YEAST Resulted 08/19/18 01:10 Rectum - Final NO CARBAPENEM-RESISTANT ENTEROBACTERI... Complete 08/19/18 01:10 Rectum VRE Culture - Final Enterococcus Faecalis - Vre Complete Objective HEAD AND NECK: No JVD. Tracheostomy is in place. CARDIOVASCULAR: Regular S1 and S2 with no gallop or murmur. ABDOMEN: Status post G-tube. EXTREMITIES: 2+ pitting edema. Minor Liz MD Aug 21, 2018 10:42
--- NOTE | 2018-08-21 10:51 | Infectious Diseases Prog Note ---
Assessment/Plan Assessment/Plan Assessment: Septic shock- likely 2ry to UTI and PNA- r/o bacteremia- off pressors now -u/a wbc tnct, nit neg, leuk +3; ucx p -Bcx NTD -sp cx p -CXR Patchy infiltrates versus pulmonary edema Hypothermia> low grade fever Bradycardia> tachycardia No leukocytosis Lactic acidosis; SP JAMES Hyperkalemia, improving -HIV ab sc neg HTN seizure disorder TBI c/w vegetative state s/p GT chronic resp failure vent/trach dependant Plan: -Patient now made comfort care and antibiotics were discontinued -08/21 SP IV Vancomycin and Meropenem #3 -08/19 SP Amikacin x1, Zosyn x1 Thank you for this consutaltion. Will sign off now. Please call back if needed. Discussed masha RN. Subjective Allergies: Coded Allergies: BENAZEPRIL (Verified Allergy, Unknown, 06/02/18) Subjective patient made DNR and comfort care abx were discontinued Objective Vital Signs Last 24 Hour Vital Signs Date Time Temp Pulse Resp B/P (MAP) Pulse Ox O2 Delivery O2 Flow Rate FiO2 08/21/18 09:12 80 14 40 08/21/18 09:00 83 14 115/49 (71) 90 08/21/18 08:00 98.0 83 15 110/49 (69) 87 08/21/18 07:00 83 16 117/53 (74) 89 08/21/18 06:34 80 14 40 40 08/21/18 06:00 81 18 106/53 (70) 100 08/21/18 05:02 80 15 40 40 08/21/18 05:00 80 15 112/53 (72) 100 08/21/18 04:30 81 16 112/49 (70) 100 08/21/18 04:00 71 08/21/18 04:00 98.2 80 15 118/46 (70) 100 08/21/18 04:00 Mechanical Ventilator 08/21/18 04:00 50 08/21/18 03:30 83 16 97/47 (64) 99 08/21/18 03:15 84 18 40 40 08/21/18 03:00 85 17 101/39 (59) 96 08/21/18 02:45 86 15 73/50 (58) 97 08/21/18 02:30 84 15 83/39 (54) 97 08/21/18 02:15 85 15 78/39 (52) 97 08/21/18 02:00 84 15 82/36 (51) 97 08/21/18 01:00 80 17 84/39 (54) 98 08/21/18 00:46 82 15 40 40 08/21/18 00:30 83 15 85/38 (54) 97 08/21/18 00:15 81 15 82/38 (53) 96 08/21/18 00:00 83 08/21/18 00:00 82 14 74/35 (48) 97 08/21/18 00:00 Mechanical Ventilator 08/21/18 00:00 50 08/21/18 00:00 96.8 82 14 74/35 (48) 97 08/20/18 23:45 81 15 77/36 (50) 97 08/20/18 23:30 81 15 82/35 (51) 97 08/20/18 23:15 81 15 83/36 (52) 97 08/20/18 23:00 79 15 78/32 (47) 97 08/20/18 22:45 81 14 75/36 (49) 98 08/20/18 22:40 81 18 40 40 08/20/18 22:30 80 17 78/38 (51) 97 08/20/18 22:15 79 14 85/34 (51) 98 08/20/18 22:00 75 16 83/37 (52) 97 08/20/18 21:45 78 15 78/34 (49) 97 08/20/18 21:36 78 14 66/34 (45) 97 08/20/18 21:30 80 15 79/35 (50) 96 08/20/18 21:15 76 15 40 40 08/20/18 21:15 79 15 73/32 (46) 96 08/20/18 21:00 78 15 73/34 (47) 96 08/20/18 20:55 80 16 73/31 (45) 96 08/20/18 20:45 80 16 76/31 (46) 97 08/20/18 20:30 79 16 74/32 (46) 97 08/20/18 20:15 82 14 83/34 (50) 96 08/20/18 20:00 50 08/20/18 20:00 81 08/20/18 20:00 97.2 82 15 79/37 (51) 95 08/20/18 20:00 Mechanical Ventilator 08/20/18 18:55 84 16 40 40 08/20/18 17:10 80 14 40 08/20/18 16:00 50 08/20/18 16:00 Mechanical Ventilator 08/20/18 16:00 79 08/20/18 15:07 75 16 40 08/20/18 12:50 92 17 40 08/20/18 12:00 Mechanical Ventilator 08/20/18 12:00 50 08/20/18 11:00 82 25 56/29 (38) 93 08/20/18 10:45 83 24 65/24 (38) 90 Height (Feet): 5 Height (Inches): 11.00 Weight (Pounds): 249 Objective General Appearance: WD/WN Lines, tubes and drains: trach, gtube HEENT: normocephalic Neck: non-tender, normal alignment Respiratory/Chest: rhonchi - left, rhonchi - right Cardiovascular/Chest: normal peripheral pulses, normal rate Abdomen: normal bowel sounds, non tender Genitourinary/Rectal: normal genital exam Extremities: normal range of motion Skin Exam: normal pigmentation Microbiology Date/Time Source Procedure Growth Status 08/19/18 01:29 Blood Blood Culture - Preliminary NO GROWTH AFTER 48 HOURS Resulted 08/19/18 01:25 Blood Blood Culture - Preliminary NO GROWTH AFTER 48 HOURS Resulted 08/19/18 01:10 Nasal Nares MRSA Culture - Final NO METHICILLIN RESISTANT STAPH AUREUS... Complete 08/19/18 01:50 Urine,Clean Catch Urine Culture - Preliminary YEAST Resulted 08/19/18 01:10 Rectum - Final NO CARBAPENEM-RESISTANT ENTEROBACTERI... Complete 08/19/18 01:10 Rectum VRE Culture - Final Enterococcus Faecalis - Vre Complete Laboratory Tests Test 08/21/18 04:30 White Blood Count 7.9 K/UL (4.8-10.8) Red Blood Count 2.24 M/UL (4.70-6.10) L Hemoglobin 6.1 G/DL (14.2-18.0) Hematocrit 19.8 % (42.0-52.0) #L Mean Corpuscular Volume 88 FL (80-99) Mean Corpuscular Hemoglobin 27.3 PG (27.0-31.0) Mean Corpuscular Hemoglobin Concent 30.9 G/DL (32.0-36.0) L Red Cell Distribution Width 17.0 % (11.6-14.8) H Platelet Count 29 K/UL (150-450) #L Mean Platelet Volume 9.5 FL (6.5-10.1) Neutrophils (%) (Auto) % (45.0-75.0) Lymphocytes (%) (Auto) % (20.0-45.0) Monocytes (%) (Auto) % (1.0-10.0) Eosinophils (%) (Auto) % (0.0-3.0) Basophils (%) (Auto) % (0.0-2.0) Differential Total Cells Counted 100 Neutrophils % (Manual) 68 % (45-75) Lymphocytes % (Manual) 24 % (20-45) Monocytes % (Manual) 6 % (1-10) Eosinophils % (Manual) 2 % (0-3) Basophils % (Manual) 0 % (0-2) Band Neutrophils 0 % (0-8) Platelet Estimate Decreased L Platelet Morphology Normal Hypochromasia 1+ Anisocytosis 1+ Sodium Level 142 MMOL/L (136-145) Potassium Level 4.1 MMOL/L (3.5-5.1) Chloride Level 109 MMOL/L (98-107) H Carbon Dioxide Level 27 MMOL/L (21-32) Anion Gap 6 mmol/L (5-15) Blood Urea Nitrogen 33 mg/dL (7-18) H Creatinine 1.4 MG/DL (0.55-1.30) H Estimat Glomerular Filtration Rate > 60 mL/min (>60) Glucose Level 86 MG/DL (74-106) Calcium Level 9.0 MG/DL (8.5-10.1) Random Vancomycin Level 27.5 ug/mL Current Medications Medications (Trade) Dose Ordered Sig/Fernanda Route PRN Reason Start Time Stop Time Status Last Admin Dose Admin Acetaminophen (Tylenol) 650 mg Q4H PRN ORAL FEVER 08/19/18 07:45 09/18/18 07:44 08/20/18 09:30 Albuterol/ Ipratropium (Albuterol/ Ipratropium) 3 ml Q4H PRN HHN Shortness of Breath 08/19/18 07:45 08/24/18 07:44 Artificial Tears (Akwa-Tears) 1 drop QIDPRN PRN BOTH EYES Dry Eyes 08/21/18 10:30 09/20/18 10:29 Dextrose (Dextrose 50%) 25 ml Q30M PRN IV Hypoglycemia 08/19/18 07:45 09/18/18 07:44 Dextrose (Dextrose 50%) 50 ml Q30M PRN IV Hypoglycemia 08/19/18 08:00 09/18/18 07:59 Docusate Sodium (Colace) 100 mg THREE TIMES A DAY GT 08/20/18 13:00 09/19/18 12:59 Glycopyrrolate (Robinul) 0.1 mg Q6H PRN IV excessive secretions 08/21/18 10:30 09/20/18 10:29 Haloperidol Lactate (Haldol) 1 mg Q30M PRN IM Agitation 08/21/18 10:30 09/20/18 10:29 Lorazepam (Ativan 2mg/ml 1ml) 2 mg Q2H PRN IV For Anxiety 08/19/18 07:45 08/26/18 07:44 Morphine Sulfate 30 ml @ 5 mls/hr [employer] Protocol PRN IV For Pain 08/21/18 10:30 08/23/18 10:29 Morphine Sulfate (Morphine Sulfate) 10 mg ONCE IVP 08/21/18 10:30 08/21/18 11:30 Ondansetron HCl (Zofran) 4 mg Q6H PRN IVP Nausea & Vomiting 08/19/18 07:45 09/18/18 07:44 Prochlorperazine (Compazine) 10 mg Q6H PRN ORAL Nausea & Vomiting 08/21/18 10:30 09/20/18 10:29 Pam Garcia M.D. Aug 21, 2018 10:51
--- NOTE | 2018-08-21 11:50 | NUR ---
RESPIRATORY NOTE: Placed pt on trach collar 4L 30% FiO2 per Dr. Kothari's order. Vital signs within normal range, saturates 91%. RN Jasmine inform me about the new status, pt is in comfort care only now. Will continue to monitor pt.
--- NOTE | 2018-08-21 12:23 | NUR ---
*-* INSURANCE *-* UPDATED CLINICALS AND REVIEW HAVE BEEN FAXED TO: [facility]....S/W KAYLA/VON DEPT STATED THAT ARIEL IS ON LEAVE AND LAURYN IS COVERING FOR ARIEL.. [facility]: LAUR[facility] P- [phone] F- [phone]....
--- NOTE | 2018-08-21 12:27 | GI Progress Note ---
Assessment/Plan Problems: (1) Anemia ICD Codes: D64.9 - Anemia, unspecified SNOMED: 283516410 (2) Feeding by G-tube ICD Codes: Z93.1 - Gastrostomy status SNOMED: 390038249, 243161228 (3) Fecal impaction ICD Codes: K56.41 - Fecal impaction SNOMED: 85341754 (4) Symptomatic bradycardia ICD Codes: R00.1 - Bradycardia, unspecified SNOMED: 87973465, 141804576 Status: unchanged Status Narrative Discussed with Dr. Brantley. Assessment/Plan comfort care The patient was seen and examined at bedside and all new and available data was reviewed in the patients chart. I agree with the above findings, impression and plan. (Patient seen earlier today. Signature stamp does not reflect patient encounter time.). - Dillon Brantley MD Subjective Subjective limited Objective Last 24 Hour Vital Signs Date Time Temp Pulse Resp B/P (MAP) Pulse Ox O2 Delivery O2 Flow Rate FiO2 08/21/18 11:50 94 20 08/21/18 11:00 83 14 111/49 (69) 88 08/21/18 10:53 85 14 40 08/21/18 10:00 83 14 120/49 (72) 89 08/21/18 09:12 80 14 40 08/21/18 09:00 83 14 115/49 (71) 90 08/21/18 08:00 98.0 83 15 110/49 (69) 87 08/21/18 08:00 Mechanical Ventilator 08/21/18 08:00 40 08/21/18 08:00 83 08/21/18 07:00 83 16 117/53 (74) 89 08/21/18 06:34 80 14 40 40 08/21/18 06:00 81 18 106/53 (70) 100 08/21/18 05:02 80 15 40 40 08/21/18 05:00 80 15 112/53 (72) 100 08/21/18 04:30 81 16 112/49 (70) 100 08/21/18 04:00 71 08/21/18 04:00 98.2 80 15 118/46 (70) 100 08/21/18 04:00 Mechanical Ventilator 08/21/18 04:00 50 08/21/18 03:30 83 16 97/47 (64) 99 08/21/18 03:15 84 18 40 40 08/21/18 03:00 85 17 101/39 (59) 96 08/21/18 02:45 86 15 73/50 (58) 97 08/21/18 02:30 84 15 83/39 (54) 97 08/21/18 02:15 85 15 78/39 (52) 97 08/21/18 02:00 84 15 82/36 (51) 97 08/21/18 01:00 80 17 84/39 (54) 98 08/21/18 00:46 82 15 40 40 08/21/18 00:30 83 15 85/38 (54) 97 08/21/18 00:15 81 15 82/38 (53) 96 08/21/18 00:00 83 08/21/18 00:00 82 14 74/35 (48) 97 08/21/18 00:00 Mechanical Ventilator 08/21/18 00:00 50 08/21/18 00:00 96.8 82 14 74/35 (48) 97 08/20/18 23:45 81 15 77/36 (50) 97 08/20/18 23:30 81 15 82/35 (51) 97 08/20/18 23:15 81 15 83/36 (52) 97 08/20/18 23:00 79 15 78/32 (47) 97 08/20/18 22:45 81 14 75/36 (49) 98 08/20/18 22:40 81 18 40 40 08/20/18 22:30 80 17 78/38 (51) 97 08/20/18 22:15 79 14 85/34 (51) 98 08/20/18 22:00 75 16 83/37 (52) 97 08/20/18 21:45 78 15 78/34 (49) 97 08/20/18 21:36 78 14 66/34 (45) 97 08/20/18 21:30 80 15 79/35 (50) 96 08/20/18 21:15 76 15 40 40 08/20/18 21:15 79 15 73/32 (46) 96 08/20/18 21:00 78 15 73/34 (47) 96 08/20/18 20:55 80 16 73/31 (45) 96 08/20/18 20:45 80 16 76/31 (46) 97 08/20/18 20:30 79 16 74/32 (46) 97 08/20/18 20:15 82 14 83/34 (50) 96 08/20/18 20:00 50 08/20/18 20:00 81 08/20/18 20:00 97.2 82 15 79/37 (51) 95 08/20/18 20:00 Mechanical Ventilator 08/20/18 18:55 84 16 40 40 08/20/18 17:10 80 14 40 08/20/18 16:00 50 08/20/18 16:00 Mechanical Ventilator 08/20/18 16:00 79 08/20/18 15:07 75 16 40 08/20/18 12:50 92 17 40 Intake and Output 08/20/18 08/21/18 18:59 06:59 Intake Total 1344.814 ml 945 ml Output Total 1125 ml 780 ml Balance 219.814 ml 165 ml Free Water 60 ml IV Total 1104.814 ml 705 ml Tube Feeding 180 ml 240 ml Output Urine Total 1125 ml 780 ml # Bowel Movements 1 Laboratory Tests Test 08/21/18 04:30 White Blood Count 7.9 K/UL (4.8-10.8) Red Blood Count 2.24 M/UL (4.70-6.10) L Hemoglobin 6.1 G/DL (14.2-18.0) Hematocrit 19.8 % (42.0-52.0) #L Mean Corpuscular Volume 88 FL (80-99) Mean Corpuscular Hemoglobin 27.3 PG (27.0-31.0) Mean Corpuscular Hemoglobin Concent 30.9 G/DL (32.0-36.0) L Red Cell Distribution Width 17.0 % (11.6-14.8) H Platelet Count 29 K/UL (150-450) #L Mean Platelet Volume 9.5 FL (6.5-10.1) Neutrophils (%) (Auto) % (45.0-75.0) Lymphocytes (%) (Auto) % (20.0-45.0) Monocytes (%) (Auto) % (1.0-10.0) Eosinophils (%) (Auto) % (0.0-3.0) Basophils (%) (Auto) % (0.0-2.0) Differential Total Cells Counted 100 Neutrophils % (Manual) 68 % (45-75) Lymphocytes % (Manual) 24 % (20-45) Monocytes % (Manual) 6 % (1-10) Eosinophils % (Manual) 2 % (0-3) Basophils % (Manual) 0 % (0-2) Band Neutrophils 0 % (0-8) Platelet Estimate Decreased L Platelet Morphology Normal Hypochromasia 1+ Anisocytosis 1+ Sodium Level 142 MMOL/L (136-145) Potassium Level 4.1 MMOL/L (3.5-5.1) Chloride Level 109 MMOL/L (98-107) H Carbon Dioxide Level 27 MMOL/L (21-32) Anion Gap 6 mmol/L (5-15) Blood Urea Nitrogen 33 mg/dL (7-18) H Creatinine 1.4 MG/DL (0.55-1.30) H Estimat Glomerular Filtration Rate > 60 mL/min (>60) Glucose Level 86 MG/DL (74-106) Calcium Level 9.0 MG/DL (8.5-10.1) Random Vancomycin Level 27.5 ug/mL Height (Feet): 5 Height (Inches): 11.00 Weight (Pounds): 249 Isaac Anaya NP Aug 21, 2018 12:27
[2018-08-21] MEDS ORDERED: Rate Change Narcotic Drip MISC PRN (12:30)
--- NOTE | 2018-08-21 12:30 | NUR ---
NURSE NOTES: Pt is obtunded, and currently on comfort care measures per MD order/family request. Sauceda catheter in place, draining godwin urine with red sediments. Pt has right femoral TLC in place, saline lock. Pt is currently in stable condition, with vs within normal range. Head of bed at 30 degrees, bed locked and in lowest position, three side rails up, and call light within easy reach. Will continue to monitor pt and follow plan of care per MD orders and protocol.
--- NOTE | 2018-08-21 13:20 | Nephrology Progress Note ---
Assessment/Plan Problem List: (1) Hyperkalemia (2) Anemia (3) Tracheostomy in place (4) Alzheimer's dementia (5) UTI (urinary tract infection) Assessment Hyperkalemia Dehydration High Ca , Low Phos , Low Mag Anemia trach- Vent - PEG OBS UTI Plan now DNR- Hydrate- Fluid Challenge Monitor lytes, Chems, Renal parameters Antibiotics avoid Nephrotoxics Kayexelate as needed transfusion ? all treatment based on the degree of aggressiveness in management ! as pt is DNR Subjective ROS Limited/Unobtainable: Yes Objective Objective Last 24 Hour Vital Signs Date Time Temp Pulse Resp B/P (MAP) Pulse Ox O2 Delivery O2 Flow Rate FiO2 08/21/18 13:00 91 17 106/49 (68) 89 08/21/18 12:00 Room Air 08/21/18 12:00 40 08/21/18 12:00 98.2 93 18 116/46 (69) 08/21/18 11:50 94 20 08/21/18 11:00 83 14 111/49 (69) 88 08/21/18 11:00 98.2 08/21/18 10:53 85 14 40 08/21/18 10:00 83 14 120/49 (72) 89 08/21/18 09:12 80 14 40 08/21/18 09:00 83 14 115/49 (71) 90 08/21/18 08:00 98.0 83 15 110/49 (69) 87 08/21/18 08:00 Mechanical Ventilator 08/21/18 08:00 40 08/21/18 08:00 83 08/21/18 07:00 83 16 117/53 (74) 89 08/21/18 06:34 80 14 40 40 08/21/18 06:00 81 18 106/53 (70) 100 08/21/18 05:02 80 15 40 40 08/21/18 05:00 80 15 112/53 (72) 100 08/21/18 04:30 81 16 112/49 (70) 100 08/21/18 04:00 71 08/21/18 04:00 98.2 80 15 118/46 (70) 100 08/21/18 04:00 Mechanical Ventilator 08/21/18 04:00 50 08/21/18 03:30 83 16 97/47 (64) 99 08/21/18 03:15 84 18 40 40 08/21/18 03:00 85 17 101/39 (59) 96 08/21/18 02:45 86 15 73/50 (58) 97 08/21/18 02:30 84 15 83/39 (54) 97 08/21/18 02:15 85 15 78/39 (52) 97 08/21/18 02:00 84 15 82/36 (51) 97 08/21/18 01:00 80 17 84/39 (54) 98 08/21/18 00:46 82 15 40 40 08/21/18 00:30 83 15 85/38 (54) 97 08/21/18 00:15 81 15 82/38 (53) 96 08/21/18 00:00 83 08/21/18 00:00 82 14 74/35 (48) 97 08/21/18 00:00 Mechanical Ventilator 08/21/18 00:00 50 08/21/18 00:00 96.8 82 14 74/35 (48) 97 08/20/18 23:45 81 15 77/36 (50) 97 08/20/18 23:30 81 15 82/35 (51) 97 08/20/18 23:15 81 15 83/36 (52) 97 08/20/18 23:00 79 15 78/32 (47) 97 08/20/18 22:45 81 14 75/36 (49) 98 08/20/18 22:40 81 18 40 40 08/20/18 22:30 80 17 78/38 (51) 97 08/20/18 22:15 79 14 85/34 (51) 98 08/20/18 22:00 75 16 83/37 (52) 97 08/20/18 21:45 78 15 78/34 (49) 97 08/20/18 21:36 78 14 66/34 (45) 97 08/20/18 21:30 80 15 79/35 (50) 96 08/20/18 21:15 76 15 40 40 08/20/18 21:15 79 15 73/32 (46) 96 08/20/18 21:00 78 15 73/34 (47) 96 08/20/18 20:55 80 16 73/31 (45) 96 08/20/18 20:45 80 16 76/31 (46) 97 08/20/18 20:30 79 16 74/32 (46) 97 08/20/18 20:15 82 14 83/34 (50) 96 08/20/18 20:00 50 08/20/18 20:00 81 08/20/18 20:00 97.2 82 15 79/37 (51) 95 08/20/18 20:00 Mechanical Ventilator 08/20/18 18:55 84 16 40 40 08/20/18 17:10 80 14 40 08/20/18 16:00 50 08/20/18 16:00 Mechanical Ventilator 08/20/18 16:00 79 08/20/18 15:07 75 16 40 Intake and Output 08/20/18 08/21/18 18:59 06:59 Intake Total 1344.814 ml 945 ml Output Total 1125 ml 780 ml Balance 219.814 ml 165 ml Free Water 60 ml IV Total 1104.814 ml 705 ml Tube Feeding 180 ml 240 ml Output Urine Total 1125 ml 780 ml # Bowel Movements 1 Laboratory Tests 08/21/18 04:30: White Blood Count 7.9, Red Blood Count 2.24L, Hemoglobin 6.1#*L, Hematocrit 19.8 #L, Mean Corpuscular Volume 88, Mean Corpuscular Hemoglobin 27.3, Mean Corpuscular Hemoglobin Concent 30.9L, Red Cell Distribution Width 17.0H, Platelet Count 29#L, Mean Platelet Volume 9.5, Neutrophils (%) (Auto) , Lymphocytes (%) (Auto) , Monocytes (%) (Auto) , Eosinophils (%) (Auto) , Basophils (%) (Auto) , Differential Total Cells Counted 100, Neutrophils % ( Manual) 68, Lymphocytes % (Manual) 24, Monocytes % (Manual) 6, Eosinophils % ( Manual) 2, Basophils % (Manual) 0, Band Neutrophils 0, Platelet Estimate DecreasedL, Platelet Morphology Normal, Hypochromasia 1+, Anisocytosis 1+, Sodium Level 142, Potassium Level 4.1, Chloride Level 109H, Carbon Dioxide Level 27, Anion Gap 6, Blood Urea Nitrogen 33H, Creatinine 1.4H, Estimat Glomerular Filtration Rate > 60, Glucose Level 86, Calcium Level 9.0, Random Vancomycin Level 27.5 Height (Feet): 5 Height (Inches): 11.00 Weight (Pounds): 249 General Appearance: no apparent distress, lethargic Neck: other - trach Cardiovascular: tachycardia Respiratory/Chest: decreased breath sounds Abdomen: distended Rios Morales MD Aug 21, 2018 13:20
[2018-08-21] MEDS: Narcotic Shift Volume MISC SCH ×2 (15:00→23:00)
--- NOTE | 2018-08-21 15:00 | NUR ---
NURSE NOTES: Order in place to transfer pt to [facility]; awaiting for bed-availability. Oral care and suctioning done, with minimal pink secretions.
--- NOTE | 2018-08-21 16:00 | Progress Note ---
DATE: 08/21/2018 SUBJECTIVE: The patient is still in a vegetative state, but is more active. PHYSICAL EXAMINATION: VITAL SIGNS: Pulse is 81, respiration rate of 15, blood pressure is 113/89. NEUROLOGIC EXAMINATION: MENTAL STATUS: The patient lies in bed with eyes open. There is no response to vocal commands. He has no spontaneous speech. CRANIAL NERVE EXAMINATION: CRANIAL NERVE II: There is no response to threat on visual field testing. CRANIAL NERVE III, IV, AND : The patient has rolling eye movements horizontally and basically conjugant, but there is saccadic smooth pursuit. The pupils are approximately 4 mm, round, and sluggishly reactive. CRANIAL NERVE V: Corneal sensation is intact bilaterally. CRANIAL NERVE VII: Could not be tested. CRANIAL NERVES VIII THROUGH XII: Could not be tested. Testing for gag reflex, he bit down on the tongue depressor. MUSCLE EXAMINATION: Muscle bulk is fairly symmetrical. Tone is increased bilaterally especially in the left side. The strength, he has some withdrawal on the left lower extremity. None on the right side. REFLEXES: Trace to +1 in the upper extremities, 0 at the knees and ankles, and an upgoing toe on the left side and downgoing toe on the right side. SENSORY: There was some response to pain in the extremities. IMPRESSION: The patient does not appear to have had an electroencephalogram yet; however, he is now awake possibly in a vegetative state. The patient actually yawned. There does not appear to be any seizures at this time. PLAN: Obtain EEG if not already done. Christian Hodges MD DR: DAVID JOB#: [id number] CC:
--- NOTE | 2018-08-21 16:25 | General Progress Note ---
Assessment/Plan Assessment/Plan Assessment/Recommendations: # Thrombocytopenia - potential causes multifactorial, evaluate liver and viral etiologies to begin, also could be related to underlying medications patient has received. r/o underlying infection. --> Hep panel and HIV negative --> US abd to evaluate for cirrhosis and hsm ordered --> Peripheral smear ordered to evaluate for blasts /schistocytes does not show any --> abx and other meds have been reviewed --> plt trend 49-->70-->29k --> Transfuse if Plt < 20k and fever, or if Plt < 10k without fever --> 1 unit plt and 2 units prbc for 08/21 # Anemia of chronic disease due to underlying chronic medical issues, multifactorial --> Anemia workup has reviewed and c/w acd --> No evidence of hemolysis is noted, peripheral smear has been reviewed. --> Hgb goal >7. Transfuse prn. --> Epogen or iron at this time is not particularly indicated --> Medications have been reviewed --> evaluate with Gi team prn # Sepsis with uti and potentially pna --> on abx as per id --> continue on prn basis # REspiratory failure s/p trach --> on vent per pulm/cc # Dysphagia s/p peg tube --> feds per gi started # Hyperkalemia # Dexter -- per cards eval, appreciated The timing of this note does not necessarily reflect the time of the patient was seen. Greatly appreciate consultation! Subjective Constitutional: Denies: no symptoms, chills, diaphoresis, fever, malaise, weakness, other HEENT: Denies: no symptoms, eye pain, blurred vision, tearing, double vision, ear pain, ear discharge, nose pain, nose congestion, throat pain, throat swelling, mouth pain, mouth swelling, other Cardiovascular: Denies: no symptoms, chest pain, edema, irregular heart rate, lightheadedness, palpitations, syncope, other Respiratory: Denies: no symptoms, cough, orthopnea, shortness of breath, SOB with excertion, SOB at rest, sputum, stridor, wheezing, other Gastrointestinal/Abdominal: Denies: no symptoms, abdomen distended, abdominal pain, black stools, tarry stools, blood in stool, constipated, diarrhea, difficulty swallowing, nausea, poor appetite, poor fluid intake, rectal bleeding , vomiting, other Genitourinary: Denies: no symptoms, burning, discharge, frequency, flank pain, hematuria, incontinence, pain, urgency, other Neurologic/Psychiatric: Denies: no symptoms, anxiety, depressed, emotional problems, headache, numbness, paresthesia, pre-existing deficit, seizure, tingling, tremors, weakness, other Endocrine: Denies: no symptoms, excessive sweating, flushing, intolerance to cold, intolerance to heat, increased hunger, increased thirst, increased urine, unexplained weight gain, unexplained weight loss, other Hematologic/Lymphatic: Denies: no symptoms, anemia, easy bleeding, easy bruising, other Allergies: Coded Allergies: BENAZEPRIL (Verified Allergy, Unknown, 06/02/18) Subjective 08/20: no events, is dnr, on abx,, in icu 08/21: plt 29k, hgb 6.1, ordered blood today, dw rn, orders given, in am, patient yawning Objective Last 24 Hour Vital Signs Date Time Temp Pulse Resp B/P (MAP) Pulse Ox O2 Delivery O2 Flow Rate FiO2 08/21/18 16:00 98.7 95 23 106/46 (66) 91 08/21/18 15:00 109 15 109/69 (82) 92 08/21/18 14:00 94 17 107/50 (69) 90 08/21/18 13:00 91 17 106/49 (68) 89 08/21/18 12:00 Room Air 08/21/18 12:00 93 08/21/18 12:00 40 08/21/18 12:00 98.2 93 18 116/46 (69) 08/21/18 11:50 94 20 08/21/18 11:00 83 14 111/49 (69) 88 08/21/18 11:00 98.2 08/21/18 10:53 85 14 40 08/21/18 10:00 83 14 120/49 (72) 89 08/21/18 09:12 80 14 40 08/21/18 09:00 83 14 115/49 (71) 90 08/21/18 08:00 98.0 83 15 110/49 (69) 87 08/21/18 08:00 Mechanical Ventilator 08/21/18 08:00 40 08/21/18 08:00 83 08/21/18 07:00 83 16 117/53 (74) 89 08/21/18 06:34 80 14 40 40 08/21/18 06:00 81 18 106/53 (70) 100 08/21/18 05:02 80 15 40 40 08/21/18 05:00 80 15 112/53 (72) 100 08/21/18 04:30 81 16 112/49 (70) 100 08/21/18 04:00 71 08/21/18 04:00 98.2 80 15 118/46 (70) 100 08/21/18 04:00 Mechanical Ventilator 08/21/18 04:00 50 08/21/18 03:30 83 16 97/47 (64) 99 08/21/18 03:15 84 18 40 40 08/21/18 03:00 85 17 101/39 (59) 96 08/21/18 02:45 86 15 73/50 (58) 97 08/21/18 02:30 84 15 83/39 (54) 97 08/21/18 02:15 85 15 78/39 (52) 97 08/21/18 02:00 84 15 82/36 (51) 97 08/21/18 01:00 80 17 84/39 (54) 98 08/21/18 00:46 82 15 40 40 08/21/18 00:30 83 15 85/38 (54) 97 08/21/18 00:15 81 15 82/38 (53) 96 08/21/18 00:00 83 08/21/18 00:00 82 14 74/35 (48) 97 08/21/18 00:00 Mechanical Ventilator 08/21/18 00:00 50 08/21/18 00:00 96.8 82 14 74/35 (48) 97 08/20/18 23:45 81 15 77/36 (50) 97 08/20/18 23:30 81 15 82/35 (51) 97 08/20/18 23:15 81 15 83/36 (52) 97 08/20/18 23:00 79 15 78/32 (47) 97 08/20/18 22:45 81 14 75/36 (49) 98 08/20/18 22:40 81 18 40 40 08/20/18 22:30 80 17 78/38 (51) 97 08/20/18 22:15 79 14 85/34 (51) 98 08/20/18 22:00 75 16 83/37 (52) 97 08/20/18 21:45 78 15 78/34 (49) 97 08/20/18 21:36 78 14 66/34 (45) 97 08/20/18 21:30 80 15 79/35 (50) 96 08/20/18 21:15 76 15 40 40 08/20/18 21:15 79 15 73/32 (46) 96 08/20/18 21:00 78 15 73/34 (47) 96 08/20/18 20:55 80 16 73/31 (45) 96 08/20/18 20:45 80 16 76/31 (46) 97 08/20/18 20:30 79 16 74/32 (46) 97 08/20/18 20:15 82 14 83/34 (50) 96 08/20/18 20:00 50 08/20/18 20:00 81 08/20/18 20:00 97.2 82 15 79/37 (51) 95 08/20/18 20:00 Mechanical Ventilator 08/20/18 18:55 84 16 40 40 08/20/18 17:10 80 14 40 Intake and Output 08/20/18 08/21/18 19:00 07:00 Intake Total 1289.814 ml 895 ml Output Total 850 ml 830 ml Balance 439.814 ml 65 ml Free Water 60 ml IV Total 1079.814 ml 655 ml Tube Feeding 150 ml 240 ml Output Urine Total 850 ml 830 ml # Bowel Movements 1 Laboratory Tests 08/21/18 04:30: White Blood Count 7.9, Red Blood Count 2.24L, Hemoglobin 6.1#*L, Hematocrit 19.8 #L, Mean Corpuscular Volume 88, Mean Corpuscular Hemoglobin 27.3, Mean Corpuscular Hemoglobin Concent 30.9L, Red Cell Distribution Width 17.0H, Platelet Count 29#L, Mean Platelet Volume 9.5, Neutrophils (%) (Auto) , Lymphocytes (%) (Auto) , Monocytes (%) (Auto) , Eosinophils (%) (Auto) , Basophils (%) (Auto) , Differential Total Cells Counted 100, Neutrophils % ( Manual) 68, Lymphocytes % (Manual) 24, Monocytes % (Manual) 6, Eosinophils % ( Manual) 2, Basophils % (Manual) 0, Band Neutrophils 0, Platelet Estimate DecreasedL, Platelet Morphology Normal, Hypochromasia 1+, Anisocytosis 1+, Sodium Level 142, Potassium Level 4.1, Chloride Level 109H, Carbon Dioxide Level 27, Anion Gap 6, Blood Urea Nitrogen 33H, Creatinine 1.4H, Estimat Glomerular Filtration Rate > 60, Glucose Level 86, Calcium Level 9.0, Random Vancomycin Level 27.5 Height (Feet): 5 Height (Inches): 11.00 Weight (Pounds): 249 Objective Vitals: reviewed General Appearance: NAD HEENT: normocephalic, atraumatic Neck: non-tender, normal alignment Respiratory/Chest: + trach/vent Cardiovascular/Chest: normal peripheral pulses, normal rate Abdomen: normal bowel sounds, soft, nontender ++ gtube Extremities: normal range of motion Bubab Colón MD Aug 21, 2018 16:25
--- NOTE | 2018-08-21 17:00 | NUR ---
NURSE NOTES: Increased secretions was noted and respiratory rate was decreased to 8, despite endotracheal suctioning. Robinul 0.1mg IV administered as ordered for PRN secretions and suctioning repeated, respiratory rate returned to 16. Pt is resting in stable condition.
--- NOTE | 2018-08-21 18:31 | NUR ---
NURSE NOTES: Pt cleaned, linens changed, right buttock dressing and right femoral TLC dressing changed.
--- NOTE | 2018-08-21 19:25 | NUR ---
HAND-OFF: Report given to Melo NOROTN. Pt is resting in bed in stable condition. Endorsed plan of care.
--- NOTE | 2018-08-21 19:53 | NUR ---
RESPIRATORY NOTE: Received pt on 24% FiO2 connected via trach collar. Pt placed on 30% cool aerosol via T-piece. Pt disoriented, responds to stimuli. B/S felicity. rhonchi, sxn small to moderate amounts of thick/thin, bloody secretions. [place] at bedside. pt in no apparent distress at this time. Will continue plan of care.
--- NOTE | 2018-08-21 20:00 | NUR ---
NURSE NOTES: pt DNR ON COMPORT TREATMENT ONLY ON TRACH COLLAR 30 0/0 COOL MIST O2 SAT 95-97O/O NO SIGHS RESP DISTRESS REPOSITION AND SUCTION TO BE TRANSFER M/S FLOOR
--- NOTE | 2018-08-21 22:00 | NUR ---
NURSE NOTES: TO BE TRANSFER 4E CONDITION UN CHANGE
[2018-08-22] VITALS (7 sets, daily range): BP systolic 94–143; BP diastolic 46–66
--- NOTE | 2018-08-22 | NUR ---
HAND-OFF: Report given toana rn using sbar.
--- NOTE | 2018-08-22 00:30 | NUR ---
NURSE NOTES:received pt from icu, non verbal, obtunded, opens eyes, o2 30 cool mist via trach collar, noted bloody secretions, suctioned via inline suction, lee output has hematuria, tlc in right femoral. endorsed from multicut line operator Melo that corporate communications associate is prn only and that it was not started by day rn or night rn because patient respirations 13 and patient in no distress.
--- NOTE | 2018-08-22 02:30 | NUR ---
NURSE NOTES:RIGHT BUTTOCK OPEN AREA PHOTOGRAPHED, UNCHANGED FROM PREVIOUS PICTURE. AND HYDROCOLLOID DRESSING APPLIED ORDERED.
[2018-08-22] MEDS: Narcotic Shift Volume MISC SCH ×3 (07:00→22:04)
--- NOTE | 2018-08-22 07:25 | NUR ---
NURSE NOTES: received patient in bed, non verbal, obtunded, opens eyes, O2 30 cool mist via trach collar, right TLC femural ,suctioned prn lee cath in place, on DNR/DNI satus, kept clean dry and comfortable CIERRA medrano .
--- NOTE | 2018-08-22 07:30 | NUR ---
HAND-OFF: Report given to Pastor Kaye.
--- NOTE | 2018-08-22 08:48 | NUR ---
CASE MANAGEMENT:REVIEW 08/22/18 SI: PNEUMONIA. SEPTIC SHOCK. BRADYCARDIA CHRONIC TRACH/VENT/G-TUBE. ORGANIC BRAIN SYNDROME DNR AND WEANED OFF VENTILATOR YESTERDAY 97.6 85 20 143/60 94% ON T-PIECE @ 8L 30% FIO2 IS: MORPHINE GTT : NOW ON MED/SURG UNIT [facility]
[2018-08-22] MEDS: Docusate 100mg/10ml Liq GT SCH ×3 (09:19→17:19)
--- NOTE | 2018-08-22 09:35 | General Progress Note ---
Assessment/Plan Problem List: (1) Tracheostomy in place ICD Codes: Z93.0 - Tracheostomy status SNOMED: 144286718 (2) UTI (urinary tract infection) ICD Codes: N39.0 - Urinary tract infection, site not specified SNOMED: 80382854 (3) Alzheimer's dementia ICD Codes: G30.9 - Alzheimer's disease, unspecified; F02.80 - Dementia in other diseases classified elsewhere without behavioral disturbance SNOMED: 47596028 (4) COPD (chronic obstructive pulmonary disease) ICD Codes: J44.9 - Chronic obstructive pulmonary disease, unspecified SNOMED: 17656428 (5) Fecal impaction ICD Codes: K56.41 - Fecal impaction SNOMED: 57658086 (6) Anemia ICD Codes: D64.9 - Anemia, unspecified SNOMED: 359260829 Assessment/Plan patient is comfort care off feeding pending placement Subjective ROS Limited/Unobtainable: No Allergies: Coded Allergies: BENAZEPRIL (Verified Allergy, Unknown, 06/02/18) Objective Last 24 Hour Vital Signs Date Time Temp Pulse Resp B/P (MAP) Pulse Ox O2 Delivery O2 Flow Rate FiO2 08/22/18 08:00 98.1 84 20 110/51 (70) 92 08/22/18 04:50 97.6 85 20 143/60 (87) 94 08/22/18 01:23 T-piece 8.0 30 08/22/18 01:23 99 T-piece 8.0 30 08/22/18 00:30 98.7 87 16 94/46 (62) 98 08/22/18 00:00 98.2 90 18 136/64 (88) 100 08/22/18 00:00 Room Air 08/21/18 23:00 89 12 120/55 (76) 97 08/21/18 22:00 89 12 120/55 (76) 97 08/21/18 21:00 88 12 112/62 (79) 97 08/21/18 20:00 98.6 90 16 112/62 (79) 95 08/21/18 20:00 95 08/21/18 20:00 Room Air 08/21/18 19:51 96 T-piece 8.0 30 08/21/18 19:51 T-piece 8.0 30 08/21/18 19:00 91 16 114/52 (72) 95 08/21/18 18:00 93 12 114/50 (71) 93 08/21/18 17:00 93 18 107/50 (69) 98 08/21/18 16:00 Room Air 08/21/18 16:00 98.7 95 23 106/46 (66) 91 08/21/18 16:00 106 08/21/18 15:00 109 15 109/69 (82) 92 08/21/18 14:00 94 17 107/50 (69) 90 08/21/18 13:00 91 17 106/49 (68) 89 08/21/18 12:00 Room Air 08/21/18 12:00 93 08/21/18 12:00 40 08/21/18 12:00 98.2 93 18 116/46 (69) 08/21/18 11:50 91 Trach Collar 4.0 30 08/21/18 11:50 Trach Collar 4.0 30 08/21/18 11:50 94 20 08/21/18 11:00 83 14 111/49 (69) 88 08/21/18 11:00 98.2 08/21/18 10:53 85 14 40 08/21/18 10:00 83 14 120/49 (72) 89 Intake and Output 08/21/18 08/22/18 18:59 06:59 Output Total 1350 ml 800 ml Balance -1350 ml -800 ml Output Urine Total 1350 ml 800 ml Height (Feet): 5 Height (Inches): 11.00 Weight (Pounds): 262 General Appearance: lethargic EENT: normal ENT inspection Neck: other - trach Cardiovascular: normal rate Respiratory/Chest: decreased breath sounds Abdomen: normal bowel sounds, non tender, soft Extremities: non-tender Dillon Brantley MD Aug 22, 2018 09:34
--- NOTE | 2018-08-22 13:22 | NUR ---
RD ASSESSMENT & RECOMMENDATIONS SEE CARE ACTIVITY FOR COMPLETE ASSESSMENT DAILY ESTIMATED NEEDS: Needs based on Critical care 93kg adj 17-22 kcals/kg 9082-8676 total kcals 1.2-2 g protein/kg 112-186 g total protein 20-25ml/kcal mL/kg 2904-3149 total fluid mLs NUTRITION DIAGNOSIS: 1) Swallowing difficulty R/T respiratory status AEB pt vent dep via trach PEG dep, now comfort care only, TF dc'd. 2) Altered nutrition related lab values r/t clinical status as evidenced by critically elev K (6.1*), low BG (48), hypothermic and hypotensive. ENTERAL NUTRITION RECOMMENDATIONS: * Re-consult as needed/ comfort care only at this time * ADDITIONAL RECOMMENDATIONS: Pt is Comfort care only, TF DC'd; Reconsult as needed
--- NOTE | 2018-08-22 15:35 | Pulmonology Progress Note ---
Assessment/Plan Problems: (1) Respiratory failure, acute and chronic (2) Sepsis (3) ATN (acute tubular necrosis) (4) Hyperkalemia (5) COPD (chronic obstructive pulmonary disease) (6) Chronic organic brain syndrome (7) Symptomatic bradycardia Assessment/Plan comfort measures no labs no transfusion prn morphine family aware of grim prognosis. keep comfortable. Subjective ROS Limited/Unobtainable: No Interval Events: on T-piece Constitutional: Reports: no symptoms Allergies: Coded Allergies: BENAZEPRIL (Verified Allergy, Unknown, 06/02/18) Objective Last 24 Hour Vital Signs Date Time Temp Pulse Resp B/P (MAP) Pulse Ox O2 Delivery O2 Flow Rate FiO2 08/22/18 13:40 T-piece 8.0 30 08/22/18 13:40 93 T-piece 8.0 30 08/22/18 12:00 98.4 86 20 108/55 (72) 92 08/22/18 08:48 Endotracheal Tube 08/22/18 08:25 94 T-piece 8.0 30 08/22/18 08:25 T-piece 8.0 30 08/22/18 08:00 98.1 84 20 110/51 (70) 92 08/22/18 04:50 97.6 85 20 143/60 (87) 94 08/22/18 01:23 T-piece 8.0 30 08/22/18 01:23 99 T-piece 8.0 30 08/22/18 00:30 98.7 87 16 94/46 (62) 98 08/22/18 00:00 98.2 90 18 136/64 (88) 100 08/22/18 00:00 Room Air 08/21/18 23:00 89 12 120/55 (76) 97 08/21/18 22:00 89 12 120/55 (76) 97 08/21/18 21:00 88 12 112/62 (79) 97 08/21/18 20:00 98.6 90 16 112/62 (79) 95 08/21/18 20:00 95 08/21/18 20:00 Room Air 08/21/18 19:51 96 T-piece 8.0 30 08/21/18 19:51 T-piece 8.0 30 08/21/18 19:00 91 16 114/52 (72) 95 08/21/18 18:00 93 12 114/50 (71) 93 08/21/18 17:00 93 18 107/50 (69) 98 08/21/18 16:00 Room Air 08/21/18 16:00 98.7 95 23 106/46 (66) 91 08/21/18 16:00 106 Intake and Output 08/21/18 08/22/18 18:59 06:59 Output Total 1350 ml 800 ml Balance -1350 ml -800 ml Output Urine Total 1350 ml 800 ml Objective General Appearance: WD/WN, unresponsive HEENT: normocephalic, atraumatic, trach Respiratory/Chest: chest wall non-tender, lungs clear Cardiovascular: normal peripheral pulses, normal rate Abdomen: normal bowel sounds, no organomegaly Genitourinary: normal external genitalia Extremities: no cyanosis Lymphatic: no neck adenopathy General Appearance: WD/WN, cachetic HEENT: normocephalic Current Medications Medications (Trade) Dose Ordered Sig/Fernanda Route PRN Reason Start Time Stop Time Status Last Admin Dose Admin Acetaminophen (Tylenol) 650 mg Q4H PRN ORAL FEVER 08/19/18 07:45 09/18/18 07:44 08/20/18 09:30 Albuterol/ Ipratropium (Albuterol/ Ipratropium) 3 ml Q4H PRN HHN Shortness of Breath 08/19/18 07:45 08/24/18 07:44 Artificial Tears (Akwa-Tears) 1 drop QIDPRN PRN BOTH EYES Dry Eyes 08/21/18 10:30 09/20/18 10:29 Dextrose (Dextrose 50%) 25 ml Q30M PRN IV Hypoglycemia 08/19/18 07:45 09/18/18 07:44 Dextrose (Dextrose 50%) 50 ml Q30M PRN IV Hypoglycemia 08/19/18 08:00 09/18/18 07:59 Docusate Sodium (Colace) 100 mg THREE TIMES A DAY GT 08/20/18 13:00 09/19/18 12:59 08/22/18 09:19 Glycopyrrolate (Robinul) 0.1 mg Q6H PRN IV excessive secretions 08/21/18 10:30 09/20/18 10:29 08/21/18 15:27 Haloperidol Lactate (Haldol) 1 mg Q30M PRN IM Agitation 08/21/18 10:30 09/20/18 10:29 Lorazepam (Ativan 2mg/ml 1ml) 2 mg Q2H PRN IV For Anxiety 08/19/18 07:45 08/26/18 07:44 Miscellaneous Medication (Narcotic Drip Rate Change) 1 ea DAILY PRN MISC rx protocol 08/21/18 12:30 09/20/18 12:29 Miscellaneous Medication (Narcotic Shift Volume) 1 ea Q8HR@07,15,23 MISC 08/21/18 15:00 09/20/18 14:59 Morphine Sulfate 30 ml @ 5 mls/hr [employer] Protocol PRN IV For Pain 08/21/18 10:30 08/23/18 10:29 Ondansetron HCl (Zofran) 4 mg Q6H PRN IVP Nausea & Vomiting 08/19/18 07:45 09/18/18 07:44 Prochlorperazine (Compazine) 10 mg Q6H PRN ORAL Nausea & Vomiting 08/21/18 10:30 09/20/18 10:29 Steve Kothari MD Aug 22, 2018 15:35
--- NOTE | 2018-08-22 15:38 | Cardiac Electrophysiology PN ---
Assessment/Plan Assessment/Plan 1. Septic shock. Pressors were DCed due to comfort care Echo EF 65% 2. Bradycardia with heart rate in the 30s, could be due to hyperkalemia. 3. Ventilator-dependent respiratory failure, status post tracheostomy. Terminal extubated. Off the vent. Trach collar 4. Dysphagia, status post PEG placement. 5. Organic brain syndrome. 6. Sepsis with elevated lactate 7. DNR and comfort care Will Sign off now Subjective Subjective Transferred out of ICU now as comfort care per family wish. Objective Last 24 Hour Vital Signs Date Time Temp Pulse Resp B/P (MAP) Pulse Ox O2 Delivery O2 Flow Rate FiO2 08/22/18 13:40 T-piece 8.0 30 08/22/18 13:40 93 T-piece 8.0 30 08/22/18 12:00 98.4 86 20 108/55 (72) 92 08/22/18 08:48 Endotracheal Tube 08/22/18 08:25 94 T-piece 8.0 30 08/22/18 08:25 T-piece 8.0 30 08/22/18 08:00 98.1 84 20 110/51 (70) 92 08/22/18 04:50 97.6 85 20 143/60 (87) 94 08/22/18 01:23 T-piece 8.0 30 08/22/18 01:23 99 T-piece 8.0 30 08/22/18 00:30 98.7 87 16 94/46 (62) 98 08/22/18 00:00 98.2 90 18 136/64 (88) 100 08/22/18 00:00 Room Air 08/21/18 23:00 89 12 120/55 (76) 97 08/21/18 22:00 89 12 120/55 (76) 97 08/21/18 21:00 88 12 112/62 (79) 97 08/21/18 20:00 98.6 90 16 112/62 (79) 95 08/21/18 20:00 95 08/21/18 20:00 Room Air 08/21/18 19:51 96 T-piece 8.0 30 08/21/18 19:51 T-piece 8.0 30 08/21/18 19:00 91 16 114/52 (72) 95 08/21/18 18:00 93 12 114/50 (71) 93 08/21/18 17:00 93 18 107/50 (69) 98 08/21/18 16:00 Room Air 08/21/18 16:00 98.7 95 23 106/46 (66) 91 08/21/18 16:00 106 Intake and Output 08/21/18 08/22/18 18:59 06:59 Output Total 1350 ml 800 ml Balance -1350 ml -800 ml Output Urine Total 1350 ml 800 ml Objective HEAD AND NECK: No JVD. Tracheostomy is in place. CARDIOVASCULAR: Regular S1 and S2 with no gallop or murmur. ABDOMEN: Status post G-tube. EXTREMITIES: 2+ pitting edema. Minor Liz MD Aug 22, 2018 15:38
--- NOTE | 2018-08-22 16:58 | Nephrology Progress Note ---
Assessment/Plan Problem List: (1) Hyperkalemia (2) Anemia (3) Tracheostomy in place (4) Alzheimer's dementia (5) UTI (urinary tract infection) Assessment Hyperkalemia Dehydration High Ca , Low Phos , Low Mag Anemia trach- Vent - PEG OBS UTI Plan no labs now DNR- Hydrate- Fluid Challenge Monitor lytes, Chems, Renal parameters Antibiotics avoid Nephrotoxics Kayexelate as needed transfusion ? all treatment based on the degree of aggressiveness in management ! as pt is DNR Subjective ROS Limited/Unobtainable: No Constitutional: Reports: malaise, weakness Objective Objective Last 24 Hour Vital Signs Date Time Temp Pulse Resp B/P (MAP) Pulse Ox O2 Delivery O2 Flow Rate FiO2 08/22/18 16:00 98.6 86 20 103/66 (78) 93 08/22/18 13:40 T-piece 8.0 30 08/22/18 13:40 93 T-piece 8.0 30 08/22/18 12:00 98.4 86 20 108/55 (72) 92 08/22/18 08:48 Endotracheal Tube 08/22/18 08:25 94 T-piece 8.0 30 08/22/18 08:25 T-piece 8.0 30 08/22/18 08:00 98.1 84 20 110/51 (70) 92 08/22/18 04:50 97.6 85 20 143/60 (87) 94 08/22/18 01:23 T-piece 8.0 30 08/22/18 01:23 99 T-piece 8.0 30 08/22/18 00:30 98.7 87 16 94/46 (62) 98 08/22/18 00:00 98.2 90 18 136/64 (88) 100 08/22/18 00:00 Room Air 08/21/18 23:00 89 12 120/55 (76) 97 08/21/18 22:00 89 12 120/55 (76) 97 08/21/18 21:00 88 12 112/62 (79) 97 08/21/18 20:00 98.6 90 16 112/62 (79) 95 08/21/18 20:00 95 08/21/18 20:00 Room Air 08/21/18 19:51 96 T-piece 8.0 30 08/21/18 19:51 T-piece 8.0 30 08/21/18 19:00 91 16 114/52 (72) 95 08/21/18 18:00 93 12 114/50 (71) 93 08/21/18 17:00 93 18 107/50 (69) 98 Intake and Output 08/21/18 08/22/18 18:59 06:59 Output Total 1350 ml 800 ml Balance -1350 ml -800 ml Output Urine Total 1350 ml 800 ml Height (Feet): 5 Height (Inches): 11.00 Weight (Pounds): 262 General Appearance: no apparent distress, lethargic Objective no change Rios Morales MD Aug 22, 2018 16:58
--- NOTE | 2018-08-22 17:04 | General Progress Note ---
Assessment/Plan Assessment/Plan Assessment/Recommendations: # Thrombocytopenia - potential causes multifactorial, evaluate liver and viral etiologies to begin, also could be related to underlying medications patient has received. r/o underlying infection. --> Hep panel and HIV negative --> Peripheral smear ordered to evaluate for blasts /schistocytes does not show any --> abx and other meds have been reviewed --> plt trend 49-->70-->29k --> Transfuse if Plt < 20k and fever, or if Plt < 10k without fever --> 1 unit plt and 2 units prbc for 08/21 # Anemia of chronic disease due to underlying chronic medical issues, multifactorial --> Anemia workup has reviewed and c/w acd --> No evidence of hemolysis is noted, peripheral smear has been reviewed. --> Epogen or iron at this time is not particularly indicated --> Medications have been reviewed --> evaluate with Gi team prn # Sepsis with uti and potentially pna --> on abx as per id --> continue on prn basis # REspiratory failure s/p trach --> on vent per pulm/cc # Dysphagia s/p peg tube --> feds per gi started # Hyperkalemia # Dexter -- per cards eval, appreciated # DNR/COMFORT CARE MEASURES The timing of this note does not necessarily reflect the time of the patient was seen. Greatly appreciate consultation! Subjective Cardiovascular: Denies: no symptoms, chest pain, edema, irregular heart rate, lightheadedness, palpitations, syncope, other Respiratory: Denies: no symptoms, cough, orthopnea, shortness of breath, SOB with excertion, SOB at rest, sputum, stridor, wheezing, other Gastrointestinal/Abdominal: Denies: no symptoms, abdomen distended, abdominal pain, black stools, tarry stools, blood in stool, constipated, diarrhea, difficulty swallowing, nausea, poor appetite, poor fluid intake, rectal bleeding , vomiting, other Genitourinary: Denies: no symptoms, burning, discharge, frequency, flank pain, hematuria, incontinence, pain, urgency, other Endocrine: Denies: no symptoms, excessive sweating, flushing, intolerance to cold, intolerance to heat, increased hunger, increased thirst, increased urine, unexplained weight gain, unexplained weight loss, other Hematologic/Lymphatic: Denies: no symptoms, anemia, easy bleeding, easy bruising, other Allergies: Coded Allergies: BENAZEPRIL (Verified Allergy, Unknown, 06/02/18) Subjective 08/20: no events, is dnr, on abx,, in icu 08/21: plt 29k, hgb 6.1, ordered blood today, dw rn, orders given, in am, patient yawning 08/22: now dnr, comfort care measures Objective Last 24 Hour Vital Signs Date Time Temp Pulse Resp B/P (MAP) Pulse Ox O2 Delivery O2 Flow Rate FiO2 08/22/18 16:00 98.6 86 20 103/66 (78) 93 08/22/18 13:40 T-piece 8.0 30 08/22/18 13:40 93 T-piece 8.0 30 08/22/18 12:00 98.4 86 20 108/55 (72) 92 08/22/18 08:48 Endotracheal Tube 08/22/18 08:25 94 T-piece 8.0 30 08/22/18 08:25 T-piece 8.0 30 08/22/18 08:00 98.1 84 20 110/51 (70) 92 08/22/18 04:50 97.6 85 20 143/60 (87) 94 08/22/18 01:23 T-piece 8.0 30 08/22/18 01:23 99 T-piece 8.0 30 08/22/18 00:30 98.7 87 16 94/46 (62) 98 08/22/18 00:00 98.2 90 18 136/64 (88) 100 08/22/18 00:00 Room Air 08/21/18 23:00 89 12 120/55 (76) 97 08/21/18 22:00 89 12 120/55 (76) 97 08/21/18 21:00 88 12 112/62 (79) 97 08/21/18 20:00 98.6 90 16 112/62 (79) 95 08/21/18 20:00 95 08/21/18 20:00 Room Air 08/21/18 19:51 96 T-piece 8.0 30 08/21/18 19:51 T-piece 8.0 30 08/21/18 19:00 91 16 114/52 (72) 95 08/21/18 18:00 93 12 114/50 (71) 93 Intake and Output 08/21/18 08/22/18 18:59 06:59 Output Total 1350 ml 800 ml Balance -1350 ml -800 ml Output Urine Total 1350 ml 800 ml Height (Feet): 5 Height (Inches): 11.00 Weight (Pounds): 262 Objective Vitals: reviewed General Appearance: NAD HEENT: normocephalic, atraumatic Neck: non-tender, normal alignment Respiratory/Chest: + trach/vent Cardiovascular/Chest: normal peripheral pulses, normal rate Abdomen: normal bowel sounds, soft, nontender ++ gtube Extremities: normal range of motion Bubba Colón MD Aug 22, 2018 17:04
--- NOTE | 2018-08-22 19:27 | NUR ---
HAND-OFF: Report given to CIERRA Kuhn rn
--- NOTE | 2018-08-22 19:32 | NUR ---
NURSE NOTES: Received patient in bed, non verbal, obtunded. Patient on trach collar, no distress noted. No pain noted per FLACC scale. Sauceda cath in place, draining. Bed in lowest position, call light within reach, bed alarm on. Family at bedside. Will continue to monitor.
--- NOTE | 2018-08-22 20:19 | NUR ---
NURSE NOTES: Patient noted to have gtube, clamped. Noted also to have right femoral triple lumen, patent and intact. Patient suctioned as needed via oral and t-piece.
--- NOTE | 2018-08-22 21:55 | General Progress Note ---
Assessment/Plan Problem List: (1) Low grade fever ICD Codes: R50.9 - Fever, unspecified SNOMED: 723312139 (2) Feeding by G-tube ICD Codes: Z93.1 - Gastrostomy status SNOMED: 850826635, 544435075 (3) Sepsis ICD Codes: A41.9 - Sepsis, unspecified organism SNOMED: 12555655 (4) Anemia ICD Codes: D64.9 - Anemia, unspecified SNOMED: 762568346 (5) Chronic respiratory failure ICD Codes: J96.10 - Chronic respiratory failure, unspecified whether with hypoxia or hypercapnia SNOMED: 00083552 (6) Chronic vegetative state ICD Codes: R40.3 - Persistent vegetative state SNOMED: 65122829, 672496069 (7) Alzheimer's dementia ICD Codes: G30.9 - Alzheimer's disease, unspecified; F02.80 - Dementia in other diseases classified elsewhere without behavioral disturbance SNOMED: 72076483 (8) UTI (urinary tract infection) ICD Codes: N39.0 - Urinary tract infection, site not specified SNOMED: 71077290 (9) Tracheostomy in place ICD Codes: Z93.0 - Tracheostomy status SNOMED: 662969445 (10) Symptomatic bradycardia ICD Codes: R00.1 - Bradycardia, unspecified SNOMED: 55991279, 283527748 Status: progressing Assessment/Plan vegetative state sepsis respiratory failure favor comfort care covering for dr padmini fitzgerald no fever edema of lower extremity Subjective ROS Limited/Unobtainable: Yes Allergies: Coded Allergies: BENAZEPRIL (Verified Allergy, Unknown, 06/02/18) Objective Last 24 Hour Vital Signs Date Time Temp Pulse Resp B/P (MAP) Pulse Ox O2 Delivery O2 Flow Rate FiO2 08/22/18 20:05 T-piece 8.0 30 08/22/18 20:05 94 T-piece 8.0 30 08/22/18 20:00 99.5 87 21 109/58 (75) 96 08/22/18 16:00 98.6 86 20 103/66 (78) 93 08/22/18 13:40 T-piece 8.0 30 08/22/18 13:40 93 T-piece 8.0 30 08/22/18 12:00 98.4 86 20 108/55 (72) 92 08/22/18 08:48 Endotracheal Tube 08/22/18 08:25 94 T-piece 8.0 30 08/22/18 08:25 T-piece 8.0 30 08/22/18 08:00 98.1 84 20 110/51 (70) 92 08/22/18 04:50 97.6 85 20 143/60 (87) 94 08/22/18 01:23 T-piece 8.0 30 08/22/18 01:23 99 T-piece 8.0 30 08/22/18 00:30 98.7 87 16 94/46 (62) 98 08/22/18 00:00 98.2 90 18 136/64 (88) 100 08/22/18 00:00 Room Air 08/21/18 23:00 89 12 120/55 (76) 97 08/21/18 22:00 89 12 120/55 (76) 97 Intake and Output 08/21/18 08/22/18 19:00 07:00 Output Total 1280 ml 770 ml Balance -1280 ml -770 ml Output Urine Total 1280 ml 770 ml Height (Feet): 5 Height (Inches): 11.00 Weight (Pounds): 262 Cardiovascular: normal rate Respiratory/Chest: lungs clear Abdomen: soft Tanya Torres MD Aug 22, 2018 21:55
[2018-08-22] MEDS ORDERED: Dyna-Hex 2% Top Sol 2oz TOPIC SCH (22:45)
[2018-08-23 00:59] VITALS: BP 110/54
[2018-08-23 04:16] VITALS: BP 112/54
[2018-08-23] MEDS: Narcotic Shift Volume MISC SCH ×3 (06:42→22:59)
--- NOTE | 2018-08-23 07:23 | NUR ---
HAND-OFF: Report given to LUCRETIA IBANEZ RN.
--- NOTE | 2018-08-23 07:30 | NUR ---
NURSE NOTES: received patient in bed, non verbal, obtunded, opens eyes, on trach collar, right TLC femural ,G-tube clamped, suctioned prn lee cath in place, on NPO/DNR/DNI status, kept clean dry and comfortable CIERRA medrano .
[2018-08-23 08:00] VITALS: BP 114/59
--- NOTE | 2018-08-23 08:08 | NUR ---
NURSE NOTES: Mrs Diamond came over to the floor, stating she is Pt's daughter and inquiring the information. After checking Pt's chart Mrs Diamond was informed that her name is not in the as the next of kin. Advised to go to the admission and add the name as next of the kin. Mrs Diamond became irritated, started to use inappropriate language and said that will not follow. Explained that she needs to see admission and information needs to be modified. Verbalized understanding. After Mrs Diamond's name added, information provided by the primary nurse
--- NOTE | 2018-08-23 08:23 | General Progress Note ---
Assessment/Plan Problem List: (1) Pneumonia ICD Codes: J18.9 - Pneumonia, unspecified organism SNOMED: 808687657 (2) GERD (gastroesophageal reflux disease) ICD Codes: K21.9 - Gastro-esophageal reflux disease without esophagitis SNOMED: 772919177 (3) PVD (peripheral vascular disease) ICD Codes: I73.9 - Peripheral vascular disease, unspecified SNOMED: 062968081 (4) HTN (hypertension) ICD Codes: I10 - Essential (primary) hypertension SNOMED: 68454738 (5) CHF (congestive heart failure) ICD Codes: I50.9 - Heart failure, unspecified SNOMED: 63578989 (6) CVA (cerebral vascular accident) ICD Codes: I63.9 - Cerebral infarction, unspecified SNOMED: 297229722 (7) Seizure ICD Codes: R56.9 - Unspecified convulsions SNOMED: 10052202 (8) Respiratory failure, acute and chronic ICD Codes: J96.20 - Acute and chronic respiratory failure, unspecified whether with hypoxia or hypercapnia SNOMED: 82385313, 11017155 (9) Sepsis ICD Codes: A41.9 - Sepsis, unspecified organism SNOMED: 54270911 (10) Chronic respiratory failure ICD Codes: J96.10 - Chronic respiratory failure, unspecified whether with hypoxia or hypercapnia SNOMED: 30218456 (11) COPD (chronic obstructive pulmonary disease) ICD Codes: J44.9 - Chronic obstructive pulmonary disease, unspecified SNOMED: 98036059 (12) Tracheostomy in place ICD Codes: Z93.0 - Tracheostomy status SNOMED: 681560947 (13) Symptomatic bradycardia ICD Codes: R00.1 - Bradycardia, unspecified SNOMED: 90842109, 314649174 Status: stable, progressing Assessment/Plan pulm tx trach care abc pt diet cbc bmp am Subjective Constitutional: Reports: weakness Allergies: Coded Allergies: BENAZEPRIL (Verified Allergy, Unknown, 06/02/18) All Systems: reviewed and negative except above Subjective trach aerosol lethargic Objective Last 24 Hour Vital Signs Date Time Temp Pulse Resp B/P (MAP) Pulse Ox O2 Delivery O2 Flow Rate FiO2 08/23/18 08:00 100.6 84 18 114/59 (77) 94 08/23/18 07:34 T-piece 8.0 30 08/23/18 07:34 93 T-piece 8.0 30 08/23/18 04:16 99.1 87 20 112/54 (73) 94 08/23/18 01:25 T-piece 8.0 30 08/23/18 01:25 95 T-piece 8.0 30 08/23/18 00:59 99.5 89 21 110/54 (72) 94 08/22/18 23:36 T-piece 08/22/18 20:05 T-piece 8.0 30 08/22/18 20:05 94 T-piece 8.0 30 08/22/18 20:00 99.5 87 21 109/58 (75) 96 08/22/18 16:00 98.6 86 20 103/66 (78) 93 08/22/18 13:40 T-piece 8.0 30 08/22/18 13:40 93 T-piece 8.0 30 08/22/18 12:00 98.4 86 20 108/55 (72) 92 08/22/18 08:48 Endotracheal Tube 08/22/18 08:25 94 T-piece 8.0 30 08/22/18 08:25 T-piece 8.0 30 Intake and Output 08/22/18 08/23/18 19:00 07:00 Intake Total 100 ml Output Total 800 ml 800 ml Balance -700 ml -800 ml Free Water 100 ml Output Urine Total 800 ml 800 ml Height (Feet): 5 Height (Inches): 11.00 Weight (Pounds): 265 General Appearance: lethargic EENT: normal ENT inspection Neck: normal alignment Cardiovascular: normal peripheral pulses, normal rate, regular rhythm Respiratory/Chest: chest wall non-tender, lungs clear, normal breath sounds Abdomen: normal bowel sounds, non tender, soft Extremities: normal inspection Edema: no edema noted Arm (L), no edema noted Arm (R), no edema noted Leg (L), no edema noted Leg (R), no edema noted Pedal (L), no edema noted Pedal (R), no edema noted Generalized Neurologic: motor weakness Skin: normal pigmentation, warm/dry Fly Wright DO Aug 23, 2018 08:23
[2018-08-23] MEDS: Docusate 100mg/10ml Liq GT SCH ×2 (08:27→12:44)
--- NOTE | 2018-08-23 08:40 | General Progress Note ---
Assessment/Plan Problem List: (1) Tracheostomy in place ICD Codes: Z93.0 - Tracheostomy status SNOMED: 000197479 (2) UTI (urinary tract infection) ICD Codes: N39.0 - Urinary tract infection, site not specified SNOMED: 97657677 (3) Alzheimer's dementia ICD Codes: G30.9 - Alzheimer's disease, unspecified; F02.80 - Dementia in other diseases classified elsewhere without behavioral disturbance SNOMED: 86767149 (4) COPD (chronic obstructive pulmonary disease) ICD Codes: J44.9 - Chronic obstructive pulmonary disease, unspecified SNOMED: 18080571 (5) Fecal impaction ICD Codes: K56.41 - Fecal impaction SNOMED: 84071602 (6) Anemia ICD Codes: D64.9 - Anemia, unspecified SNOMED: 455488691 Assessment/Plan patient is comfort care off feeding pending placement Subjective ROS Limited/Unobtainable: No Allergies: Coded Allergies: BENAZEPRIL (Verified Allergy, Unknown, 06/02/18) Objective Last 24 Hour Vital Signs Date Time Temp Pulse Resp B/P (MAP) Pulse Ox O2 Delivery O2 Flow Rate FiO2 08/23/18 08:00 100.6 84 18 114/59 (77) 94 08/23/18 07:34 T-piece 8.0 30 08/23/18 07:34 93 T-piece 8.0 30 08/23/18 04:16 99.1 87 20 112/54 (73) 94 08/23/18 01:25 T-piece 8.0 30 08/23/18 01:25 95 T-piece 8.0 30 08/23/18 00:59 99.5 89 21 110/54 (72) 94 08/22/18 23:36 T-piece 08/22/18 20:05 T-piece 8.0 30 08/22/18 20:05 94 T-piece 8.0 30 08/22/18 20:00 99.5 87 21 109/58 (75) 96 08/22/18 16:00 98.6 86 20 103/66 (78) 93 08/22/18 13:40 T-piece 8.0 30 08/22/18 13:40 93 T-piece 8.0 30 08/22/18 12:00 98.4 86 20 108/55 (72) 92 08/22/18 08:48 Endotracheal Tube Intake and Output 08/22/18 08/23/18 19:00 07:00 Intake Total 100 ml Output Total 800 ml 800 ml Balance -700 ml -800 ml Free Water 100 ml Output Urine Total 800 ml 800 ml Height (Feet): 5 Height (Inches): 11.00 Weight (Pounds): 265 General Appearance: no apparent distress EENT: normal ENT inspection Neck: supple Cardiovascular: normal rate Respiratory/Chest: decreased breath sounds Abdomen: normal bowel sounds, non tender, soft Extremities: non-tender Dillon Brantley MD Aug 23, 2018 08:40
[2018-08-23 12:10] VITALS: BP 113/56
--- NOTE | 2018-08-23 12:12 | NUR ---
CASE MANAGEMENT: REVIEW SI: FECAL IMPACTION . UTI . RESP FAILURE ACUTE AND CHRONIC T 100.6 HR 84 RR 18 BP 114/59 SAT 93% T-PIECE FIO2 30 IS: COLACE GT TID ALBUTEROL HHN Q4HR PRN PT EVAL NPO / GT FEEDING HELD MED/SURG STATUS DCP: PATIENT IS FROM [facility]
--- NOTE | 2018-08-23 12:24 | Nephrology Progress Note ---
Assessment/Plan Problem List: (1) Hyperkalemia (2) Anemia (3) Tracheostomy in place (4) Alzheimer's dementia (5) UTI (urinary tract infection) Assessment Hyperkalemia Dehydration High Ca , Low Phos , Low Mag Anemia trach- Vent - PEG OBS UTI Plan no labs now DNR- comfort measures no labs no transfusion prn morphine family aware of grim prognosis. Subjective ROS Limited/Unobtainable: Yes Objective Objective Last 24 Hour Vital Signs Date Time Temp Pulse Resp B/P (MAP) Pulse Ox O2 Delivery O2 Flow Rate FiO2 08/23/18 08:45 Endotracheal Tube 08/23/18 08:00 100.6 84 18 114/59 (77) 94 08/23/18 07:34 T-piece 8.0 30 08/23/18 07:34 93 T-piece 8.0 30 08/23/18 04:16 99.1 87 20 112/54 (73) 94 08/23/18 01:25 T-piece 8.0 30 08/23/18 01:25 95 T-piece 8.0 30 08/23/18 00:59 99.5 89 21 110/54 (72) 94 08/22/18 23:36 T-piece 08/22/18 20:05 T-piece 8.0 30 08/22/18 20:05 94 T-piece 8.0 30 08/22/18 20:00 99.5 87 21 109/58 (75) 96 08/22/18 16:00 98.6 86 20 103/66 (78) 93 08/22/18 13:40 T-piece 8.0 30 08/22/18 13:40 93 T-piece 8.0 30 Intake and Output 08/22/18 08/23/18 19:00 07:00 Intake Total 100 ml Output Total 800 ml 800 ml Balance -700 ml -800 ml Free Water 100 ml Output Urine Total 800 ml 800 ml Height (Feet): 5 Height (Inches): 11.00 Weight (Pounds): 265 General Appearance: no apparent distress, lethargic Objective no change Rios Morales MD Aug 23, 2018 12:24
--- NOTE | 2018-08-23 13:58 | Pulmonology Progress Note ---
Assessment/Plan Problems: (1) Respiratory failure, acute and chronic (2) Sepsis (3) ATN (acute tubular necrosis) (4) Hyperkalemia (5) COPD (chronic obstructive pulmonary disease) (6) Chronic organic brain syndrome (7) Symptomatic bradycardia Assessment/Plan comfort measures no labs no transfusion prn morphine family aware of grim prognosis. keep comfortable. Subjective ROS Limited/Unobtainable: Yes Interval Events: comfortable Constitutional: Reports: no symptoms HEENT: Repors: no symptoms Allergies: Coded Allergies: BENAZEPRIL (Verified Allergy, Unknown, 06/02/18) Objective Last 24 Hour Vital Signs Date Time Temp Pulse Resp B/P (MAP) Pulse Ox O2 Delivery O2 Flow Rate FiO2 08/23/18 13:29 94 T-piece 8.0 30 08/23/18 13:29 T-piece 8.0 30 08/23/18 12:10 100.7 86 18 113/56 (75) 94 08/23/18 08:45 Endotracheal Tube 08/23/18 08:00 100.6 84 18 114/59 (77) 94 08/23/18 07:34 T-piece 8.0 30 08/23/18 07:34 93 T-piece 8.0 30 08/23/18 04:16 99.1 87 20 112/54 (73) 94 08/23/18 01:25 T-piece 8.0 30 08/23/18 01:25 95 T-piece 8.0 30 08/23/18 00:59 99.5 89 21 110/54 (72) 94 08/22/18 23:36 T-piece 08/22/18 20:05 T-piece 8.0 30 08/22/18 20:05 94 T-piece 8.0 30 08/22/18 20:00 99.5 87 21 109/58 (75) 96 08/22/18 16:00 98.6 86 20 103/66 (78) 93 Intake and Output 08/22/18 08/23/18 19:00 07:00 Intake Total 100 ml Output Total 800 ml 800 ml Balance -700 ml -800 ml Free Water 100 ml Output Urine Total 800 ml 800 ml Objective General Appearance: WD/WN, unresponsive HEENT: normocephalic, atraumatic, trach Respiratory/Chest: chest wall non-tender, lungs clear Cardiovascular: normal peripheral pulses, normal rate Abdomen: normal bowel sounds, no organomegaly Genitourinary: normal external genitalia Extremities: no cyanosis Lymphatic: no neck adenopathy Current Medications Medications (Trade) Dose Ordered Sig/Fernanda Route PRN Reason Start Time Stop Time Status Last Admin Dose Admin Acetaminophen (Tylenol) 650 mg Q4H PRN ORAL FEVER 08/19/18 07:45 09/18/18 07:44 08/23/18 12:46 Albuterol/ Ipratropium (Albuterol/ Ipratropium) 3 ml Q4H PRN HHN Shortness of Breath 08/19/18 07:45 08/24/18 07:44 Artificial Tears (Akwa-Tears) 1 drop QIDPRN PRN BOTH EYES Dry Eyes 08/21/18 10:30 09/20/18 10:29 Dextrose (Dextrose 50%) 25 ml Q30M PRN IV Hypoglycemia 08/19/18 07:45 09/18/18 07:44 Dextrose (Dextrose 50%) 50 ml Q30M PRN IV Hypoglycemia 08/19/18 08:00 09/18/18 07:59 Docusate Sodium (Colace) 100 mg THREE TIMES A DAY GT 08/20/18 13:00 09/19/18 12:59 08/23/18 12:44 Glycopyrrolate (Robinul) 0.1 mg Q6H PRN IV excessive secretions 08/21/18 10:30 09/20/18 10:29 08/21/18 15:27 Haloperidol Lactate (Haldol) 1 mg Q30M PRN IM Agitation 08/21/18 10:30 09/20/18 10:29 Lorazepam (Ativan 2mg/ml 1ml) 2 mg Q2H PRN IV For Anxiety 08/19/18 07:45 08/26/18 07:44 Miscellaneous Medication (Narcotic Drip Rate Change) 1 ea DAILY PRN MISC rx protocol 08/21/18 12:30 09/20/18 12:29 Miscellaneous Medication (Narcotic Shift Volume) 1 ea Q8HR@07,15,23 MISC 08/21/18 15:00 09/20/18 14:59 Ondansetron HCl (Zofran) 4 mg Q6H PRN IVP Nausea & Vomiting 08/19/18 07:45 09/18/18 07:44 Prochlorperazine (Compazine) 10 mg Q6H PRN ORAL Nausea & Vomiting 08/21/18 10:30 09/20/18 10:29 Steve Kothari MD Aug 23, 2018 13:58
[2018-08-23 16:00] VITALS: BP 119/71
--- NOTE | 2018-08-23 16:05 | Cardiac Electrophysiology PN ---
Assessment/Plan Assessment/Plan 1. S/P Septic shock. Echo EF 65% 2. Bradycardia with heart rate in the 30s, could be due to hyperkalemia. 3. Ventilator-dependent respiratory failure, status post tracheostomy. On T tube via Trach 4. Dysphagia, status post PEG placement. 5. Organic brain syndrome. 6. Sepsis with elevated lactate 7. DNR and comfort care Subjective Subjective No labs in comfort care on P4 Objective Last 24 Hour Vital Signs Date Time Temp Pulse Resp B/P (MAP) Pulse Ox O2 Delivery O2 Flow Rate FiO2 08/23/18 13:29 94 T-piece 8.0 30 08/23/18 13:29 T-piece 8.0 30 08/23/18 12:10 100.7 86 18 113/56 (75) 94 08/23/18 08:45 Endotracheal Tube 08/23/18 08:00 100.6 84 18 114/59 (77) 94 08/23/18 07:34 T-piece 8.0 30 08/23/18 07:34 93 T-piece 8.0 30 08/23/18 04:16 99.1 87 20 112/54 (73) 94 08/23/18 01:25 T-piece 8.0 30 08/23/18 01:25 95 T-piece 8.0 30 08/23/18 00:59 99.5 89 21 110/54 (72) 94 08/22/18 23:36 T-piece 08/22/18 20:05 T-piece 8.0 30 08/22/18 20:05 94 T-piece 8.0 30 08/22/18 20:00 99.5 87 21 109/58 (75) 96 Intake and Output 08/22/18 08/23/18 18:59 06:59 Intake Total 100 ml Output Total 800 ml 800 ml Balance -700 ml -800 ml Free Water 100 ml Output Urine Total 800 ml 800 ml Objective HEAD AND NECK: No JVD. Tracheostomy is in place. CARDIOVASCULAR: Regular S1 and S2 with no gallop or murmur. ABDOMEN: Status post G-tube. EXTREMITIES: 2+ pitting edema. Minor Liz MD Aug 23, 2018 16:05
--- NOTE | 2018-08-23 19:36 | NUR ---
HAND-OFF: Report given to CIERRA Westbrook RN.
[2018-08-23 20:00] VITALS: BP_SYST 124; BP_SYST 126; BP_DIAS 63; BP_DIAS 64
--- NOTE | 2018-08-23 20:20 | NUR ---
NURSE NOTES: Received report from CIERRA Jean. Patient nonverbal. Has trach collar. No signs fo distress or labored breathing. Right femoral triple lumen catheter intact, patent, and saline locked. G-tube clamped. Dry and intact. Sauceda intact, patent, and draining urine. Bed in lowest position with call light in reach. Will continue to monitor.
[2018-08-24] VITALS (7 sets, daily range): BP systolic 114–126; BP diastolic 51–63
--- NOTE | 2018-08-24 05:37 | General Progress Note ---
Assessment/Plan Problem List: (1) Pneumonia ICD Codes: J18.9 - Pneumonia, unspecified organism SNOMED: 391339894 (2) GERD (gastroesophageal reflux disease) ICD Codes: K21.9 - Gastro-esophageal reflux disease without esophagitis SNOMED: 959002247 (3) PVD (peripheral vascular disease) ICD Codes: I73.9 - Peripheral vascular disease, unspecified SNOMED: 044541937 (4) HTN (hypertension) ICD Codes: I10 - Essential (primary) hypertension SNOMED: 55732385 (5) CHF (congestive heart failure) ICD Codes: I50.9 - Heart failure, unspecified SNOMED: 03073290 (6) CVA (cerebral vascular accident) ICD Codes: I63.9 - Cerebral infarction, unspecified SNOMED: 048614137 (7) Seizure ICD Codes: R56.9 - Unspecified convulsions SNOMED: 85337726 (8) Respiratory failure, acute and chronic ICD Codes: J96.20 - Acute and chronic respiratory failure, unspecified whether with hypoxia or hypercapnia SNOMED: 96357217, 17335365 (9) Sepsis ICD Codes: A41.9 - Sepsis, unspecified organism SNOMED: 22682458 (10) Chronic respiratory failure ICD Codes: J96.10 - Chronic respiratory failure, unspecified whether with hypoxia or hypercapnia SNOMED: 50942233 (11) COPD (chronic obstructive pulmonary disease) ICD Codes: J44.9 - Chronic obstructive pulmonary disease, unspecified SNOMED: 79667981 (12) Tracheostomy in place ICD Codes: Z93.0 - Tracheostomy status SNOMED: 570970665 (13) Symptomatic bradycardia ICD Codes: R00.1 - Bradycardia, unspecified SNOMED: 94700370, 873074521 Status: unchanged Assessment/Plan pulm tx trach care abx pt diet cbc bmp am Subjective Constitutional: Reports: weakness Allergies: Coded Allergies: BENAZEPRIL (Verified Allergy, Unknown, 06/02/18) All Systems: reviewed and negative except above Subjective trach aerosol lethargic Objective Last 24 Hour Vital Signs Date Time Temp Pulse Resp B/P (MAP) Pulse Ox O2 Delivery O2 Flow Rate FiO2 08/24/18 04:00 99.5 82 20 121/58 (79) 100 08/24/18 00:59 T-piece 8.0 30 08/24/18 00:59 97 T-piece 8.0 30 08/24/18 00:00 99.5 84 22 126/63 (84) 100 08/23/18 20:00 99.7 81 22 124/64 (84) 100 08/23/18 19:35 95 T-piece 8.0 30 08/23/18 19:35 T-piece 8.0 30 08/23/18 16:00 99.8 80 19 119/71 (87) 94 08/23/18 13:29 94 T-piece 8.0 30 08/23/18 13:29 T-piece 8.0 30 08/23/18 12:10 100.7 86 18 113/56 (75) 94 08/23/18 08:45 Endotracheal Tube 08/23/18 08:00 100.6 84 18 114/59 (77) 94 08/23/18 07:34 T-piece 8.0 30 08/23/18 07:34 93 T-piece 8.0 30 Intake and Output 08/23/18 08/24/18 19:00 07:00 Intake Total 100 ml Balance 100 ml Free Water 100 ml Height (Feet): 5 Height (Inches): 11.00 Weight (Pounds): 265 General Appearance: lethargic EENT: normal ENT inspection Neck: normal alignment Cardiovascular: normal peripheral pulses, normal rate, regular rhythm Respiratory/Chest: chest wall non-tender, lungs clear, normal breath sounds Abdomen: normal bowel sounds, non tender, soft Extremities: normal inspection Edema: no edema noted Arm (L), no edema noted Arm (R), no edema noted Leg (L), no edema noted Leg (R), no edema noted Pedal (L), no edema noted Pedal (R), no edema noted Generalized Neurologic: motor weakness Skin: normal pigmentation, warm/dry Fly Wright DO Aug 24, 2018 05:37
[2018-08-24] MEDS: Narcotic Shift Volume MISC SCH ×3 (07:00→23:00)
--- NOTE | 2018-08-24 07:30 | NUR ---
HAND-OFF: Report given to CIERRA Lieberman.
--- NOTE | 2018-08-24 07:35 | NUR ---
NURSE NOTES: Received patient in bed, non-verbal with trach. Suction done. Patient opens his eyes but does not follow direction. No congestion or wheezing. HOB elevated, GT clamped and lee is draining well. Right TLC intact, no s/s of infiltration. Oral and trach suction done. Will continue plan of care.
--- NOTE | 2018-08-24 08:17 | General Progress Note ---
Assessment/Plan Problem List: (1) Tracheostomy in place ICD Codes: Z93.0 - Tracheostomy status SNOMED: 807194839 (2) UTI (urinary tract infection) ICD Codes: N39.0 - Urinary tract infection, site not specified SNOMED: 17871467 (3) Alzheimer's dementia ICD Codes: G30.9 - Alzheimer's disease, unspecified; F02.80 - Dementia in other diseases classified elsewhere without behavioral disturbance SNOMED: 97462161 (4) COPD (chronic obstructive pulmonary disease) ICD Codes: J44.9 - Chronic obstructive pulmonary disease, unspecified SNOMED: 18711263 (5) Fecal impaction ICD Codes: K56.41 - Fecal impaction SNOMED: 19516455 (6) Anemia ICD Codes: D64.9 - Anemia, unspecified SNOMED: 883107693 Assessment/Plan patient is comfort care off feeding pending placement Subjective ROS Limited/Unobtainable: No Allergies: Coded Allergies: BENAZEPRIL (Verified Allergy, Unknown, 06/02/18) Objective Last 24 Hour Vital Signs Date Time Temp Pulse Resp B/P (MAP) Pulse Ox O2 Delivery O2 Flow Rate FiO2 08/24/18 04:00 99.5 82 20 121/58 (79) 100 08/24/18 00:59 T-piece 8.0 30 08/24/18 00:59 97 T-piece 8.0 30 08/24/18 00:00 99.5 84 22 126/63 (84) 100 08/23/18 20:00 99.7 81 22 124/64 (84) 100 08/23/18 19:35 95 T-piece 8.0 30 08/23/18 19:35 T-piece 8.0 30 08/23/18 16:00 99.8 80 19 119/71 (87) 94 08/23/18 13:29 94 T-piece 8.0 30 08/23/18 13:29 T-piece 8.0 30 08/23/18 12:10 100.7 86 18 113/56 (75) 94 08/23/18 08:45 Endotracheal Tube Intake and Output 08/23/18 08/24/18 19:00 07:00 Intake Total 100 ml Balance 100 ml Free Water 100 ml Height (Feet): 5 Height (Inches): 11.00 Weight (Pounds): 117 General Appearance: no apparent distress EENT: normal ENT inspection Neck: supple Cardiovascular: normal rate Respiratory/Chest: decreased breath sounds Abdomen: normal bowel sounds, non tender, soft Extremities: non-tender Dillon Brantley MD Aug 24, 2018 08:17
[2018-08-24 08:28] LABS: HEMATOCRIT 18.3 % (42.0-52.0); MEAN CORPUSCULAR VOLUME 89 FL (80-99); PLATELET COUNT 87 K/UL (150-450); RED BLOOD COUNT 2.07 M/UL (4.70-6.10); RED CELL DISTRIBUTION WIDTH 16.7 % (11.6-14.8); WHITE BLOOD COUNT 10.5 K/UL (4.8-10.8)
[2018-08-24 08:37] LABS: HEMOGLOBIN 5.6 G/DL (14.2-18.0)
[2018-08-24 08:40] LABS: ANION GAP 11 mmol/L (5-15); BLOOD UREA NITROGEN 18 mg/dL (7-18); CARBON DIOXIDE 29 MMOL/L (21-32); CHLORIDE 112 MMOL/L (98-107); CREATININE 1.2 MG/DL (0.55-1.30); POTASSIUM 3.1 MMOL/L (3.5-5.1); SODIUM 152 MMOL/L (136-145)
--- NOTE | 2018-08-24 09:10 | NUR ---
NURSE NOTES: Received report from Ameena from lab of hemoglobin level of 5.6. RN informed Dr. Colón with no new order, no blood transfusion for now since patient is comfort care.
--- NOTE | 2018-08-24 11:50 | NUR ---
NURSE NOTES: Received order from Dr. Kothari not to do blood work anymore since patient is comfort care.Order read back and carried out.
--- NOTE | 2018-08-24 13:06 | Pulmonology Progress Note ---
Assessment/Plan Problems: (1) Respiratory failure, acute and chronic (2) Sepsis (3) ATN (acute tubular necrosis) (4) Hyperkalemia (5) COPD (chronic obstructive pulmonary disease) (6) Chronic organic brain syndrome (7) Symptomatic bradycardia Assessment/Plan comfort measures no transfusion prn morphine family aware of grim prognosis. keep comfortable. Subjective ROS Limited/Unobtainable: Yes Interval Events: looks comfortable Allergies: Coded Allergies: BENAZEPRIL (Verified Allergy, Unknown, 06/02/18) Objective Last 24 Hour Vital Signs Date Time Temp Pulse Resp B/P (MAP) Pulse Ox O2 Delivery O2 Flow Rate FiO2 08/24/18 09:00 Trach Collar 08/24/18 08:18 96 T-piece 8.0 30 08/24/18 08:18 T-piece 8.0 30 08/24/18 08:00 99.0 74 20 114/51 (72) 100 08/24/18 04:00 99.5 82 20 121/58 (79) 100 08/24/18 00:59 T-piece 8.0 30 08/24/18 00:59 97 T-piece 8.0 30 08/24/18 00:00 99.5 84 22 126/63 (84) 100 08/23/18 20:00 99.7 81 22 124/64 (84) 100 08/23/18 19:35 95 T-piece 8.0 30 08/23/18 19:35 T-piece 8.0 30 08/23/18 16:00 99.8 80 19 119/71 (87) 94 08/23/18 13:29 94 T-piece 8.0 30 08/23/18 13:29 T-piece 8.0 30 Intake and Output 08/23/18 08/24/18 19:00 07:00 Intake Total 100 ml Balance 100 ml Free Water 100 ml Objective General Appearance: WD/WN, unresponsive HEENT: normocephalic, atraumatic, trach Respiratory/Chest: chest wall non-tender, lungs clear Cardiovascular: normal peripheral pulses, normal rate Abdomen: normal bowel sounds, no organomegaly Genitourinary: normal external genitalia Extremities: no cyanosis Lymphatic: no neck adenopathy Laboratory Tests 08/24/18 07:40: White Blood Count 10.5, Red Blood Count 2.07L, Hemoglobin 5.6*L, Hematocrit 18.3L, Mean Corpuscular Volume 89, Mean Corpuscular Hemoglobin 27.2, Mean Corpuscular Hemoglobin Concent 30.7L, Red Cell Distribution Width 16.7H, Platelet Count 87L, Mean Platelet Volume 9.9, Neutrophils (%) (Auto) , Lymphocytes (%) (Auto) , Monocytes (%) (Auto) , Eosinophils (%) (Auto) , Basophils (%) (Auto) , Differential Total Cells Counted 100, Neutrophils % ( Manual) 74, Lymphocytes % (Manual) 18L, Monocytes % (Manual) 8, Eosinophils % ( Manual) 0, Basophils % (Manual) 0, Band Neutrophils 0, Platelet Estimate DecreasedL, Platelet Morphology Normal, Hypochromasia 3+, Anisocytosis 1+, Sodium Level 152H, Potassium Level 3.1L, Chloride Level 112H, Carbon Dioxide Level 29, Anion Gap 11, Blood Urea Nitrogen 18, Creatinine 1.2, Estimat Glomerular Filtration Rate > 60, Glucose Level 70L, Calcium Level 9.0 Current Medications Medications (Trade) Dose Ordered Sig/Fernanda Route PRN Reason Start Time Stop Time Status Last Admin Dose Admin Acetaminophen (Tylenol) 650 mg Q4H PRN ORAL FEVER 08/19/18 07:45 09/18/18 07:44 08/23/18 12:46 Artificial Tears (Akwa-Tears) 1 drop QIDPRN PRN BOTH EYES Dry Eyes 08/21/18 10:30 09/20/18 10:29 Glycopyrrolate (Robinul) 0.1 mg Q6H PRN IV excessive secretions 08/21/18 10:30 09/20/18 10:29 08/21/18 15:27 Haloperidol Lactate (Haldol) 1 mg Q30M PRN IM Agitation 08/21/18 10:30 09/20/18 10:29 Lorazepam (Ativan 2mg/ml 1ml) 2 mg Q2H PRN IV For Anxiety 08/19/18 07:45 08/26/18 07:44 Miscellaneous Medication (Narcotic Drip Rate Change) 1 ea DAILY PRN MISC rx protocol 08/21/18 12:30 09/20/18 12:29 Miscellaneous Medication (Narcotic Shift Volume) 1 ea Q8HR@07,15,23 MISC 08/21/18 15:00 09/20/18 14:59 Steve Kothari MD Aug 24, 2018 13:06
--- NOTE | 2018-08-24 13:38 | Nephrology Progress Note ---
Assessment/Plan Problem List: (1) Hyperkalemia (2) Anemia (3) Tracheostomy in place (4) Alzheimer's dementia (5) UTI (urinary tract infection) Assessment Hyperkalemia Dehydration High Ca , Low Phos , Low Mag Anemia trach- Vent - PEG OBS UTI Plan no labs now DNR- comfort measures no labs no transfusion prn morphine family aware of grim prognosis. Subjective ROS Limited/Unobtainable: Yes Objective Objective Last 24 Hour Vital Signs Date Time Temp Pulse Resp B/P (MAP) Pulse Ox O2 Delivery O2 Flow Rate FiO2 08/24/18 12:00 99.1 76 19 119/59 (79) 100 08/24/18 09:00 Trach Collar 08/24/18 08:18 96 T-piece 8.0 30 08/24/18 08:18 T-piece 8.0 30 08/24/18 08:00 99.0 74 20 114/51 (72) 100 08/24/18 04:00 99.5 82 20 121/58 (79) 100 08/24/18 00:59 T-piece 8.0 30 08/24/18 00:59 97 T-piece 8.0 30 08/24/18 00:00 99.5 84 22 126/63 (84) 100 08/23/18 20:00 99.7 81 22 124/64 (84) 100 08/23/18 19:35 95 T-piece 8.0 30 08/23/18 19:35 T-piece 8.0 30 08/23/18 16:00 99.8 80 19 119/71 (87) 94 Intake and Output 08/23/18 08/24/18 19:00 07:00 Intake Total 100 ml Balance 100 ml Free Water 100 ml Laboratory Tests 08/24/18 07:40: White Blood Count 10.5, Red Blood Count 2.07L, Hemoglobin 5.6*L, Hematocrit 18.3L, Mean Corpuscular Volume 89, Mean Corpuscular Hemoglobin 27.2, Mean Corpuscular Hemoglobin Concent 30.7L, Red Cell Distribution Width 16.7H, Platelet Count 87L, Mean Platelet Volume 9.9, Neutrophils (%) (Auto) , Lymphocytes (%) (Auto) , Monocytes (%) (Auto) , Eosinophils (%) (Auto) , Basophils (%) (Auto) , Differential Total Cells Counted 100, Neutrophils % ( Manual) 74, Lymphocytes % (Manual) 18L, Monocytes % (Manual) 8, Eosinophils % ( Manual) 0, Basophils % (Manual) 0, Band Neutrophils 0, Platelet Estimate DecreasedL, Platelet Morphology Normal, Hypochromasia 3+, Anisocytosis 1+, Sodium Level 152H, Potassium Level 3.1L, Chloride Level 112H, Carbon Dioxide Level 29, Anion Gap 11, Blood Urea Nitrogen 18, Creatinine 1.2, Estimat Glomerular Filtration Rate > 60, Glucose Level 70L, Calcium Level 9.0 Height (Feet): 5 Height (Inches): 11.00 Weight (Pounds): 117 General Appearance: no apparent distress Objective no change Rios Morales MD Aug 24, 2018 13:38
--- NOTE | 2018-08-24 13:55 | NUR ---
PT Note Patient is at baseline level of function. He is unable to actively participate in any physical therapy. No PT services recommended at this time. Addendum: 08/24/18 at 1355 by CARMEN BRO PT Amended: Links added.
--- NOTE | 2018-08-24 19:04 | NUR ---
HAND-OFF: Report given to Fifi.
--- NOTE | 2018-08-24 19:52 | NUR ---
NURSE NOTES: Received report from Lorena Sargent RN. Patient nonverbal. On trach. No signs of distress. Right femoral central line intact, patent, and saline locked. GT intact and clamped. Sauceda intact, patent, and draining urine. Bed in lowest psoition with bed at least 30 degrees. Will continue to monitor.
--- NOTE | 2018-08-24 20:18 | NUR ---
CASE MANAGEMENT: REVIEW 08/24/2018 SI:SYMPTOMATIC BRADYCARDIA. T 98.9 HR 81 RR 18 B/P 122/60 SATS 95% ON 8L/T PIECE HGB 5.6 HCT 18.3 NA 152 K 3.1 CL 112 GLU 70 IS:NO MEDS AT THIS TIME MED/SURG STATUS PLAN OF CARE: COMFORT CARE
[2018-08-25] VITALS: BP 123/55
[2018-08-25 04:00] VITALS: BP 129/59
[2018-08-25] MEDS: Narcotic Shift Volume MISC SCH ×3 (06:54→22:47)
--- NOTE | 2018-08-25 07:21 | NUR ---
CASE MANAGEMENT:REVIEW 08/25/18 SI: SEPSIS. COPD. BRADYCARDIA 99.3 66 18 129/59 99% ON T-PIECE 8L 30% FIO2 IS: ROBINUL Q6HRS PRN EXCESSIVE SECRETION TYLENOL PRN FEVER : MED/SURG STATUS 4 E PLAN: COMFORT MEASURES MORPHINE PRN
--- NOTE | 2018-08-25 07:51 | NUR ---
HAND-OFF: Report given to Remedios Sargent RN.
[2018-08-25 08:00] VITALS: BP 140/61
--- NOTE | 2018-08-25 09:00 | NUR ---
NURSE NOTES: pt in bed with no sob nor in any form of distress noted. pt is on comfort measure only. Tolerating well on trach. HOB elevated. kept clean and comfortable. bed in lowest position. call light within reach at all time.
--- NOTE | 2018-08-25 09:40 | Nephrology Progress Note ---
Assessment/Plan Problem List: (1) Hyperkalemia (2) Anemia (3) Tracheostomy in place (4) Alzheimer's dementia (5) UTI (urinary tract infection) Assessment Hyperkalemia Dehydration High Ca , Low Phos , Low Mag Anemia trach- Vent - PEG OBS UTI Plan now DNR- and comfort care no labs should be ordered no transfusion prn morphine family aware of grim prognosis. Subjective ROS Limited/Unobtainable: Yes Objective Objective Last 24 Hour Vital Signs Date Time Temp Pulse Resp B/P (MAP) Pulse Ox O2 Delivery O2 Flow Rate FiO2 08/25/18 09:17 T-piece 08/25/18 08:17 96 T-piece 8.0 30 08/25/18 08:17 T-piece 8.0 30 08/25/18 08:00 99.0 72 18 140/61 (87) 94 08/25/18 04:00 99.3 66 18 129/59 (82) 99 08/25/18 01:30 99 T-piece 8.0 30 08/25/18 01:30 T-piece 8.0 30 08/25/18 00:00 100.8 73 20 123/55 (77) 100 08/24/18 21:00 T-piece 08/24/18 20:00 101.4 82 20 126/63 (84) 95 08/24/18 19:20 96 T-piece 8.0 30 08/24/18 19:20 T-piece 8.0 30 08/24/18 16:00 98.9 81 18 122/60 (80) 95 08/24/18 13:40 96 T-piece 8.0 30 08/24/18 13:40 T-piece 8.0 30 08/24/18 12:00 99.1 76 19 119/59 (79) 100 Intake and Output 08/24/18 08/25/18 19:00 07:00 Output Total 400 ml 300 ml Balance -400 ml -300 ml Output Urine Total 400 ml 300 ml Height (Feet): 5 Height (Inches): 11.00 Weight (Pounds): 117 General Appearance: no apparent distress Objective no change Rios Morales MD Aug 25, 2018 09:40
--- NOTE | 2018-08-25 10:41 | GI Progress Note ---
Assessment/Plan Problems: (1) Anemia ICD Codes: D64.9 - Anemia, unspecified SNOMED: 848618764 (2) Feeding by G-tube ICD Codes: Z93.1 - Gastrostomy status SNOMED: 300780892, 196764683 (3) Fecal impaction ICD Codes: K56.41 - Fecal impaction SNOMED: 77938385 (4) Symptomatic bradycardia ICD Codes: R00.1 - Bradycardia, unspecified SNOMED: 63203021, 328059822 Status: unchanged Status Narrative Discussed with Dr. Brantley Assessment/Plan comfort care The patient was seen and examined at bedside and all new and available data was reviewed in the patients chart. I agree with the above findings, impression and plan. (Patient seen earlier today. Signature stamp does not reflect patient encounter time.). - Dillon Brantley MD Subjective Subjective limited Objective Last 24 Hour Vital Signs Date Time Temp Pulse Resp B/P (MAP) Pulse Ox O2 Delivery O2 Flow Rate FiO2 08/25/18 09:17 T-piece 08/25/18 08:17 96 T-piece 8.0 30 08/25/18 08:17 T-piece 8.0 30 08/25/18 08:00 99.0 72 18 140/61 (87) 94 08/25/18 04:00 99.3 66 18 129/59 (82) 99 08/25/18 01:30 99 T-piece 8.0 30 08/25/18 01:30 T-piece 8.0 30 08/25/18 00:00 100.8 73 20 123/55 (77) 100 08/24/18 21:00 T-piece 08/24/18 20:00 101.4 82 20 126/63 (84) 95 08/24/18 19:20 96 T-piece 8.0 30 08/24/18 19:20 T-piece 8.0 30 08/24/18 16:00 98.9 81 18 122/60 (80) 95 08/24/18 13:40 96 T-piece 8.0 30 08/24/18 13:40 T-piece 8.0 30 08/24/18 12:00 99.1 76 19 119/59 (79) 100 Intake and Output 08/24/18 08/25/18 19:00 07:00 Output Total 400 ml 300 ml Balance -400 ml -300 ml Output Urine Total 400 ml 300 ml Height (Feet): 5 Height (Inches): 11.00 Weight (Pounds): 117 General Appearance: no apparent distress Cardiovascular: normal rate Respiratory/Chest: normal breath sounds, no respiratory distress Abdominal Exam: normal bowel sounds, non tender, soft Extremities: non-tender Isaac Anaya NP Aug 25, 2018 10:41
[2018-08-25 12:00] VITALS: BP 120/52
--- NOTE | 2018-08-25 12:25 | Pulmonology Progress Note ---
Assessment/Plan Problems: (1) Respiratory failure, acute and chronic (2) Sepsis (3) ATN (acute tubular necrosis) (4) Hyperkalemia (5) COPD (chronic obstructive pulmonary disease) (6) Chronic organic brain syndrome (7) Symptomatic bradycardia Assessment/Plan comfort measures looks comfortable no transfusion prn morphine family aware of grim prognosis. keep comfortable. Subjective ROS Limited/Unobtainable: No Constitutional: Reports: no symptoms HEENT: Repors: no symptoms Allergies: Coded Allergies: BENAZEPRIL (Verified Allergy, Unknown, 06/02/18) Objective Last 24 Hour Vital Signs Date Time Temp Pulse Resp B/P (MAP) Pulse Ox O2 Delivery O2 Flow Rate FiO2 08/25/18 09:17 T-piece 08/25/18 08:17 96 T-piece 8.0 30 08/25/18 08:17 T-piece 8.0 30 08/25/18 08:00 99.0 72 18 140/61 (87) 94 08/25/18 04:00 99.3 66 18 129/59 (82) 99 08/25/18 01:30 99 T-piece 8.0 30 08/25/18 01:30 T-piece 8.0 30 08/25/18 00:00 100.8 73 20 123/55 (77) 100 08/24/18 21:00 T-piece 08/24/18 20:00 101.4 82 20 126/63 (84) 95 08/24/18 19:20 96 T-piece 8.0 30 08/24/18 19:20 T-piece 8.0 30 08/24/18 16:00 98.9 81 18 122/60 (80) 95 08/24/18 13:40 96 T-piece 8.0 30 08/24/18 13:40 T-piece 8.0 30 Intake and Output 08/24/18 08/25/18 19:00 07:00 Output Total 400 ml 300 ml Balance -400 ml -300 ml Output Urine Total 400 ml 300 ml Objective General Appearance: WD/WN, unresponsive HEENT: normocephalic, atraumatic, trach Respiratory/Chest: chest wall non-tender, lungs clear Cardiovascular: normal peripheral pulses, normal rate Abdomen: normal bowel sounds, no organomegaly Genitourinary: normal external genitalia Extremities: no cyanosis Lymphatic: no neck adenopathy Current Medications Medications (Trade) Dose Ordered Sig/Fernanda Route PRN Reason Start Time Stop Time Status Last Admin Dose Admin Acetaminophen (Tylenol) 650 mg Q4H PRN ORAL FEVER 08/19/18 07:45 09/18/18 07:44 08/23/18 12:46 Artificial Tears (Akwa-Tears) 1 drop QIDPRN PRN BOTH EYES Dry Eyes 08/21/18 10:30 09/20/18 10:29 Glycopyrrolate (Robinul) 0.1 mg Q6H PRN IV excessive secretions 08/21/18 10:30 09/20/18 10:29 08/21/18 15:27 Haloperidol Lactate (Haldol) 1 mg Q30M PRN IM Agitation 08/21/18 10:30 09/20/18 10:29 Lorazepam (Ativan 2mg/ml 1ml) 2 mg Q2H PRN IV For Anxiety 08/19/18 07:45 08/26/18 07:44 Miscellaneous Medication (Narcotic Drip Rate Change) 1 ea DAILY PRN MISC rx protocol 08/21/18 12:30 09/20/18 12:29 Miscellaneous Medication (Narcotic Shift Volume) 1 ea Q8HR@07,15,23 MISC 08/21/18 15:00 09/20/18 14:59 Steve Kothari MD Aug 25, 2018 12:25
--- NOTE | 2018-08-25 13:45 | General Progress Note ---
Assessment/Plan Assessment/Plan Assessment/Recommendations: # Thrombocytopenia - potential causes multifactorial, evaluate liver and viral etiologies to begin, also could be related to underlying medications patient has received. r/o underlying infection. --> Hep panel and HIV negative --> Peripheral smear ordered to evaluate for blasts /schistocytes does not show any --> abx and other meds have been reviewed --> plt trend 49-->70-->29k-->87k --> 1 unit plt and 2 units prbc for 08/21 --> no further labs # Anemia of chronic disease due to underlying chronic medical issues, multifactorial --> Anemia workup has reviewed and c/w acd --> No evidence of hemolysis is noted, peripheral smear has been reviewed. --> Epogen or iron at this time is not particularly indicated --> Medications have been reviewed --> evaluate with Gi team prn --> trend hgb 8.8-->6.1-->5.6 # Sepsis with uti and potentially pna --> on abx as per id --> continue on prn basis # REspiratory failure s/p trach --> on vent per pulm/cc # Dysphagia s/p peg tube --> feds per gi team # Hyperkalemia # Dexter -- per cards eval, appreciated # DNR/COMFORT CARE MEASURES The timing of this note does not necessarily reflect the time of the patient was seen. Greatly appreciate consultation! Subjective Cardiovascular: Denies: no symptoms, chest pain, edema, irregular heart rate, lightheadedness, palpitations, syncope, other Respiratory: Denies: no symptoms, cough, orthopnea, shortness of breath, SOB with excertion, SOB at rest, sputum, stridor, wheezing, other Neurologic/Psychiatric: Denies: no symptoms, anxiety, depressed, emotional problems, headache, numbness, paresthesia, pre-existing deficit, seizure, tingling, tremors, weakness, other Endocrine: Denies: no symptoms, excessive sweating, flushing, intolerance to cold, intolerance to heat, increased hunger, increased thirst, increased urine, unexplained weight gain, unexplained weight loss, other Allergies: Coded Allergies: BENAZEPRIL (Verified Allergy, Unknown, 06/02/18) Subjective 08/20: no events, is dnr, on abx,, in icu 08/21: plt 29k, hgb 6.1, ordered blood today, dw rn, orders given, in am, patient yawning 08/22: now dnr, comfort care measures 08/25: on comfort care measures, no f/c noted, no events otherwise, hgb low Objective Last 24 Hour Vital Signs Date Time Temp Pulse Resp B/P (MAP) Pulse Ox O2 Delivery O2 Flow Rate FiO2 08/25/18 13:17 T-piece 8.0 30 08/25/18 13:17 98 T-piece 8.0 30 08/25/18 12:00 98.5 68 18 120/52 (74) 94 08/25/18 09:17 T-piece 08/25/18 08:17 96 T-piece 8.0 30 08/25/18 08:17 T-piece 8.0 30 08/25/18 08:00 99.0 72 18 140/61 (87) 94 08/25/18 04:00 99.3 66 18 129/59 (82) 99 08/25/18 01:30 99 T-piece 8.0 30 08/25/18 01:30 T-piece 8.0 30 08/25/18 00:00 100.8 73 20 123/55 (77) 100 08/24/18 21:00 T-piece 08/24/18 20:00 101.4 82 20 126/63 (84) 95 08/24/18 19:20 96 T-piece 8.0 30 08/24/18 19:20 T-piece 8.0 30 08/24/18 16:00 98.9 81 18 122/60 (80) 95 Intake and Output 08/24/18 08/25/18 19:00 07:00 Output Total 400 ml 300 ml Balance -400 ml -300 ml Output Urine Total 400 ml 300 ml Height (Feet): 5 Height (Inches): 11.00 Weight (Pounds): 117 Objective Vitals: reviewed General Appearance: NAD HEENT: normocephalic, atraumatic Neck: non-tender, normal alignment Respiratory/Chest: + trach/vent Cardiovascular/Chest: normal peripheral pulses, normal rate Abdomen: normal bowel sounds, soft, nontender ++ gtube Extremities: normal range of motion Bubba Colón MD Aug 25, 2018 13:45
--- NOTE | 2018-08-25 14:32 | General Progress Note ---
Assessment/Plan Problem List: (1) Pneumonia ICD Codes: J18.9 - Pneumonia, unspecified organism SNOMED: 505765704 (2) GERD (gastroesophageal reflux disease) ICD Codes: K21.9 - Gastro-esophageal reflux disease without esophagitis SNOMED: 644494187 (3) PVD (peripheral vascular disease) ICD Codes: I73.9 - Peripheral vascular disease, unspecified SNOMED: 583028402 (4) HTN (hypertension) ICD Codes: I10 - Essential (primary) hypertension SNOMED: 47748068 (5) CHF (congestive heart failure) ICD Codes: I50.9 - Heart failure, unspecified SNOMED: 64903099 (6) CVA (cerebral vascular accident) ICD Codes: I63.9 - Cerebral infarction, unspecified SNOMED: 290662293 (7) Seizure ICD Codes: R56.9 - Unspecified convulsions SNOMED: 06998462 (8) Respiratory failure, acute and chronic ICD Codes: J96.20 - Acute and chronic respiratory failure, unspecified whether with hypoxia or hypercapnia SNOMED: 80625552, 85621789 (9) Sepsis ICD Codes: A41.9 - Sepsis, unspecified organism SNOMED: 24745987 (10) Chronic respiratory failure ICD Codes: J96.10 - Chronic respiratory failure, unspecified whether with hypoxia or hypercapnia SNOMED: 85628218 (11) COPD (chronic obstructive pulmonary disease) ICD Codes: J44.9 - Chronic obstructive pulmonary disease, unspecified SNOMED: 04115061 (12) Tracheostomy in place ICD Codes: Z93.0 - Tracheostomy status SNOMED: 184086331 (13) Symptomatic bradycardia ICD Codes: R00.1 - Bradycardia, unspecified SNOMED: 15169638, 713984669 Status: unchanged Assessment/Plan pulm tx trach care abx pt diet cbc bmp am transfuse prn Subjective Constitutional: Reports: weakness Allergies: Coded Allergies: BENAZEPRIL (Verified Allergy, Unknown, 06/02/18) All Systems: reviewed and negative except above Subjective trach aerosol lethargic Objective Last 24 Hour Vital Signs Date Time Temp Pulse Resp B/P (MAP) Pulse Ox O2 Delivery O2 Flow Rate FiO2 08/25/18 13:17 T-piece 8.0 30 08/25/18 13:17 98 T-piece 8.0 30 08/25/18 12:00 98.5 68 18 120/52 (74) 94 08/25/18 09:17 T-piece 08/25/18 08:17 96 T-piece 8.0 30 08/25/18 08:17 T-piece 8.0 30 08/25/18 08:00 99.0 72 18 140/61 (87) 94 08/25/18 04:00 99.3 66 18 129/59 (82) 99 08/25/18 01:30 99 T-piece 8.0 30 08/25/18 01:30 T-piece 8.0 30 08/25/18 00:00 100.8 73 20 123/55 (77) 100 08/24/18 21:00 T-piece 08/24/18 20:00 101.4 82 20 126/63 (84) 95 08/24/18 19:20 96 T-piece 8.0 30 08/24/18 19:20 T-piece 8.0 30 08/24/18 16:00 98.9 81 18 122/60 (80) 95 Intake and Output 08/24/18 08/25/18 19:00 07:00 Output Total 400 ml 300 ml Balance -400 ml -300 ml Output Urine Total 400 ml 300 ml Height (Feet): 5 Height (Inches): 11.00 Weight (Pounds): 117 General Appearance: lethargic EENT: normal ENT inspection Neck: normal alignment Cardiovascular: normal peripheral pulses, normal rate, regular rhythm Respiratory/Chest: chest wall non-tender, lungs clear, normal breath sounds Abdomen: normal bowel sounds, non tender, soft Extremities: normal inspection Edema: no edema noted Arm (L), no edema noted Arm (R), no edema noted Leg (L), no edema noted Leg (R), no edema noted Pedal (L), no edema noted Pedal (R), no edema noted Generalized Neurologic: motor weakness Skin: normal pigmentation, warm/dry Fly Wright DO Aug 25, 2018 14:32
[2018-08-25 16:00] VITALS: BP 127/57
--- NOTE | 2018-08-25 16:29 | Cardiac Electrophysiology PN ---
Assessment/Plan Assessment/Plan 1. S/P Septic shock. EF 65% 2. Bradycardia with heart rate in the 30s 3. Respiratory failure, status post tracheostomy. On T tube via Trach with agonal breathing 4. Dysphagia, status post PEG placement. 5. Organic brain syndrome. 6. Sepsis with elevated lactate 7. DNR and comfort care DW RN Subjective Subjective Still has agonal breathing despite being on comfort care for 3 days Objective Last 24 Hour Vital Signs Date Time Temp Pulse Resp B/P (MAP) Pulse Ox O2 Delivery O2 Flow Rate FiO2 08/25/18 13:17 T-piece 8.0 30 08/25/18 13:17 98 T-piece 8.0 30 08/25/18 12:00 98.5 68 18 120/52 (74) 94 08/25/18 09:17 T-piece 08/25/18 08:17 96 T-piece 8.0 30 08/25/18 08:17 T-piece 8.0 30 08/25/18 08:00 99.0 72 18 140/61 (87) 94 08/25/18 04:00 99.3 66 18 129/59 (82) 99 08/25/18 01:30 99 T-piece 8.0 30 08/25/18 01:30 T-piece 8.0 30 08/25/18 00:00 100.8 73 20 123/55 (77) 100 08/24/18 21:00 T-piece 08/24/18 20:00 101.4 82 20 126/63 (84) 95 08/24/18 19:20 96 T-piece 8.0 30 08/24/18 19:20 T-piece 8.0 30 Intake and Output 08/24/18 08/25/18 19:00 07:00 Output Total 400 ml 300 ml Balance -400 ml -300 ml Output Urine Total 400 ml 300 ml Objective HEAD AND NECK: No JVD. Tracheostomy is in place. CARDIOVASCULAR: Regular S1 and S2 with no gallop or murmur. ABDOMEN: Status post G-tube. EXTREMITIES: 2+ pitting edema. Minor Liz MD Aug 25, 2018 16:29
--- NOTE | 2018-08-25 19:07 | NUR ---
HAND-OFF: Report given to CIERRA Andino.
--- NOTE | 2018-08-25 19:30 | NUR ---
NURSE NOTES: Patient alseep, receiving 35% FiO2 via T piece, secured with trach collar. On NPO, comfor measure only. No SOB, no acute distress noted. Central line on R femoral intact with dry dressing. Bed in lowest position, locked, alarms on. Call light in reach.
[2018-08-25 20:00] VITALS: BP 131/58
[2018-08-26] VITALS (8 sets, daily range): BP systolic 113–138; BP diastolic 53–76
[2018-08-26] MEDS: Narcotic Shift Volume MISC SCH ×3 (07:00→23:00)
--- NOTE | 2018-08-26 07:28 | NUR ---
HAND-OFF: Report given to Lorena Sargent RN.
--- NOTE | 2018-08-26 09:51 | Nephrology Progress Note ---
Assessment/Plan Problem List: (1) Hyperkalemia (2) Anemia (3) Tracheostomy in place (4) Alzheimer's dementia (5) UTI (urinary tract infection) Assessment Hyperkalemia Dehydration High Ca , Low Phos , Low Mag Anemia trach- Vent - PEG OBS UTI Plan now DNR- and comfort care no labs should be ordered no transfusion prn morphine family aware of grim prognosis. Subjective ROS Limited/Unobtainable: No Objective Objective Last 24 Hour Vital Signs Date Time Temp Pulse Resp B/P (MAP) Pulse Ox O2 Delivery O2 Flow Rate FiO2 08/26/18 09:00 T-piece 08/26/18 08:00 100.6 78 20 132/62 (85) 97 08/26/18 04:00 99.9 72 17 138/65 (89) 95 08/26/18 01:07 T-piece 12.0 40 08/26/18 01:06 96 T-piece 12.0 40 08/26/18 00:00 100.8 79 18 136/62 (86) 97 08/25/18 21:00 T-piece 08/25/18 20:40 T-piece 12.0 40 08/25/18 20:40 97 T-piece 12.0 40 08/25/18 20:00 100.1 70 18 131/58 (82) 97 08/25/18 16:00 98.2 74 18 127/57 (80) 94 08/25/18 13:17 T-piece 8.0 30 08/25/18 13:17 98 T-piece 8.0 30 08/25/18 12:00 98.5 68 18 120/52 (74) 94 Height (Feet): 5 Height (Inches): 11.00 Weight (Pounds): 149 General Appearance: no apparent distress, other - febrile Respiratory/Chest: decreased breath sounds Abdomen: distended Objective no change Rios Morales MD Aug 26, 2018 09:51
--- NOTE | 2018-08-26 10:23 | Cardiac Electrophysiology PN ---
Assessment/Plan Assessment/Plan 1. S/P Septic shock. EF 65% 2. Bradycardia with heart rate in the 30. DNR, Comfort care 3. Respiratory failure, status post tracheostomy. On T tube via Trach with agonal breathing 4. Dysphagia, status post PEG placement. 5. Organic brain syndrome. 6. Sepsis with elevated lactate 7. DNR and comfort care DW RN Subjective Subjective Agonal breathing despite being on comfort care Objective Last 24 Hour Vital Signs Date Time Temp Pulse Resp B/P (MAP) Pulse Ox O2 Delivery O2 Flow Rate FiO2 08/26/18 09:00 T-piece 08/26/18 08:40 95 T-piece 12.0 40 08/26/18 08:40 T-piece 12.0 40 08/26/18 08:00 100.6 78 20 132/62 (85) 97 08/26/18 04:00 99.9 72 17 138/65 (89) 95 08/26/18 01:07 T-piece 12.0 40 08/26/18 01:06 96 T-piece 12.0 40 08/26/18 00:00 100.8 79 18 136/62 (86) 97 08/25/18 21:00 T-piece 08/25/18 20:40 T-piece 12.0 40 08/25/18 20:40 97 T-piece 12.0 40 08/25/18 20:00 100.1 70 18 131/58 (82) 97 08/25/18 16:00 98.2 74 18 127/57 (80) 94 08/25/18 13:17 T-piece 8.0 30 08/25/18 13:17 98 T-piece 8.0 30 08/25/18 12:00 98.5 68 18 120/52 (74) 94 Objective HEAD AND NECK: No JVD. Tracheostomy is in place. CARDIOVASCULAR: Regular S1 and S2 with no gallop or murmur. ABDOMEN: Status post G-tube. EXTREMITIES: 2+ pitting edema. Minor Liz MD Aug 26, 2018 10:23
--- NOTE | 2018-08-26 11:24 | GI Progress Note ---
Assessment/Plan Problems: (1) Anemia ICD Codes: D64.9 - Anemia, unspecified SNOMED: 324388768 (2) Feeding by G-tube ICD Codes: Z93.1 - Gastrostomy status SNOMED: 730506120, 177745043 (3) Fecal impaction ICD Codes: K56.41 - Fecal impaction SNOMED: 30439115 (4) Symptomatic bradycardia ICD Codes: R00.1 - Bradycardia, unspecified SNOMED: 07223754, 032221349 Status: unchanged Status Narrative Discussed with Dr. Brantley Assessment/Plan comfort care The patient was seen and examined at bedside and all new and available data was reviewed in the patients chart. I agree with the above findings, impression and plan. (Patient seen earlier today. Signature stamp does not reflect patient encounter time.). - Dillon Brantley MD Subjective Subjective limited Objective Last 24 Hour Vital Signs Date Time Temp Pulse Resp B/P (MAP) Pulse Ox O2 Delivery O2 Flow Rate FiO2 08/26/18 09:00 T-piece 08/26/18 08:40 95 T-piece 12.0 40 08/26/18 08:40 T-piece 12.0 40 08/26/18 08:00 100.6 78 20 132/62 (85) 97 08/26/18 04:00 99.9 72 17 138/65 (89) 95 08/26/18 01:07 T-piece 12.0 40 08/26/18 01:06 96 T-piece 12.0 40 08/26/18 00:00 100.8 79 18 136/62 (86) 97 08/25/18 21:00 T-piece 08/25/18 20:40 T-piece 12.0 40 08/25/18 20:40 97 T-piece 12.0 40 08/25/18 20:00 100.1 70 18 131/58 (82) 97 08/25/18 16:00 98.2 74 18 127/57 (80) 94 08/25/18 13:17 T-piece 8.0 30 08/25/18 13:17 98 T-piece 8.0 30 08/25/18 12:00 98.5 68 18 120/52 (74) 94 Height (Feet): 5 Height (Inches): 11.00 Weight (Pounds): 149 General Appearance: WD/WN, no apparent distress, alert Cardiovascular: normal rate Respiratory/Chest: normal breath sounds, no respiratory distress Abdominal Exam: normal bowel sounds, non tender, soft Extremities: non-tender Isaac Anaya NP Aug 26, 2018 11:24
--- NOTE | 2018-08-26 13:00 | NUR ---
NURSE NOTES: Patient was seen by Bonny Wright and RN notified to Dr. Wright of episodes of fever and patient has TLC with no new order. Dr. Wright will discuss with Dr. Kothari about his condition.
--- NOTE | 2018-08-26 13:22 | NUR ---
*-* INSURANCE *-* ALL CLINICALS AND REVIEWS HAVE BEENF AXED TO: [facility] NCM:ANGELIQUE P: [phone] F: [phone]
--- NOTE | 2018-08-26 13:44 | Pulmonology Progress Note ---
Assessment/Plan Problems: (1) Respiratory failure, acute and chronic (2) Sepsis (3) ATN (acute tubular necrosis) (4) Hyperkalemia (5) COPD (chronic obstructive pulmonary disease) (6) Chronic organic brain syndrome (7) Symptomatic bradycardia Assessment/Plan comfort measures looks comfortable no transfusion prn morphine family aware of grim prognosis. call [facility] keep comfortable. Subjective ROS Limited/Unobtainable: No Constitutional: Reports: no symptoms HEENT: Repors: no symptoms Allergies: Coded Allergies: BENAZEPRIL (Verified Allergy, Unknown, 06/02/18) Objective Last 24 Hour Vital Signs Date Time Temp Pulse Resp B/P (MAP) Pulse Ox O2 Delivery O2 Flow Rate FiO2 08/26/18 13:15 T-piece 12.0 40 08/26/18 13:15 95 T-piece 12.0 40 08/26/18 12:00 101.2 78 20 130/76 (94) 97 08/26/18 10:15 100.8 08/26/18 09:00 T-piece 08/26/18 08:40 95 T-piece 12.0 40 08/26/18 08:40 T-piece 12.0 40 08/26/18 08:00 100.6 78 20 132/62 (85) 97 08/26/18 04:00 99.9 72 17 138/65 (89) 95 08/26/18 01:07 T-piece 12.0 40 08/26/18 01:06 96 T-piece 12.0 40 08/26/18 00:00 100.8 79 18 136/62 (86) 97 08/25/18 21:00 T-piece 08/25/18 20:40 T-piece 12.0 40 08/25/18 20:40 97 T-piece 12.0 40 08/25/18 20:00 100.1 70 18 131/58 (82) 97 08/25/18 16:00 98.2 74 18 127/57 (80) 94 Objective General Appearance: WD/WN, unresponsive HEENT: normocephalic, atraumatic, trach Respiratory/Chest: chest wall non-tender, lungs clear Cardiovascular: normal peripheral pulses, normal rate Abdomen: normal bowel sounds, no organomegaly Genitourinary: normal external genitalia Extremities: no cyanosis Lymphatic: no neck adenopathy Current Medications Medications (Trade) Dose Ordered Sig/Fernanda Route PRN Reason Start Time Stop Time Status Last Admin Dose Admin Acetaminophen (Tylenol) 650 mg Q4H PRN ORAL FEVER 08/19/18 07:45 09/18/18 07:44 08/26/18 09:45 Artificial Tears (Akwa-Tears) 1 drop QIDPRN PRN BOTH EYES Dry Eyes 08/21/18 10:30 09/20/18 10:29 Glycopyrrolate (Robinul) 0.1 mg Q6H PRN IV excessive secretions 08/21/18 10:30 09/20/18 10:29 08/21/18 15:27 Haloperidol Lactate (Haldol) 1 mg Q30M PRN IM Agitation 08/21/18 10:30 09/20/18 10:29 Miscellaneous Medication (Narcotic Drip Rate Change) 1 ea DAILY PRN MISC rx protocol 08/21/18 12:30 09/20/18 12:29 Miscellaneous Medication (Narcotic Shift Volume) 1 ea Q8HR@07,15,23 MISC 08/21/18 15:00 09/20/18 14:59 Steve Kothari MD Aug 26, 2018 13:44
--- NOTE | 2018-08-26 13:46 | NUR ---
CHARGE NURSE NOTES: DR. GARZA REQUESTED [facility] BE CALLED; CALLED AND NOTIFIED PATIENT ON COMFORT MEASURES, ON T PIECE. PER STAFF, [facility] TO BE NOTIFIED AFTER TIME OF HAS BEEN NOTED. WILL CONTINUE TO MONITOR.
--- NOTE | 2018-08-26 14:07 | General Progress Note ---
Assessment/Plan Problem List: (1) Pneumonia ICD Codes: J18.9 - Pneumonia, unspecified organism SNOMED: 471818246 (2) GERD (gastroesophageal reflux disease) ICD Codes: K21.9 - Gastro-esophageal reflux disease without esophagitis SNOMED: 558664306 (3) PVD (peripheral vascular disease) ICD Codes: I73.9 - Peripheral vascular disease, unspecified SNOMED: 995572151 (4) HTN (hypertension) ICD Codes: I10 - Essential (primary) hypertension SNOMED: 94488971 (5) CHF (congestive heart failure) ICD Codes: I50.9 - Heart failure, unspecified SNOMED: 33015166 (6) CVA (cerebral vascular accident) ICD Codes: I63.9 - Cerebral infarction, unspecified SNOMED: 075453457 (7) Seizure ICD Codes: R56.9 - Unspecified convulsions SNOMED: 57747255 (8) Respiratory failure, acute and chronic ICD Codes: J96.20 - Acute and chronic respiratory failure, unspecified whether with hypoxia or hypercapnia SNOMED: 41002105, 96095060 (9) Sepsis ICD Codes: A41.9 - Sepsis, unspecified organism SNOMED: 82506753 (10) Chronic respiratory failure ICD Codes: J96.10 - Chronic respiratory failure, unspecified whether with hypoxia or hypercapnia SNOMED: 42532094 (11) COPD (chronic obstructive pulmonary disease) ICD Codes: J44.9 - Chronic obstructive pulmonary disease, unspecified SNOMED: 61908207 (12) Tracheostomy in place ICD Codes: Z93.0 - Tracheostomy status SNOMED: 342901187 (13) Symptomatic bradycardia ICD Codes: R00.1 - Bradycardia, unspecified SNOMED: 57298090, 902948927 Status: unchanged Assessment/Plan pulm tx trach care comfort measures per family request Subjective Constitutional: Reports: weakness Allergies: Coded Allergies: BENAZEPRIL (Verified Allergy, Unknown, 06/02/18) All Systems: reviewed and negative except above Subjective trach aerosol lethargic Objective Last 24 Hour Vital Signs Date Time Temp Pulse Resp B/P (MAP) Pulse Ox O2 Delivery O2 Flow Rate FiO2 08/26/18 13:15 T-piece 12.0 40 08/26/18 13:15 95 T-piece 12.0 40 08/26/18 12:00 101.2 78 20 130/76 (94) 97 08/26/18 10:15 100.8 08/26/18 09:00 T-piece 08/26/18 08:40 95 T-piece 12.0 40 08/26/18 08:40 T-piece 12.0 40 08/26/18 08:00 100.6 78 20 132/62 (85) 97 08/26/18 04:00 99.9 72 17 138/65 (89) 95 08/26/18 01:07 T-piece 12.0 40 08/26/18 01:06 96 T-piece 12.0 40 08/26/18 00:00 100.8 79 18 136/62 (86) 97 08/25/18 21:00 T-piece 08/25/18 20:40 T-piece 12.0 40 08/25/18 20:40 97 T-piece 12.0 40 08/25/18 20:00 100.1 70 18 131/58 (82) 97 08/25/18 16:00 98.2 74 18 127/57 (80) 94 Height (Feet): 5 Height (Inches): 11.00 Weight (Pounds): 149 General Appearance: lethargic EENT: normal ENT inspection Neck: normal alignment Cardiovascular: normal peripheral pulses, normal rate, regular rhythm Respiratory/Chest: chest wall non-tender, decreased breath sounds Abdomen: normal bowel sounds, non tender, soft Edema: no edema noted Arm (L), no edema noted Arm (R), no edema noted Leg (L), no edema noted Leg (R), no edema noted Pedal (L), no edema noted Pedal (R), no edema noted Generalized Neurologic: motor weakness Skin: normal pigmentation, warm/dry Fly Wright DO Aug 26, 2018 14:07
--- NOTE | 2018-08-26 14:56 | NUR ---
CASE MANAGEMENT:REVIEW 08/26/18 SI: SEPSIS. COPD. BRADYCARDIA 101.2 78 20 130/76 95% ON T-PIECE 12L 40% FIO2 IS: ROBINUL Q6HRS PRN EXCESSIVE SECRETION TYLENOL PRN FEVER : MED/SURG STATUS 4 E PLAN: COMFORT MEASURES MORPHINE PRN
--- NOTE | 2018-08-26 15:49 | NUR ---
NURSE NOTES:WOUND CARE NOTES:Pt noted to have multiple partial thickness wounds in close proximity to sacrum,R and L buttocks;an area of(L)8cm x (W)7.2cm.Base of wound is moist -viable with dark borders without induration .Dark discoloration with peeling skin periwound without induration. Triad Paste applied and covered with Optifoam drsg. Partial thickness wound noted to Medial R buttocks. Base of wound moist -viable with (+) maceration along borders. Periwound without erythema or induration. No odor or exudate from wounds. Triad Paste applied and covered with Optifoam drsg. Both heels are dry and firm . Skin Assessed under trach collar and no evidence of skin breakdown noted .Pt has an APM /Steve mattress overlay on his bed and positioned on sides with pillow .Both heels are off-loaded with pillows. Recommendations: Apply Triad Paste to Buttocks .Cover with Optifoam drsgs. Change every 3 days and prn. Apply Triad Paste to medial R buttocks. Cover with Optifoam drsg.Change every 3 days and prn. Apply Cavilon Skin Barrier to each heel. Off-load heels with pillows. Reposition at least every 2 hours or as tolerated.
--- NOTE | 2018-08-26 18:30 | NUR ---
NURSE NOTES: During shift, frequent oral and trach care done by suctioning and cleaning and re-position done Q2HR and heels are floated to off the load and bilateral arms elevated. On P200 mattress.
--- NOTE | 2018-08-26 19:39 | NUR ---
HAND-OFF: Report given to Gwendolyn.
--- NOTE | 2018-08-26 20:00 | NUR ---
NURSE NOTES: Patient received in bed, asleep, obtunded, nonverbal. TPiece at 35%FiO2 10LPM with inline suction, ET sxn prn. HOB elevated, aspiration precaution, on ANNETTE mattress. Comfort measures. R femoral TLC intact. Will continue POC.
--- NOTE | 2018-08-26 21:01 | General Progress Note ---
Assessment/Plan Assessment/Plan Assessment/Recommendations: # Thrombocytopenia - potential causes multifactorial, evaluate liver and viral etiologies to begin, also could be related to underlying medications patient has received. r/o underlying infection. --> Hep panel and HIV negative --> Peripheral smear ordered to evaluate for blasts /schistocytes does not show any --> abx and other meds have been reviewed --> plt trend 49-->70-->29k-->87k --> 1 unit plt and 2 units prbc for 08/21 --> no further labs # Anemia of chronic disease due to underlying chronic medical issues, multifactorial --> Anemia workup has reviewed and c/w acd --> No evidence of hemolysis is noted, peripheral smear has been reviewed. --> Epogen or iron at this time is not particularly indicated --> Medications have been reviewed --> evaluate with Gi team prn --> trend hgb 8.8-->6.1-->5.6 ==> COMFORT MEASURES # Sepsis with uti and potentially pna --> on abx as per id --> continue on prn basis # REspiratory failure s/p trach --> on vent per pulm/cc # Dysphagia s/p peg tube --> feds per gi team # Hyperkalemia # Dexter -- per cards eval, appreciated # DNR/COMFORT CARE MEASURES The timing of this note does not necessarily reflect the time of the patient was seen. Greatly appreciate consultation! Subjective Respiratory: Denies: no symptoms, cough, orthopnea, shortness of breath, SOB with excertion, SOB at rest, sputum, stridor, wheezing, other Gastrointestinal/Abdominal: Denies: no symptoms, abdomen distended, abdominal pain, black stools, tarry stools, blood in stool, constipated, diarrhea, difficulty swallowing, nausea, poor appetite, poor fluid intake, rectal bleeding , vomiting, other Genitourinary: Denies: no symptoms, burning, discharge, frequency, flank pain, hematuria, incontinence, pain, urgency, other Neurologic/Psychiatric: Denies: no symptoms, anxiety, depressed, emotional problems, headache, numbness, paresthesia, pre-existing deficit, seizure, tingling, tremors, weakness, other Endocrine: Denies: no symptoms, excessive sweating, flushing, intolerance to cold, intolerance to heat, increased hunger, increased thirst, increased urine, unexplained weight gain, unexplained weight loss, other Hematologic/Lymphatic: Denies: no symptoms, anemia, easy bleeding, easy bruising, other Allergies: Coded Allergies: BENAZEPRIL (Verified Allergy, Unknown, 06/02/18) Subjective 08/20: no events, is dnr, on abx,, in icu 08/21: plt 29k, hgb 6.1, ordered blood today, chayo rn, orders given, in am, patient yawning 08/22: now dnr, comfort care measures 08/25: on comfort care measures, no f/c noted, no events otherwise, hgb low 08/26: comfort measures, no transfusions, no bleeding noted Objective Last 24 Hour Vital Signs Date Time Temp Pulse Resp B/P (MAP) Pulse Ox O2 Delivery O2 Flow Rate FiO2 08/26/18 20:15 T-piece 10.0 35 08/26/18 20:14 95 T-piece 10.0 35 08/26/18 20:00 98.6 70 20 137/64 (88) 95 08/26/18 16:00 99.7 63 17 113/53 (73) 97 08/26/18 13:15 T-piece 12.0 40 08/26/18 13:15 95 T-piece 12.0 40 08/26/18 13:00 98.4 76 20 131/72 (91) 97 08/26/18 12:00 101.2 78 20 130/76 (94) 97 08/26/18 10:15 100.8 08/26/18 09:00 T-piece 08/26/18 08:40 95 T-piece 12.0 40 08/26/18 08:40 T-piece 12.0 40 08/26/18 08:00 100.6 78 20 132/62 (85) 97 08/26/18 04:00 99.9 72 17 138/65 (89) 95 08/26/18 01:07 T-piece 12.0 40 08/26/18 01:06 96 T-piece 12.0 40 08/26/18 00:00 100.8 79 18 136/62 (86) 97 Height (Feet): 5 Height (Inches): 11.00 Weight (Pounds): 149 Objective Vitals: reviewed General Appearance: NAD HEENT: normocephalic, atraumatic Neck: non-tender, normal alignment Respiratory/Chest: + trach/vent Cardiovascular/Chest: normal peripheral pulses, normal rate Abdomen: normal bowel sounds, soft, nontender ++ gtube Extremities: normal range of motion Bubba Colón MD Aug 26, 2018 21:01
[2018-08-27 04:14] VITALS: BP 139/55
[2018-08-27] MEDS: Narcotic Shift Volume MISC SCH ×3 (07:00→23:00)
--- NOTE | 2018-08-27 07:26 | NUR ---
NURSE NOTES: received patient in bed, non verbal, obtunded, opens eyes, on trach collar, right TLC femural ,G-tube clamped, suctioned prn, lee cath in place, on NPO/DNR/DNI and comfort measures status, kept clean dry and comfortable CIERRA medrano .
--- NOTE | 2018-08-27 07:30 | NUR ---
HAND-OFF: Report given to Miranda NORTON.
[2018-08-27 08:00] VITALS: BP 134/64
--- NOTE | 2018-08-27 11:01 | NUR ---
RD ASSESSMENT & RECOMMENDATIONS SEE CARE ACTIVITY FOR COMPLETE ASSESSMENT DAILY ESTIMATED NEEDS: Needs based on Critical care 93kg adj 17-22 kcals/kg 8341-7701 total kcals 1.2-2 g protein/kg 112-186 g total protein 20-25ml/kcal mL/kg 5213-1686 total fluid mLs NUTRITION DIAGNOSIS: 1) Swallowing difficulty R/T respiratory status AEB pt vent dep via trach PEG dep, now comfort care only, TF dc'd. 2) Altered nutrition related lab values r/t clinical status as evidenced by critically low Hgb (5.6*), low BG (48, now normalized), febrile (tmax 101.2). ENTERAL NUTRITION RECOMMENDATIONS: * Re-consult as needed/ comfort care only at this time * ADDITIONAL RECOMMENDATIONS: Pt is Comfort care only, TF DC'd; Reconsult as needed
--- NOTE | 2018-08-27 11:43 | GI Progress Note ---
Assessment/Plan Problems: (1) Anemia ICD Codes: D64.9 - Anemia, unspecified SNOMED: 316957992 (2) Feeding by G-tube ICD Codes: Z93.1 - Gastrostomy status SNOMED: 291288937, 082616240 (3) Fecal impaction ICD Codes: K56.41 - Fecal impaction SNOMED: 15973352 (4) Symptomatic bradycardia ICD Codes: R00.1 - Bradycardia, unspecified SNOMED: 92304673, 278130074 Status: not improved, unchanged Status Narrative Discussed with Dr. Brantley Assessment/Plan comfort care The patient was seen and examined at bedside and all new and available data was reviewed in the patients chart. I agree with the above findings, impression and plan. (Patient seen earlier today. Signature stamp does not reflect patient encounter time.). - Dillon Brantley MD Subjective Subjective limited Objective Last 24 Hour Vital Signs Date Time Temp Pulse Resp B/P (MAP) Pulse Ox O2 Delivery O2 Flow Rate FiO2 08/27/18 08:20 T-piece 08/27/18 08:00 99.9 65 20 134/64 (87) 98 08/27/18 07:34 95 T-piece 10.0 35 08/27/18 07:34 T-piece 10.0 35 08/27/18 04:14 99.0 65 20 139/55 (83) 98 08/27/18 01:23 T-piece 10.0 35 08/27/18 01:23 94 T-piece 10.0 35 08/26/18 23:48 98.4 65 20 135/64 (87) 96 08/26/18 21:00 T-piece 08/26/18 20:15 T-piece 10.0 35 08/26/18 20:14 95 T-piece 10.0 35 08/26/18 20:00 98.6 70 20 137/64 (88) 95 08/26/18 16:00 99.7 63 17 113/53 (73) 97 08/26/18 13:15 T-piece 12.0 40 08/26/18 13:15 95 T-piece 12.0 40 08/26/18 13:00 98.4 76 20 131/72 (91) 97 08/26/18 12:00 101.2 78 20 130/76 (94) 97 Intake and Output 08/26/18 08/27/18 19:00 07:00 Output Total 500 ml Balance -500 ml Output Urine Total 500 ml Height (Feet): 5 Height (Inches): 11.00 Weight (Pounds): 145 General Appearance: cachetic Cardiovascular: normal rate Respiratory/Chest: normal breath sounds, no respiratory distress Abdominal Exam: normal bowel sounds, non tender, soft Extremities: non-tender Isaac Anaya [employer] SOFTWARE ENGINEER Aug 27, 2018 11:43
[2018-08-27 11:51] VITALS: BP 118/52
--- NOTE | 2018-08-27 12:53 | Pulmonology Progress Note ---
Assessment/Plan Problems: (1) Respiratory failure, acute and chronic (2) Sepsis (3) ATN (acute tubular necrosis) (4) Hyperkalemia (5) COPD (chronic obstructive pulmonary disease) (6) Chronic organic brain syndrome (7) Symptomatic bradycardia Assessment/Plan comfort measures looks comfortable no transfusion prn morphine family aware of grim prognosis. call [facility] keep comfortable. Subjective ROS Limited/Unobtainable: No Constitutional: Reports: no symptoms HEENT: Repors: no symptoms Allergies: Coded Allergies: BENAZEPRIL (Verified Allergy, Unknown, 06/02/18) Objective Last 24 Hour Vital Signs Date Time Temp Pulse Resp B/P (MAP) Pulse Ox O2 Delivery O2 Flow Rate FiO2 08/27/18 11:51 100.4 66 20 118/52 (74) 98 08/27/18 08:20 T-piece 08/27/18 08:00 99.9 65 20 134/64 (87) 98 08/27/18 07:34 95 T-piece 10.0 35 08/27/18 07:34 T-piece 10.0 35 08/27/18 04:14 99.0 65 20 139/55 (83) 98 08/27/18 01:23 T-piece 10.0 35 08/27/18 01:23 94 T-piece 10.0 35 08/26/18 23:48 98.4 65 20 135/64 (87) 96 08/26/18 21:00 T-piece 08/26/18 20:15 T-piece 10.0 35 08/26/18 20:14 95 T-piece 10.0 35 08/26/18 20:00 98.6 70 20 137/64 (88) 95 08/26/18 16:00 99.7 63 17 113/53 (73) 97 08/26/18 13:15 T-piece 12.0 40 08/26/18 13:15 95 T-piece 12.0 40 08/26/18 13:00 98.4 76 20 131/72 (91) 97 Intake and Output 08/26/18 08/27/18 19:00 07:00 Output Total 500 ml Balance -500 ml Output Urine Total 500 ml Objective General Appearance: WD/WN, unresponsive HEENT: normocephalic, atraumatic, trach Respiratory/Chest: chest wall non-tender, lungs clear Cardiovascular: normal peripheral pulses, normal rate Abdomen: normal bowel sounds, no organomegaly Genitourinary: normal external genitalia Extremities: no cyanosis Lymphatic: no neck adenopathy Current Medications Medications (Trade) Dose Ordered Sig/Fernanda Route PRN Reason Start Time Stop Time Status Last Admin Dose Admin Acetaminophen (Tylenol) 650 mg Q4H PRN ORAL FEVER 08/19/18 07:45 09/18/18 07:44 08/27/18 12:04 Artificial Tears (Akwa-Tears) 1 drop QIDPRN PRN BOTH EYES Dry Eyes 08/21/18 10:30 09/20/18 10:29 Glycopyrrolate (Robinul) 0.1 mg Q6H PRN IV excessive secretions 08/21/18 10:30 09/20/18 10:29 08/21/18 15:27 Haloperidol Lactate (Haldol) 1 mg Q30M PRN IM Agitation 08/21/18 10:30 09/20/18 10:29 Miscellaneous Medication (Narcotic Drip Rate Change) 1 ea DAILY PRN MISC rx protocol 08/21/18 12:30 09/20/18 12:29 Miscellaneous Medication (Narcotic Shift Volume) 1 ea Q8HR@07,15,23 MISC 08/21/18 15:00 09/20/18 14:59 Steve Kothari MD Aug 27, 2018 12:53
--- NOTE | 2018-08-27 14:47 | Nephrology Progress Note ---
Assessment/Plan Problem List: (1) Hyperkalemia (2) Anemia (3) Tracheostomy in place (4) Alzheimer's dementia (5) UTI (urinary tract infection) Assessment Hyperkalemia Dehydration High Ca , Low Phos , Low Mag Anemia trach- Vent - PEG OBS UTI Plan now DNR- and comfort care no labs should be ordered no transfusion prn morphine family aware of grim prognosis. Subjective ROS Limited/Unobtainable: Yes Objective Objective Last 24 Hour Vital Signs Date Time Temp Pulse Resp B/P (MAP) Pulse Ox O2 Delivery O2 Flow Rate FiO2 08/27/18 13:17 100 T-piece 10.0 35 08/27/18 13:17 T-piece 10.0 35 08/27/18 12:34 98.2 08/27/18 11:51 100.4 66 20 118/52 (74) 98 08/27/18 08:20 T-piece 08/27/18 08:00 99.9 65 20 134/64 (87) 98 08/27/18 07:34 95 T-piece 10.0 35 08/27/18 07:34 T-piece 10.0 35 08/27/18 04:14 99.0 65 20 139/55 (83) 98 08/27/18 01:23 T-piece 10.0 35 08/27/18 01:23 94 T-piece 10.0 35 08/26/18 23:48 98.4 65 20 135/64 (87) 96 08/26/18 21:00 T-piece 08/26/18 20:15 T-piece 10.0 35 08/26/18 20:14 95 T-piece 10.0 35 08/26/18 20:00 98.6 70 20 137/64 (88) 95 08/26/18 16:00 99.7 63 17 113/53 (73) 97 Intake and Output 08/26/18 08/27/18 19:00 07:00 Output Total 500 ml Balance -500 ml Output Urine Total 500 ml Height (Feet): 5 Height (Inches): 11.00 Weight (Pounds): 145 General Appearance: no apparent distress Objective no change Rios Morales MD Aug 27, 2018 14:47
--- NOTE | 2018-08-27 15:31 | General Progress Note ---
Assessment/Plan Problem List: (1) Pneumonia ICD Codes: J18.9 - Pneumonia, unspecified organism SNOMED: 134912986 (2) GERD (gastroesophageal reflux disease) ICD Codes: K21.9 - Gastro-esophageal reflux disease without esophagitis SNOMED: 384469103 (3) PVD (peripheral vascular disease) ICD Codes: I73.9 - Peripheral vascular disease, unspecified SNOMED: 248935268 (4) HTN (hypertension) ICD Codes: I10 - Essential (primary) hypertension SNOMED: 24891058 (5) CHF (congestive heart failure) ICD Codes: I50.9 - Heart failure, unspecified SNOMED: 07892477 (6) CVA (cerebral vascular accident) ICD Codes: I63.9 - Cerebral infarction, unspecified SNOMED: 660148237 (7) Seizure ICD Codes: R56.9 - Unspecified convulsions SNOMED: 88178609 (8) Respiratory failure, acute and chronic ICD Codes: J96.20 - Acute and chronic respiratory failure, unspecified whether with hypoxia or hypercapnia SNOMED: 77840155, 22125878 (9) Sepsis ICD Codes: A41.9 - Sepsis, unspecified organism SNOMED: 10505473 (10) Chronic respiratory failure ICD Codes: J96.10 - Chronic respiratory failure, unspecified whether with hypoxia or hypercapnia SNOMED: 02352958 (11) COPD (chronic obstructive pulmonary disease) ICD Codes: J44.9 - Chronic obstructive pulmonary disease, unspecified SNOMED: 57174564 (12) Tracheostomy in place ICD Codes: Z93.0 - Tracheostomy status SNOMED: 368393886 (13) Symptomatic bradycardia ICD Codes: R00.1 - Bradycardia, unspecified SNOMED: 29781336, 716905665 Status: unchanged Assessment/Plan pulm tx trach care comfort measures per family request dc plan snf Subjective Constitutional: Reports: weakness Allergies: Coded Allergies: BENAZEPRIL (Verified Allergy, Unknown, 06/02/18) All Systems: reviewed and negative except above Subjective trach aerosol lethargic Objective Last 24 Hour Vital Signs Date Time Temp Pulse Resp B/P (MAP) Pulse Ox O2 Delivery O2 Flow Rate FiO2 08/27/18 13:17 100 T-piece 10.0 35 08/27/18 13:17 T-piece 10.0 35 08/27/18 12:34 98.2 08/27/18 11:51 100.4 66 20 118/52 (74) 98 08/27/18 08:20 T-piece 08/27/18 08:00 99.9 65 20 134/64 (87) 98 08/27/18 07:34 95 T-piece 10.0 35 08/27/18 07:34 T-piece 10.0 35 08/27/18 04:14 99.0 65 20 139/55 (83) 98 08/27/18 01:23 T-piece 10.0 35 08/27/18 01:23 94 T-piece 10.0 35 08/26/18 23:48 98.4 65 20 135/64 (87) 96 08/26/18 21:00 T-piece 08/26/18 20:15 T-piece 10.0 35 08/26/18 20:14 95 T-piece 10.0 35 08/26/18 20:00 98.6 70 20 137/64 (88) 95 08/26/18 16:00 99.7 63 17 113/53 (73) 97 Intake and Output 08/26/18 08/27/18 19:00 07:00 Output Total 500 ml Balance -500 ml Output Urine Total 500 ml Height (Feet): 5 Height (Inches): 11.00 Weight (Pounds): 145 General Appearance: lethargic EENT: normal ENT inspection Neck: normal alignment Cardiovascular: normal peripheral pulses, normal rate, regular rhythm Respiratory/Chest: chest wall non-tender, decreased breath sounds Abdomen: normal bowel sounds, non tender, soft Extremities: normal inspection Edema: no edema noted Arm (L), no edema noted Arm (R), no edema noted Leg (L), no edema noted Leg (R), no edema noted Pedal (L), no edema noted Pedal (R), no edema noted Generalized Neurologic: motor weakness Skin: normal pigmentation, warm/dry Fly Wright DO Aug 27, 2018 15:31
--- NOTE | 2018-08-27 16:05 | Cardiac Electrophysiology PN ---
Assessment/Plan Assessment/Plan 1. S/P Septic shock. EF 65% 2. Bradycardia with heart rate in the 30. DNR, Comfort care 3. Respiratory failure, status post tracheostomy. On Oxygen via Trach with agonal breathing 4. Dysphagia, status post PEG placement. 5. Organic brain syndrome. 6. Sepsis with elevated lactate 7. DNR and comfort care DW RN Subjective Subjective Agonal breathing while on Oxygen via trach Objective Last 24 Hour Vital Signs Date Time Temp Pulse Resp B/P (MAP) Pulse Ox O2 Delivery O2 Flow Rate FiO2 08/27/18 13:17 100 T-piece 10.0 35 08/27/18 13:17 T-piece 10.0 35 08/27/18 12:34 98.2 08/27/18 11:51 100.4 66 20 118/52 (74) 98 08/27/18 08:20 T-piece 08/27/18 08:00 99.9 65 20 134/64 (87) 98 08/27/18 07:34 95 T-piece 10.0 35 08/27/18 07:34 T-piece 10.0 35 08/27/18 04:14 99.0 65 20 139/55 (83) 98 08/27/18 01:23 T-piece 10.0 35 08/27/18 01:23 94 T-piece 10.0 35 08/26/18 23:48 98.4 65 20 135/64 (87) 96 08/26/18 21:00 T-piece 08/26/18 20:15 T-piece 10.0 35 08/26/18 20:14 95 T-piece 10.0 35 08/26/18 20:00 98.6 70 20 137/64 (88) 95 Intake and Output 08/26/18 08/27/18 19:00 07:00 Output Total 500 ml Balance -500 ml Output Urine Total 500 ml Objective HEAD AND NECK: No JVD. Tracheostomy is in place. CARDIOVASCULAR: Regular S1 and S2 with no gallop or murmur. ABDOMEN: Status post G-tube. EXTREMITIES: 2+ pitting edema. Minor Liz MD Aug 27, 2018 16:05
[2018-08-27 16:23] VITALS: BP 128/71
--- NOTE | 2018-08-27 19:31 | NUR ---
HAND-OFF: Report given to CIERRA TRUJILLO. CIERRA ABBOTT
[2018-08-27 20:00] VITALS: BP 143/48
--- NOTE | 2018-08-27 21:11 | General Progress Note ---
Assessment/Plan Assessment/Plan Assessment/Recommendations: # Thrombocytopenia - potential causes multifactorial, evaluate liver and viral etiologies to begin, also could be related to underlying medications patient has received. r/o underlying infection. --> Hep panel and HIV negative --> Peripheral smear ordered to evaluate for blasts /schistocytes does not show any --> abx and other meds have been reviewed --> plt trend 49-->70-->29k-->87k --> 1 unit plt and 2 units prbc for 08/21 --> no further labs # Anemia of chronic disease due to underlying chronic medical issues, multifactorial --> Anemia workup has reviewed and c/w acd --> No evidence of hemolysis is noted, peripheral smear has been reviewed. --> Epogen or iron at this time is not particularly indicated --> Medications have been reviewed --> evaluate with Gi team prn --> trend hgb 8.8-->6.1-->5.6 ==> COMFORT MEASURES # Sepsis with uti and potentially pna --> on abx as per id --> continue on prn basis # REspiratory failure s/p trach --> on vent per pulm/cc # Dysphagia s/p peg tube --> feds per gi team # Hyperkalemia # Dexter -- per cards eval, appreciated # DNR/COMFORT CARE MEASURES The timing of this note does not necessarily reflect the time of the patient was seen. Greatly appreciate consultation! Subjective Endocrine: Denies: no symptoms, excessive sweating, flushing, intolerance to cold, intolerance to heat, increased hunger, increased thirst, increased urine, unexplained weight gain, unexplained weight loss, other Allergies: Coded Allergies: BENAZEPRIL (Verified Allergy, Unknown, 06/02/18) Subjective 08/20: no events, is dnr, on abx,, in icu 08/21: plt 29k, hgb 6.1, ordered blood today, chayo rn, orders given, in am, patient yawning 08/22: now dnr, comfort care measures 08/25: on comfort care measures, no f/c noted, no events otherwise, hgb low 08/26: comfort measures, no transfusions, no bleeding noted 08/27: unable to illicit a response, is on cc measures Objective Last 24 Hour Vital Signs Date Time Temp Pulse Resp B/P (MAP) Pulse Ox O2 Delivery O2 Flow Rate FiO2 08/27/18 19:55 96 T-piece 10.0 35 08/27/18 19:55 T-piece 10.0 35 08/27/18 17:02 99.7 08/27/18 16:23 101.3 67 20 128/71 (90) 100 08/27/18 13:17 100 T-piece 10.0 35 08/27/18 13:17 T-piece 10.0 35 08/27/18 11:51 100.4 66 20 118/52 (74) 98 08/27/18 08:20 T-piece 08/27/18 08:00 99.9 65 20 134/64 (87) 98 08/27/18 07:34 95 T-piece 10.0 35 08/27/18 07:34 T-piece 10.0 35 08/27/18 04:14 99.0 65 20 139/55 (83) 98 08/27/18 01:23 T-piece 10.0 35 08/27/18 01:23 94 T-piece 10.0 35 08/26/18 23:48 98.4 65 20 135/64 (87) 96 Intake and Output 08/26/18 08/27/18 19:00 07:00 Output Total 500 ml Balance -500 ml Output Urine Total 500 ml Height (Feet): 5 Height (Inches): 11.00 Weight (Pounds): 145 Objective Vitals: reviewed General Appearance: NAD HEENT: normocephalic, atraumatic Neck: non-tender, normal alignment Respiratory/Chest: + trach/vent Cardiovascular/Chest: normal peripheral pulses, normal rate Abdomen: normal bowel sounds, soft, nontender ++ gtube Extremities: normal range of motion Bubba Colón MD Aug 27, 2018 21:11
--- NOTE | 2018-08-27 23:22 | NUR ---
IN BED,NON VERBAL,EYES OPEN,OBTUNDED.SUCTIONED NEDEED.TURNED,REPOSITIONED.ON TRACH.COLLAR W/ 35%AEROSOL.
[2018-08-28 04:20] VITALS: BP 123/57
[2018-08-28] MEDS: Narcotic Shift Volume MISC SCH ×3 (07:00→23:10)
--- NOTE | 2018-08-28 07:17 | NUR ---
HAND-OFF: Report given to CIERRA BAILEY[].
--- NOTE | 2018-08-28 07:22 | NUR ---
NURSE NOTES: received patient in bed, non verbal, obtunded,on trach collar, right TLC femural ,G-tube clamped, suctioned prn, lee cath in place, on NPO/DNR/DNI and comfort measures status, kept clean dry and comfortable CIERRA medrano .
[2018-08-28 08:53] VITALS: BP 141/62
--- NOTE | 2018-08-28 11:26 | GI Progress Note ---
Assessment/Plan Problems: (1) Anemia ICD Codes: D64.9 - Anemia, unspecified SNOMED: 671552488 (2) Feeding by G-tube ICD Codes: Z93.1 - Gastrostomy status SNOMED: 575222962, 680475729 (3) Fecal impaction ICD Codes: K56.41 - Fecal impaction SNOMED: 38771099 (4) Symptomatic bradycardia ICD Codes: R00.1 - Bradycardia, unspecified SNOMED: 85952718, 651779467 Status: unchanged Status Narrative Discussed with Dr. Brantley. Assessment/Plan comfort care The patient was seen and examined at bedside and all new and available data was reviewed in the patients chart. I agree with the above findings, impression and plan. (Patient seen earlier today. Signature stamp does not reflect patient encounter time.). - Dillon Brantley MD Subjective Subjective limited Objective Last 24 Hour Vital Signs Date Time Temp Pulse Resp B/P (MAP) Pulse Ox O2 Delivery O2 Flow Rate FiO2 08/28/18 08:53 99.0 51 20 141/62 (88) 97 08/28/18 08:40 T-piece 08/28/18 07:51 98 T-piece 10.0 35 08/28/18 07:51 T-piece 10.0 35 08/28/18 04:20 99.0 49 20 123/57 (79) 97 08/28/18 01:50 98 10.0 35 08/28/18 01:50 T-piece 10.0 35 08/27/18 21:00 T-piece 08/27/18 20:00 99.4 50 20 143/48 (79) 95 08/27/18 19:55 96 T-piece 10.0 35 08/27/18 19:55 T-piece 10.0 35 08/27/18 17:02 99.7 08/27/18 16:23 101.3 67 20 128/71 (90) 100 08/27/18 13:17 100 T-piece 10.0 35 08/27/18 13:17 T-piece 10.0 35 08/27/18 11:51 100.4 66 20 118/52 (74) 98 Intake and Output 08/27/18 08/28/18 19:00 07:00 Intake Total 100 ml Balance 100 ml Free Water 100 ml Height (Feet): 5 Height (Inches): 11.00 Weight (Pounds): 250 General Appearance: no apparent distress Cardiovascular: normal rate Respiratory/Chest: no respiratory distress Abdominal Exam: normal bowel sounds, non tender, soft Extremities: non-tender Isaac Anaya NP Aug 28, 2018 11:26
[2018-08-28 12:00] VITALS: BP 141/72
--- NOTE | 2018-08-28 12:59 | General Progress Note ---
Assessment/Plan Problem List: (1) Pneumonia ICD Codes: J18.9 - Pneumonia, unspecified organism SNOMED: 317038194 (2) GERD (gastroesophageal reflux disease) ICD Codes: K21.9 - Gastro-esophageal reflux disease without esophagitis SNOMED: 162259358 (3) PVD (peripheral vascular disease) ICD Codes: I73.9 - Peripheral vascular disease, unspecified SNOMED: 158553582 (4) HTN (hypertension) ICD Codes: I10 - Essential (primary) hypertension SNOMED: 98111266 (5) CHF (congestive heart failure) ICD Codes: I50.9 - Heart failure, unspecified SNOMED: 23472485 (6) CVA (cerebral vascular accident) ICD Codes: I63.9 - Cerebral infarction, unspecified SNOMED: 509673888 (7) Seizure ICD Codes: R56.9 - Unspecified convulsions SNOMED: 15724858 (8) Respiratory failure, acute and chronic ICD Codes: J96.20 - Acute and chronic respiratory failure, unspecified whether with hypoxia or hypercapnia SNOMED: 16136527, 96722031 (9) Sepsis ICD Codes: A41.9 - Sepsis, unspecified organism SNOMED: 57363455 (10) Chronic respiratory failure ICD Codes: J96.10 - Chronic respiratory failure, unspecified whether with hypoxia or hypercapnia SNOMED: 27155395 (11) COPD (chronic obstructive pulmonary disease) ICD Codes: J44.9 - Chronic obstructive pulmonary disease, unspecified SNOMED: 39743094 (12) Tracheostomy in place ICD Codes: Z93.0 - Tracheostomy status SNOMED: 780073258 (13) Symptomatic bradycardia ICD Codes: R00.1 - Bradycardia, unspecified SNOMED: 45893938, 709304225 Status: unchanged Assessment/Plan pulm tx trach care comfort measures per family dc to snf if clear Subjective Constitutional: Reports: weakness Allergies: Coded Allergies: BENAZEPRIL (Verified Allergy, Unknown, 06/02/18) All Systems: reviewed and negative except above Subjective trach aerosol lethargic Objective Last 24 Hour Vital Signs Date Time Temp Pulse Resp B/P (MAP) Pulse Ox O2 Delivery O2 Flow Rate FiO2 08/28/18 12:00 97.5 84 21 141/72 (95) 97 08/28/18 08:53 99.0 51 20 141/62 (88) 97 08/28/18 08:40 T-piece 08/28/18 07:51 98 T-piece 10.0 35 08/28/18 07:51 T-piece 10.0 35 08/28/18 04:20 99.0 49 20 123/57 (79) 97 08/28/18 01:50 98 10.0 35 08/28/18 01:50 T-piece 10.0 35 08/27/18 21:00 T-piece 08/27/18 20:00 99.4 50 20 143/48 (79) 95 08/27/18 19:55 96 T-piece 10.0 35 08/27/18 19:55 T-piece 10.0 35 08/27/18 17:02 99.7 08/27/18 16:23 101.3 67 20 128/71 (90) 100 08/27/18 13:17 100 T-piece 10.0 35 08/27/18 13:17 T-piece 10.0 35 Intake and Output 08/27/18 08/28/18 19:00 07:00 Intake Total 100 ml Balance 100 ml Free Water 100 ml Height (Feet): 5 Height (Inches): 11.00 Weight (Pounds): 250 General Appearance: lethargic EENT: normal ENT inspection Neck: normal alignment Cardiovascular: normal peripheral pulses, normal rate, regular rhythm Respiratory/Chest: chest wall non-tender, decreased breath sounds Abdomen: normal bowel sounds, non tender, soft Extremities: normal inspection Edema: no edema noted Arm (L), no edema noted Arm (R), no edema noted Leg (L), no edema noted Leg (R), no edema noted Pedal (L), no edema noted Pedal (R), no edema noted Generalized Neurologic: motor weakness Skin: normal pigmentation, warm/dry Fly Wright DO Aug 28, 2018 12:59
--- NOTE | 2018-08-28 14:22 | NUR ---
Social Service Note SW received a call from patient's dgt Dara Mcgill [phone]. SW explained that the hospital has been in communication with patient's niece and sister and that either has never been an indication of a dgt. The [facility] where [facility] since 2014 is unaware of dgt. Dgt was unaware which facility patient was residing. Dgt stated she visited patient on 08/23 from [facility] and provided admitting her contact information. SW updated dgt of patient's condition. Dgt is in agreement with comfort focused care and was notified of impending dc back to [place]. Dgt will update SNF with her contact information as well.
--- NOTE | 2018-08-28 14:52 | NUR ---
RD ASSESSMENT & RECOMMENDATIONS SEE CARE ACTIVITY FOR COMPLETE ASSESSMENT DAILY ESTIMATED NEEDS: Needs based on Critical care 93kg adj 17-22 kcals/kg 4929-1682 total kcals 1.2-2 g protein/kg 112-186 g total protein 20-25ml/kcal mL/kg 0967-6115 total fluid mLs NUTRITION DIAGNOSIS: 1) Swallowing difficulty R/T respiratory status AEB pt vent dep via trach PEG dep, now comfort care only, TF dc'd. 2) Altered nutrition related lab values r/t clinical status as evidenced by critically low Hgb (5.6*), low BG (48, now normalized), febrile (tmax 101.2). ENTERAL NUTRITION RECOMMENDATIONS: IF INDICATED TO RESTART TF: Osmolite 1.5 goal of 45ml/hr to provide 1080ml, 1620 kcal, 68g pro, 823ml free H2O - IF medically indicated to restart TF, rec Osmolite 1.5 - Start @15ml/hr for 8 hrs. - Advance as tolerated 10ml/hr q4-6 hrs to goal of 45ml/hr x24 hrs - To better meet est pro needs-> add ProSource TID via GT for added 33g pro total. - flush per MD/ HOB over 30 degrees ADDITIONAL RECOMMENDATIONS: * TF as above if medically indicated * Updated labs as able
[2018-08-28] MEDS: PCA Morphine 1mg/ml 30 ML IV PRN ×2 (15:22→21:35)
--- NOTE | 2018-08-28 15:22 | NUR ---
nurse notes on DNR/ comfort measures started on SC[employer]IE[employer] morphine continous at 5 mg/, infusing well, suction by mouth and trach done, kept clean dry and comfortable, tito medrano
--- NOTE | 2018-08-28 15:41 | NUR ---
DISCHARGE PLANNED PATIENT WILL RETURN TO [facility] DETENTION T: [phone] FOR NURSE TO NURSE REPORT [facility] HAS BEEN PLACED ON WILL CALL NURSE NEEDS TO ACTIVATE TRANSPORT BY DIALING [phone] WAITING FOR NURSING TO OBTAIN CLEARANCE FOR DISCHARGE
--- NOTE | 2018-08-28 15:41 | Nephrology Progress Note ---
Assessment/Plan Problem List: (1) Hyperkalemia (2) Anemia (3) Tracheostomy in place (4) Alzheimer's dementia (5) UTI (urinary tract infection) Assessment Hyperkalemia Dehydration High Ca , Low Phos , Low Mag Anemia trach- Vent - PEG OBS UTI Plan now DNR- and comfort care no labs should be ordered no transfusion prn morphine family aware of grim prognosis. Subjective ROS Limited/Unobtainable: Yes Objective Objective Last 24 Hour Vital Signs Date Time Temp Pulse Resp B/P (MAP) Pulse Ox O2 Delivery O2 Flow Rate FiO2 08/28/18 13:49 T-piece 10.0 35 08/28/18 13:49 97 T-piece 10.0 35 08/28/18 12:00 97.5 84 21 141/72 (95) 97 08/28/18 08:53 99.0 51 20 141/62 (88) 97 08/28/18 08:40 T-piece 08/28/18 07:51 98 T-piece 10.0 35 08/28/18 07:51 T-piece 10.0 35 08/28/18 04:20 99.0 49 20 123/57 (79) 97 08/28/18 01:50 98 10.0 35 08/28/18 01:50 T-piece 10.0 35 08/27/18 21:00 T-piece 08/27/18 20:00 99.4 50 20 143/48 (79) 95 08/27/18 19:55 96 T-piece 10.0 35 08/27/18 19:55 T-piece 10.0 35 08/27/18 17:02 99.7 08/27/18 16:23 101.3 67 20 128/71 (90) 100 Intake and Output 08/27/18 08/28/18 19:00 07:00 Intake Total 100 ml Balance 100 ml Free Water 100 ml Height (Feet): 5 Height (Inches): 11.00 Weight (Pounds): 250 General Appearance: no apparent distress Objective no change Rios Morales MD Aug 28, 2018 15:41
[2018-08-28 15:57] VITALS: BP 148/69
--- NOTE | 2018-08-28 16:35 | General Progress Note ---
Assessment/Plan Assessment/Plan Assessment/Recommendations: # Thrombocytopenia - potential causes multifactorial, evaluate liver and viral etiologies to begin, also could be related to underlying medications patient has received. r/o underlying infection. --> Hep panel and HIV negative --> Peripheral smear ordered to evaluate for blasts /schistocytes does not show any --> abx and other meds have been reviewed --> plt trend 49-->70-->29k-->87k --> 1 unit plt and 2 units prbc for 08/21 --> no further labs # Anemia of chronic disease due to underlying chronic medical issues, multifactorial --> Anemia workup has reviewed and c/w acd --> No evidence of hemolysis is noted, peripheral smear has been reviewed. --> Epogen or iron at this time is not particularly indicated --> Medications have been reviewed --> evaluate with Gi team prn --> trend hgb 8.8-->6.1-->5.6 ==> COMFORT MEASURES # Sepsis with uti and potentially pna --> on abx as per id --> continue on prn basis # REspiratory failure s/p trach --> on vent per pulm/cc # Dysphagia s/p peg tube --> feds per gi team # Hyperkalemia # Dexter -- per cards eval, appreciated # DNR/COMFORT CARE MEASURES The timing of this note does not necessarily reflect the time of the patient was seen. Greatly appreciate consultation! Subjective Allergies: Coded Allergies: BENAZEPRIL (Verified Allergy, Unknown, 06/02/18) Subjective 08/20: no events, is dnr, on abx,, in icu 08/21: plt 29k, hgb 6.1, ordered blood today, chayo rn, orders given, in am, patient yawning 08/22: now dnr, comfort care measures 08/25: on comfort care measures, no f/c noted, no events otherwise, hgb low 08/26: comfort measures, no transfusions, no bleeding noted 08/27: unable to illicit a response, is on cc measures 08/28: remains on morphine gtt, comfortable, no complaints, minimally responsive Objective Last 24 Hour Vital Signs Date Time Temp Pulse Resp B/P (MAP) Pulse Ox O2 Delivery O2 Flow Rate FiO2 08/28/18 15:57 98.1 62 22 148/69 (95) 97 08/28/18 13:49 T-piece 10.0 35 08/28/18 13:49 97 T-piece 10.0 35 08/28/18 12:00 97.5 84 21 141/72 (95) 97 08/28/18 08:53 99.0 51 20 141/62 (88) 97 08/28/18 08:40 T-piece 08/28/18 07:51 98 T-piece 10.0 35 08/28/18 07:51 T-piece 10.0 35 08/28/18 04:20 99.0 49 20 123/57 (79) 97 08/28/18 01:50 98 10.0 35 08/28/18 01:50 T-piece 10.0 35 08/27/18 21:00 T-piece 08/27/18 20:00 99.4 50 20 143/48 (79) 95 08/27/18 19:55 96 T-piece 10.0 35 08/27/18 19:55 T-piece 10.0 35 08/27/18 17:02 99.7 Intake and Output 08/27/18 08/28/18 19:00 07:00 Intake Total 100 ml Balance 100 ml Free Water 100 ml Height (Feet): 5 Height (Inches): 11.00 Weight (Pounds): 250 Objective Vitals: reviewed General Appearance: NAD HEENT: normocephalic, atraumatic Neck: non-tender, normal alignment Respiratory/Chest: + trach/vent Cardiovascular/Chest: normal peripheral pulses, normal rate Abdomen: normal bowel sounds, soft, nontender ++ gtube Extremities: normal range of motion Bubba Colón MD Aug 28, 2018 16:35
--- NOTE | 2018-08-28 16:45 | NUR ---
*-* INSURANCE *-* ALL CLINICALS AND REVIEWS HAVE BEENF AXED TO: [facility] NCM:ANGELIQUE P: [phone] F: [phone]
--- NOTE | 2018-08-28 17:11 | Cardiac Electrophysiology PN ---
Assessment/Plan Assessment/Plan 1. S/P Septic shock. EF 65% 2. Bradycardia with heart rate in the 30. DNR, Comfort care 3. Respiratory failure, status post tracheostomy. On Oxygen via Trach with agonal breathing 4. Dysphagia, status post PEG placement. 5. Organic brain syndrome. 6. Sepsis with elevated lactate 7. DNR and comfort care DW RN Subjective Subjective Agonal breathing while on Oxygen via trach. On Morphine drip Objective Last 24 Hour Vital Signs Date Time Temp Pulse Resp B/P (MAP) Pulse Ox O2 Delivery O2 Flow Rate FiO2 08/28/18 15:57 98.1 62 22 148/69 (95) 97 08/28/18 13:49 T-piece 10.0 35 08/28/18 13:49 97 T-piece 10.0 35 08/28/18 12:00 97.5 84 21 141/72 (95) 97 08/28/18 08:53 99.0 51 20 141/62 (88) 97 08/28/18 08:40 T-piece 08/28/18 07:51 98 T-piece 10.0 35 08/28/18 07:51 T-piece 10.0 35 08/28/18 04:20 99.0 49 20 123/57 (79) 97 08/28/18 01:50 98 10.0 35 08/28/18 01:50 T-piece 10.0 35 08/27/18 21:00 T-piece 08/27/18 20:00 99.4 50 20 143/48 (79) 95 08/27/18 19:55 96 T-piece 10.0 35 08/27/18 19:55 T-piece 10.0 35 Intake and Output 08/27/18 08/28/18 19:00 07:00 Intake Total 100 ml Balance 100 ml Free Water 100 ml Objective HEAD AND NECK: No JVD. Tracheostomy is in place. CARDIOVASCULAR: Regular S1 and S2 with no gallop or murmur. ABDOMEN: Status post G-tube. EXTREMITIES: 2+ pitting edema. Minor Liz MD Aug 28, 2018 17:11
--- NOTE | 2018-08-28 17:51 | NUR ---
nurse notes with order discharge to SNF once cleared by , Luli GTZ cardio, still waiting for clearance, patient accepted back at [facility], rm 15 A, patient is will call status for transportation Charge nurse aware not cleared by consults will endorse to incoming shift accordingly tito medrano
--- NOTE | 2018-08-28 19:33 | NUR ---
HAND-OFF: Report given to CIERRA Weems RN
[2018-08-28 20:00] VITALS: BP_SYST 110; BP_SYST 145; BP_DIAS 75; BP_DIAS 78
--- NOTE | 2018-08-28 22:23 | NUR ---
NURSE NOTES: Received patient in bed, non verbal ,on trach collar, right TLC femural, CERTIFIED CYTOTECHNOLOGIST at 5ml/hr, G-tube clamped, suctioned prn, lee cath in place, on NPO/DNR/DNI and comfort measures status, kept clean dry and comfortable
[2018-08-29] VITALS: BP 141/76
[2018-08-29] MEDS: PCA Morphine 1mg/ml 30 ML IV PRN ×3 (03:49→22:15)
[2018-08-29 04:11] VITALS: BP 140/70
[2018-08-29] MEDS: Narcotic Shift Volume MISC SCH ×3 (07:00→23:21)
--- NOTE | 2018-08-29 07:30 | NUR ---
NURSE NOTES: Received pt from CIERRA MCGREGOR. Pt is non verbal. pt has tracheostomy connected to t piece 10l/min. pt has PICC R femoral connected to MANAGER OF SELECTION AND ASSESSMENT 5ml/hr is running well. Pt has Sauceda cath in place is running well. pt is NPO. all needs attended, bed is locked and is in the lowest position, call light within easy reach. will continue to monitor.
[2018-08-29 08:00] VITALS: BP 125/67
--- NOTE | 2018-08-29 08:01 | NUR ---
HAND-OFF: Report given to CIERRA Benavidez.
[2018-08-29 12:00] VITALS: BP 127/78
--- NOTE | 2018-08-29 12:08 | General Progress Note ---
Assessment/Plan Problem List: (1) Pneumonia ICD Codes: J18.9 - Pneumonia, unspecified organism SNOMED: 319146120 (2) GERD (gastroesophageal reflux disease) ICD Codes: K21.9 - Gastro-esophageal reflux disease without esophagitis SNOMED: 816336277 (3) PVD (peripheral vascular disease) ICD Codes: I73.9 - Peripheral vascular disease, unspecified SNOMED: 187263933 (4) HTN (hypertension) ICD Codes: I10 - Essential (primary) hypertension SNOMED: 27062874 (5) CHF (congestive heart failure) ICD Codes: I50.9 - Heart failure, unspecified SNOMED: 92203109 (6) CVA (cerebral vascular accident) ICD Codes: I63.9 - Cerebral infarction, unspecified SNOMED: 007609971 (7) Seizure ICD Codes: R56.9 - Unspecified convulsions SNOMED: 93940118 (8) Respiratory failure, acute and chronic ICD Codes: J96.20 - Acute and chronic respiratory failure, unspecified whether with hypoxia or hypercapnia SNOMED: 10834478, 94923442 (9) Sepsis ICD Codes: A41.9 - Sepsis, unspecified organism SNOMED: 81687682 (10) Chronic respiratory failure ICD Codes: J96.10 - Chronic respiratory failure, unspecified whether with hypoxia or hypercapnia SNOMED: 19789731 (11) COPD (chronic obstructive pulmonary disease) ICD Codes: J44.9 - Chronic obstructive pulmonary disease, unspecified SNOMED: 27744961 (12) Tracheostomy in place ICD Codes: Z93.0 - Tracheostomy status SNOMED: 205947278 (13) Symptomatic bradycardia ICD Codes: R00.1 - Bradycardia, unspecified SNOMED: 41158230, 339287072 Status: unchanged Assessment/Plan pulm tx trach care comfort measures per family dc to snf if clear Subjective Constitutional: Reports: weakness Allergies: Coded Allergies: BENAZEPRIL (Verified Allergy, Unknown, 06/02/18) All Systems: reviewed and negative except above Subjective trach aerosol lethargic Objective Last 24 Hour Vital Signs Date Time Temp Pulse Resp B/P (MAP) Pulse Ox O2 Delivery O2 Flow Rate FiO2 08/29/18 11:47 98.1 08/29/18 08:32 T-piece 10.0 35 08/29/18 08:32 96 T-piece 10.0 35 08/29/18 08:00 98.1 74 20 125/67 (86) 95 08/29/18 04:11 99.2 72 18 140/70 (93) 96 08/29/18 01:50 T-piece 10.0 35 08/29/18 01:50 97 T-piece 10.0 35 08/29/18 00:00 98.7 75 19 141/76 (97) 98 08/28/18 23:41 T-piece 10.0 35 08/28/18 23:40 93 T-piece 10.0 35 08/28/18 22:50 Mechanical Ventilator 08/28/18 20:00 98.7 68 18 145/75 (98) 98 08/28/18 15:57 98.1 62 22 148/69 (95) 97 08/28/18 13:49 T-piece 10.0 35 08/28/18 13:49 97 T-piece 10.0 35 Intake and Output 08/28/18 08/29/18 18:59 06:59 Intake Total 15 ml 60 ml Output Total 550 ml Balance -535 ml 60 ml IV Total 15 ml 60 ml Output Urine Total 550 ml # Bowel Movements 1 Height (Feet): 5 Height (Inches): 11.00 Weight (Pounds): 252 General Appearance: lethargic EENT: normal ENT inspection Neck: normal alignment Cardiovascular: normal peripheral pulses, normal rate, regular rhythm Respiratory/Chest: chest wall non-tender, decreased breath sounds Abdomen: normal bowel sounds, non tender, soft Extremities: normal inspection Edema: no edema noted Arm (L), no edema noted Arm (R), no edema noted Leg (L), no edema noted Leg (R), no edema noted Pedal (L), no edema noted Pedal (R), no edema noted Generalized Neurologic: motor weakness Skin: normal pigmentation, warm/dry Fly Wright DO Aug 29, 2018 12:08
--- NOTE | 2018-08-29 12:29 | GI Progress Note ---
Assessment/Plan Problems: (1) Anemia ICD Codes: D64.9 - Anemia, unspecified SNOMED: 599818506 (2) Feeding by G-tube ICD Codes: Z93.1 - Gastrostomy status SNOMED: 850418269, 915216652 (3) Fecal impaction ICD Codes: K56.41 - Fecal impaction SNOMED: 28059832 (4) Symptomatic bradycardia ICD Codes: R00.1 - Bradycardia, unspecified SNOMED: 14158112, 029078407 Status: unchanged Status Narrative Discussed with Dr. Brantley Assessment/Plan comfort care Patient on a DIRECTOR RETIREMENT pump Restart G-tube feedings per RD recommendations if patient gets discharged The patient was seen and examined at bedside and all new and available data was reviewed in the patients chart. I agree with the above findings, impression and plan. (Patient seen earlier today. Signature stamp does not reflect patient encounter time.). - Dillon Brantley MD Subjective Subjective limited Objective Last 24 Hour Vital Signs Date Time Temp Pulse Resp B/P (MAP) Pulse Ox O2 Delivery O2 Flow Rate FiO2 08/29/18 11:47 98.1 08/29/18 08:32 T-piece 10.0 35 08/29/18 08:32 96 T-piece 10.0 35 08/29/18 08:00 98.1 74 20 125/67 (86) 95 08/29/18 04:11 99.2 72 18 140/70 (93) 96 08/29/18 01:50 T-piece 10.0 35 08/29/18 01:50 97 T-piece 10.0 35 08/29/18 00:00 98.7 75 19 141/76 (97) 98 08/28/18 23:41 T-piece 10.0 35 08/28/18 23:40 93 T-piece 10.0 35 08/28/18 22:50 Mechanical Ventilator 08/28/18 20:00 98.7 68 18 145/75 (98) 98 08/28/18 15:57 98.1 62 22 148/69 (95) 97 08/28/18 13:49 T-piece 10.0 35 08/28/18 13:49 97 T-piece 10.0 35 Intake and Output 08/28/18 08/29/18 18:59 06:59 Intake Total 15 ml 60 ml Output Total 550 ml Balance -535 ml 60 ml IV Total 15 ml 60 ml Output Urine Total 550 ml # Bowel Movements 1 Height (Feet): 5 Height (Inches): 11.00 Weight (Pounds): 252 General Appearance: WD/WN, no apparent distress, alert Cardiovascular: normal rate Respiratory/Chest: normal breath sounds, no respiratory distress, other - Tracheostomy Abdominal Exam: normal bowel sounds, non tender, soft, GT site Extremities: non-tender Isaac Anaya QUAHOGGER Aug 29, 2018 12:29
--- NOTE | 2018-08-29 12:47 | NUR ---
CHARGE NURSE NOTES: FF UP WITH DR. ROJAS REGARDING CLEARANCE FOR DC. PER MD WILL SEE PATIENT IN PM
--- NOTE | 2018-08-29 14:52 | Pulmonology Progress Note ---
Assessment/Plan Problems: (1) Respiratory failure, acute and chronic (2) Sepsis (3) ATN (acute tubular necrosis) (4) Hyperkalemia (5) COPD (chronic obstructive pulmonary disease) (6) Chronic organic brain syndrome (7) Symptomatic bradycardia Assessment/Plan comfort measures looks comfortable no transfusion prn morphine family aware of grim prognosis. call [facility] keep comfortable. moribund, family aware, comfort care Subjective ROS Limited/Unobtainable: No Interval Events: late note 08/28 Allergies: Coded Allergies: BENAZEPRIL (Verified Allergy, Unknown, 06/02/18) Objective Last 24 Hour Vital Signs Date Time Temp Pulse Resp B/P (MAP) Pulse Ox O2 Delivery O2 Flow Rate FiO2 08/29/18 12:59 T-piece 10.0 35 08/29/18 12:59 96 T-piece 10.0 35 08/29/18 11:47 98.1 08/29/18 08:32 T-piece 10.0 35 08/29/18 08:32 96 T-piece 10.0 35 08/29/18 08:00 98.1 74 20 125/67 (86) 95 08/29/18 04:11 99.2 72 18 140/70 (93) 96 08/29/18 01:50 T-piece 10.0 35 08/29/18 01:50 97 T-piece 10.0 35 08/29/18 00:00 98.7 75 19 141/76 (97) 98 08/28/18 23:41 T-piece 10.0 35 08/28/18 23:40 93 T-piece 10.0 35 08/28/18 22:50 Mechanical Ventilator 08/28/18 20:00 98.7 68 18 145/75 (98) 98 08/28/18 15:57 98.1 62 22 148/69 (95) 97 Intake and Output 08/28/18 08/29/18 19:00 07:00 Intake Total 18 ml 57 ml Output Total 550 ml Balance -532 ml 57 ml IV Total 18 ml 57 ml Output Urine Total 550 ml # Bowel Movements 1 Objective General Appearance: WD/WN, unresponsive HEENT: normocephalic, atraumatic, trach Respiratory/Chest: chest wall non-tender, lungs clear Cardiovascular: normal peripheral pulses, normal rate Abdomen: normal bowel sounds, no organomegaly Genitourinary: normal external genitalia Extremities: no cyanosis Lymphatic: no neck adenopathy Current Medications Medications (Trade) Dose Ordered Sig/Fernanda Route PRN Reason Start Time Stop Time Status Last Admin Dose Admin Acetaminophen (Tylenol) 650 mg Q4H PRN ORAL FEVER 08/19/18 07:45 09/18/18 07:44 08/27/18 16:32 Artificial Tears (Akwa-Tears) 1 drop QIDPRN PRN BOTH EYES Dry Eyes 08/21/18 10:30 09/20/18 10:29 Glycopyrrolate (Robinul) 0.1 mg Q6H PRN IV excessive secretions 08/21/18 10:30 09/20/18 10:29 08/21/18 15:27 Haloperidol Lactate (Haldol) 1 mg Q30M PRN IM Agitation 08/21/18 10:30 09/20/18 10:29 Miscellaneous Medication (Narcotic Drip Rate Change) 1 ea DAILY PRN MISC rx protocol 08/21/18 12:30 09/20/18 12:29 Miscellaneous Medication (Narcotic Shift Volume) 1 ea Q8HR@07,15,23 MISC 08/21/18 15:00 09/20/18 14:59 08/29/18 07:00 Morphine Sulfate 30 ml @ 5 mls/hr MAIL OFFICER Protocol PRN IV For Pain 08/28/18 14:43 08/30/18 14:42 08/29/18 11:17 Steve Kothari MD Aug 29, 2018 14:52
--- NOTE | 2018-08-29 15:40 | NUR ---
RESPIRATORY NOTE: Per verbal communication with Dr. Kothari, keep pt on RA. pt was previously on CA-35%. will relay to next RT.
--- NOTE | 2018-08-29 15:50 | Cardiac Electrophysiology PN ---
Assessment/Plan Assessment/Plan 1. S/P Septic shock. EF 65% 2. Bradycardia with heart rate in the 30. DNR, Comfort care 3. Respiratory failure, status post tracheostomy. On Oxygen via Trach with agonal breathing 4. Dysphagia, status post PEG placement. 5. Organic brain syndrome. 6. Sepsis with elevated lactate 7. DNR and comfort care KAYLA RN and Dr. Kothari OK to DC to SNIF/Hospice Subjective Subjective Agonal breathing on Oxygen via trach and Morphine drip Objective Last 24 Hour Vital Signs Date Time Temp Pulse Resp B/P (MAP) Pulse Ox O2 Delivery O2 Flow Rate FiO2 08/29/18 12:59 T-piece 10.0 35 08/29/18 12:59 96 T-piece 10.0 35 08/29/18 12:00 98.9 76 19 127/78 (94) 96 08/29/18 11:47 98.1 08/29/18 09:00 T-piece 08/29/18 08:32 T-piece 10.0 35 08/29/18 08:32 96 T-piece 10.0 35 08/29/18 08:00 98.1 74 20 125/67 (86) 95 08/29/18 04:11 99.2 72 18 140/70 (93) 96 08/29/18 01:50 T-piece 10.0 35 08/29/18 01:50 97 T-piece 10.0 35 08/29/18 00:00 98.7 75 19 141/76 (97) 98 08/28/18 23:41 T-piece 10.0 35 08/28/18 23:40 93 T-piece 10.0 35 08/28/18 22:50 Mechanical Ventilator 08/28/18 20:00 98.7 68 18 145/75 (98) 98 08/28/18 15:57 98.1 62 22 148/69 (95) 97 Intake and Output 08/28/18 08/29/18 19:00 07:00 Intake Total 18 ml 57 ml Output Total 550 ml Balance -532 ml 57 ml IV Total 18 ml 57 ml Output Urine Total 550 ml # Bowel Movements 1 Objective HEAD AND NECK: No JVD. Tracheostomy in place. CARDIOVASCULAR: Regular S1 and S2 with no gallop or murmur. ABDOMEN: Status post G-tube. EXTREMITIES: 2+ pitting edema. Minor Liz MD Aug 29, 2018 15:49
[2018-08-29 16:00] VITALS: BP 155/65
--- NOTE | 2018-08-29 16:06 | NUR ---
*-* INSURANCE *-* ALL CLINICALS HAVE BEENF AXED TO: [facility] NCM:ANGELIQUE P: [phone] F: [phone]
--- NOTE | 2018-08-29 17:06 | NUR ---
CHARGE NURSE NOTES: MADE CHIDI PHARMACIST AWARE, SHOP ESTIMATOR PUMP FOR SOME REASON, NOT INFUSING CORRECT AMOUNT PER HOUR. SET UP TO 5CC/HR, AT 25.2 CC AT THIS TIME. STARTED AT 1140AM. FIXED SETTING ,RESTARTED. PER CHIDI, JUST LET IT INFUSE TIL FINISHED. MD ATKINS AWARE.
--- NOTE | 2018-08-29 17:18 | Nephrology Progress Note ---
Assessment/Plan Problem List: (1) Hyperkalemia (2) Anemia (3) Tracheostomy in place (4) Alzheimer's dementia (5) UTI (urinary tract infection) Assessment Hyperkalemia Dehydration High Ca , Low Phos , Low Mag Anemia trach- Vent - PEG OBS UTI Plan now DNR- and comfort care no labs should be ordered no transfusion prn morphine family aware of grim prognosis. Subjective ROS Limited/Unobtainable: No Objective Objective Last 24 Hour Vital Signs Date Time Temp Pulse Resp B/P (MAP) Pulse Ox O2 Delivery O2 Flow Rate FiO2 08/29/18 16:00 99.0 69 18 155/65 (95) 91 08/29/18 12:59 T-piece 10.0 35 08/29/18 12:59 96 T-piece 10.0 35 08/29/18 12:00 98.9 76 19 127/78 (94) 96 08/29/18 11:47 98.1 08/29/18 09:00 T-piece 08/29/18 08:32 T-piece 10.0 35 08/29/18 08:32 96 T-piece 10.0 35 08/29/18 08:00 98.1 74 20 125/67 (86) 95 08/29/18 04:11 99.2 72 18 140/70 (93) 96 08/29/18 01:50 T-piece 10.0 35 08/29/18 01:50 97 T-piece 10.0 35 08/29/18 00:00 98.7 75 19 141/76 (97) 98 08/28/18 23:41 T-piece 10.0 35 08/28/18 23:40 93 T-piece 10.0 35 08/28/18 22:50 Mechanical Ventilator 08/28/18 20:00 98.7 68 18 145/75 (98) 98 Intake and Output 08/28/18 08/29/18 19:00 07:00 Intake Total 18 ml 57 ml Output Total 550 ml Balance -532 ml 57 ml IV Total 18 ml 57 ml Output Urine Total 550 ml # Bowel Movements 1 Height (Feet): 5 Height (Inches): 11.00 Weight (Pounds): 252 General Appearance: no apparent distress Objective no change Rios Morales MD Aug 29, 2018 17:18
--- NOTE | 2018-08-29 17:19 | NUR ---
NURSE NOTES: asked Dr chappell if pt is clear to discharge but refused to discharge pt, noted and carried out. will continue to monitor.
--- NOTE | 2018-08-29 18:17 | General Progress Note ---
Assessment/Plan Assessment/Plan Assessment/Recommendations: # Thrombocytopenia - potential causes multifactorial, evaluate liver and viral etiologies to begin, also could be related to underlying medications patient has received. r/o underlying infection. --> Hep panel and HIV negative --> Peripheral smear ordered to evaluate for blasts /schistocytes does not show any --> abx and other meds have been reviewed --> plt trend 49-->70-->29k-->87k --> 1 unit plt and 2 units prbc for 08/21 --> no further labs # Anemia of chronic disease due to underlying chronic medical issues, multifactorial --> Anemia workup has reviewed and c/w acd --> No evidence of hemolysis is noted, peripheral smear has been reviewed. --> Epogen or iron at this time is not particularly indicated --> Medications have been reviewed --> evaluate with Gi team prn --> trend hgb 8.8-->6.1-->5.6 ==> COMFORT MEASURES # Sepsis with uti and potentially pna --> on abx as per id --> continue on prn basis # REspiratory failure s/p trach --> on vent per pulm/cc # Dysphagia s/p peg tube --> feds per gi team # Hyperkalemia # Dexter -- per cards eval, appreciated # DNR/COMFORT CARE MEASURES The timing of this note does not necessarily reflect the time of the patient was seen. Greatly appreciate consultation! Subjective Constitutional: Denies: no symptoms, chills, diaphoresis, fever, malaise, weakness, other HEENT: Denies: no symptoms, eye pain, blurred vision, tearing, double vision, ear pain, ear discharge, nose pain, nose congestion, throat pain, throat swelling, mouth pain, mouth swelling, other Cardiovascular: Denies: no symptoms, chest pain, edema, irregular heart rate, lightheadedness, palpitations, syncope, other Respiratory: Denies: no symptoms, cough, orthopnea, shortness of breath, SOB with excertion, SOB at rest, sputum, stridor, wheezing, other Gastrointestinal/Abdominal: Denies: no symptoms, abdomen distended, abdominal pain, black stools, tarry stools, blood in stool, constipated, diarrhea, difficulty swallowing, nausea, poor appetite, poor fluid intake, rectal bleeding , vomiting, other Genitourinary: Denies: no symptoms, burning, discharge, frequency, flank pain, hematuria, incontinence, pain, urgency, other Neurologic/Psychiatric: Denies: no symptoms, anxiety, depressed, emotional problems, headache, numbness, paresthesia, pre-existing deficit, seizure, tingling, tremors, weakness, other Endocrine: Denies: no symptoms, excessive sweating, flushing, intolerance to cold, intolerance to heat, increased hunger, increased thirst, increased urine, unexplained weight gain, unexplained weight loss, other Allergies: Coded Allergies: BENAZEPRIL (Verified Allergy, Unknown, 06/02/18) Subjective 08/20: no events, is dnr, on abx,, in icu 08/21: plt 29k, hgb 6.1, ordered blood today, chayo rn, orders given, in am, patient yawning 08/22: now dnr, comfort care measures 08/25: on comfort care measures, no f/c noted, no events otherwise, hgb low 08/26: comfort measures, no transfusions, no bleeding noted 08/27: unable to illicit a response, is on cc measures 08/28: remains on morphine gtt, comfortable, no complaints, minimally responsive 08/29: no events to report, no f/c, no night sweats Objective Last 24 Hour Vital Signs Date Time Temp Pulse Resp B/P (MAP) Pulse Ox O2 Delivery O2 Flow Rate FiO2 08/29/18 16:00 99.0 69 18 155/65 (95) 91 08/29/18 12:59 T-piece 10.0 35 08/29/18 12:59 96 T-piece 10.0 35 08/29/18 12:00 98.9 76 19 127/78 (94) 96 08/29/18 11:47 98.1 08/29/18 09:00 T-piece 08/29/18 08:32 T-piece 10.0 35 08/29/18 08:32 96 T-piece 10.0 35 08/29/18 08:00 98.1 74 20 125/67 (86) 95 08/29/18 04:11 99.2 72 18 140/70 (93) 96 08/29/18 01:50 T-piece 10.0 35 08/29/18 01:50 97 T-piece 10.0 35 08/29/18 00:00 98.7 75 19 141/76 (97) 98 08/28/18 23:41 T-piece 10.0 35 08/28/18 23:40 93 T-piece 10.0 35 08/28/18 22:50 Mechanical Ventilator 08/28/18 20:00 98.7 68 18 145/75 (98) 98 Intake and Output 08/28/18 08/29/18 19:00 07:00 Intake Total 18 ml 57 ml Output Total 550 ml Balance -532 ml 57 ml IV Total 18 ml 57 ml Output Urine Total 550 ml # Bowel Movements 1 Height (Feet): 5 Height (Inches): 11.00 Weight (Pounds): 252 Objective Vitals: reviewed General Appearance: NAD HEENT: normocephalic, atraumatic Neck: non-tender, normal alignment Respiratory/Chest: + trach/vent Cardiovascular/Chest: normal peripheral pulses, normal rate Abdomen: normal bowel sounds, soft, nontender ++ gtube Extremities: normal range of motion Bubba Colón MD Aug 29, 2018 18:17
--- NOTE | 2018-08-29 18:33 | NUR ---
NURSE NOTES: SPO2 76%-78%, Dr chappell notified, no new order. will continue to monitor.
--- NOTE | 2018-08-29 19:58 | NUR ---
HAND-OFF: Report given to CIERRA SPRING. Addendum: 08/29/18 at 1999 by Pramod Mcclellan RN Reported about SPO2.
[2018-08-29 20:00] VITALS: BP 142/65
--- NOTE | 2018-08-29 20:00 | NUR ---
Pt received in bed, asleep on room air. Fcath in place, draining. PICC line right femoral intact and running CARE ANALYST for comfort care at 5 ml/h. Pt in bed locked in lowest position. On room air. Will contact the doctor to clarify the orders T piece in place- Suctioned as full of secretions. Will continue to monitor patient.
--- NOTE | 2018-08-29 20:29 | NUR ---
RESPIRATORY NOTE:Patient has been on room air since day shift. Patient is on room air due to verbal orders of Dr. given to RT. Patient sating 74-76%. O2 orders are still active in patients orders. Waiting for DR to confirm and cancel orders. Will continue to monitor.
--- NOTE | 2018-08-29 21:00 | NUR ---
NURSE NOTES: Contacted Dr Kothari for orders regarding room air. There was no active order for room air. Called Dr Kothari's for clarification of orders.
[2018-08-30] VITALS: BP 143/72
[2018-08-30 04:00] VITALS: BP 132/68
[2018-08-30] MEDS: PCA Morphine 1mg/ml 30 ML IV PRN ×4 (04:15→16:51)
[2018-08-30] MEDS: Narcotic Shift Volume MISC SCH (07:26)
--- NOTE | 2018-08-30 07:29 | NUR ---
HAND-OFF: Report given to CIERRA Contreras.
--- NOTE | 2018-08-30 07:57 | NUR ---
NURSE NOTES: Received report from CIERRA Jeter. Pt in bed, asleep, nonverbal, trach in place, pt on RA per Dr. Kothari order, SUPERVISOR CYTOLOGY running according to order, bed in lowest position, call light within reach.
[2018-08-30 08:00] VITALS: BP 141/66
--- NOTE | 2018-08-30 08:25 | NUR ---
NURSE NOTES: Pt is on RA according to Order from Dr. Kothari, SpO2 is 69% on comfort measures DNR/DNI
--- NOTE | 2018-08-30 08:30 | General Progress Note ---
Assessment/Plan Problem List: (1) Pneumonia ICD Codes: J18.9 - Pneumonia, unspecified organism SNOMED: 678067922 (2) GERD (gastroesophageal reflux disease) ICD Codes: K21.9 - Gastro-esophageal reflux disease without esophagitis SNOMED: 553239701 (3) PVD (peripheral vascular disease) ICD Codes: I73.9 - Peripheral vascular disease, unspecified SNOMED: 509780348 (4) HTN (hypertension) ICD Codes: I10 - Essential (primary) hypertension SNOMED: 46410929 (5) CHF (congestive heart failure) ICD Codes: I50.9 - Heart failure, unspecified SNOMED: 22471739 (6) CVA (cerebral vascular accident) ICD Codes: I63.9 - Cerebral infarction, unspecified SNOMED: 891887180 (7) Seizure ICD Codes: R56.9 - Unspecified convulsions SNOMED: 95377699 (8) Respiratory failure, acute and chronic ICD Codes: J96.20 - Acute and chronic respiratory failure, unspecified whether with hypoxia or hypercapnia SNOMED: 17942945, 72136062 (9) Sepsis ICD Codes: A41.9 - Sepsis, unspecified organism SNOMED: 61108298 (10) Chronic respiratory failure ICD Codes: J96.10 - Chronic respiratory failure, unspecified whether with hypoxia or hypercapnia SNOMED: 50492377 (11) COPD (chronic obstructive pulmonary disease) ICD Codes: J44.9 - Chronic obstructive pulmonary disease, unspecified SNOMED: 05937509 (12) Tracheostomy in place ICD Codes: Z93.0 - Tracheostomy status SNOMED: 168073927 (13) Symptomatic bradycardia ICD Codes: R00.1 - Bradycardia, unspecified SNOMED: 31528738, 855321486 Status: unchanged Assessment/Plan pulm tx trach care comfort measures per family dc to snf if clear Subjective Constitutional: Reports: weakness Allergies: Coded Allergies: BENAZEPRIL (Verified Allergy, Unknown, 06/02/18) All Systems: reviewed and negative except above Subjective trach aerosol lethargic Objective Last 24 Hour Vital Signs Date Time Temp Pulse Resp B/P (MAP) Pulse Ox O2 Delivery O2 Flow Rate FiO2 08/30/18 08:10 T-piece 08/30/18 08:00 100.0 91 18 141/66 (91) 69 08/30/18 07:07 Room Air 21 19 07:07 69 Room Air 08/30/18 05:22 16 08/30/18 04:00 99.9 92 19 132/68 (89) 74 08/30/18 02:31 17 08/30/18 02:18 17 08/30/18 02:07 16 08/30/18 01:08 Room Air 08/30/18 01:07 16 08/30/18 01:06 74 Room Air 08/30/18 00:37 17 08/30/18 00:07 17 08/30/18 00:00 98.3 89 17 143/72 (95) 77 08/29/18 23:52 17 08/29/18 23:37 17 08/29/18 23:22 18 08/29/18 22:15 18 08/29/18 21:00 T-piece 08/29/18 20:14 71 Room Air 08/29/18 20:14 Room Air 08/29/18 20:00 98.8 82 17 142/65 (90) 75 08/29/18 16:00 99.0 69 18 155/65 (95) 91 08/29/18 12:59 T-piece 10.0 35 08/29/18 12:59 96 T-piece 10.0 35 08/29/18 12:00 98.9 76 19 127/78 (94) 96 08/29/18 11:47 98.1 08/29/18 09:00 T-piece 08/29/18 08:32 T-piece 10.0 35 08/29/18 08:32 96 T-piece 10.0 35 Intake and Output 08/29/18 08/30/18 18:59 06:59 Intake Total 27 ml 60 ml Output Total 500 ml Balance 27 ml -440 ml IV Total 27 ml 60 ml Output Urine Total 500 ml Height (Feet): 5 Height (Inches): 11.00 Weight (Pounds): 252 General Appearance: lethargic EENT: normal ENT inspection Neck: normal alignment Cardiovascular: normal peripheral pulses, normal rate, regular rhythm Respiratory/Chest: chest wall non-tender, lungs clear, normal breath sounds Abdomen: normal bowel sounds, non tender, soft Extremities: normal inspection Edema: no edema noted Arm (L), no edema noted Arm (R), no edema noted Leg (L), no edema noted Leg (R), no edema noted Pedal (L), no edema noted Pedal (R), no edema noted Generalized Neurologic: motor weakness Skin: normal pigmentation, warm/dry Fly Wright DO Aug 30, 2018 08:30
--- NOTE | 2018-08-30 11:34 | NUR ---
NURSE NOTES: Performed in-suctioning and oral care for pt with oral suctioning. Assessed 9 breaths/min, MULTICULTURAL MANAGER still running according to order. Vitals obtained by student nurse.
[2018-08-30 12:00] VITALS: BP 118/73
--- NOTE | 2018-08-30 12:00 | Pulmonology Progress Note ---
Assessment/Plan Problems: (1) Respiratory failure, acute and chronic (2) Sepsis (3) ATN (acute tubular necrosis) (4) Hyperkalemia (5) COPD (chronic obstructive pulmonary disease) (6) Chronic organic brain syndrome (7) Symptomatic bradycardia Assessment/Plan comfort measures looks comfortable no transfusion prn morphine family aware of grim prognosis. [facility] keep comfortable. moribund, family aware, comfort care Subjective ROS Limited/Unobtainable: No Interval Events: looks very comfortable and peaceful Allergies: Coded Allergies: BENAZEPRIL (Verified Allergy, Unknown, 06/02/18) Objective Last 24 Hour Vital Signs Date Time Temp Pulse Resp B/P (MAP) Pulse Ox O2 Delivery O2 Flow Rate FiO2 08/30/18 10:15 100.0 08/30/18 09:07 18 08/30/18 08:10 T-piece 08/30/18 08:00 100.0 91 18 141/66 (91) 69 08/30/18 07:07 Room Air 21 08/30/18 07:07 69 Room Air 08/30/18 05:22 16 08/30/18 04:00 99.9 92 19 132/68 (89) 74 08/30/18 02:31 17 08/30/18 02:18 17 08/30/18 02:07 16 08/30/18 01:08 Room Air 21 08/30/18 01:07 16 08/30/18 01:06 74 Room Air 21 08/30/18 00:37 17 08/30/18 00:07 17 08/30/18 00:00 98.3 89 17 143/72 (95) 77 08/29/18 23:52 17 08/29/18 23:37 17 08/29/18 23:22 18 08/29/18 22:15 18 08/29/18 21:00 T-piece 08/29/18 20:14 71 Room Air 21 08/29/18 20:14 Room Air 21 08/29/18 20:00 98.8 82 17 142/65 (90) 75 08/29/18 16:00 99.0 69 18 155/65 (95) 91 08/29/18 12:59 T-piece 10.0 35 08/29/18 12:59 96 T-piece 10.0 35 08/29/18 12:00 98.9 76 19 127/78 (94) 96 Intake and Output 08/29/18 08/30/18 18:59 06:59 Intake Total 27 ml 60 ml Output Total 500 ml Balance 27 ml -440 ml IV Total 27 ml 60 ml Output Urine Total 500 ml Objective General Appearance: WD/WN, unresponsive HEENT: normocephalic, atraumatic, trach Respiratory/Chest: chest wall non-tender, lungs clear Cardiovascular: normal peripheral pulses, normal rate Abdomen: normal bowel sounds, no organomegaly Genitourinary: normal external genitalia Extremities: no cyanosis Lymphatic: no neck adenopathy Current Medications Medications (Trade) Dose Ordered Sig/Fernanda Route PRN Reason Start Time Stop Time Status Last Admin Dose Admin Acetaminophen (Tylenol) 650 mg Q4H PRN ORAL FEVER 08/19/18 07:45 09/18/18 07:44 08/27/18 16:32 Artificial Tears (Akwa-Tears) 1 drop QIDPRN PRN BOTH EYES Dry Eyes 08/21/18 10:30 09/20/18 10:29 Glycopyrrolate (Robinul) 0.1 mg Q6H PRN IV excessive secretions 08/21/18 10:30 09/20/18 10:29 08/21/18 15:27 Haloperidol Lactate (Haldol) 1 mg Q30M PRN IM Agitation 08/21/18 10:30 09/20/18 10:29 Miscellaneous Medication (Narcotic Drip Rate Change) 1 ea DAILY PRN MISC rx protocol 08/21/18 12:30 09/20/18 12:29 Miscellaneous Medication (Narcotic Shift Volume) 1 ea Q8HR@07,15,23 MISC 08/21/18 15:00 09/20/18 14:59 08/30/18 07:26 Morphine Sulfate 30 ml @ 5 mls/hr BIOINFORMATICIAN Protocol PRN IV For Pain 08/28/18 14:43 08/30/18 14:42 08/30/18 09:45 Steve Kothari MD Aug 30, 2018 12:00
--- NOTE | 2018-08-30 12:13 | NUR ---
NURSE NOTES: SUPERVISOR PRE WAVE Morphine rate changed by Dr. Kothari from 5mg/hr to 10mg/Hr. Changed rate to new order, VT 14.2 at 1214, will restart new dose. Addendum: 08/30/18 at 1218 by CHEYENNE PURDY RN SpO2 71%, RR 7 bpm, nonverbal, no arousable to voice or touch stimulation, FLACC score 0, comfort care Addendum: 08/30/18 at 1220 by CHEYENNE PURDY RN Dr. Kothari is aware that pt has RR 7bpm, SpO2 sat is 71%, order to maintain pt on RA
--- NOTE | 2018-08-30 12:33 | NUR ---
NURSE NOTES: Assessed pt: SpO2 78%, RR 8 bpm, nonarousable to any stimulation, comfort care
--- NOTE | 2018-08-30 14:38 | Nephrology Progress Note ---
Assessment/Plan Problem List: (1) Hyperkalemia (2) Anemia (3) Tracheostomy in place (4) Alzheimer's dementia (5) UTI (urinary tract infection) Assessment Hyperkalemia Dehydration High Ca , Low Phos , Low Mag Anemia trach- Vent - PEG OBS UTI Plan now DNR- and comfort care no labs should be ordered no transfusion prn morphine family aware of grim prognosis. Subjective ROS Limited/Unobtainable: Yes Objective Objective Last 24 Hour Vital Signs Date Time Temp Pulse Resp B/P (MAP) Pulse Ox O2 Delivery O2 Flow Rate FiO2 08/30/18 14:21 99.8 08/30/18 13:40 Room Air 21 08/30/18 13:40 70 Room Air 21 08/30/18 13:07 7 08/30/18 12:00 99.8 103 9 118/73 (88) 77 08/30/18 10:15 100.0 08/30/18 09:07 18 08/30/18 08:10 T-piece 08/30/18 08:00 100.0 91 18 141/66 (91) 69 08/30/18 07:07 Room Air 08/30/18 07:07 69 Room Air 08/30/18 05:22 16 08/30/18 04:00 99.9 92 19 132/68 (89) 74 08/30/18 02:31 17 08/30/18 02:18 17 08/30/18 02:07 16 08/30/18 01:08 Room Air 21 08/30/18 01:07 16 08/30/18 01:06 74 Room Air 08/30/18 00:37 17 08/30/18 00:07 17 08/30/18 00:00 98.3 89 17 143/72 (95) 77 08/29/18 23:52 17 08/29/18 23:37 17 08/29/18 23:22 18 08/29/18 22:15 18 08/29/18 21:00 T-piece 08/29/18 20:14 71 Room Air 21 08/29/18 20:14 Room Air 21 08/29/18 20:00 98.8 82 17 142/65 (90) 75 08/29/18 16:00 99.0 69 18 155/65 (95) 91 Intake and Output 08/29/18 08/30/18 18:59 06:59 Intake Total 27 ml 60 ml Output Total 500 ml Balance 27 ml -440 ml IV Total 27 ml 60 ml Output Urine Total 500 ml Height (Feet): 5 Height (Inches): 11.00 Weight (Pounds): 252 General Appearance: no apparent distress Objective no change Rios Morales MD Aug 30, 2018 14:38
--- NOTE | 2018-08-30 15:44 | Cardiac Electrophysiology PN ---
Assessment/Plan Assessment/Plan 1. S/P Septic shock. EF 65% 2. Bradycardia with heart rate in the 30. DNR, Comfort care 3. Respiratory failure, status post tracheostomy. 4. Dysphagia, status post PEG placement. 5. Organic brain syndrome. 6. Sepsis with elevated lactate 7. DNR and comfort care DW RN Subjective Subjective Agonal breathing on Morphine drip Objective Last 24 Hour Vital Signs Date Time Temp Pulse Resp B/P (MAP) Pulse Ox O2 Delivery O2 Flow Rate FiO2 08/30/18 14:21 99.8 08/30/18 13:40 Room Air 21 08/30/18 13:40 70 Room Air 21 08/30/18 13:07 7 08/30/18 12:00 99.8 103 9 118/73 (88) 77 08/30/18 10:15 100.0 08/30/18 09:07 18 08/30/18 08:10 T-piece 08/30/18 08:00 100.0 91 18 141/66 (91) 69 08/30/18 07:07 Room Air 08/30/18 07:07 69 Room Air 21 08/30/18 05:22 16 08/30/18 04:00 99.9 92 19 132/68 (89) 74 08/30/18 02:31 17 08/30/18 02:18 17 08/30/18 02:07 16 08/30/18 01:08 Room Air 21 08/30/18 01:07 16 08/30/18 01:06 74 Room Air 08/30/18 00:37 17 08/30/18 00:07 17 08/30/18 00:00 98.3 89 17 143/72 (95) 77 08/29/18 23:52 17 08/29/18 23:37 17 08/29/18 23:22 18 08/29/18 22:15 18 08/29/18 21:00 T-piece 08/29/18 20:14 71 Room Air 08/29/18 20:14 Room Air 21 08/29/18 20:00 98.8 82 17 142/65 (90) 75 08/29/18 16:00 99.0 69 18 155/65 (95) 91 Intake and Output 08/29/18 08/30/18 18:59 06:59 Intake Total 27 ml 60 ml Output Total 500 ml Balance 27 ml -440 ml IV Total 27 ml 60 ml Output Urine Total 500 ml Objective HEAD AND NECK: No JVD. Tracheostomy in place. CARDIOVASCULAR: Regular S1 and S2 with no gallop or murmur. ABDOMEN: Status post G-tube. EXTREMITIES: 2+ pitting edema. Minor Liz MD Aug 30, 2018 15:44
[2018-08-30 15:54] VITALS: BP 110/68
[2018-08-30] MEDS ORDERED: Narcotic Shift Volume MISC SCH (19:00)
--- NOTE | 2018-08-30 19:00 | NUR ---
NURSE NOTES: Received a report from CIERRA Contreras. Pt is nonverbal. On room air. HOB elevated. Has a PICC line, intact and patent. Sauceda catheter is draining. Bed in lowest position. Bed alarm is on. Call light within reach. Will continue to monitor.
--- NOTE | 2018-08-30 19:21 | NUR ---
HAND-OFF: Report given to CIERAR Silver.
--- NOTE | 2018-08-30 19:24 | NUR ---
RESPIRATORY NOTE: PT. FOUND UNRESPONSIVE. UNABLE TO GET HR OR SPO2 MEASUREMENT ON PULSE OX. TRACHEAL SX DONE WITH NO RESPONSE AND ABSENT GAG REFLEX. NO HEARTH BEAT / BREATH SOUNDS HEARD ON AUSCULTATION. RN WAS NOTIFIED. RN WAS UNABLE TO GET VITAL SIGNS. RN PRONOUNCE PT'S TIME OF AT 1935.
--- NOTE | 2018-08-30 19:35 | NUR ---
NURSE NOTES: Charge Nurse Jaimee Strange pronounced the of the pt.
--- NOTE | 2018-08-30 19:40 | NUR ---
NURSE NOTES: Informed Maureen Childers, the nursing janitor supervisor, about the of the pt.
--- NOTE | 2018-08-30 19:50 | NUR ---
NURSE NOTES: Taylor NORTON notified the [facility] staff, Rere, about the of the pt.
--- NOTE | 2018-08-30 19:54 | NUR ---
Goldie's Notes: Found unresponsive to deep stimuli; no recognizable breathing; no heart beat on auscultation; no radial pulses on both wrists; eyes are fixed and dilated; unable to get vital signs. Time of pronounced by this RN at 1935. Informed House Sup Maureen Childers of time of . Instructed CIERRA Shane to call MD, family and call [facility] within an hour from time of .
--- NOTE | 2018-08-30 20:10 | NUR ---
NURSE NOTES: Taylor NORTON contacted Dr. Fly Wright about the of the pt. Still waiting for the doctor's response.
--- NOTE | 2018-08-30 21:00 | NUR ---
NURSE NOTES: Taylor RN wasted morphine 2.62 mg. Charge Nurse Jaimee witnessed it.
--- NOTE | 2018-08-30 21:03 | NUR ---
NURSE NOTES: Taylor NORTON called family members: Dara Mcgill and Valarie Davenport. Left a message. Awaiting for call back.
--- NOTE | 2018-08-30 21:25 | NUR ---
NURSE NOTES: Taylor NORTON, spoke with the pt's niece, Ms. Valarie Davenport, informed her about her uncle's .
--- NOTE | 2018-08-30 22:00 | NUR ---
NURSE NOTES: Taylor NORTON, contacted Dr. Kothari about the pt's . Left a message. Awaiting for the doctor's call back.
--- NOTE | 2018-08-30 22:00 | NUR ---
NURSE NOTES: Pt's niece, Valarie has arrived.
--- NOTE | 2018-09-02 14:59 | Discharge Summary ---
Discharge Summary Discharge Summary _ SUMMARY DATE OF ADMISSION: 08/19/2018 DATE OF EXPIRATION: 08/30/2018 REASON FOR ADMISSION: 63 years old male chronically deep a chronically debilitated with past medical history of ventilator dependent respiratory failure, tracheostomy status, dysphagia, feeding by G-tube, anxiety, anemia, renal disease, GERD, obesity, hypertension, COPD, seizure disorder, traumatic brain injury, resident of subacute facility, was sent for evaluation due to hypoxia. In the root testing and regulating chief also reported bradycardia. Upon presentation to emergency department laboratory workup revealed no leukocytosis hemoglobin 9.5 hematocrit 31 potassium 6.4. BUN 41, creatinine 0.8 lactic acid 2.4 magnesium 1.4 troponin 0 0.042. ProBNP 83. EKG reveals sinus urinalysis revealed +2 protein +3 leukocyte esterase pyuria many bacteria and many yeast. EKG revealed left ventricular hypertrophy with repolarization abnormality. Possible ectopic atrial rhythm. Chest x-ray venous duplex revealed bilateral of bilateral lower extremity revealed no evidence of acute DVT. Chest x-ray revealed bilateral infiltrates versus asymmetric pulmonary edema vital signs demonstrated tachycardia hypotension tachycardia patient required placement of central line patient was hemodynamically unstable. Patient started on dopamine drip. Patient was a significantly low rate patient admitted for further management CONSULTANTS: grinder setup operator Dr. Jacobsen neurologist Dr. Hodges pulmonary Dr. Kothari ID specialist Dr. Cotter GI specialist Dr. Brantley wheel and axle inspector Dr. Morales gas tester/oncologist Dr. Colón [facility] COURSE: Patient admitted to ICU. Patient was on pressors. Patient initially started on dopamine. Dopamine was on the maximum dose of blood pressure was still in the 40s. 1 L of fluid was given and Levophed was added to medication regimen. Patient pancultured and started on empiric antibiotics. Bradycardia according to grinder setup operator could be due to hyperkalemia. Echocardiogram revealed preserved ejection fraction of 65-70% with mild left ventricular hypertrophy. No evidence of pericardial effusion. Right ventricular systolic pressure of 53 consistent with a moderate pulmonary hypertension. As hyperkalemia was treated bradycardia resolved. Ventilator support and tracheostomy care provided. Pulmonary toilet provided. Patient was follow-up with a chest x-ray. Settings titrated as needed. ABG was stable on current settings. Pipe Changer follow. Infectious disease specialist closely follow. Blood culture revealed no evidence of growth urine culture revealed Lizy. According to infectious disease specialist patient had sepsis likely due to UTI and pneumonia. Antibiotics were continued as per ID specialist recommendation. HIV test was nonreactive. Neurologist follow. Per neurologist patient was in vegetative state along with a focal cortical and subcortical lesion. Patient had a recent stroke on the left side. Patient also had a history of history of seizure but apparently not on this admission. Patient EEG was ordered as per neurologist. Binder Folder Operator followed. Renal parameters and electrolytes are closely monitor. The as needed. Family was aware of grim prognosis.. GI specialist followed. Strict aspiration precaution maintain patient was on G- tube feeding. Bowel regimen instituted. GI prophylaxis provided. Hemoglobin hematocrit were closely monitor his goal to keep hemoglobin above 7. Pricing Director followed. Anemia workup was consistent with anemia of chronic disease. No evidence of hemolysis noted. Epogen or iron but not particularly indicated. Hemoglobin trending down and last hemoglobin 5.6 however due to change to DNR status and comfort measures no transfusion was done. Thrombocytopenia platelet count was closely monitor. Potential causes for thrombocytopenia were multifactorial as per gas tester including liver and viral etiology as well as possibly related to underlying medication. Hepatitis panel was negative HIV test was negative. Platelets actually trending up from the lowest 29 up to 87. CODE STATUS was changed on 320 7S per DNR/DNI status. Patient started on comfort measures. Patient condition continued to deteriorate. Patient was pronounced at 4 on 1934 because of this cardiopulmonary arrest Tube feedings were hold family did not want any artificial feeding. Patient's condition was discussed with patient with the patient's family. Family aware of grim prognosis. Family decided on comfort care. Subsequently DNR/DNI status CODE STATUS was changed to DNR DNR. Comfort care implicated. Patient was at removed from ventilator. Supplemental oxygen provided as needed. No further transfusion no labs were indicated. Pain management was addressed as needed. Supplemental oxygen provided as needed. Patient eventually started on morphine drip for comfort. Patient condition rapidly deteriorating. Patient was pronounced on 08 30 at 1935. Cause of cardiopulmonary arrest. FINAL DIAGNOSES Sepsis likely secondary to UTI and pneumonia. Septic shock Acute on chronic respiratory failure Tracheostomy status Pneumonia Acute kidney injury/acute tubular necrosis Hyperkalemia -resolved COPD Symptomatic bradycardia - possibly due to hyperkalemia -resolved Alzheimer dementia Dehydration Electrolyte imbalance Dysphagia G-tube feeding Anemia Seizure disorder Traumatic brain injury , consistent with vegetative state Fecal impaction Comfort care I have been assigned to dictate discharge summary for this account. I was not involved in the patient's management. Nadira Alicia NP Sep 02, 2018 14:59
== END 2018-08-30 19:35 | disposition expired | DRG 720 ==
LOC: EDBD 01:02 → EMR 01:30 → ICU 02:28 → EDBEDREQSVC 02:38 → EDBEDREQ 02:38 → 4E 08-21 23:59
PROC: 06HM33Z Insertion of Infusion Device into Right Femoral Vein, Percutaneous Approach (ICD-10-PCS; principal; 2018-08-19)
DX: A41.9 Sepsis, unspecified organism (principal); N17.0 Acute kidney failure with tubular necrosis; J96.20 Acute and chronic respiratory failure, unspecified whether with hypoxia or hypercapnia; R65.21 Severe sepsis with septic shock; Z99.11 Dependence on respirator [ventilator] status; D61.818 Other pancytopenia; Z93.0 Tracheostomy status; J18.9 Pneumonia, unspecified organism; R40.3 Persistent vegetative state; I11.0 Hypertensive heart disease with heart failure; J44.0 Chronic obstructive pulmonary disease with (acute) lower respiratory infection; I50.9 Heart failure, unspecified; G30.9 Alzheimer's disease, unspecified; F02.80 Dementia in other diseases classified elsewhere, unspecified severity, without behavioral disturbance, psychotic disturbance, mood disturbance, and anxiety; E86.0 Dehydration; N39.0 Urinary tract infection, site not specified; R00.1 Bradycardia, unspecified; E87.5 Hyperkalemia; Z93.1 Gastrostomy status; E78.5 Hyperlipidemia, unspecified; F09 Unspecified mental disorder due to known physiological condition; Z86.73 Personal history of transient ischemic attack (TIA), and cerebral infarction without residual deficits; G40.909 Epilepsy, unspecified, not intractable, without status epilepticus; D69.6 Thrombocytopenia, unspecified; D64.9 Anemia, unspecified; R13.10 Dysphagia, unspecified; Z66 Do not resuscitate; Z51.5 Encounter for palliative care; K56.41 Fecal impaction; I73.9 Peripheral vascular disease, unspecified
CPT/HCPCS: 36415; 36600; 71045; 80048; 80053; 80202; 81003; 82043; 82550; 82553; 82570; 82607; 82728; 82746; 82803; 82962; 82977; 83540; 83550; 83605; 83690; 83735; 83880; 84100; 84133; 84165; 84300; 84439; 84443; 84484; 84550; 85007; 85025; 85610; 85730; 86140; 86703; 86705; 86709; 86803; 86850; 86900; 86901; 86920; 87040; 87081; 87086; 87340; 89050; 93005; 93306; 93970; 94002; 94003; 94760; 96361; 96365; 96367; 96375; 99285